=== PATIENT | male | born 1955 | race American Indian/Alaskan Native ===

== ENCOUNTER 2017-06-15 21:41 | Emergency (ER) | payer MEDICAID ==
[2017-06-15 21:50] VITALS: BP 151/106
[2017-06-15] MEDS ORDERED: Pantoprazole 40 MG Vial IVPUSH ONE (21:59)
[2017-06-15] MEDS ORDERED: Ondansetron 4 MG/2 ML SDV IV ONE (21:59)
[2017-06-15] MEDS ORDERED: Lactated Ringers 1,000 ML IV ONE (22:02)
--- NOTE | 2017-06-15 22:35 | EDM.PDOC ---
ED HPI GENERAL MEDICAL PROBLEM - General Chief Complaint: Drug or Alcohol Abuse Stated Complaint: IN BY AMBULANCE Time Seen by Provider: 06/15/17 22:25 Source of Information: Reports: Patient, EMS History Limitations: Reports: No Limitations - History of Present Illness INITIAL COMMENTS - FREE TEXT/NARRATIVE: This 61 yo male patient was brought to the ED by [facility] due to nausea/vomiting. The patient reports he started throwing up blood this afternoon, but has been nauseated and vomiting all day. The patient reports he started drinking alcohol on 06/11/17 and stopped last night. The patient reports he took his medications this morning, but vomited after taking his medications. The patient reports his current symptoms are related to drinking ETOH. The patient reports no history of varicies. Onset: Today Duration: Hour(s):, Constant Location: Reports: Abdomen Quality: Reports: Ache, Dull Severity: Moderate Improves with: Reports: None Worsens with: Reports: None Associated Symptoms: Reports: Cough, Nausea/Vomiting Abdomen Pain Score (Numeric/FACES): 10 - Related Data Allergies Allergy/AdvReac Type Severity Reaction Status Date / Time aspirin Allergy Stomach Verified 06/15/17 21:50 Upset Home Meds: Home Meds Metoprolol Succinate [Toprol XL 100mg] 50 mg PO DAILY 09/04/13 [History] Acetaminophen [Tylenol] 2 tab PO Q8H PRN 12/06/14 [History] Folic Acid 1 mg PO DAILY 12/06/14 [History] Furosemide [Lasix] 40 mg PO DAILY 06/15/17 [History] Pantoprazole Sodium [Protonix] 40 mg PO DAILY 06/15/17 [History] Potassium Chloride [Klor-Con 10] 20 meq PO WITHBREAKFAST 06/15/17 [History] Thiamine HCl [B-1] 100 mg PO DAILY 06/15/17 [History] Past Medical History HEENT History: Reports: None Cardiovascular History: Reports: Hypertension Other Cardiovascular History: Hx of SVT. Dyslipidemia. Respiratory History: Reports: COPD, Sleep Apnea Gastrointestinal History: Reports: Cirrhosis, GERD, PUD Other Gastrointestinal History: alcoholic gastritis Genitourinary History: Reports: Prostate Disorder Musculoskeletal History: Reports: Back Pain, Chronic Neurological History: Reports: None Psychiatric History: Reports: Addiction Other Psychiatric History: Hx of alcoholism. Quit 06/2015 Endocrine/Metabolic History: Reports: None Hematologic History: Reports: None Immunologic History: Reports: None Oncologic (Cancer) History: Reports: None, Prostate Dermatologic History: Reports: None - Infectious Disease History Infectious Disease History: Reports: Chicken Pox - Past Surgical History HEENT Surgical History: Reports: None Male Surgical History: Reports: Circumcision, TURP-Transurethral Resection of Prostate Musculoskeletal Surgical History: Reports: Shoulder Surgery Other Oncologic Surgeries/Procedures: TURP Social & Family History - Tobacco Use Smoking Status *Q: Current Every Day Smoker Years of Tobacco use: 20 Packs/Tins Daily: 0.1 Used Tobacco, but Quit: No Second Hand Smoke Exposure: Yes - Alcohol Use Days Per Week of Alcohol Use: 7 Number of Drinks Per Day: 7 Total Drinks Per Week: 49 - Recreational Drug Use Recreational Drug Use: No Drug Use in Last 12 Months: Yes Recreational Drug Type: Reports: Marijuana/Hashish Recreational Drug Use Frequency: Daily - Living Situation & Occupation Living situation: Reports: Single, with Significant Other Occupation: Unemployed ED ROS GENERAL - Review of Systems Review Of Systems: ROS reveals no pertinent complaints other than HPI. ED EXAM, GENERAL - Physical Exam Exam: See Below Exam Limited By: No Limitations General Appearance: Alert, WD/WN, Moderate Distress Eye Exam: Bilateral Eye: EOMI, Normal Inspection, PERRL Ears: Normal External Exam, Normal Canal, Hearing Grossly Normal, Normal TMs Nose: Normal Inspection, Normal Mucosa, No Blood Throat/Mouth: Normal Inspection, Normal Lips, Normal Teeth, Normal Gums, Normal Oropharynx, Normal Voice, No Airway Compromise Head: Atraumatic, Normocephalic Neck: Normal Inspection, Supple, Non-Tender, Full Range of Motion Respiratory/Chest: No Respiratory Distress, Lungs Clear, Normal Breath Sounds, No Accessory Muscle Use, Chest Non-Tender Cardiovascular: Normal Peripheral Pulses, Regular Rate, Rhythm, No Edema, No Gallop, No JVD, No Murmur, No Rub GI/Abdominal: Guarding, Tender (Male) Exam: Deferred Rectal (Males) Exam: Deferred Back Exam: Normal Inspection Extremities: Normal Inspection, Normal Range of Motion, Non-Tender, Normal Capillary Refill, No Pedal Edema Neurological: Alert, Oriented, CN II-XII Intact, Normal Cognition, Normal Gait, Normal Reflexes, No Motor/Sensory Deficits Psychiatric: Normal Affect, Normal Mood Skin Exam: Warm, Dry, Intact, Normal Color, No Rash Lymphatic: No Adenopathy Course - Vital Signs Last Recorded V/S: Last Vital Signs Temp 36.7 C 06/15/17 21:44 Pulse 104 H 06/15/17 21:44 Resp 18 06/15/17 21:44 BP 151/106 H 06/15/17 21:44 Pulse Ox 100 06/15/17 21:44 - Orders/Labs/Meds Orders: Active Orders 24 hr Category Date Time Status CULTURE STREP A CONFIRMATION [] Stat Lab 06/15/17 23:43 Results STREP SCRN A RAPID W CULT CONF [] Stat Lab 06/15/17 23:43 Results Labs: Laboratory Tests 06/15/17 06/15/17 06/15/17 Range/Units 22:18 22:18 22:18 WBC 11.8 H (5.0-10.0) 10^3/uL RBC 4.87 (4.6-6.2) 10^6/uL Hgb 15.6 (14.0-18.0) g/dL Hct 44.5 (40.0-54.0) % MCV 91.4 D (80-100) fL MCH 32.0 (27.0-34.0) pg MCHC 35.1 H (33.0-35.0) g/dL Plt Count 124 L D (150-450) 10^3/uL Neut % (Auto) 85.2 H (42.2-75.2) % Lymph % (Auto) 8.4 L (20.5-50.1) % [place] % (Auto) 6.1 (2-8) % Eos % (Auto) 0.0 L (1.0-3.0) % Baso % (Auto) 0.3 (0.0-1.0) % Sodium 140 (135-145) mmol/L Potassium 2.9 L (3.6-5.0) mmol/L Chloride 93 L (101-111) mmol/L Carbon Dioxide 22.0 (21.0-31.0) mmol/L Anion Gap 27.9 BUN 4 L (7-18) mg/dL Creatinine 0.9 (0.6-1.3) mg/dL Est Cr Clr Drug Dosing 84.01 mL/min Estimated GFR (MDRD) > 60 BUN/Creatinine Ratio 4.44 Glucose 143 H (74-105) mg/dL Calcium 9.1 (8.4-10.2) mg/dl Magnesium 1.6 L (1.8-2.5) mg/dL Total Bilirubin 2.9 H (0.2-1.0) mg/dL AST 68 H (10-42) IU/L ALT 22 (10-60) IU/L Alkaline Phosphatase 119 (42-121) IU/L Ammonia 26 (11-35) umol/L Total Protein 8.6 H (6.7-8.2) g/dl Albumin 4.2 (3.2-5.5) g/dl Globulin 4.4 Albumin/Globulin Ratio 0.95 Amylase 22 L (28-100) U/L Lipase 25 (22-51) U/L Urine Color (YELLOW) Urine Appearance (CLEAR) Urine pH (5.0-9.0) Ur Specific [place] (1.005-1.030) Urine Protein (NEGATIVE) Urine Glucose (UA) (NEGATIVE) Urine Ketones (NEGATIVE) Urine Occult Blood (NEGATIVE) Urine Nitrite (NEGATIVE) Urine Bilirubin (NEGATIVE) Urine Urobilinogen (0.2-1.0) mg/dL Ur Leukocyte Esterase (NEGATIVE) Urine RBC /HPF Urine WBC (0-5/HPF) /HPF Ur Epithelial Cells /HPF Urine Bacteria (0-FEW/HPF) /HPF Urine Mucus /LPF Urine Opiates Screen (NEGATIVE) Ur Oxycodone Screen (NEGATIVE) Urine Methadone Screen (NEGATIVE) Ur Barbiturates Screen (NEGATIVE) U Tricyclic Antidepress (NEGATIVE) Ur Phencyclidine Scrn (NEGATIVE) Ur Amphetamine Screen (NEGATIVE) U Methamphetamines Scrn (NEGATIVE) Urine MDMA Screen (NEGATIVE) U Benzodiazepines Scrn (NEGATIVE) Urine Cocaine Screen (NEGATIVE) U Marijuana (THC) Screen (NEGATIVE) Ethyl Alcohol 44 mg/dL 06/16/17 06/16/17 Range/Units 01:00 01:00 WBC (5.0-10.0) 10^3/uL RBC (4.6-6.2) 10^6/uL Hgb (14.0-18.0) g/dL Hct (40.0-54.0) % MCV (80-100) fL MCH (27.0-34.0) pg MCHC (33.0-35.0) g/dL Plt Count (150-450) 10^3/uL Neut % (Auto) (42.2-75.2) % Lymph % (Auto) (20.5-50.1) % [place] % (Auto) (2-8) % Eos % (Auto) (1.0-3.0) % Baso % (Auto) (0.0-1.0) % Sodium (135-145) mmol/L Potassium (3.6-5.0) mmol/L Chloride (101-111) mmol/L Carbon Dioxide (21.0-31.0) mmol/L Anion Gap BUN (7-18) mg/dL Creatinine (0.6-1.3) mg/dL Est Cr Clr Drug Dosing mL/min Estimated GFR (MDRD) BUN/Creatinine Ratio Glucose (74-105) mg/dL Calcium (8.4-10.2) mg/dl Magnesium (1.8-2.5) mg/dL Total Bilirubin (0.2-1.0) mg/dL AST (10-42) IU/L ALT (10-60) IU/L Alkaline Phosphatase (42-121) IU/L Ammonia (11-35) umol/L Total Protein (6.7-8.2) g/dl Albumin (3.2-5.5) g/dl Globulin Albumin/Globulin Ratio Amylase (28-100) U/L Lipase (22-51) U/L Urine Color Kim (YELLOW) Urine Appearance Clear (CLEAR) Urine pH 7.5 (5.0-9.0) Ur Specific [place] 1.015 (1.005-1.030) Urine Protein 30 H (NEGATIVE) Urine Glucose (UA) 100 H (NEGATIVE) Urine Ketones 40 H (NEGATIVE) Urine Occult Blood Negative (NEGATIVE) Urine Nitrite Negative (NEGATIVE) Urine Bilirubin Moderate H (NEGATIVE) Urine Urobilinogen >=8.0 H (0.2-1.0) mg/dL Ur Leukocyte Esterase Negative (NEGATIVE) Urine RBC 0-5 /HPF Urine WBC 0-5 (0-5/HPF) /HPF Ur Epithelial Cells Occasional /HPF Urine Bacteria Few (0-FEW/HPF) /HPF Urine Mucus Moderate H /LPF Urine Opiates Screen Negative (NEGATIVE) Ur Oxycodone Screen Negative (NEGATIVE) Urine Methadone Screen Negative (NEGATIVE) Ur Barbiturates Screen Negative (NEGATIVE) U Tricyclic Antidepress Negative (NEGATIVE) Ur Phencyclidine Scrn Negative (NEGATIVE) Ur Amphetamine Screen Negative (NEGATIVE) U Methamphetamines Scrn Negative (NEGATIVE) Urine MDMA Screen Negative (NEGATIVE) U Benzodiazepines Scrn Negative (NEGATIVE) Urine Cocaine Screen Negative (NEGATIVE) U Marijuana (THC) Screen Positive H (NEGATIVE) Ethyl Alcohol mg/dL Meds: Medications Discontinued Medications Generic Name Dose Route Start Last Admin Trade Name Freq PRN Reason Stop Dose Admin Al Hydroxide/Mg Hydroxide 30 ml 06/15/17 23:50 06/15/17 23:54 Gi Cocktail PO 06/15/17 23:51 30 ml ONETIME ONE Administration Lactated Ringer's 1,000 mls @ 999 mls/hr 06/15/17 22:02 06/15/17 22:13 Ringers, Lactated IV 06/15/17 23:02 999 mls/hr .BOLUS ONE Administration Potassium Chloride 10 meq/ 100 mls @ 100 mls/hr 06/15/17 23:08 06/15/17 23:19 Premix IV 06/16/17 00:07 100 mls/hr ONETIME ONE Administration Sodium Chloride 1,000 mls @ 500 mls/hr 06/15/17 23:11 06/15/17 23:19 Normal Saline IV 06/16/17 01:10 500 mls/hr .BOLUS ONE Administration Lorazepam 1 mg 06/16/17 01:20 Ativan IVPUSH 06/16/17 01:21 ONETIME ONE Ondansetron HCl 4 mg 06/15/17 21:59 06/15/17 22:05 Zofran IV 06/15/17 22:00 4 mg ONETIME ONE Administration Pantoprazole Sodium 80 mg 06/15/17 21:59 06/15/17 22:07 Protonix Iv IVPUSH 06/15/17 22:00 80 mg .BOLUS ONE Administration Promethazine HCl 25 mg 06/15/17 23:31 06/15/17 23:39 Phenergan IM 06/15/17 23:32 25 mg ONETIME ONE Administration Departure - Departure Time of Disposition: 01:23 Disposition: Home, Self-Care 01 Condition: Fair Clinical Impression: Gastritis Alcohol withdrawal syndrome Qualifiers: Complication of substance-induced condition: uncomplicated Qualified Code(s): F10.230 - Alcohol dependence with withdrawal, uncomplicated - Discharge Information Instructions: Gastritis, Adult, [id number], Delirium Tremens, [id number] Forms: ED Department Discharge Care Plan Goals: The patient was advised of the examination and lab results during the visit. The patient was given IV fluids, IV potassium, IV Ativan, IV Zofran, and IM Phenergan. The patient was encouraged to avoid alcohol use. The patient was given a script for Zofran (4 mg) #20 to take 1 by mouth every 6 hours as needed for nausea. If the patient has any additional symptoms or concerns, the patient should follow-up with his primary care facility or return to the emergency department. - My Orders Last 24 Hours: My Active Orders 06/15/17 23:43 CULTURE STREP A CONFIRMATION [RM] Stat STREP SCRN A RAPID W CULT CONF [RM] Stat - Assessment/Plan Last 24 Hours: My Active Orders 06/15/17 23:43 CULTURE STREP A CONFIRMATION [RM] Stat STREP SCRN A RAPID W CULT CONF [RM] Stat
[2017-06-15 22:44] LABS: CHLORIDE,CL 93 mmol/L (101-111); SODIUM,NA 140 mmol/L (135-145)
[2017-06-15] MEDS ORDERED: Potassium Chloride 10 MEQ in Premix Bag 1 BAG IV ONE (23:08)
[2017-06-15] MEDS ORDERED: Sodium Chloride 0.9% 1,000 ML IV ONE (23:11)
[2017-06-15] MEDS ORDERED: Promethazine 25 MG/ML SDV IM ONE (23:31)
[2017-06-15] MEDS ORDERED: GI Cocktail Oral Solution 30 ML PO ONE (23:50)
[2017-06-16] MEDS ORDERED: LORazepam 2 MG/ML Syringe IVPUSH ONE (01:20)
== END 2017-06-16 01:42 | disposition home or self-care (01) ==
LOC: DL.ED 21:41
DX: K29.70 Gastritis, unspecified, without bleeding (principal); F10.230 Alcohol dependence with withdrawal, uncomplicated; F17.210 Nicotine dependence, cigarettes, uncomplicated; I10 Essential (primary) hypertension; J44.9 Chronic obstructive pulmonary disease, unspecified; K21.9 Gastro-esophageal reflux disease without esophagitis; Z88.8 Allergy status to other drugs, medicaments and biological substances; Z79.899 Other long term (current) drug therapy; Y90.2 Blood alcohol level of 40-59 mg/100 ml
CPT/HCPCS: 36415; 80053; 80305; 81001; 82140; 82150; 83690; 83735; 85025; 87081; 87430; 96361; 96365; 96372; 96375; 99284; A9270; C9113; G0480; J2060; J2405; J2550; J3480; J7030; J7120

== ENCOUNTER 2017-08-04 04:03 | Emergency (ER) | payer MEDICAID ==
[~2017-08-04 04:03] MED LIST: Ondansetron 4 MG/2 ML SDV IV ONE; Pantoprazole 40 MG Vial IVPUSH ONE
--- NOTE | 2017-08-04 04:37 | EDM.PDOC ---
ED HPI GENERAL MEDICAL PROBLEM - General Chief Complaint: Abdominal Pain Stated Complaint: IN BY AMBULANCE Time Seen by Provider: 08/04/17 04:08 Source of Information: Reports: Patient, EMS History Limitations: Reports: No Limitations - History of Present Illness INITIAL COMMENTS - FREE TEXT/NARRATIVE: ED via [facility] with c/o vomiting and abdominal pain. Onset last night. Patient admits to drinking binge with Whiskey for past 4 days. States prior he had been sober for past 6 months. Onset: Today Quality: Reports: Burning, Sharp Severity: Moderate Context: Reports: Other (ETOH ingestion) Associated Symptoms: Reports: Nausea/Vomiting Abdomen Pain Score (Numeric/FACES): 10 - Related Data Allergies Allergy/AdvReac Type Severity Reaction Status Date / Time aspirin Allergy Stomach Verified 08/04/17 04:10 Upset Home Meds: Home Meds Metoprolol Succinate [Toprol XL 100mg] 50 mg PO DAILY 09/04/13 [History] Acetaminophen [Tylenol] 2 tab PO Q8H PRN 12/06/14 [History] Folic Acid 1 mg PO DAILY 12/06/14 [History] Furosemide [Lasix] 40 mg PO DAILY 06/15/17 [History] Pantoprazole Sodium [Protonix] 40 mg PO DAILY 06/15/17 [History] Potassium Chloride [Klor-Con 10] 20 meq PO WITHBREAKFAST 06/15/17 [History] Thiamine HCl [B-1] 100 mg PO DAILY 06/15/17 [History] Past Medical History HEENT History: Reports: None Cardiovascular History: Reports: Hypertension Other Cardiovascular History: Hx of SVT. Dyslipidemia. Respiratory History: Reports: COPD, Sleep Apnea Gastrointestinal History: Reports: Cirrhosis, GERD, PUD Other Gastrointestinal History: alcoholic gastritis Genitourinary History: Reports: Prostate Disorder Musculoskeletal History: Reports: Back Pain, Chronic Neurological History: Reports: None Psychiatric History: Reports: Addiction Other Psychiatric History: Hx of alcoholism. Quit 06/2015 Endocrine/Metabolic History: Reports: None Hematologic History: Reports: None Immunologic History: Reports: None Oncologic (Cancer) History: Reports: None, Prostate Dermatologic History: Reports: None - Infectious Disease History Infectious Disease History: Reports: Chicken Pox - Past Surgical History HEENT Surgical History: Reports: None Male Surgical History: Reports: Circumcision, TURP-Transurethral Resection of Prostate Musculoskeletal Surgical History: Reports: Shoulder Surgery Other Oncologic Surgeries/Procedures: TURP Social & Family History - Tobacco Use Smoking Status *Q: Current Every Day Smoker Years of Tobacco use: 50 Packs/Tins Daily: 1 Used Tobacco, but Quit: No Second Hand Smoke Exposure: Yes - Caffeine Use Caffeine Use: Reports: Coffee, Soda, Tea - Alcohol Use Days Per Week of Alcohol Use: 7 Number of Drinks Per Day: 7 Total Drinks Per Week: 49 Date of Last Drink: 08/03/17 Time of Last Drink: 19:00 - Recreational Drug Use Recreational Drug Use: No Drug Use in Last 12 Months: Yes Recreational Drug Type: Reports: Marijuana/Hashish Recreational Drug Use Frequency: Daily - Living Situation & Occupation Living situation: Reports: Single, with Significant Other Occupation: Unemployed ED ROS GENERAL - Review of Systems Review Of Systems: See Below Constitutional: Reports: No Symptoms HEENT: Reports: No Symptoms Respiratory: Reports: No Symptoms Cardiovascular: Denies: Chest Pain GI/Abdominal: Reports: Abdominal Pain, Black Stool, Hematemesis, Melena, Nausea , Vomiting : Reports: No Symptoms Musculoskeletal: Reports: No Symptoms Skin: Reports: No Symptoms Neurological: Reports: No Symptoms Psychiatric: Reports: Depression (grief), Other (drinking whiskey) ED EXAM, GI/ABD - Physical Exam Exam: See Below Exam Limited By: No Limitations General Appearance: Alert Eyes: Bilateral: EOMI (sclera injected) Ears: Normal External Exam Nose: Normal Inspection Throat/Mouth: Other (peer dentation, ) Head: Atraumatic, Normocephalic Neck: Normal Inspection Respiratory/Chest: No Respiratory Distress, Normal Breath Sounds Cardiovascular: Normal Peripheral Pulses, Regular Rate, Rhythm GI/Abdominal Exam: Normal Bowel Sounds, Guarding, Tender (generalized, greater epigastric), Other (orange tinged emesis with bloody flecks, gastroccult positive). No: Distended Rectal (Males) Exam: Other. No: Heme + Stool Extremities: Normal Inspection, Normal Range of Motion Neurological: Alert, Oriented, Normal Cognition Psychiatric: Normal Affect Skin Exam: Warm, Dry, Intact EKG INTERPRETATION Rhythm: NSR Course - Vital Signs Last Recorded V/S: Last Vital Signs Temp 100.5 F 08/04/17 07:47 Pulse 109 H 08/04/17 07:47 Resp 18 08/04/17 07:47 BP 119/68 08/04/17 07:47 Pulse Ox 96 08/04/17 07:47 - Orders/Labs/Meds Labs: Laboratory Tests 08/04/17 08/04/17 08/04/17 Range/Units 04:12 04:12 04:12 WBC 15.0 H (5.0-10.0) 10^3/uL RBC 4.92 (4.6-6.2) 10^6/uL Hgb 15.8 (14.0-18.0) g/dL Hct 44.4 (40.0-54.0) % MCV 90.2 (80-100) fL MCH 32.1 (27.0-34.0) pg MCHC 35.6 H (33.0-35.0) g/dL Plt Count 210 D (150-450) 10^3/uL Neut % (Auto) 82.7 H (42.2-75.2) % Lymph % (Auto) 11.7 L (20.5-50.1) % [place] % (Auto) 5.2 (2-8) % Eos % (Auto) 0.0 L (1.0-3.0) % Baso % (Auto) 0.4 (0.0-1.0) % PT 11.6 (9.0-12.0) SEC INR 1.2 (0.9-1.2) Sodium 140 (135-145) mmol/L Potassium 3.5 L (3.6-5.0) mmol/L Chloride 97 L (101-111) mmol/L Carbon Dioxide 20.0 L (21.0-31.0) mmol/L Anion Gap 26.5 BUN 6 L (7-18) mg/dL Creatinine 0.8 (0.6-1.3) mg/dL Est Cr Clr Drug Dosing 90.97 mL/min Estimated GFR (MDRD) > 60 BUN/Creatinine Ratio 7.50 Glucose 138 H (74-105) mg/dL Lactic Acid (0.5-2.2) mmol/L Calcium 9.0 (8.4-10.2) mg/dl Total Bilirubin 1.5 H (0.2-1.0) mg/dL AST 59 H (10-42) IU/L ALT 23 (10-60) IU/L Alkaline Phosphatase 107 (42-121) IU/L Troponin I < 0.02 (0.00-0.02) ng/ml Total Protein 9.0 H (6.7-8.2) g/dl Albumin 4.4 (3.2-5.5) g/dl Globulin 4.6 Albumin/Globulin Ratio 0.96 Amylase 38 (28-100) U/L Lipase 34 (22-51) U/L Urine Color (YELLOW) Urine Appearance (CLEAR) Urine pH (5.0-9.0) Ur Specific [place] (1.005-1.030) Urine Protein (NEGATIVE) Urine Glucose (UA) (NEGATIVE) Urine Ketones (NEGATIVE) Urine Occult Blood (NEGATIVE) Urine Nitrite (NEGATIVE) Urine Bilirubin (NEGATIVE) Urine Urobilinogen (0.2-1.0) mg/dL Ur Leukocyte Esterase (NEGATIVE) Urine RBC /HPF Urine WBC (0-5/HPF) /HPF Ur Epithelial Cells /HPF Urine Bacteria (0-FEW/HPF) /HPF Hyaline Casts /LPF Urine Mucus /LPF Urine Opiates Screen (NEGATIVE) Ur Oxycodone Screen (NEGATIVE) Urine Methadone Screen (NEGATIVE) Ur Barbiturates Screen (NEGATIVE) U Tricyclic Antidepress (NEGATIVE) Ur Phencyclidine Scrn (NEGATIVE) Ur Amphetamine Screen (NEGATIVE) U Methamphetamines Scrn (NEGATIVE) Urine MDMA Screen (NEGATIVE) U Benzodiazepines Scrn (NEGATIVE) Urine Cocaine Screen (NEGATIVE) U Marijuana (THC) Screen (NEGATIVE) Ethyl Alcohol 168 mg/dL 08/04/17 08/04/17 08/04/17 Range/Units 04:12 05:12 05:12 WBC (5.0-10.0) 10^3/uL RBC (4.6-6.2) 10^6/uL Hgb (14.0-18.0) g/dL Hct (40.0-54.0) % MCV (80-100) fL MCH (27.0-34.0) pg MCHC (33.0-35.0) g/dL Plt Count (150-450) 10^3/uL Neut % (Auto) (42.2-75.2) % Lymph % (Auto) (20.5-50.1) % [place] % (Auto) (2-8) % Eos % (Auto) (1.0-3.0) % Baso % (Auto) (0.0-1.0) % PT (9.0-12.0) SEC INR (0.9-1.2) Sodium (135-145) mmol/L Potassium (3.6-5.0) mmol/L Chloride (101-111) mmol/L Carbon Dioxide (21.0-31.0) mmol/L Anion Gap BUN (7-18) mg/dL Creatinine (0.6-1.3) mg/dL Est Cr Clr Drug Dosing mL/min Estimated GFR (MDRD) BUN/Creatinine Ratio Glucose (74-105) mg/dL Lactic Acid 7.4 H (0.5-2.2) mmol/L Calcium (8.4-10.2) mg/dl Total Bilirubin (0.2-1.0) mg/dL AST (10-42) IU/L ALT (10-60) IU/L Alkaline Phosphatase (42-121) IU/L Troponin I (0.00-0.02) ng/ml Total Protein (6.7-8.2) g/dl Albumin (3.2-5.5) g/dl Globulin Albumin/Globulin Ratio Amylase (28-100) U/L Lipase (22-51) U/L Urine Color Dark yellow (YELLOW) Urine Appearance Clear (CLEAR) Urine pH 6.0 (5.0-9.0) Ur Specific [place] 1.010 (1.005-1.030) Urine Protein 30 H (NEGATIVE) Urine Glucose (UA) Negative (NEGATIVE) Urine Ketones Negative (NEGATIVE) Urine Occult Blood Negative (NEGATIVE) Urine Nitrite Negative (NEGATIVE) Urine Bilirubin Negative (NEGATIVE) Urine Urobilinogen 1.0 (0.2-1.0) mg/dL Ur Leukocyte Esterase Negative (NEGATIVE) Urine RBC 0-5 /HPF Urine WBC 0-5 (0-5/HPF) /HPF Ur Epithelial Cells Few /HPF Urine Bacteria Few (0-FEW/HPF) /HPF Hyaline Casts Few H /LPF Urine Mucus Few H /LPF Urine Opiates Screen Negative (NEGATIVE) Ur Oxycodone Screen Negative (NEGATIVE) Urine Methadone Screen Negative (NEGATIVE) Ur Barbiturates Screen Negative (NEGATIVE) U Tricyclic Antidepress Negative (NEGATIVE) Ur Phencyclidine Scrn Negative (NEGATIVE) Ur Amphetamine Screen Negative (NEGATIVE) U Methamphetamines Scrn Negative (NEGATIVE) Urine MDMA Screen Negative (NEGATIVE) U Benzodiazepines Scrn Negative (NEGATIVE) Urine Cocaine Screen Negative (NEGATIVE) U Marijuana (THC) Screen Positive H (NEGATIVE) Ethyl Alcohol mg/dL Meds: Medications Discontinued Medications Generic Name Dose Route Start Last Admin Trade Name Bill PRN Reason Stop Dose Admin Famotidine 20 mg 08/04/17 07:33 08/04/17 07:43 Pepcid IVPUSH 08/04/17 07:34 20 mg ONETIME ONE Administration Multivitamins/Minerals 10 ml/ 1,011 mls @ 999 mls/hr 08/04/17 04:55 08/04/17 05:05 Thiamine HCl 100 mg/ Lactated IV 08/04/17 05:55 999 mls/hr Ringer's ONETIME ONE Administration Iopamidol 75 ml 08/04/17 06:05 08/04/17 06:34 Isovue-300 (61%) IVPUSH 08/04/17 06:06 75 ml ONETIME ONE Administration Lorazepam 0.5 mg 08/04/17 07:32 08/04/17 07:37 Ativan IVPUSH 08/04/17 07:33 0.5 mg ONETIME ONE Administration Metoclopramide HCl 10 mg 08/04/17 06:14 08/04/17 06:17 Reglan IVPUSH 08/04/17 06:15 10 mg ONETIME ONE Administration Ondansetron HCl 4 mg 08/04/17 04:03 08/04/17 04:15 Zofran IV 08/04/17 04:04 4 mg ONETIME ONE Administration Ondansetron HCl 4 mg 08/04/17 07:32 08/04/17 07:37 Zofran IV 08/04/17 07:33 4 mg ONETIME ONE Administration Pantoprazole Sodium 40 mg 08/04/17 04:03 08/04/17 04:17 Protonix Iv IVPUSH 08/04/17 04:04 40 mg ONETIME ONE Administration - Radiology Interpretation Free Text/Narrative:: CXR normal - Re-Assessments/Exams Free Text/Narrative Re-Assessment/Exam: 08/04/17 07:[address] Díaz, recommend tx to [facility] as EGD likely indicated. Patient continues intermittent periods of vomiting and dry heaves. Additional orders for nausea control. Tx via [facility] with [facility] accepting of patient. 08/04/17 07:40 Departure - Departure Time of Disposition: 08:00 Disposition: DC/Tfer to Acute Hospital 02 Condition: Fair Clinical Impression: Alcohol abuse Alcoholic gastritis with bleeding Qualifiers: Chronicity: acute Qualified Code(s): K29.21 - Alcoholic gastritis with bleeding - Discharge Information Referrals: Dougie Frey [Ordering Only Provider] - Forms: ED Department Discharge
[2017-08-04 04:43] LABS: CHLORIDE,CL 97 mmol/L (101-111); SODIUM,NA 140 mmol/L (135-145)
[2017-08-04] MEDS ORDERED: MVI, Adult with Vitamin K 10 ML, Thiamine 100 MG in Lactated Ringers 1,000 ML IV ONE ×3 (04:55)
[2017-08-04] MEDS ORDERED: Iopamidol 612 MG/ML 75 ML Bottle IVPUSH ONE (06:05)
[2017-08-04] MEDS ORDERED: Metoclopramide 10 MG/2 ML SDV IVPUSH ONE (06:14)
[2017-08-04] MEDS ORDERED: LORazepam 2 MG/ML Syringe IVPUSH ONE (07:32)
[2017-08-04] MEDS ORDERED: Ondansetron 4 MG/2 ML SDV IV ONE (07:32)
[2017-08-04] MEDS ORDERED: Famotidine 20 MG/2 ML SDV IVPUSH ONE (07:33)
[2017-08-04 07:48] VITALS: BP 119/68
--- NOTE | 2017-08-04 10:53 | EKG ---
08/04/2017 - DENNIS MURPHY - TIME: 4:23 a.m. EKG shows normal sinus rhythm. Multiple PVCs. [facility] /[id number]
== END 2017-08-04 08:08 ==
LOC: DL.ED 04:03
DX: K29.21 Alcoholic gastritis with bleeding (principal); Z88.6 Allergy status to analgesic agent; I10 Essential (primary) hypertension; F17.210 Nicotine dependence, cigarettes, uncomplicated; Z79.899 Other long term (current) drug therapy
CPT/HCPCS: 36415; 71010; 74177; 80053; 80305; 81001; 82150; 82271; 82272; 83605; 83690; 84484; 85025; 85610; 96365; 96375; 96376; 99285; C9113; G0480; J2060; J2405; J2765; J3411; J7120; Q9967; S0028

== ENCOUNTER 2017-08-14 08:45 | Emergency (ER) | payer MEDICAID ==
[~2017-08-14 08:45] MED LIST changes: -Pantoprazole 40 MG Vial IVPUSH ONE; +Sodium Chloride 0.9% 10 ML Syringe FLUSH PRN
[2017-08-14] MEDS ORDERED: MVI, Adult with Vitamin K 10 ML, Folic Acid 1 MG, Thiamine 100 MG in Lactated Ringers 1... IV ONE ×4 (08:58)
[2017-08-14] MEDS ORDERED: Pantoprazole 40 MG Vial IVPUSH ONE (09:13)
[2017-08-14 09:20] LABS: CHLORIDE,CL 99 mmol/L (101-111); SODIUM,NA 137 mmol/L (135-145)
--- NOTE | 2017-08-14 09:23 | EDM.PDOC ---
ED HPI GENERAL MEDICAL PROBLEM - General Chief Complaint: Abdominal Pain Stated Complaint: IN BY [facility] Time Seen by Provider: 08/14/17 08:50 Source of Information: Reports: Patient, EMS, EMS Notes Reviewed, Family, RN, RN Notes Reviewed History Limitations: Reports: No Limitations - History of Present Illness INITIAL COMMENTS - FREE TEXT/NARRATIVE: Pt presents to the ER per [facility] with c/o nausea/vomiting, and abdominal pain. He states he was recently at [facility] as inpt for acute gastritis. He states he began drinking alcohol again the day he was discharged from the hospital. He states his last drink was last evening, which is also when the vomiting began. He states it has been brown/coffee grounds. He rates his abdominal pain a 10/10, diffuse. Pt admits to fever, chills, nausea, vomiting, chest pain, SOB. Onset: Gradual Onset Date: 08/13/17 Location: Reports: Abdomen Quality: Reports: Burning, Sharp Severity: Severe Improves with: Reports: None Worsens with: Reports: None Associated Symptoms: Reports: Chest Pain, Fever/Chills, Nausea/Vomiting, Shortness of Breath Abdominal Pain Score (Numeric/FACES): 10 - Related Data Allergies Allergy/AdvReac Type Severity Reaction Status Date / Time aspirin Allergy Stomach Verified 08/14/17 08:54 Upset Home Meds: Home Meds Metoprolol Succinate [Toprol XL 100mg] 50 mg PO DAILY 09/04/13 [History] Acetaminophen [Tylenol] 2 tab PO Q8H PRN 12/06/14 [History] Folic Acid 1 mg PO DAILY 12/06/14 [History] Furosemide [Lasix] 40 mg PO DAILY 06/15/17 [History] Pantoprazole Sodium [Protonix] 40 mg PO DAILY 06/15/17 [History] Potassium Chloride [Klor-Con 10] 20 meq PO WITHBREAKFAST 06/15/17 [History] Thiamine HCl [B-1] 100 mg PO DAILY 06/15/17 [History] Past Medical History HEENT History: Reports: None Cardiovascular History: Reports: Hypertension, [place] Other Cardiovascular History: Hx of SVT. Dyslipidemia. Respiratory History: Reports: COPD, Sleep Apnea Gastrointestinal History: Reports: Cirrhosis, GERD, PUD Other Gastrointestinal History: alcoholic gastritis Genitourinary History: Reports: Prostate Disorder Musculoskeletal History: Reports: Back Pain, Chronic Neurological History: Reports: None Psychiatric History: Reports: Addiction Other Psychiatric History: Hx of alcoholism. Quit 06/2015 Endocrine/Metabolic History: Reports: None, Diabetes, Type II Hematologic History: Reports: None Immunologic History: Reports: None Oncologic (Cancer) History: Reports: None, Prostate Dermatologic History: Reports: None - Infectious Disease History Infectious Disease History: Reports: Chicken Pox - Past Surgical History HEENT Surgical History: Reports: None Male Surgical History: Reports: Circumcision, TURP-Transurethral Resection of Prostate Musculoskeletal Surgical History: Reports: Shoulder Surgery Other Oncologic Surgeries/Procedures: TURP Social & Family History - Family History Family Medical History: Noncontributory - Tobacco Use Smoking Status *Q: Former Smoker Years of Tobacco use: 50 Packs/Tins Daily: 1 Used Tobacco, but Quit: Yes Month Tobacco Last Used: Dec Second Hand Smoke Exposure: Yes - Caffeine Use Caffeine Use: Reports: Coffee - Alcohol Use Days Per Week of Alcohol Use: 7 Number of Drinks Per Day: 7 Total Drinks Per Week: 49 Date of Last Drink: 08/13/17 Time of Last Drink: 21:00 - Recreational Drug Use Recreational Drug Use: No Drug Use in Last 12 Months: Yes Recreational Drug Type: Reports: Marijuana/Hashish Recreational Drug Use Frequency: Daily - Living Situation & Occupation Living situation: Reports: Single, with Significant Other Occupation: Unemployed ED ROS GENERAL - Review of Systems Review Of Systems: ROS reveals no pertinent complaints other than HPI. ED EXAM, GI/ABD - Physical Exam Exam: See Below Exam Limited By: No Limitations General Appearance: Alert, WD/WN, Moderate Distress (wretching) Eyes: Bilateral: EOMI Ears: Normal External Exam, Hearing Grossly Normal Nose: Normal Inspection Throat/Mouth: Normal Voice, No Airway Compromise Head: Atraumatic, Normocephalic Neck: Normal Inspection, Supple, Non-Tender, Full Range of Motion Respiratory/Chest: No Respiratory Distress, Lungs Clear, Normal Breath Sounds, No Accessory Muscle Use, Chest Non-Tender Cardiovascular: Normal Peripheral Pulses, Regular Rate, Rhythm, No Gallop, No JVD, No Murmur, No Rub GI/Abdominal Exam: Normal Bowel Sounds, Soft, No Organomegaly, No Distention, No Abnormal Bruit, Tender (Male) Exam: Deferred Rectal (Males) Exam: Deferred Back Exam: Normal Inspection Extremities: Normal Inspection, Normal Range of Motion, Non-Tender, No Pedal Edema, Normal Capillary Refill Neurological: Alert, Oriented, Normal Cognition, No Motor/Sensory Deficits Psychiatric: Normal Affect, Normal Mood Skin Exam: Warm, Dry, Intact, Normal Color, No Rash Lymphatic: No Adenopathy EKG INTERPRETATION EKG Date: 08/14/17 Time: 09:13 Rhythm: NSR Rate (Beats/Min): 95 [place]: Normal P-Wave: Present QRS: Normal ST-T: Normal QT: Prolonged Comparison: No Change EKG Interpretation Comments: No PVC's noted on this EKG Course - Vital Signs Last Recorded V/S: Last Vital Signs Temp 98.8 F 08/14/17 09:59 Pulse 87 08/14/17 09:59 Resp 14 08/14/17 09:59 BP 116/52 L 08/14/17 09:59 Pulse Ox 100 08/14/17 09:59 - Orders/Labs/Meds Orders: Active Orders 24 hr Category Date Time Status EKG Documentation Completion [RC] STAT Care 08/14/17 09:00 Active Peripheral IV Care [RC] . DIRECTED Care 08/14/17 08:44 Active CULTURE BLOOD [BC] Stat Lab 08/14/17 09:01 Ordered CULTURE BLOOD [BC] Stat Lab 08/14/17 09:24 Received Octreotide [SandoSTATIN] 500 mcg Med 08/14/17 10:00 Ordered Sodium Chloride 0.9% [Normal Saline] 250 ml IV ASDIRECTED Pantoprazole [ProTONIX IV] 40 mg Med 08/14/17 09:30 Active Sodium Chloride 0.9% [Normal Saline] 100 ml IV .CONTINUOS Sodium Chloride 0.9% [Normal Saline] 1,000 ml Med 08/14/17 09:55 Ordered IV .BOLUS Sodium Chloride 0.9% [Saline Flush] Med 08/14/17 08:43 Active 10 ml FLUSH ASDIRECTED PRN Blood Culture x2 Reflex Set [OM.PC] Stat Oth 08/14/17 09:01 Ordered Peripheral IV Insertion Adult [OM.PC] Stat Oth 08/14/17 08:43 Ordered Medication Orders Pantoprazole Sodium 40 mg/ (Sodium Chloride) 100 mls @ 20 mls/hr IV .CONTINUOS NILSON Last Admin: 08/14/17 09:24 Dose: 20 mls/hr Octreotide Acetate 500 mcg/ (Sodium Chloride) 255 mls @ 12.5 mls/hr IV ASDIRECTED NILSON Sodium Chloride (Normal Saline) 1,000 mls @ 999 mls/hr IV .BOLUS ONE Stop: 08/14/17 10:55 Sodium Chloride (Saline Flush) 10 ml FLUSH ASDIRECTED PRN PRN Reason: Keep Vein Open Last Admin: 08/14/17 08:58 Dose: 10 ml Labs: Laboratory Tests 08/14/17 08/14/17 08/14/17 Range/Units 08:47 08:47 08:47 WBC 9.6 (5.0-10.0) 10^3/uL RBC 4.80 (4.6-6.2) 10^6/uL Hgb 15.4 (14.0-18.0) g/dL Hct 43.3 (40.0-54.0) % MCV 90.2 (80-100) fL MCH 32.1 (27.0-34.0) pg MCHC 35.6 H (33.0-35.0) g/dL Plt Count 197 (150-450) 10^3/uL Neut % (Auto) 70.5 (42.2-75.2) % Lymph % (Auto) 19.7 L (20.5-50.1) % [place] % (Auto) 8.5 H (2-8) % Eos % (Auto) 0.4 L (1.0-3.0) % Baso % (Auto) 0.9 (0.0-1.0) % Sodium 137 (135-145) mmol/L Potassium 3.3 L (3.6-5.0) mmol/L Chloride 99 L (101-111) mmol/L Carbon Dioxide 15.0 L (21.0-31.0) mmol/L Anion Gap 26.3 BUN 5 L (7-18) mg/dL Creatinine 0.7 (0.6-1.3) mg/dL Est Cr Clr Drug Dosing 97.13 mL/min Estimated GFR (MDRD) > 60 BUN/Creatinine Ratio 7.14 Glucose 113 H (74-105) mg/dL Lactic Acid (0.5-2.2) mmol/L Calcium 9.0 (8.4-10.2) mg/dl Magnesium 1.8 (1.8-2.5) mg/dL Total Bilirubin 1.9 H (0.2-1.0) mg/dL AST 60 H (10-42) IU/L ALT 25 (10-60) IU/L Alkaline Phosphatase 99 (42-121) IU/L Troponin I < 0.02 (0.00-0.02) ng/ml Total Protein 8.4 H (6.7-8.2) g/dl Albumin 4.2 (3.2-5.5) g/dl Globulin 4.2 Albumin/Globulin Ratio 1.00 Amylase (28-100) U/L Lipase (22-51) U/L Urine Color (YELLOW) Urine Appearance (CLEAR) Urine pH (5.0-9.0) Ur Specific [place] (1.005-1.030) Urine Protein (NEGATIVE) Urine Glucose (UA) (NEGATIVE) Urine Ketones (NEGATIVE) Urine Occult Blood (NEGATIVE) Urine Nitrite (NEGATIVE) Urine Bilirubin (NEGATIVE) Urine Urobilinogen (0.2-1.0) mg/dL Ur Leukocyte Esterase (NEGATIVE) Urine RBC /HPF Urine WBC (0-5/HPF) /HPF Ur Epithelial Cells /HPF Urine Bacteria (0-FEW/HPF) /HPF Urine Mucus /LPF Urine Opiates Screen (NEGATIVE) Ur Oxycodone Screen (NEGATIVE) Urine Methadone Screen (NEGATIVE) Ur Barbiturates Screen (NEGATIVE) U Tricyclic Antidepress (NEGATIVE) Ur Phencyclidine Scrn (NEGATIVE) Ur Amphetamine Screen (NEGATIVE) U Methamphetamines Scrn (NEGATIVE) Urine MDMA Screen (NEGATIVE) U Benzodiazepines Scrn (NEGATIVE) Urine Cocaine Screen (NEGATIVE) U Marijuana (THC) Screen (NEGATIVE) Ethyl Alcohol 68 mg/dL 08/14/17 08/14/17 08/14/17 Range/Units 08:47 09:24 09:29 WBC (5.0-10.0) 10^3/uL RBC (4.6-6.2) 10^6/uL Hgb (14.0-18.0) g/dL Hct (40.0-54.0) % MCV (80-100) fL MCH (27.0-34.0) pg MCHC (33.0-35.0) g/dL Plt Count (150-450) 10^3/uL Neut % (Auto) (42.2-75.2) % Lymph % (Auto) (20.5-50.1) % [place] % (Auto) (2-8) % Eos % (Auto) (1.0-3.0) % Baso % (Auto) (0.0-1.0) % Sodium (135-145) mmol/L Potassium (3.6-5.0) mmol/L Chloride (101-111) mmol/L Carbon Dioxide (21.0-31.0) mmol/L Anion Gap BUN (7-18) mg/dL Creatinine (0.6-1.3) mg/dL Est Cr Clr Drug Dosing mL/min Estimated GFR (MDRD) BUN/Creatinine Ratio Glucose (74-105) mg/dL Lactic Acid 6.2 H (0.5-2.2) mmol/L Calcium (8.4-10.2) mg/dl Magnesium (1.8-2.5) mg/dL Total Bilirubin (0.2-1.0) mg/dL AST (10-42) IU/L ALT (10-60) IU/L Alkaline Phosphatase (42-121) IU/L Troponin I (0.00-0.02) ng/ml Total Protein (6.7-8.2) g/dl Albumin (3.2-5.5) g/dl Globulin Albumin/Globulin Ratio Amylase 27 L (28-100) U/L Lipase 32 (22-51) U/L Urine Color [place] (YELLOW) Urine Appearance Clear (CLEAR) Urine pH 6.5 (5.0-9.0) Ur Specific [place] 1.025 (1.005-1.030) Urine Protein 100 H (NEGATIVE) Urine Glucose (UA) 100 H (NEGATIVE) Urine Ketones 15 H (NEGATIVE) Urine Occult Blood Negative (NEGATIVE) Urine Nitrite Negative (NEGATIVE) Urine Bilirubin Moderate H (NEGATIVE) Urine Urobilinogen >=8.0 H (0.2-1.0) mg/dL Ur Leukocyte Esterase Negative (NEGATIVE) Urine RBC 0-5 /HPF Urine WBC Not seen (0-5/HPF) /HPF Ur Epithelial Cells Rare /HPF Urine Bacteria Not seen (0-FEW/HPF) /HPF Urine Mucus Moderate H /LPF Urine Opiates Screen (NEGATIVE) Ur Oxycodone Screen (NEGATIVE) Urine Methadone Screen (NEGATIVE) Ur Barbiturates Screen (NEGATIVE) U Tricyclic Antidepress (NEGATIVE) Ur Phencyclidine Scrn (NEGATIVE) Ur Amphetamine Screen (NEGATIVE) U Methamphetamines Scrn (NEGATIVE) Urine MDMA Screen (NEGATIVE) U Benzodiazepines Scrn (NEGATIVE) Urine Cocaine Screen (NEGATIVE) U Marijuana (THC) Screen (NEGATIVE) Ethyl Alcohol mg/dL 08/14/17 Range/Units 09:29 WBC (5.0-10.0) 10^3/uL RBC (4.6-6.2) 10^6/uL Hgb (14.0-18.0) g/dL Hct (40.0-54.0) % MCV (80-100) fL MCH (27.0-34.0) pg MCHC (33.0-35.0) g/dL Plt Count (150-450) 10^3/uL Neut % (Auto) (42.2-75.2) % Lymph % (Auto) (20.5-50.1) % [place] % (Auto) (2-8) % Eos % (Auto) (1.0-3.0) % Baso % (Auto) (0.0-1.0) % Sodium (135-145) mmol/L Potassium (3.6-5.0) mmol/L Chloride (101-111) mmol/L Carbon Dioxide (21.0-31.0) mmol/L Anion Gap BUN (7-18) mg/dL Creatinine (0.6-1.3) mg/dL Est Cr Clr Drug Dosing mL/min Estimated GFR (MDRD) BUN/Creatinine Ratio Glucose (74-105) mg/dL Lactic Acid (0.5-2.2) mmol/L Calcium (8.4-10.2) mg/dl Magnesium (1.8-2.5) mg/dL Total Bilirubin (0.2-1.0) mg/dL AST (10-42) IU/L ALT (10-60) IU/L Alkaline Phosphatase (42-121) IU/L Troponin I (0.00-0.02) ng/ml Total Protein (6.7-8.2) g/dl Albumin (3.2-5.5) g/dl Globulin Albumin/Globulin Ratio Amylase (28-100) U/L Lipase (22-51) U/L Urine Color (YELLOW) Urine Appearance (CLEAR) Urine pH (5.0-9.0) Ur Specific [place] (1.005-1.030) Urine Protein (NEGATIVE) Urine Glucose (UA) (NEGATIVE) Urine Ketones (NEGATIVE) Urine Occult Blood (NEGATIVE) Urine Nitrite (NEGATIVE) Urine Bilirubin (NEGATIVE) Urine Urobilinogen (0.2-1.0) mg/dL Ur Leukocyte Esterase (NEGATIVE) Urine RBC /HPF Urine WBC (0-5/HPF) /HPF Ur Epithelial Cells /HPF Urine Bacteria (0-FEW/HPF) /HPF Urine Mucus /LPF Urine Opiates Screen Negative (NEGATIVE) Ur Oxycodone Screen Negative (NEGATIVE) Urine Methadone Screen Negative (NEGATIVE) Ur Barbiturates Screen Negative (NEGATIVE) U Tricyclic Antidepress Negative (NEGATIVE) Ur Phencyclidine Scrn Negative (NEGATIVE) Ur Amphetamine Screen Negative (NEGATIVE) U Methamphetamines Scrn Negative (NEGATIVE) Urine MDMA Screen Negative (NEGATIVE) U Benzodiazepines Scrn Negative (NEGATIVE) Urine Cocaine Screen Negative (NEGATIVE) U Marijuana (THC) Screen Positive H (NEGATIVE) Ethyl Alcohol mg/dL Meds: Medications Generic Name Dose Route Start Last Admin Trade Name Freq PRN Reason Stop Dose Admin Pantoprazole Sodium 40 mg/ 100 mls @ 20 mls/hr 08/14/17 09:30 08/14/17 09:24 Sodium Chloride IV 20 mls/hr .CONTINUOS NILSON Administration Octreotide Acetate 500 mcg/ 255 mls @ 12.5 mls/hr 08/14/17 10:00 Sodium Chloride IV ASDIRECTED NILSON Sodium Chloride 1,000 mls @ 999 mls/hr 08/14/17 09:55 Normal Saline IV 08/14/17 10:55 .BOLUS ONE Sodium Chloride 10 ml 08/14/17 08:43 08/14/17 08:58 Saline Flush FLUSH 10 ml ASDIRECTED PRN Administration Keep Vein Open Discontinued Medications Generic Name Dose Route Start Last Admin Trade Name Freq PRN Reason Stop Dose Admin Multivitamins/Minerals 10 ml/ 1,011.2 mls @ 999 mls/hr 08/14/17 08:58 09:14 Folic Acid 1 mg/ Thiamine HCl IV 08/14/17 09:58 999 mls/hr 100 mg/ Lactated Ringer's ONETIME ONE Administration Octreotide Acetate 50 mcg 08/14/17 09:55 Sandostatin IVPUSH 08/14/17 09:56 ONETIME ONE Ondansetron HCl 4 mg 08/14/17 08:44 08/14/17 08:56 Zofran IV 08/14/17 08:45 4 mg ONETIME ONE Administration Pantoprazole Sodium 80 mg 08/14/17 09:13 08/14/17 09:19 Protonix Iv IVPUSH 08/14/17 09:14 80 mg .BOLUS ONE Administration Departure - Departure Time of Disposition: 09:58 Disposition: DC/Tfer to [facility] Condition: Fair, Serious Clinical Impression: Alcohol abuse, Acute upper GI bleed Abdominal pain Qualifiers: Abdominal location: generalized Qualified Code(s): R10.84 - Generalized abdominal pain Alcoholic gastritis with bleeding Qualifiers: Chronicity: acute Qualified Code(s): K29.21 - Alcoholic gastritis with bleeding - Discharge Information Forms: ED Department Discharge, Interfacility Transfer EMTALA - My Orders Last 24 Hours: My Active Orders 08/14/17 08:43 Sodium Chloride 0.9% [Saline Flush] 10 ml FLUSH ASDIRECTED PRN Peripheral IV Insertion Adult [OM.PC] Stat 08/14/17 08:44 Peripheral IV Care [RC] . DIRECTED 08/14/17 09:00 EKG Documentation Completion [RC] STAT 08/14/17 09:01 CULTURE BLOOD [BC] Stat Blood Culture x2 Reflex Set [OM.PC] Stat 08/14/17 09:24 CULTURE BLOOD [BC] Stat 08/14/17 09:30 Pantoprazole [ProTONIX IV] 40 mg Sodium Chloride 0.9% [Normal Saline] 100 ml IV .CONTINUOS 08/14/17 09:55 Sodium Chloride 0.9% [Normal Saline] 1,000 ml IV .BOLUS 08/14/17 10:00 Octreotide [SandoSTATIN] 500 mcg Sodium Chloride 0.9% [Normal Saline] 250 ml IV ASDIRECTED - Assessment/Plan Last 24 Hours: My Active Orders 08/14/17 08:43 Sodium Chloride 0.9% [Saline Flush] 10 ml FLUSH ASDIRECTED PRN Peripheral IV Insertion Adult [OM.PC] Stat 08/14/17 08:44 Peripheral IV Care [RC] . DIRECTED 08/14/17 09:00 EKG Documentation Completion [RC] STAT 08/14/17 09:01 CULTURE BLOOD [BC] Stat Blood Culture x2 Reflex Set [OM.PC] Stat 08/14/17 09:24 CULTURE BLOOD [BC] Stat 08/14/17 09:30 Pantoprazole [ProTONIX IV] 40 mg Sodium Chloride 0.9% [Normal Saline] 100 ml IV .CONTINUOS 08/14/17 09:55 Sodium Chloride 0.9% [Normal Saline] 1,000 ml IV .BOLUS 08/14/17 10:00 Octreotide [SandoSTATIN] 500 mcg Sodium Chloride 0.9% [Normal Saline] 250 ml IV ASDIRECTED
[2017-08-14] MEDS ORDERED: Pantoprazole 40 MG in Sodium Chloride 0.9% 100 ML IV SCH (09:30)
[2017-08-14] MEDS ORDERED: Octreotide 100 MCG/ML SDV IVPUSH ONE (09:55)
[2017-08-14] MEDS ORDERED: Sodium Chloride 0.9% 1,000 ML IV ONE (09:55)
[2017-08-14 10:00] VITALS: BP 116/52
[2017-08-14] MEDS ORDERED: Octreotide 500 MCG in Sodium Chloride 0.9% 250 ML IV SCH (10:00)
[2017-08-14] MEDS ORDERED: Metoclopramide 10 MG/2 ML SDV IVPUSH ONE (10:17)
--- NOTE | 2017-08-17 12:21 | EKG ---
08/14/2017 - DENNIS MURPHY - This 12-lead EKG shows normal sinus rhythm with prolonged QT interval, TX interval of 152, QTc of 503. No significant ST elevation or ST depression noted on this 12-lead EKG. Nonspecific ST-T wave changes noted on lead II and aVR. [facility] /[id number]
== END 2017-08-14 10:37 ==
LOC: DL.ED 08:45
DX: K29.21 Alcoholic gastritis with bleeding (principal); F10.10 Alcohol abuse, uncomplicated; I10 Essential (primary) hypertension; E11.9 Type 2 diabetes mellitus without complications; E78.5 Hyperlipidemia, unspecified; Z88.6 Allergy status to analgesic agent; Z79.899 Other long term (current) drug therapy; Z87.891 Personal history of nicotine dependence
CPT/HCPCS: 36415; 80053; 80305; 81001; 82150; 82271; 83605; 83690; 83735; 84484; 85025; 87040; 93005; 96365; 96375; 96376; 99285; C9113; G0480; J2354; J2405; J2765; J3411; J7030; J7050; J7120; J3490

== ENCOUNTER 2017-12-11 12:48 | Emergency (ER) | payer MEDICAID, OTHER ==
[2017-12-11] MEDS ORDERED: Sodium Chloride 0.9% 10 ML Syringe FLUSH PRN (12:56)
[2017-12-11] MEDS ORDERED: MVI, Adult with Vitamin K 10 ML, Thiamine 100 MG, Folic Acid 1 MG in Lactated Ringers 1... IV ONE ×4 (12:56)
[2017-12-11] MEDS ORDERED: Ondansetron 4 MG/2 ML SDV IV ONE (12:56)
[2017-12-11] MEDS ORDERED: Octreotide 100 MCG/ML SDV IVPUSH ONE (12:56)
[2017-12-11] MEDS ORDERED: Pantoprazole 40 MG Vial IVPUSH ONE (12:57)
[2017-12-11] MEDS ORDERED: Pantoprazole 40 MG in Sodium Chloride 0.9% 100 ML IV SCH (12:58)
[2017-12-11 12:59] VITALS: BP 141/77
[2017-12-11] MEDS ORDERED: LORazepam 2 MG/ML Syringe IVPUSH ONE (13:00)
[2017-12-11] MEDS ORDERED: Octreotide 500 MCG in Sodium Chloride 0.9% 250 ML IV SCH (13:00)
[2017-12-11 13:37] LABS: CHLORIDE,CL 101 mmol/L (101-111); SODIUM,NA 136 mmol/L (135-145)
[2017-12-11] MEDS ORDERED: Potassium Chloride 10 MEQ in Premix Bag 1 BAG IV ONE (13:40)
--- NOTE | 2017-12-11 14:23 | EDM.PDOC ---
Scribed by Marisela Ren 12/11/17 [id number] for Kameron Haque MD ED HPI GENERAL MEDICAL PROBLEM - General Chief Complaint: Gastrointestinal Problem Stated Complaint: AMBULANCE Time Seen by Provider: 12/11/17 12:51 Source of Information: Reports: Patient, EMS, EMS Notes Reviewed, RN, RN Notes Reviewed - History of Present Illness INITIAL COMMENTS - FREE TEXT/NARRATIVE: Patient arrives from home by ambulance with complaint of onset of alcohol withdrawal during the night and waking this morning with nausea and vomiting with epigastric abdominal pain and burning. Patient states he vomited a few times, then had a large bloody emesis followed by a black stool bowel movement. 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 Patient had been sober but relapsed on 12/05/17 with heavy daily hard alcohol drinking until yesterday. Onset: Gradual Location: Reports: Abdomen Quality: Reports: Ache Severity: Severe Improves with: Reports: None Worsens with: Reports: None Associated Symptoms: Reports: No Other Symptoms Abdominal Pain Score (Numeric/FACES): 10 - Related Data Allergies Allergy/AdvReac Type Severity Reaction Status Date / Time aspirin Allergy Stomach Verified 12/11/17 13:08 Upset Home Meds: Home Meds Metoprolol Succinate [Toprol XL 100mg] 50 mg PO DAILY 09/04/13 [History] Acetaminophen [Tylenol] 2 tab PO Q8H PRN 12/06/14 [History] Folic Acid 1 mg PO DAILY 12/06/14 [History] Furosemide [Lasix] 40 mg PO DAILY 06/15/17 [History] Pantoprazole Sodium [Protonix] 40 mg PO DAILY 06/15/17 [History] Potassium Chloride [Klor-Con 10] 20 meq PO WITHBREAKFAST 06/15/17 [History] Thiamine HCl [B-1] 100 mg PO DAILY 06/15/17 [History] Lactulose 15 mg PO DAILY 12/11/17 [History] Spironolactone [Aldactone] 12/11/17 [History] Spironolactone [Aldactone] 100 mg PO DAILY 12/11/17 [History] Past Medical History HEENT History: Reports: None Cardiovascular History: Reports: Hypertension Other Cardiovascular History: Hx of SVT. Dyslipidemia. Respiratory History: Reports: COPD, Sleep Apnea Gastrointestinal History: Reports: Cirrhosis, GERD, PUD Other Gastrointestinal History: alcoholic gastritis Genitourinary History: Reports: Prostate Disorder Musculoskeletal History: Reports: Back Pain, Chronic Neurological History: Reports: None Psychiatric History: Reports: Addiction Other Psychiatric History: Hx of alcoholism. Quit 06/2015 Endocrine/Metabolic History: Reports: None Hematologic History: Reports: None Immunologic History: Reports: None Oncologic (Cancer) History: Reports: None, Prostate Dermatologic History: Reports: None - Infectious Disease History Infectious Disease History: Reports: Chicken Pox - Past Surgical History HEENT Surgical History: Reports: None Male Surgical History: Reports: Circumcision, TURP-Transurethral Resection of Prostate Musculoskeletal Surgical History: Reports: Shoulder Surgery Other Oncologic Surgeries/Procedures: TURP Social & Family History - Family History Family Medical History: Noncontributory - Tobacco Use Smoking Status *Q: Current Every Day Smoker Years of Tobacco use: 50 Packs/Tins Daily: 1 Used Tobacco, but Quit: No Month/Year Tobacco Last Used: Dec Second Hand Smoke Exposure: Yes - Caffeine Use Caffeine Use: Reports: Coffee, Soda, Tea - Alcohol Use Days Per Week of Alcohol Use: 7 Number of Drinks Per Day: 7 Total Drinks Per Week: 49 - Recreational Drug Use Recreational Drug Use: No Drug Use in Last 12 Months: Yes Recreational Drug Type: Reports: Marijuana/Hashish Recreational Drug Use Frequency: Daily - Living Situation & Occupation Living situation: Reports: Single, with Significant Other Occupation: Unemployed ED ROS GENERAL - Review of Systems Review Of Systems: ROS reveals no pertinent complaints other than HPI. ED EXAM, GI/ABD - Physical Exam Exam: See Below Exam Limited By: No Limitations General Appearance: Alert, Other (chronically ill, active emesis and non-toxic appearing. ) Eyes: Bilateral: EOMI (mild scleral icterus), Nystagmus (lateral) Ears: Normal External Exam, Hearing Grossly Normal Nose: Normal Inspection, Normal Mucosa, No Blood Throat/Mouth: Normal Lips, Normal Oropharynx, Normal Voice, No Airway Compromise , Other (dry oral membranes). No: Normal Teeth Head: Atraumatic, Normocephalic Neck: Normal Inspection, Supple, Non-Tender, Full Range of Motion Respiratory/Chest: No Respiratory Distress, Lungs Clear, Normal Breath Sounds, No Accessory Muscle Use, Chest Non-Tender Cardiovascular: Normal Peripheral Pulses, Regular Rate, Rhythm, No Edema, No Gallop, No JVD, No Murmur, No Rub GI/Abdominal Exam: Soft, No Distention, No Abnormal Bruit, Tender (mild diffuse tenderness, focal acute epigastric tenderness), Abnormal Bowel Sounds ( hyperactive). No: Guarding, Rigid, Rebound (Male) Exam: Deferred Rectal (Males) Exam: Deferred Back Exam: Normal Inspection, Full Range of Motion, NT Extremities: Normal Inspection, Normal Range of Motion, Non-Tender, Normal Capillary Refill, No Pedal Edema Neurological: Alert, Oriented, CN II-XII Intact, Normal Cognition, Normal Reflexes, No Motor/Sensory Deficits, Other (fine temor bilateral hands) Psychiatric: Anxious Skin Exam: Warm, Dry, Intact, No Rash, Jaundice EKG INTERPRETATION EKG Date: 12/11/17 Time: 13:13 Rhythm: Other (sinus rhythm) Rate (Beats/Min): 84 [place]: Normal P-Wave: Present QRS: Normal ST-T: Normal QT: Prolonged Course - Vital Signs Last Recorded V/S: Last Vital Signs Temp 37.1 C 12/11/17 12:55 Pulse 89 12/11/17 12:55 Resp 20 12/11/17 12:55 BP 141/77 H 12/11/17 12:55 Pulse Ox 100 12/11/17 12:55 - Orders/Labs/Meds Orders: Active Orders 24 hr Category Date Time Status EKG 12 Lead [EKG Documentation Completion] [RC] STAT Care 12/11/17 12:55 Active Peripheral IV Care [RC] . DIRECTED Care 12/11/17 12:56 Active DRUG SCREEN URINE BIORAD [URCHEM] Stat Lab 12/11/17 14:11 Ordered UA W/MICROSCOPIC [URIN] Stat Lab 12/11/17 14:11 Ordered Octreotide [SandoSTATIN] 500 mcg Med 12/11/17 13:00 Active Sodium Chloride 0.9% [Normal Saline] 250 ml IV ASDIRECTED Pantoprazole [ProTONIX IV] 40 mg Med 12/11/17 12:58 Active Sodium Chloride 0.9% [Normal Saline] 100 ml IV .CONTINUOS Potassium Chloride [KCl 10 MEQ in Water 100 ML] 10 meq Med 12/11/17 13:40 Active Premix Bag 1 bag IV ONETIME Sodium Chloride 0.9% [Saline Flush] Med 12/11/17 12:56 Active 10 ml FLUSH ASDIRECTED PRN Peripheral IV Insertion Adult [OM.PC] Stat Oth 12/11/17 12:55 Ordered Medication Orders Octreotide Acetate 500 mcg/ (Sodium Chloride) 255 mls @ 12.5 mls/hr IV ASDIRECTED NILSON Last Admin: 12/11/17 13:40 Dose: 12.5 mls/hr Pantoprazole Sodium 40 mg/ (Sodium Chloride) 100 mls @ 20 mls/hr IV .CONTINUOS NILSON Last Admin: 12/11/17 13:25 Dose: 20 mls/hr Potassium Chloride 10 meq/ (Premix) 100 mls @ 100 mls/hr IV ONETIME ONE Stop: 12/11/17 14:39 Last Admin: 12/11/17 13:56 Dose: 100 mls/hr Sodium Chloride (Saline Flush) 10 ml FLUSH ASDIRECTED PRN PRN Reason: Keep Vein Open Last Admin: 12/11/17 13:17 Dose: 10 ml Labs: Laboratory Tests 12/11/17 12/11/17 12/11/17 Range/Units 13:08 13:08 13:08 WBC 6.8 (5.0-10.0) 10^3/uL RBC 4.80 (4.6-6.2) 10^6/uL Hgb 14.4 (14.0-18.0) g/dL Hct 41.1 (40.0-54.0) % MCV 85.6 D (80-100) fL MCH 30.0 (27.0-34.0) pg MCHC 35.0 (33.0-35.0) g/dL Plt Count 150 (150-450) 10^3/uL Neut % (Auto) 76.7 H (42.2-75.2) % Lymph % (Auto) 15.1 L (20.5-50.1) % Mcintosh % (Auto) 6.9 (2-8) % Eos % (Auto) 0.4 L (1.0-3.0) % Baso % (Auto) 0.9 (0.0-1.0) % PT 12.0 (9.0-12.0) SEC INR 1.2 (0.9-1.2) APTT 26.6 (22.0-34.0) SEC Sodium 136 (135-145) mmol/L Potassium 2.8 L (3.6-5.0) mmol/L Chloride 101 (101-111) mmol/L Carbon Dioxide 19.0 L (21.0-31.0) mmol/L Anion Gap 18.8 BUN < 5 L (7-18) mg/dL Creatinine 0.7 (0.6-1.3) mg/dL Est Cr Clr Drug Dosing 103.97 mL/min Estimated GFR (MDRD) > 60 BUN/Creatinine Ratio 7.14 Glucose 114 H (74-105) mg/dL Calcium 8.3 L (8.4-10.2) mg/dl Magnesium (1.8-2.5) mg/dL Total Bilirubin 1.5 H (0.2-1.0) mg/dL AST 107 H (10-42) IU/L ALT 44 (10-60) IU/L Alkaline Phosphatase 86 (42-121) IU/L Ammonia (11-35) umol/L Total Protein 7.8 (6.7-8.2) g/dl Albumin 4.0 (3.2-5.5) g/dl Globulin 3.8 Albumin/Globulin Ratio 1.05 Amylase 27 L (28-100) U/L Lipase 26 (22-51) U/L Urine Opiates Screen (NEGATIVE) Ur Oxycodone Screen (NEGATIVE) Urine Methadone Screen (NEGATIVE) Ur Barbiturates Screen (NEGATIVE) U Tricyclic Antidepress (NEGATIVE) Ur Phencyclidine Scrn (NEGATIVE) Ur Amphetamine Screen (NEGATIVE) U Methamphetamines Scrn (NEGATIVE) Urine MDMA Screen (NEGATIVE) U Benzodiazepines Scrn (NEGATIVE) Urine Cocaine Screen (NEGATIVE) U Marijuana (THC) Screen (NEGATIVE) Ethyl Alcohol 68 mg/dL 12/11/17 12/11/17 12/11/17 Range/Units 13:08 13:08 14:11 WBC (5.0-10.0) 10^3/uL RBC (4.6-6.2) 10^6/uL Hgb (14.0-18.0) g/dL Hct (40.0-54.0) % MCV (80-100) fL MCH (27.0-34.0) pg MCHC (33.0-35.0) g/dL Plt Count (150-450) 10^3/uL Neut % (Auto) (42.2-75.2) % Lymph % (Auto) (20.5-50.1) % Mcintosh % (Auto) (2-8) % Eos % (Auto) (1.0-3.0) % Baso % (Auto) (0.0-1.0) % PT (9.0-12.0) SEC INR (0.9-1.2) APTT (22.0-34.0) SEC Sodium (135-145) mmol/L Potassium (3.6-5.0) mmol/L Chloride (101-111) mmol/L Carbon Dioxide (21.0-31.0) mmol/L Anion Gap BUN (7-18) mg/dL Creatinine (0.6-1.3) mg/dL Est Cr Clr Drug Dosing mL/min Estimated GFR (MDRD) BUN/Creatinine Ratio Glucose (74-105) mg/dL Calcium (8.4-10.2) mg/dl Magnesium 1.2 L (1.8-2.5) mg/dL Total Bilirubin (0.2-1.0) mg/dL AST (10-42) IU/L ALT (10-60) IU/L Alkaline Phosphatase (42-121) IU/L Ammonia 41 H (11-35) umol/L Total Protein (6.7-8.2) g/dl Albumin (3.2-5.5) g/dl Globulin Albumin/Globulin Ratio Amylase (28-100) U/L Lipase (22-51) U/L Urine Opiates Screen Negative (NEGATIVE) Ur Oxycodone Screen Negative (NEGATIVE) Urine Methadone Screen Negative (NEGATIVE) Ur Barbiturates Screen Negative (NEGATIVE) U Tricyclic Antidepress Negative (NEGATIVE) Ur Phencyclidine Scrn Negative (NEGATIVE) Ur Amphetamine Screen Negative (NEGATIVE) U Methamphetamines Scrn Negative (NEGATIVE) Urine MDMA Screen Negative (NEGATIVE) U Benzodiazepines Scrn Negative (NEGATIVE) Urine Cocaine Screen Negative (NEGATIVE) U Marijuana (THC) Screen Positive H (NEGATIVE) Ethyl Alcohol mg/dL Meds: Medications Generic Name Dose Route Start Last Admin Trade Name Freq PRN Reason Stop Dose Admin Octreotide Acetate 500 mcg/ 255 mls @ 12.5 mls/hr 12/11/17 13:00 12/11/17 13: 40 Sodium Chloride IV 12.5 mls/hr ASDIRECTED NILSON Administration Pantoprazole Sodium 40 mg/ 100 mls @ 20 mls/hr 12/11/17 12:58 12/11/17 13:25 Sodium Chloride IV 20 mls/hr .CONTINUOS NILSON Administration Potassium Chloride 10 meq/ 100 mls @ 100 mls/hr 12/11/17 13:40 12/11/17 13:56 Premix IV 12/11/17 14:39 100 mls/hr ONETIME ONE Administration Sodium Chloride 10 ml 12/11/17 12:56 12/11/17 13:17 Saline Flush FLUSH 10 ml ASDIRECTED PRN Administration Keep Vein Open Discontinued Medications Generic Name Dose Route Start Last Admin Trade Name Freq PRN Reason Stop Dose Admin Multivitamins/Minerals 10 ml/ 1,011.2 mls @ 999 mls/hr 12/11/17 12:56 13:23 Thiamine HCl 100 mg/ Folic IV 12/11/17 13:56 999 mls/hr Acid 1 mg/ Lactated Ringer's .BOLUS ONE Administration Lorazepam 1 mg 12/11/17 13:00 12/11/17 13:15 Ativan IVPUSH 12/11/17 13:01 1 mg ONETIME ONE Administration Octreotide Acetate 50 mcg 12/11/17 12:56 12/11/17 13:41 Sandostatin IVPUSH 12/11/17 12:57 50 mcg ONETIME ONE Administration Ondansetron HCl 4 mg 12/11/17 12:56 12/11/17 13:09 Zofran IV 12/11/17 12:57 4 mg ONETIME ONE Administration Pantoprazole Sodium 80 mg 12/11/17 12:57 12/11/17 13:12 Protonix Iv IVPUSH 12/11/17 12:58 80 mg .BOLUS ONE Administration Departure - Departure Time of Disposition: 13:57 Disposition: DC/Tfer to Acute Hospital 02 Condition: Serious Clinical Impression: Upper GI bleed, Alcohol abuse, Hypokalemia Alcoholic cirrhosis Qualifiers: Ascites presence: with ascites Qualified Code(s): K70.31 - Alcoholic cirrhosis of liver with ascites Ascites Qualifiers: Ascites type: due to alcoholic cirrhosis Qualified Code(s): K70.31 - Alcoholic cirrhosis of liver with ascites Alcohol withdrawal Qualifiers: Complication of substance-induced condition: with unspecified complication Qualified Code(s): F10.239 - Alcohol dependence with withdrawal, unspecified - Discharge Information Forms: ED Department Discharge, Interfacility Transfer EMTALA - My Orders Last 24 Hours: My Active Orders 12/11/17 12:55 EKG 12 Lead [EKG Documentation Completion] [RC] STAT Peripheral IV Insertion Adult [OM.PC] Stat 12/11/17 12:56 Peripheral IV Care [RC] . DIRECTED Sodium Chloride 0.9% [Saline Flush] 10 ml FLUSH ASDIRECTED PRN 12/11/17 12:58 Pantoprazole [ProTONIX IV] 40 mg Sodium Chloride 0.9% [Normal Saline] 100 ml IV .CONTINUOS 12/11/17 13:00 Octreotide [SandoSTATIN] 500 mcg Sodium Chloride 0.9% [Normal Saline] 250 ml IV ASDIRECTED 12/11/17 13:40 Potassium Chloride [KCl 10 MEQ in Water 100 ML] 10 meq Premix Bag 1 bag IV ONETIME 12/11/17 14:11 DRUG SCREEN URINE BIORAD [URCHEM] Stat UA W/MICROSCOPIC [URIN] Stat - Assessment/Plan Last 24 Hours: My Active Orders 12/11/17 12:55 EKG 12 Lead [EKG Documentation Completion] [RC] STAT Peripheral IV Insertion Adult [OM.PC] Stat 12/11/17 12:56 Peripheral IV Care [RC] . DIRECTED Sodium Chloride 0.9% [Saline Flush] 10 ml FLUSH ASDIRECTED PRN 12/11/17 12:58 Pantoprazole [ProTONIX IV] 40 mg Sodium Chloride 0.9% [Normal Saline] 100 ml IV .CONTINUOS 12/11/17 13:00 Octreotide [SandoSTATIN] 500 mcg Sodium Chloride 0.9% [Normal Saline] 250 ml IV ASDIRECTED 12/11/17 13:40 Potassium Chloride [KCl 10 MEQ in Water 100 ML] 10 meq Premix Bag 1 bag IV ONETIME 12/11/17 14:11 DRUG SCREEN URINE BIORAD [URCHEM] Stat UA W/MICROSCOPIC [URIN] Stat I have read and agree with the documentation that has been completed regarding this visit. By signing this record, I attest that the documentation was completed in my physical presence and is an accurate record of the encounter.
--- NOTE | 2017-12-14 14:01 | EKG ---
12/11/2017 - DENNIS MURPHY - TIME: 1313 hours As per my reading, EKG shows sinus rhythm at 84. [facility] /[id number]
== END 2017-12-11 14:51 ==
LOC: DL.ED 12:48
DX: K92.2 Gastrointestinal hemorrhage, unspecified (principal); K70.31 Alcoholic cirrhosis of liver with ascites; E87.6 Hypokalemia; F10.239 Alcohol dependence with withdrawal, unspecified; I10 Essential (primary) hypertension; F17.210 Nicotine dependence, cigarettes, uncomplicated; Z88.6 Allergy status to analgesic agent; Z79.899 Other long term (current) drug therapy; Y90.3 Blood alcohol level of 60-79 mg/100 ml
CPT/HCPCS: 36415; 80053; 80305; 81001; 82140; 82150; 83690; 83735; 85025; 85610; 85730; 93005; 96365; 96366; 96368; 96374; 96375; 99285; C9113; G0480; J2060; J2354; J2405; J3411; J3480; J7050; J7120; J3490

== ENCOUNTER 2018-01-03 08:57 | Emergency (ER) | payer MEDICAID, OTHER ==
[2018-01-03] MEDS ORDERED: Ondansetron 4 MG/2 ML SDV IV ONE (09:02)
[2018-01-03] MEDS ORDERED: MVI, Adult with Vitamin K 10 ML, Folic Acid 1 MG, Thiamine 100 MG in Lactated Ringers 1... IV ONE ×4 (09:02)
[2018-01-03] MEDS ORDERED: Pantoprazole 40 MG Vial IVPUSH ONE (09:03)
--- NOTE | 2018-01-03 09:09 | EDM.PDOC ---
ED HPI GENERAL MEDICAL PROBLEM - General Stated Complaint: IN BY AMBULANCE Time Seen by Provider: 01/03/18 08:58 Source of Information: Reports: Patient, EMS History Limitations: Reports: No Limitations - History of Present Illness INITIAL COMMENTS - FREE TEXT/NARRATIVE: This 62 yo male patient was brought to the ED by [facility] due to nausea, vomiting and chest pain. The patient reports all of his symptoms started this morning at 0730. The patient reports that he has been drinking since last due to a of a loved one. The patient reports his chest pain is throughout his entire chest. The patient reports that he has a burning feeling throughout his entire abdomen. The patient reports that he was seen earlier this month with similar symptoms after drinking. The patient reports that he was advised to stop drinking, but he was doing well until the of a loved one last week. 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: Acetaminophen (this morning) Left Chest Pain Score (Numeric/FACES): 10 - Related Data Allergies Allergy/AdvReac Type Severity Reaction Status Date / Time aspirin Allergy Stomach Verified 12/11/17 13:08 Upset Home Meds: Home Meds Metoprolol Succinate [Toprol XL 100mg] 50 mg PO DAILY 09/04/13 [History] Acetaminophen [Tylenol] 2 tab PO Q8H PRN 12/06/14 [History] Folic Acid 1 mg PO DAILY 12/06/14 [History] Furosemide [Lasix] 40 mg PO DAILY 06/15/17 [History] Pantoprazole Sodium [Protonix] 40 mg PO DAILY 06/15/17 [History] Potassium Chloride [Klor-Con 10] 20 meq PO WITHBREAKFAST 06/15/17 [History] Thiamine HCl [B-1] 100 mg PO DAILY 06/15/17 [History] Lactulose 15 mg PO DAILY 12/11/17 [History] Spironolactone [Aldactone] 12/11/17 [History] Spironolactone [Aldactone] 100 mg PO DAILY 12/11/17 [History] Past Medical History HEENT History: Reports: None Cardiovascular History: Reports: Hypertension Other Cardiovascular History: Hx of SVT. Dyslipidemia. Respiratory History: Reports: COPD, Sleep Apnea Gastrointestinal History: Reports: Cirrhosis, GERD, PUD Other Gastrointestinal History: alcoholic gastritis Genitourinary History: Reports: Prostate Disorder Musculoskeletal History: Reports: Back Pain, Chronic Neurological History: Reports: None Psychiatric History: Reports: Addiction Other Psychiatric History: Hx of alcoholism. Quit 06/2015 Endocrine/Metabolic History: Reports: None Hematologic History: Reports: None Immunologic History: Reports: None Oncologic (Cancer) History: Reports: None, Prostate Dermatologic History: Reports: None - Infectious Disease History Infectious Disease History: Reports: Chicken Pox - Past Surgical History HEENT Surgical History: Reports: None Male Surgical History: Reports: Circumcision, TURP-Transurethral Resection of Prostate Musculoskeletal Surgical History: Reports: Shoulder Surgery Other Oncologic Surgeries/Procedures: TURP Social & Family History - Family History Family Medical History: Noncontributory - Tobacco Use Smoking Status *Q: Current Every Day Smoker Years of Tobacco use: 50 Packs/Tins Daily: 1 Used Tobacco, but Quit: No Month/Year Tobacco Last Used: Dec Second Hand Smoke Exposure: Yes - Caffeine Use Caffeine Use: Reports: Coffee, Soda, Tea - Alcohol Use Days Per Week of Alcohol Use: 7 Number of Drinks Per Day: 7 Total Drinks Per Week: 49 - Recreational Drug Use Recreational Drug Use: No Drug Use in Last 12 Months: Yes Recreational Drug Type: Reports: Marijuana/Hashish Recreational Drug Use Frequency: Daily - Living Situation & Occupation Living situation: Reports: Single, with Significant Other Occupation: Unemployed ED ROS GENERAL - Review of Systems Review Of Systems: ROS reveals no pertinent complaints other than HPI. ED EXAM, GENERAL - Physical Exam Exam: See Below Exam Limited By: No Limitations General Appearance: Alert, WD/WN, Moderate Distress, Thin Eye Exam: Bilateral Eye: EOMI, Normal Inspection, PERRL Ears: Normal External Exam, Normal Canal, Hearing Grossly Normal, Normal TMs Nose: Normal Inspection, Normal Mucosa, No Blood Throat/Mouth: Normal Inspection, Normal Lips, Normal Teeth, Normal Gums, Normal Oropharynx, Normal Voice, No Airway Compromise Head: Atraumatic, Normocephalic Neck: Normal Inspection, Supple, Non-Tender, Full Range of Motion Respiratory/Chest: No Respiratory Distress, Lungs Clear, Normal Breath Sounds, No Accessory Muscle Use, Other (generalized tenderness throughout the chest) Cardiovascular: Normal Peripheral Pulses, Regular Rate, Rhythm, No Edema, No Gallop, No JVD, No Murmur, No Rub GI/Abdominal: Distended (moderate), Tender (diffuse ) (Male) Exam: Deferred Rectal (Males) Exam: Deferred Back Exam: Normal Inspection, Full Range of Motion, NT Extremities: Normal Inspection, Normal Range of Motion, Non-Tender, Normal Capillary Refill, No Pedal Edema Neurological: Alert, Oriented, CN II-XII Intact, Normal Cognition, Normal Gait, Normal Reflexes, No Motor/Sensory Deficits Psychiatric: Other Skin Exam: Warm, Dry, Intact, Normal Color, No Rash Lymphatic: No Adenopathy Course - Vital Signs Last Recorded V/S: Last Vital Signs Temp 36.8 C 01/03/18 09:01 Pulse 75 01/03/18 09:01 Resp 22 H 01/03/18 09:01 BP 125/81 01/03/18 09:01 Pulse Ox 100 01/03/18 09:01 - Orders/Labs/Meds Orders: Active Orders 24 hr Category Date Time Status EKG Documentation Completion [RC] URGENT Care 01/03/18 09:01 Ordered Chest 1V Frontal [CR] Urgent Exams 01/03/18 09:02 Ordered DRUG SCREEN URINE BIORAD [URCHEM] Stat Lab 01/03/18 09:02 Ordered UA W/MICROSCOPIC [URIN] Stat Lab 01/03/18 09:02 Ordered Potassium Chloride [KCl 10 MEQ in Water 100 ML] 10 meq Med 01/03/18 09:59 Ordered Premix Bag 1 bag IV ONETIME Medication Orders Potassium Chloride 10 meq/ (Premix) 100 mls @ 100 mls/hr IV ONETIME ONE Stop: 01/03/18 10:58 Labs: Laboratory Tests 01/03/18 01/03/18 01/03/18 Range/Units 09:06 09:06 09:06 WBC 10.9 H (5.0-10.0) 10^3/uL RBC 5.12 (4.6-6.2) 10^6/uL Hgb 15.1 (14.0-18.0) g/dL Hct 44.2 (40.0-54.0) % MCV 86.3 (80-100) fL MCH 29.5 (27.0-34.0) pg MCHC 34.2 (33.0-35.0) g/dL Plt Count 292 D (150-450) 10^3/uL Neut % (Auto) 60.1 (42.2-75.2) % Lymph % (Auto) 30.0 (20.5-50.1) % Kern % (Auto) 6.8 (2-8) % Eos % (Auto) 1.7 (1.0-3.0) % Baso % (Auto) 1.4 H (0.0-1.0) % PT 10.3 (9.0-12.0) SEC INR 1.0 (0.9-1.2) Sodium 136 (135-145) mmol/L Potassium 3.2 L (3.6-5.0) mmol/L Chloride 103 (101-111) mmol/L Carbon Dioxide 16.0 L (21.0-31.0) mmol/L Anion Gap 20.2 BUN 8 (7-18) mg/dL Creatinine 0.7 (0.6-1.3) mg/dL Est Cr Clr Drug Dosing 106.61 mL/min Estimated GFR (MDRD) > 60 BUN/Creatinine Ratio 11.42 Glucose 103 (74-105) mg/dL Calcium 9.0 (8.4-10.2) mg/dl Total Bilirubin 1.0 (0.2-1.0) mg/dL AST 63 H (10-42) IU/L ALT 26 (10-60) IU/L Alkaline Phosphatase 98 (42-121) IU/L Ammonia (11-35) umol/L Troponin I < 0.02 (0.00-0.02) ng/ml Total Protein 8.7 H (6.7-8.2) g/dl Albumin 4.4 (3.2-5.5) g/dl Globulin 4.3 Albumin/Globulin Ratio 1.02 Amylase 36 (28-100) U/L Lipase 29 (22-51) U/L Urine Color (YELLOW) Urine Appearance (CLEAR) Urine pH (5.0-9.0) Ur Specific Johnston (1.005-1.030) Urine Protein (NEGATIVE) Urine Glucose (UA) (NEGATIVE) Urine Ketones (NEGATIVE) Urine Occult Blood (NEGATIVE) Urine Nitrite (NEGATIVE) Urine Bilirubin (NEGATIVE) Urine Urobilinogen (0.2-1.0) mg/dL Ur Leukocyte Esterase (NEGATIVE) Urine RBC /HPF Urine WBC (0-5/HPF) /HPF Ur Epithelial Cells /HPF Urine Bacteria (0-FEW/HPF) /HPF Urine Mucus /LPF Urine Opiates Screen (NEGATIVE) Ur Oxycodone Screen (NEGATIVE) Urine Methadone Screen (NEGATIVE) Acetaminophen < 10 Ur Barbiturates Screen (NEGATIVE) U Tricyclic Antidepress (NEGATIVE) Ur Phencyclidine Scrn (NEGATIVE) Ur Amphetamine Screen (NEGATIVE) U Methamphetamines Scrn (NEGATIVE) Urine MDMA Screen (NEGATIVE) U Benzodiazepines Scrn (NEGATIVE) Urine Cocaine Screen (NEGATIVE) U Marijuana (THC) Screen (NEGATIVE) Ethyl Alcohol 11 mg/dL 01/03/18 01/03/18 01/03/18 Range/Units 09:06 09:31 09:31 WBC (5.0-10.0) 10^3/uL RBC (4.6-6.2) 10^6/uL Hgb (14.0-18.0) g/dL Hct (40.0-54.0) % MCV (80-100) fL MCH (27.0-34.0) pg MCHC (33.0-35.0) g/dL Plt Count (150-450) 10^3/uL Neut % (Auto) (42.2-75.2) % Lymph % (Auto) (20.5-50.1) % Kern % (Auto) (2-8) % Eos % (Auto) (1.0-3.0) % Baso % (Auto) (0.0-1.0) % PT (9.0-12.0) SEC INR (0.9-1.2) Sodium (135-145) mmol/L Potassium (3.6-5.0) mmol/L Chloride (101-111) mmol/L Carbon Dioxide (21.0-31.0) mmol/L Anion Gap BUN (7-18) mg/dL Creatinine (0.6-1.3) mg/dL Est Cr Clr Drug Dosing mL/min Estimated GFR (MDRD) BUN/Creatinine Ratio Glucose (74-105) mg/dL Calcium (8.4-10.2) mg/dl Total Bilirubin (0.2-1.0) mg/dL AST (10-42) IU/L ALT (10-60) IU/L Alkaline Phosphatase (42-121) IU/L Ammonia 28 (11-35) umol/L Troponin I (0.00-0.02) ng/ml Total Protein (6.7-8.2) g/dl Albumin (3.2-5.5) g/dl Globulin Albumin/Globulin Ratio Amylase (28-100) U/L Lipase (22-51) U/L Urine Color Yellow (YELLOW) Urine Appearance Slightly cloudy (CLEAR) Urine pH 7.0 (5.0-9.0) Ur Specific Johnston 1.020 (1.005-1.030) Urine Protein Negative (NEGATIVE) Urine Glucose (UA) Negative (NEGATIVE) Urine Ketones 15 H (NEGATIVE) Urine Occult Blood Negative (NEGATIVE) Urine Nitrite Negative (NEGATIVE) Urine Bilirubin Negative (NEGATIVE) Urine Urobilinogen 0.2 (0.2-1.0) mg/dL Ur Leukocyte Esterase Negative (NEGATIVE) Urine RBC 0-5 /HPF Urine WBC 0-5 (0-5/HPF) /HPF Ur Epithelial Cells Rare /HPF Urine Bacteria Rare (0-FEW/HPF) /HPF Urine Mucus Moderate H /LPF Urine Opiates Screen Negative (NEGATIVE) Ur Oxycodone Screen Negative (NEGATIVE) Urine Methadone Screen Negative (NEGATIVE) Acetaminophen Ur Barbiturates Screen Negative (NEGATIVE) U Tricyclic Antidepress Negative (NEGATIVE) Ur Phencyclidine Scrn Negative (NEGATIVE) Ur Amphetamine Screen Negative (NEGATIVE) U Methamphetamines Scrn Negative (NEGATIVE) Urine MDMA Screen Negative (NEGATIVE) U Benzodiazepines Scrn Negative (NEGATIVE) Urine Cocaine Screen Negative (NEGATIVE) U Marijuana (THC) Screen Positive H (NEGATIVE) Ethyl Alcohol mg/dL Meds: Medications Generic Name Dose Route Start Last Admin Trade Name Freq PRN Reason Stop Dose Admin Potassium Chloride 10 meq/ 100 mls @ 100 mls/hr 01/03/18 09:59 Premix IV 01/03/18 10:58 ONETIME ONE Discontinued Medications Generic Name Dose Route Start Last Admin Trade Name Freq PRN Reason Stop Dose Admin Multivitamins/Minerals 10 ml/ 1,011.2 mls @ 999 mls/hr 01/03/18 09:02 09:23 Folic Acid 1 mg/ Thiamine HCl IV 01/03/18 10:02 999 mls/hr 100 mg/ Lactated Ringer's ONETIME ONE Administration Ondansetron HCl 4 mg 01/03/18 09:02 01/03/18 09:19 Zofran IV 01/03/18 09:03 4 mg ONETIME ONE Administration Pantoprazole Sodium 80 mg 01/03/18 09:03 01/03/18 09:19 Protonix Iv IVPUSH 01/03/18 09:04 80 mg .BOLUS ONE Administration Departure - Departure Time of Disposition: 10:53 Disposition: Home, Self-Care 01 Condition: Fair Clinical Impression: Vomiting, Hypokalemia Alcohol withdrawal syndrome Qualifiers: Complication of substance-induced condition: with unspecified complication Qualified Code(s): F10.239 - Alcohol dependence with withdrawal, unspecified - Discharge Information Instructions: Nausea and Vomiting, Adult, [id number], Hypokalemia Care Plan Goals: The patient was advised of the examination, lab, EKG and chest x-ray results during the visit. The patient was given a liter of fluids (with multivitamins, thiamine and folic acid), IV protonix, IV Zofran and IV potassium while in the emergency department. The patient was encouraged to stop using ETOH. The patient should follow-up with alcohol treatment as he has planned. If the patient has any additional symptoms or concerns, the patient should visit his primary care facility or return to the emergency department. - My Orders Last 24 Hours: My Active Orders 01/03/18 09:01 EKG Documentation Completion [RC] URGENT 01/03/18 09:02 Chest 1V Frontal [CR] Urgent DRUG SCREEN URINE BIORAD [URCHEM] Stat UA W/MICROSCOPIC [URIN] Stat 01/03/18 09:59 Potassium Chloride [KCl 10 MEQ in Water 100 ML] 10 meq Premix Bag 1 bag IV ONETIME - Assessment/Plan Last 24 Hours: My Active Orders 01/03/18 09:01 EKG Documentation Completion [RC] URGENT 01/03/18 09:02 Chest 1V Frontal [CR] Urgent DRUG SCREEN URINE BIORAD [URCHEM] Stat UA W/MICROSCOPIC [URIN] Stat 01/03/18 09:59 Potassium Chloride [KCl 10 MEQ in Water 100 ML] 10 meq Premix Bag 1 bag IV ONETIME
[2018-01-03 09:11] VITALS: BP 125/81
[2018-01-03 09:33] LABS: CHLORIDE,CL 103 mmol/L (101-111); SODIUM,NA 136 mmol/L (135-145)
[2018-01-03 09:39] LABS: ACETAMINOPHEN < 10
[2018-01-03] MEDS ORDERED: Potassium Chloride 10 MEQ in Premix Bag 1 BAG IV ONE (09:59)
--- NOTE | 2018-01-03 11:48 | CR ---
History: 62-year-old male with chest pain. Interpretation: Subtle bronchitic "cuffing" but no sign of focal lobar pneumonia, atelectasis or tonio apse. Upright AP portable chest film demonstrates normal cardiac silhouette without cephalization of flow, alveolar edema or dependent pleural effusion (external monitor worker leads). No lung mass or hilar lymphadenopathy. No pneumothorax. CONCLUSION: Mild bronchitis.
--- NOTE | 2018-01-05 14:31 | EKG ---
01/03/2018 - DENNIS MURPHY - TIME: 9:39 a.m. FINDINGS: Sinus rhythm. Borderline prolonged QT interval. [facility] /[id number]
== END 2018-01-03 11:58 | disposition home or self-care (01) ==
LOC: DL.ED 08:57
DX: E87.6 Hypokalemia (principal); F10.239 Alcohol dependence with withdrawal, unspecified; I10 Essential (primary) hypertension; F17.210 Nicotine dependence, cigarettes, uncomplicated; Y90.0 Blood alcohol level of less than 20 mg/100 ml; Z88.6 Allergy status to analgesic agent; Z79.899 Other long term (current) drug therapy
CPT/HCPCS: 36415; 71045; 80053; 80305; 81001; 82140; 82150; 83690; 84484; 85025; 85610; 93005; 96361; 96365; 96375; 99285; C9113; G0480; J2405; J3411; J3480; J7120; J3490

== ENCOUNTER 2018-01-10 08:26 | Emergency (ER) | payer MEDICAID ==
--- NOTE | 2018-01-10 08:29 | EDM.PDOC ---
ED HPI GENERAL MEDICAL PROBLEM - General Chief Complaint: Drug or Alcohol Abuse Stated Complaint: SOB / AMBULANCE Time Seen by Provider: 01/10/18 08:28 Source of Information: Reports: Patient, EMS, Old Records, RN, RN Notes Reviewed History Limitations: Reports: No Limitations - History of Present Illness INITIAL COMMENTS - FREE TEXT/NARRATIVE: Pt arrives to ER from home by [facility] with c/o waking at approx. 0500HRS this morning with epigastric abdominal pain described as a burning ache, and associated with nausea and vomiting. After a couple of episodes of emesis the pt had onset of black emesis material, and then bloody emesis. Pt states that he has been drinking "at least a half gallon of whisky and/or vodka daily" since being discharged from [facility] last month. He also drinks 6 to 18 beers a day. Pt has history of upper GI bleeding and esophageal varices. Onset: Today Onset Date: 01/10/18 Onset Time: 05:00 Duration: Recurring Location: Reports: Abdomen Quality: Reports: Ache, Burning, Same as Previous Episode Severity: Severe Improves with: Reports: None Worsens with: Reports: None Associated Symptoms: Reports: No Other Symptoms Abdominal Pain Score (Numeric/FACES): 10 - Related Data Allergies Allergy/AdvReac Type Severity Reaction Status Date / Time aspirin Allergy Stomach Verified 12/11/17 13:08 Upset Home Meds: Home Meds Metoprolol Succinate [Toprol XL 100mg] 50 mg PO DAILY 09/04/13 [History] Acetaminophen [Tylenol] 2 tab PO Q8H PRN 12/06/14 [History] Folic Acid 1 mg PO DAILY 12/06/14 [History] Furosemide [Lasix] 40 mg PO DAILY 06/15/17 [History] Pantoprazole Sodium [Protonix] 40 mg PO DAILY 06/15/17 [History] Potassium Chloride [Klor-Con 10] 20 meq PO WITHBREAKFAST 06/15/17 [History] Thiamine HCl [B-1] 100 mg PO DAILY 06/15/17 [History] Lactulose 15 mg PO DAILY 12/11/17 [History] Spironolactone [Aldactone] 12/11/17 [History] Spironolactone [Aldactone] 100 mg PO DAILY 12/11/17 [History] Past Medical History HEENT History: Reports: None Cardiovascular History: Reports: Hypertension Other Cardiovascular History: Hx of SVT. Dyslipidemia. Respiratory History: Reports: COPD, Sleep Apnea Gastrointestinal History: Reports: Cirrhosis, Gastritis, GERD, GI Bleed ( esophageal varices), PUD Other Gastrointestinal History: alcoholic gastritis Genitourinary History: Reports: Prostate Disorder Musculoskeletal History: Reports: Back Pain, Chronic Neurological History: Reports: None Psychiatric History: Reports: Addiction Other Psychiatric History: Hx of alcoholism. Quit 06/2015 Endocrine/Metabolic History: Reports: None Hematologic History: Reports: None Immunologic History: Reports: None Oncologic (Cancer) History: Reports: None, Prostate Dermatologic History: Reports: None - Infectious Disease History Infectious Disease History: Reports: Chicken Pox - Past Surgical History HEENT Surgical History: Reports: None Male Surgical History: Reports: Circumcision, TURP-Transurethral Resection of Prostate Musculoskeletal Surgical History: Reports: Shoulder Surgery Other Oncologic Surgeries/Procedures: TURP Social & Family History - Family History Family Medical History: Noncontributory - Tobacco Use Smoking Status *Q: Current Every Day Smoker Years of Tobacco use: 50 Packs/Tins Daily: 1 Used Tobacco, but Quit: No Month/Year Tobacco Last Used: Dec Second Hand Smoke Exposure: Yes - Caffeine Use Caffeine Use: Reports: Coffee, Soda, Tea - Alcohol Use Alcohol Use History: Yes Days Per Week of Alcohol Use: 7 Number of Drinks Per Day: 20 (1/2 gallon hard alcohol + beer daily) Total Drinks Per Week: 140 Alcohol Use in Last Twelve Months: Yes Alcohol Use Frequency: Daily - Recreational Drug Use Recreational Drug Use: No Drug Use in Last 12 Months: Yes Recreational Drug Type: Reports: Marijuana/Hashish Recreational Drug Use Frequency: Daily - Living Situation & Occupation Living situation: Reports: Single, with Significant Other Occupation: Unemployed ED ROS GENERAL - Review of Systems Review Of Systems: ROS reveals no pertinent complaints other than HPI. ED EXAM, GENERAL - Physical Exam Exam: See Below Exam Limited By: No Limitations General Appearance: Alert, Anxious, Mild Distress, Other (active emesis) Eye Exam: Bilateral Eye: Normal Inspection (no scleral icterus) Ears: Hearing Grossly Normal Nose: Normal Inspection, Normal Mucosa, No Blood Throat/Mouth: Normal Oropharynx, Normal Voice, No Airway Compromise Head: Atraumatic, Normocephalic Neck: Normal Inspection, Supple, Non-Tender, Full Range of Motion Respiratory/Chest: No Respiratory Distress, Lungs Clear, Normal Breath Sounds, No Accessory Muscle Use, Chest Non-Tender Cardiovascular: Regular Rate, Rhythm, No Edema GI/Abdominal: Soft, No Distention, No Abnormal Bruit, Pelvis Stable, Tender ( epigastric region), Abnormal Bowel Sounds (hyperactive bowel sounds), Hepatomegaly. No: Guarding, Rigid, Rebound (Male) Exam: Deferred Rectal (Males) Exam: Deferred Back Exam: Normal Inspection, Full Range of Motion. No: CVA Tenderness (L), CVA Tenderness (R) Extremities: Normal Inspection, Normal Range of Motion, Non-Tender, Normal Capillary Refill, No Pedal Edema Neurological: Alert, Oriented, CN II-XII Intact, No Motor/Sensory Deficits Psychiatric: Anxious Skin Exam: Warm, Dry, Intact, Normal Color, No Rash Course - Vital Signs Last Recorded V/S: Last Vital Signs Temp 36.2 C 01/10/18 08:35 Pulse 90 01/10/18 08:35 Resp 18 01/10/18 08:35 BP 129/51 L 01/10/18 08:35 Pulse Ox 100 01/10/18 08:35 - Orders/Labs/Meds Orders: Active Orders 24 hr Category Date Time Status Peripheral IV Care [RC] . DIRECTED Care 01/10/18 08:31 Active DRUG SCREEN URINE BIORAD [URCHEM] Stat Lab 01/10/18 08:31 Ordered UA W/MICROSCOPIC [URIN] Stat Lab 01/10/18 08:30 Ordered MVI, Adult with Vitamin K [Infuvite Adult] 10 ml Med 01/10/18 08:31 Active Thiamine [Vitamin B-1] 100 mg Folic Acid 1 mg Lactated Ringers [Ringers, Lactated] 1,000 ml IV .BOLUS Octreotide [SandoSTATIN] 500 mcg Med 01/10/18 08:45 Active Sodium Chloride 0.9% [Normal Saline] 250 ml IV ASDIRECTED Pantoprazole [ProTONIX IV] 40 mg Med 01/10/18 08:45 Active Sodium Chloride 0.9% [Normal Saline] 100 ml IV .CONTINUOS Sodium Chloride 0.9% [Saline Flush] Med 01/10/18 08:31 Active 10 ml FLUSH ASDIRECTED PRN Peripheral IV Insertion Adult [OM.PC] Stat Oth 01/10/18 08:30 Ordered Medication Orders Multivitamins/Minerals 10 ml/Thiamine HCl 100 mg/ Folic Acid 1 mg/ Lactated Ringer's 1,011.2 mls @ 999 mls/hr IV .BOLUS ONE Stop: 01/10/18 09:31 Last Admin: 01/10/18 08:54 Dose: 999 mls/hr Octreotide Acetate 500 mcg/ (Sodium Chloride) 255 mls @ 12.5 mls/hr IV ASDIRECTED NILSON Pantoprazole Sodium 40 mg/ (Sodium Chloride) 100 mls @ 20 mls/hr IV .CONTINUOS NILSON Sodium Chloride (Saline Flush) 10 ml FLUSH ASDIRECTED PRN PRN Reason: Keep Vein Open Last Admin: 01/10/18 08:53 Dose: 10 ml Labs: Laboratory Tests 01/10/18 01/10/18 01/10/18 Range/Units 08:41 08:41 08:41 WBC 15.2 H (5.0-10.0) 10^3/uL RBC 5.36 (4.6-6.2) 10^6/uL Hgb 16.1 (14.0-18.0) g/dL Hct 47.3 (40.0-54.0) % MCV 88.2 (80-100) fL MCH 30.0 (27.0-34.0) pg MCHC 34.0 (33.0-35.0) g/dL Plt Count 211 D (150-450) 10^3/uL Neut % (Auto) 87.0 H (42.2-75.2) % Lymph % (Auto) 8.4 L (20.5-50.1) % Trigg % (Auto) 4.0 (2-8) % Eos % (Auto) 0.1 L (1.0-3.0) % Baso % (Auto) 0.5 (0.0-1.0) % PT 10.6 (9.0-12.0) SEC INR 1.1 (0.9-1.2) APTT 26.3 (22.0-34.0) SEC Sodium 140 (135-145) mmol/L Potassium 3.6 (3.6-5.0) mmol/L Chloride 102 (101-111) mmol/L Carbon Dioxide 14.0 L (21.0-31.0) mmol/L Anion Gap 27.6 BUN 9 (7-18) mg/dL Creatinine 0.8 (0.6-1.3) mg/dL Est Cr Clr Drug Dosing 93.28 mL/min Estimated GFR (MDRD) > 60 BUN/Creatinine Ratio 11.25 Glucose 84 (74-105) mg/dL Calcium 9.4 (8.4-10.2) mg/dl Total Bilirubin 1.8 H (0.2-1.0) mg/dL AST 53 H (10-42) IU/L ALT 20 (10-60) IU/L Alkaline Phosphatase 122 H (42-121) IU/L Ammonia (11-35) umol/L Troponin I < 0.02 (0.00-0.02) ng/ml Total Protein 9.1 H (6.7-8.2) g/dl Albumin 4.7 (3.2-5.5) g/dl Globulin 4.4 Albumin/Globulin Ratio 1.07 Amylase 23 L (28-100) U/L Lipase 22 (22-51) U/L Ethyl Alcohol 64 mg/dL // Range/Units 08:41 WBC (5.0-10.0) 10^3/uL RBC (4.6-6.2) 10^6/uL Hgb (14.0-18.0) g/dL Hct (40.0-54.0) % MCV (80-100) fL MCH (27.0-34.0) pg MCHC (33.0-35.0) g/dL Plt Count (150-450) 10^3/uL Neut % (Auto) (42.2-75.2) % Lymph % (Auto) (20.5-50.1) % Trigg % (Auto) (2-8) % Eos % (Auto) (1.0-3.0) % Baso % (Auto) (0.0-1.0) % PT (9.0-12.0) SEC INR (0.9-1.2) APTT (22.0-34.0) SEC Sodium (135-145) mmol/L Potassium (3.6-5.0) mmol/L Chloride (101-111) mmol/L Carbon Dioxide (21.0-31.0) mmol/L Anion Gap BUN (7-18) mg/dL Creatinine (0.6-1.3) mg/dL Est Cr Clr Drug Dosing mL/min Estimated GFR (MDRD) BUN/Creatinine Ratio Glucose (74-105) mg/dL Calcium (8.4-10.2) mg/dl Total Bilirubin (0.2-1.0) mg/dL AST (10-42) IU/L ALT (10-60) IU/L Alkaline Phosphatase (42-121) IU/L Ammonia 22 (11-35) umol/L Troponin I (0.00-0.02) ng/ml Total Protein (6.7-8.2) g/dl Albumin (3.2-5.5) g/dl Globulin Albumin/Globulin Ratio Amylase (28-100) U/L Lipase (22-51) U/L Ethyl Alcohol mg/dL Meds: Medications Generic Name Dose Route Start Last Admin Trade Name Freq PRN Reason Stop Dose Admin Multivitamins/Minerals 10 ml/ 1,011.2 mls @ 999 mls/hr 01/10/18 08:31 08:54 Thiamine HCl 100 mg/ Folic IV 01/10/18 09:31 999 mls/hr Acid 1 mg/ Lactated Ringer's .BOLUS ONE Administration Octreotide Acetate 500 mcg/ 255 mls @ 12.5 mls/hr 01/10/18 08:45 Sodium Chloride IV ASDIRECTED NILSON Pantoprazole Sodium 40 mg/ 100 mls @ 20 mls/hr 01/10/18 08:45 Sodium Chloride IV .CONTINUOS NILSON Sodium Chloride 10 ml 01/10/18 08:31 01/10/18 08:53 Saline Flush FLUSH 10 ml ASDIRECTED PRN Administration Keep Vein Open Discontinued Medications Generic Name Dose Route Start Last Admin Trade Name Freq PRN Reason Stop Dose Admin Octreotide Acetate 50 mcg 01/10/18 08:32 01/10/18 08:59 Sandostatin IVPUSH 01/10/18 08:33 50 mcg ONETIME ONE Administration Ondansetron HCl 4 mg 01/10/18 08:31 01/10/18 08:58 Zofran IV 01/10/18 08:32 4 mg ONETIME ONE Administration Pantoprazole Sodium 80 mg 01/10/18 08:46 01/10/18 08:58 Protonix Iv IVPUSH 01/10/18 08:47 80 mg .BOLUS ONE Administration Departure - Departure Time of Disposition: 09:30 Disposition: DC/Tfer to Acute Hospital 02 Condition: Serious Clinical Impression: Alcoholic gastritis, Acute upper GI bleed, Alcohol abuse Abdominal pain Qualifiers: Abdominal location: generalized Qualified Code(s): R10.84 - Generalized abdominal pain - Discharge Information Forms: ED Department Discharge, Interfacility Transfer EMTCRISTY - My Orders Last 24 Hours: My Active Orders 01/10/18 08:30 UA W/MICROSCOPIC [URIN] Stat Peripheral IV Insertion Adult [OM.PC] Stat 01/10/18 08:31 Peripheral IV Care [RC] . DIRECTED DRUG SCREEN URINE BIORAD [URCHEM] Stat MVI, Adult with Vitamin K [Infuvite Adult] 10 ml Thiamine [Vitamin B-1] 100 mg Folic Acid 1 mg Lactated Ringers [Ringers, Lactated] 1,000 ml IV .BOLUS Sodium Chloride 0.9% [Saline Flush] 10 ml FLUSH ASDIRECTED PRN 01/10/18 08:45 Octreotide [SandoSTATIN] 500 mcg Sodium Chloride 0.9% [Normal Saline] 250 ml IV ASDIRECTED Pantoprazole [ProTONIX IV] 40 mg Sodium Chloride 0.9% [Normal Saline] 100 ml IV .CONTINUOS - Assessment/Plan Last 24 Hours: My Active Orders 01/10/18 08:30 UA W/MICROSCOPIC [URIN] Stat Peripheral IV Insertion Adult [OM.PC] Stat 01/10/18 08:31 Peripheral IV Care [RC] . DIRECTED DRUG SCREEN URINE BIORAD [URCHEM] Stat MVI, Adult with Vitamin K [Infuvite Adult] 10 ml Thiamine [Vitamin B-1] 100 mg Folic Acid 1 mg Lactated Ringers [Ringers, Lactated] 1,000 ml IV .BOLUS Sodium Chloride 0.9% [Saline Flush] 10 ml FLUSH ASDIRECTED PRN 01/10/18 08:45 Octreotide [SandoSTATIN] 500 mcg Sodium Chloride 0.9% [Normal Saline] 250 ml IV ASDIRECTED Pantoprazole [ProTONIX IV] 40 mg Sodium Chloride 0.9% [Normal Saline] 100 ml IV .CONTINUOS
[2018-01-10] MEDS ORDERED: Sodium Chloride 0.9% 10 ML Syringe FLUSH PRN (08:31)
[2018-01-10] MEDS ORDERED: Ondansetron 4 MG/2 ML SDV IV ONE (08:31)
[2018-01-10] MEDS ORDERED: MVI, Adult with Vitamin K 10 ML, Thiamine 100 MG, Folic Acid 1 MG in Lactated Ringers 1... IV ONE ×4 (08:31)
[2018-01-10] MEDS ORDERED: Octreotide 100 MCG/ML SDV IVPUSH ONE (08:32)
[2018-01-10] MEDS ORDERED: Pantoprazole 40 MG in Sodium Chloride 0.9% 100 ML IV SCH (08:45)
[2018-01-10] MEDS ORDERED: Octreotide 500 MCG in Sodium Chloride 0.9% 250 ML IV SCH (08:45)
[2018-01-10] MEDS ORDERED: Pantoprazole 40 MG Vial IVPUSH ONE (08:46)
[2018-01-10 08:47] VITALS: BP 129/51
[2018-01-10 09:14] LABS: CHLORIDE,CL 102 mmol/L (101-111); SODIUM,NA 140 mmol/L (135-145)
[2018-01-10] MEDS ORDERED: Promethazine 25 MG/ML SDV IM ONE (10:54)
[2018-01-10] MEDS ORDERED: Sodium Chloride 0.9% 1,000 ML IV ONE (10:56)
== END 2018-01-10 11:23 ==
LOC: DL.ED 08:26
DX: K29.21 Alcoholic gastritis with bleeding (principal); F10.10 Alcohol abuse, uncomplicated; Y90.3 Blood alcohol level of 60-79 mg/100 ml; E78.5 Hyperlipidemia, unspecified; F17.210 Nicotine dependence, cigarettes, uncomplicated; K21.9 Gastro-esophageal reflux disease without esophagitis; Z79.899 Other long term (current) drug therapy; Z88.6 Allergy status to analgesic agent
CPT/HCPCS: 36415; 80053; 80305; 81001; 82140; 82150; 83690; 84484; 85025; 85610; 85730; 96361; 96365; 96366; 96372; 96375; 96376; 99285; C9113; G0480; J2354; J2405; J2550; J3411; J7030; J7050; J7120; J3490

== ENCOUNTER 2018-02-08 14:48 | Emergency (ER) | payer MEDICAID ==
[2018-02-08] MEDS ORDERED: Sodium Chloride 0.9% 10 ML Syringe FLUSH PRN ×2 (14:49→14:50)
--- NOTE | 2018-02-08 14:49 | EDM.PDOC ---
ED HPI GENERAL MEDICAL PROBLEM - General Chief Complaint: Gastrointestinal Problem Stated Complaint: GI BLEED Time Seen by Provider: 02/08/18 14:49 Source of Information: Reports: Patient, EMS, Old Records, RN, RN Notes Reviewed History Limitations: Reports: No Limitations - History of Present Illness INITIAL COMMENTS - FREE TEXT/NARRATIVE: Pt arrives from home by ambulance with c/o epigastric pain, nausea and vomiting with emesis becoming bloody. Pt states he had recently been admitted to [facility] in for the same Sx's, but when he got home he began drinking alcohol again. Pt states he drank heavily for the last three days, and last drank late last night. Pt feels "shakey" like alcohol withdrawal since about noon today. Onset: Today Duration: Constant, Getting Worse Location: Reports: Abdomen Quality: Reports: Ache, Burning, Same as Previous Episode Severity: Severe Improves with: Reports: None Worsens with: Reports: None Associated Symptoms: Reports: No Other Symptoms Bilateral Abdomen Pain Score (Numeric/FACES): 10 - Related Data Allergies Allergy/AdvReac Type Severity Reaction Status Date / Time aspirin Allergy Stomach Verified 12/11/17 13:08 Upset Home Meds: Home Meds Metoprolol Succinate [Toprol XL 100mg] 50 mg PO DAILY 09/04/13 [History] Acetaminophen [Tylenol] 2 tab PO Q8H PRN 12/06/14 [History] Folic Acid 1 mg PO DAILY 12/06/14 [History] Furosemide [Lasix] 40 mg PO DAILY 06/15/17 [History] Pantoprazole Sodium [Protonix] 40 mg PO DAILY 06/15/17 [History] Potassium Chloride [Klor-Con 10] 20 meq PO WITHBREAKFAST 06/15/17 [History] Thiamine HCl [B-1] 100 mg PO DAILY 06/15/17 [History] Lactulose 15 mg PO DAILY 12/11/17 [History] Spironolactone [Aldactone] 12/11/17 [History] Spironolactone [Aldactone] 100 mg PO DAILY 12/11/17 [History] Past Medical History HEENT History: Reports: None Cardiovascular History: Reports: Hypertension Other Cardiovascular History: Hx of SVT. Dyslipidemia. Respiratory History: Reports: COPD, Sleep Apnea Gastrointestinal History: Reports: Cirrhosis, Gastritis, GERD, GI Bleed ( esophageal varices), PUD Other Gastrointestinal History: alcoholic gastritis Genitourinary History: Reports: Prostate Disorder Musculoskeletal History: Reports: Back Pain, Chronic Neurological History: Reports: None Psychiatric History: Reports: Addiction Other Psychiatric History: Hx of alcoholism. Quit 06/2015 Endocrine/Metabolic History: Reports: None Hematologic History: Reports: None Immunologic History: Reports: None Oncologic (Cancer) History: Reports: None, Prostate Dermatologic History: Reports: None - Infectious Disease History Infectious Disease History: Reports: Chicken Pox - Past Surgical History HEENT Surgical History: Reports: None Male Surgical History: Reports: Circumcision, TURP-Transurethral Resection of Prostate Musculoskeletal Surgical History: Reports: Shoulder Surgery Other Oncologic Surgeries/Procedures: TURP Social & Family History - Family History Family Medical History: Noncontributory - Caffeine Use Caffeine Use: Reports: Coffee, Soda, Tea - Alcohol Use Alcohol Use History: Yes Alcohol Use in Last Twelve Months: Yes Alcohol Use Frequency: Daily (and binges) - Living Situation & Occupation Living situation: Reports: Single, with Significant Other Occupation: Unemployed ED ROS GENERAL - Review of Systems Review Of Systems: ROS reveals no pertinent complaints other than HPI. ED EXAM, GI/ABD - Physical Exam Exam: See Below Exam Limited By: No Limitations General Appearance: Alert, Anxious, Mild Distress, Active Emesis (bloody) Eyes: Bilateral: Normal Appearance (no scleral icterus), EOMI Ears: Hearing Grossly Normal Nose: Normal Inspection, Normal Mucosa, No Blood Throat/Mouth: Normal Lips, Normal Oropharynx, Normal Voice, No Airway Compromise Head: Atraumatic, Normocephalic Neck: Normal Inspection, Supple, Non-Tender, Full Range of Motion Respiratory/Chest: No Respiratory Distress, Lungs Clear, Normal Breath Sounds, No Accessory Muscle Use, Chest Non-Tender Cardiovascular: No Edema, Tachycardia GI/Abdominal Exam: Soft, No Distention, Tender (epigastric), Abnormal Bowel Sounds (hyperactive bowel sounds). No: Guarding, Rigid, Rebound (Male) Exam: Deferred Rectal (Males) Exam: Deferred Back Exam: Normal Inspection Extremities: Normal Inspection Neurological: Alert, Oriented, No Motor/Sensory Deficits Psychiatric: Anxious Skin Exam: Warm, Dry, Intact, Pallor EKG INTERPRETATION EKG Date: 02/08/18 Time: 14:56 Rhythm: A-Fib Rate (Beats/Min): 176 Ider: Normal P-Wave: Absent ST-T: Depressed Comparison: Change From Previous EKG Course - Vital Signs Last Recorded V/S: Last Vital Signs Temp 37.1 C 02/08/18 14:52 Pulse 142 H 02/08/18 16:14 Resp 19 02/08/18 16:14 BP 106/65 02/08/18 16:14 Pulse Ox 100 02/08/18 16:14 - Orders/Labs/Meds Orders: Active Orders 24 hr Category Date Time Status EKG 12 Lead [EKG Documentation Completion] [] STAT Care 02/08/18 14:49 Active Peripheral IV Care [RC] . DIRECTED Care 02/08/18 14:49 Active Peripheral IV Care [RC] . DIRECTED Care 02/08/18 14:50 Active DRUG SCREEN URINE BIORAD [URCHEM] Stat Lab 02/08/18 14:49 Ordered UA W/MICROSCOPIC [URIN] Stat Lab 02/08/18 14:49 Ordered Octreotide [SandoSTATIN] 500 mcg Med 02/08/18 15:00 Active Sodium Chloride 0.9% [Normal Saline] 250 ml IV ASDIRECTED Pantoprazole [ProTONIX IV] 40 mg Med 02/08/18 14:54 Active Sodium Chloride 0.9% [Normal Saline] 100 ml IV .CONTINUOS Sodium Chloride 0.9% [Saline Flush] Med 02/08/18 14:49 Active 10 ml FLUSH ASDIRECTED PRN Sodium Chloride 0.9% [Saline Flush] Med 02/08/18 14:50 Active 10 ml FLUSH ASDIRECTED PRN Peripheral IV Insertion Adult [OM.PC] Stat Oth 02/08/18 14:49 Ordered Peripheral IV Insertion Adult [OM.PC] Stat Oth 02/08/18 14:50 Ordered Medication Orders Pantoprazole Sodium 40 mg/ (Sodium Chloride) 100 mls @ 20 mls/hr IV .CONTINUOS NILSON Last Admin: 02/08/18 15:55 Dose: 20 mls/hr Octreotide Acetate 500 mcg/ (Sodium Chloride) 255 mls @ 12.5 mls/hr IV ASDIRECTED NILSON Last Admin: 02/08/18 16:12 Dose: 12.5 mls/hr Sodium Chloride (Saline Flush) 10 ml FLUSH ASDIRECTED PRN PRN Reason: Keep Vein Open Last Admin: 02/08/18 16:33 Dose: 10 ml Sodium Chloride (Saline Flush) 10 ml FLUSH ASDIRECTED PRN PRN Reason: Keep Vein Open Last Admin: 02/08/18 16:32 Dose: 10 ml Labs: Laboratory Tests 02/08/18 02/08/18 02/08/18 Range/Units 14:45 14:45 14:45 WBC 16.4 H (5.0-10.0) 10^3/uL RBC 5.06 (4.6-6.2) 10^6/uL Hgb 15.6 (14.0-18.0) g/dL Hct 45.1 (40.0-54.0) % MCV 89.1 (80-100) fL MCH 30.8 (27.0-34.0) pg MCHC 34.6 (33.0-35.0) g/dL Plt Count 159 (150-450) 10^3/uL Neut % (Auto) 85.2 H (42.2-75.2) % Lymph % (Auto) 9.4 L (20.5-50.1) % Ada % (Auto) 5.2 (2-8) % Eos % (Auto) 0.0 L (1.0-3.0) % Baso % (Auto) 0.2 (0.0-1.0) % Add Manual Diff Yes Neutrophils % (Manual) 72 (42-75) % Band Neutrophils % 12 % Lymphocytes % (Manual) 12 L (20-50) % Monocytes % (Manual) 4 (2-8) % PT 10.8 (9.0-12.0) SEC INR 1.1 (0.9-1.2) APTT 27.6 (22.0-34.0) SEC Sodium 139 (135-145) mmol/L Potassium 3.1 L (3.6-5.0) mmol/L Chloride 98 L (101-111) mmol/L Carbon Dioxide 18.0 L (21.0-31.0) mmol/L Anion Gap 26.1 BUN 7 (7-18) mg/dL Creatinine 0.9 (0.6-1.3) mg/dL Est Cr Clr Drug Dosing 82.92 mL/min Estimated GFR (MDRD) > 60 BUN/Creatinine Ratio 7.77 Glucose 163 H (74-105) mg/dL Calcium 9.0 (8.4-10.2) mg/dl Total Bilirubin 2.5 H (0.2-1.0) mg/dL AST 107 H (10-42) IU/L ALT 36 (10-60) IU/L Alkaline Phosphatase 122 H (42-121) IU/L Ammonia (11-35) umol/L Troponin I < 0.02 (0.00-0.02) ng/ml Total Protein 8.8 H (6.7-8.2) g/dl Albumin 4.6 (3.2-5.5) g/dl Globulin 4.2 Albumin/Globulin Ratio 1.10 Amylase 26 L (28-100) U/L Lipase 35 (22-51) U/L Ethyl Alcohol 20 mg/dL 02/08/18 Range/Units 14:45 WBC (5.0-10.0) 10^3/uL RBC (4.6-6.2) 10^6/uL Hgb (14.0-18.0) g/dL Hct (40.0-54.0) % MCV (80-100) fL MCH (27.0-34.0) pg MCHC (33.0-35.0) g/dL Plt Count (150-450) 10^3/uL Neut % (Auto) (42.2-75.2) % Lymph % (Auto) (20.5-50.1) % Ada % (Auto) (2-8) % Eos % (Auto) (1.0-3.0) % Baso % (Auto) (0.0-1.0) % Add Manual Diff Neutrophils % (Manual) (42-75) % Band Neutrophils % % Lymphocytes % (Manual) (20-50) % Monocytes % (Manual) (2-8) % PT (9.0-12.0) SEC INR (0.9-1.2) APTT (22.0-34.0) SEC Sodium (135-145) mmol/L Potassium (3.6-5.0) mmol/L Chloride (101-111) mmol/L Carbon Dioxide (21.0-31.0) mmol/L Anion Gap BUN (7-18) mg/dL Creatinine (0.6-1.3) mg/dL Est Cr Clr Drug Dosing mL/min Estimated GFR (MDRD) BUN/Creatinine Ratio Glucose (74-105) mg/dL Calcium (8.4-10.2) mg/dl Total Bilirubin (0.2-1.0) mg/dL AST (10-42) IU/L ALT (10-60) IU/L Alkaline Phosphatase (42-121) IU/L Ammonia 40 H (11-35) umol/L Troponin I (0.00-0.02) ng/ml Total Protein (6.7-8.2) g/dl Albumin (3.2-5.5) g/dl Globulin Albumin/Globulin Ratio Amylase (28-100) U/L Lipase (22-51) U/L Ethyl Alcohol mg/dL Meds: Medications Generic Name Dose Route Start Last Admin Trade Name Freq PRN Reason Stop Dose Admin Pantoprazole Sodium 40 mg/ 100 mls @ 20 mls/hr 02/08/18 14:54 02/08/18 15:55 Sodium Chloride IV 20 mls/hr .CONTINUOS NILSON Administration Octreotide Acetate 500 mcg/ 255 mls @ 12.5 mls/hr 02/08/18 15:00 02/08/18 16: 12 Sodium Chloride IV 12.5 mls/hr ASDIRECTED NILSON Administration Sodium Chloride 10 ml 02/08/18 14:49 02/08/18 16:33 Saline Flush FLUSH 10 ml ASDIRECTED PRN Administration Keep Vein Open Sodium Chloride 10 ml 02/08/18 14:50 02/08/18 16:32 Saline Flush FLUSH 10 ml ASDIRECTED PRN Administration Keep Vein Open Discontinued Medications Generic Name Dose Route Start Last Admin Trade Name Joseq PRN Reason Stop Dose Admin Multivitamins/Minerals 10 ml/ 1,011.2 mls @ 999 mls/hr 02/08/18 14:53 15:47 Thiamine HCl 100 mg/ Folic IV 02/08/18 15:53 999 mls/hr Acid 1 mg/ Lactated Ringer's .BOLUS ONE Administration Lorazepam 1 mg 02/08/18 16:18 02/08/18 16:33 Ativan IVPUSH 02/08/18 16:19 1 mg ONETIME ONE Administration Metoprolol Tartrate 5 mg 02/08/18 15:06 02/08/18 15:22 Lopressor IVPUSH 02/08/18 15:07 5 mg ONETIME ONE Administration Metoprolol Tartrate 5 mg 02/08/18 15:55 02/08/18 16:03 Lopressor IVPUSH 02/08/18 15:56 5 mg ONETIME ONE Administration Octreotide Acetate 50 mcg 02/08/18 14:52 02/08/18 15:26 Sandostatin IVPUSH 02/08/18 14:53 50 mcg ONETIME ONE Administration Ondansetron HCl 4 mg 02/08/18 14:52 02/08/18 15:21 Zofran IV 02/08/18 14:53 4 mg ONETIME ONE Administration Ondansetron HCl 4 mg 02/08/18 16:18 02/08/18 16:32 Zofran IV 02/08/18 16:19 4 mg ONETIME ONE Administration Pantoprazole Sodium 80 mg 02/08/18 14:52 02/08/18 15:19 Protonix Iv IVPUSH 02/08/18 14:53 80 mg .BOLUS ONE Administration Departure - Departure Time of Disposition: 16:55 Disposition: DC/Tfer to [facility] 02 Condition: Critical Clinical Impression: Alcohol abuse, Acute upper GI bleed, Atrial fibrillation with RVR Alcoholic gastritis with bleeding Qualifiers: Chronicity: acute Qualified Code(s): K29.21 - Alcoholic gastritis with bleeding - Discharge Information Forms: ED Department Discharge, Interfacility Transfer EMTALA - My Orders Last 24 Hours: My Active Orders 02/08/18 14:49 EKG 12 Lead [EKG Documentation Completion] [RC] STAT Peripheral IV Care [RC] . DIRECTED DRUG SCREEN URINE BIORAD [URCHEM] Stat UA W/MICROSCOPIC [URIN] Stat Sodium Chloride 0.9% [Saline Flush] 10 ml FLUSH ASDIRECTED PRN Peripheral IV Insertion Adult [OM.PC] Stat 02/08/18 14:50 Peripheral IV Care [RC] . DIRECTED Sodium Chloride 0.9% [Saline Flush] 10 ml FLUSH ASDIRECTED PRN Peripheral IV Insertion Adult [OM.PC] Stat 02/08/18 14:54 Pantoprazole [ProTONIX IV] 40 mg Sodium Chloride 0.9% [Normal Saline] 100 ml IV .CONTINUOS 02/08/18 15:00 Octreotide [SandoSTATIN] 500 mcg Sodium Chloride 0.9% [Normal Saline] 250 ml IV ASDIRECTED - Assessment/Plan Last 24 Hours: My Active Orders 02/08/18 14:49 EKG 12 Lead [EKG Documentation Completion] [RC] STAT Peripheral IV Care [RC] . DIRECTED DRUG SCREEN URINE BIORAD [URCHEM] Stat UA W/MICROSCOPIC [URIN] Stat Sodium Chloride 0.9% [Saline Flush] 10 ml FLUSH ASDIRECTED PRN Peripheral IV Insertion Adult [OM.PC] Stat 02/08/18 14:50 Peripheral IV Care [RC] . DIRECTED Sodium Chloride 0.9% [Saline Flush] 10 ml FLUSH ASDIRECTED PRN Peripheral IV Insertion Adult [OM.PC] Stat 02/08/18 14:54 Pantoprazole [ProTONIX IV] 40 mg Sodium Chloride 0.9% [Normal Saline] 100 ml IV .CONTINUOS 02/08/18 15:00 Octreotide [SandoSTATIN] 500 mcg Sodium Chloride 0.9% [Normal Saline] 250 ml IV ASDIRECTED
[2018-02-08] MEDS ORDERED: Ondansetron 4 MG/2 ML SDV IV ONE ×2 (14:52→16:18)
[2018-02-08] MEDS ORDERED: Octreotide 100 MCG/ML SDV IVPUSH ONE (14:52)
[2018-02-08] MEDS ORDERED: Pantoprazole 40 MG Vial IVPUSH ONE (14:52)
[2018-02-08] MEDS ORDERED: MVI, Adult with Vitamin K 10 ML, Thiamine 100 MG, Folic Acid 1 MG in Lactated Ringers 1... IV ONE ×4 (14:53)
[2018-02-08] MEDS ORDERED: Pantoprazole 40 MG in Sodium Chloride 0.9% 100 ML IV SCH (14:54)
[2018-02-08] MEDS ORDERED: Octreotide 500 MCG in Sodium Chloride 0.9% 250 ML IV SCH (15:00)
[2018-02-08] MEDS ORDERED: Metoprolol Tartrate 5 MG/5 ML SDV IVPUSH ONE ×2 (15:06→15:55)
[2018-02-08 15:17] LABS: CHLORIDE,CL 98 mmol/L (101-111); SODIUM,NA 139 mmol/L (135-145)
[2018-02-08] MEDS ORDERED: LORazepam 2 MG/ML Syringe IVPUSH ONE (16:18)
[2018-02-08 16:48] VITALS: BP 106/65
--- NOTE | 2018-02-10 09:34 | EKG ---
02/08/2018- DENNIS MURPHY - Mr. Murphy is a 62-year-old male with an EKG showing atrial fibrillation, heart rate of 176 beats per minute, and ST depressions, likely rate related. MODL /[id number]
== END 2018-02-08 17:17 ==
LOC: DL.ED 14:48
DX: K29.21 Alcoholic gastritis with bleeding (principal); I48.91 Unspecified atrial fibrillation; K21.9 Gastro-esophageal reflux disease without esophagitis; I10 Essential (primary) hypertension; Z88.6 Allergy status to analgesic agent; Z79.899 Other long term (current) drug therapy
CPT/HCPCS: 36415; 80053; 82140; 82150; 83690; 84484; 85025; 85610; 85730; 93005; 96365; 96374; 96375; 96376; 99285; C9113; G0480; J2060; J2354; J2405; J3411; J7050; J7120; J3490

== ENCOUNTER 2018-03-05 11:02 | Emergency (ER) | payer MEDICAID ==
[2018-03-05 11:13] VITALS: BP 141/82
[2018-03-05] MEDS ORDERED: Sodium Chloride 0.9% 10 ML Syringe FLUSH PRN (11:35)
[2018-03-05] MEDS ORDERED: Pantoprazole 40 MG Vial IVPUSH ONE (11:35)
[2018-03-05] MEDS ORDERED: Sodium Chloride 0.9% 1,000 ML IV ONE (11:35)
[2018-03-05] MEDS ORDERED: Ondansetron 4 MG/2 ML SDV IV ONE (11:35)
[2018-03-05 11:47] LABS: ANION GAP 22.8; CHLORIDE,CL 100 mmol/L (101-111); SODIUM,NA 136 mmol/L (135-145)
[2018-03-05] MEDS ORDERED: LORazepam 2 MG/ML Syringe IVPUSH ONE (12:31)
--- NOTE | 2018-03-05 12:41 | EDM.PDOC ---
Scribed by Marisela Ren 03/05/18 1241 for Sonal Yoo NP ED HPI GENERAL MEDICAL PROBLEM - General Chief Complaint: Abdominal Pain Stated Complaint: sick vomiting Time Seen by Provider: 03/05/18 11:22 Source of Information: Reports: Patient, RN, RN Notes Reviewed History Limitations: Reports: No Limitations - History of Present Illness INITIAL COMMENTS - FREE TEXT/NARRATIVE: Patient presented to ER with complaint of nausea, vomiting, diarrhea and burning in stomach. Admits to history of ulcers, gastritis and cirrhosis. He has been drinking since Wednesday. Last drink was Wednesday a.m. Began having burning in stomach. Began vomiting last night. This morning he began seeing bright red blood in the vomit. Patient states loose stools. Denies blood in the stool. Admits to dizziness, lightheaded, weak, shortness of breath and tremors. No fever, chills or chest pain. Onset: Gradual Duration: Getting Worse Location: Reports: Abdomen Quality: Reports: Burning Severity: Moderate Improves with: Reports: None Worsens with: Reports: None Associated Symptoms: Reports: No Other Symptoms Abdomen Pain Score (Numeric/FACES): 10 - Related Data Allergies Allergy/AdvReac Type Severity Reaction Status Date / Time aspirin Allergy Stomach Verified 03/05/18 11:08 Upset Home Meds: Home Meds Metoprolol Succinate [Toprol XL 100mg] 50 mg PO DAILY 09/04/13 [History] Acetaminophen [Tylenol] 2 tab PO Q8H PRN 12/06/14 [History] Folic Acid 1 mg PO DAILY 12/06/14 [History] Furosemide [Lasix] 40 mg PO DAILY 06/15/17 [History] Pantoprazole Sodium [Protonix] 40 mg PO DAILY 06/15/17 [History] Potassium Chloride [Klor-Con 10] 20 meq PO WITHBREAKFAST 06/15/17 [History] Thiamine HCl [B-1] 100 mg PO DAILY 06/15/17 [History] Lactulose 15 mg PO DAILY 12/11/17 [History] Spironolactone [Aldactone] 12/11/17 [History] Spironolactone [Aldactone] 100 mg PO DAILY 12/11/17 [History] Past Medical History HEENT History: Reports: None Cardiovascular History: Reports: Hypertension Other Cardiovascular History: Hx of SVT. Dyslipidemia. Respiratory History: Reports: COPD, Sleep Apnea Gastrointestinal History: Reports: Cirrhosis, Gastritis, GERD, GI Bleed, PUD Other Gastrointestinal History: alcoholic gastritis Genitourinary History: Reports: Prostate Disorder Musculoskeletal History: Reports: Back Pain, Chronic Neurological History: Reports: None Psychiatric History: Reports: Addiction Other Psychiatric History: Hx of alcoholism. Quit 06/2015 Endocrine/Metabolic History: Reports: None Hematologic History: Reports: None Immunologic History: Reports: None Oncologic (Cancer) History: Reports: Prostate Dermatologic History: Reports: None - Infectious Disease History Infectious Disease History: Reports: Chicken Pox - Past Surgical History Head Surgeries/Procedures: Reports: None HEENT Surgical History: Reports: None Male Surgical History: Reports: Circumcision, TURP-Transurethral Resection of Prostate Musculoskeletal Surgical History: Reports: Shoulder Surgery Other Oncologic Surgeries/Procedures: TURP Social & Family History - Family History Family Medical History: Noncontributory - Tobacco Use Smoking Status *Q: Current Every Day Smoker Years of Tobacco use: 50 Packs/Tins Daily: 1 - Caffeine Use Caffeine Use: Reports: Coffee - Alcohol Use Days Per Week of Alcohol Use: 7 Number of Drinks Per Day: 10 Total Drinks Per Week: 70 - Recreational Drug Use Recreational Drug Use: Yes Drug Use in Last 12 Months: Yes Recreational Drug Type: Reports: Marijuana/Hashish Recreational Drug Use Frequency: Daily - Living Situation & Occupation Living situation: Reports: Single, with Significant Other Occupation: Unemployed ED ROS GENERAL - Review of Systems Review Of Systems: ROS reveals no pertinent complaints other than HPI. ED EXAM, GI/ABD - Physical Exam Exam: See Below Exam Limited By: No Limitations General Appearance: Alert, WD/WN, No Apparent Distress Eyes: Bilateral: Normal Appearance, EOMI Ears: Normal External Exam, Normal Canal, Hearing Grossly Normal, Normal TMs Nose: Normal Inspection, Normal Mucosa, No Blood Throat/Mouth: Normal Inspection, Normal Lips, Normal Teeth, Normal Gums, Normal Oropharynx, Normal Voice, No Airway Compromise Head: Atraumatic, Normocephalic Neck: Normal Inspection, Supple, Non-Tender, Full Range of Motion Respiratory/Chest: No Respiratory Distress, Lungs Clear, Normal Breath Sounds, No Accessory Muscle Use, Chest Non-Tender Cardiovascular: Normal Peripheral Pulses, Regular Rate, Rhythm, No Edema, No Gallop, No JVD, No Murmur, No Rub GI/Abdominal Exam: Tender (Male) Exam: Deferred Rectal (Males) Exam: Deferred Back Exam: Normal Inspection, Full Range of Motion, NT Extremities: Normal Inspection, Normal Range of Motion, Non-Tender, Normal Capillary Refill, No Pedal Edema Neurological: Alert, Oriented, CN II-XII Intact, Normal Cognition, Normal Gait, Normal Reflexes, No Motor/Sensory Deficits Psychiatric: Anxious, Other (tremors) Skin Exam: Warm, Dry, Intact, Normal Color, No Rash Lymphatic: No Adenopathy Course - Vital Signs Last Recorded V/S: Last Vital Signs Temp 97.2 F 03/05/18 11:08 Pulse 100 03/05/18 11:08 Resp 18 03/05/18 11:08 BP 141/82 H 03/05/18 11:08 Pulse Ox 100 03/05/18 11:08 - Orders/Labs/Meds Orders: Active Orders 24 hr Category Date Time Status Peripheral IV Care [RC] . DIRECTED Care 03/05/18 11:35 Active DRUG SCREEN URINE BIORAD [URCHEM] Stat Lab 03/05/18 11:18 Ordered UA W/MICROSCOPIC [URIN] Stat Lab 03/05/18 11:18 Ordered Peripheral IV Insertion Adult [OM.PC] Stat Oth 03/05/18 11:35 Ordered Labs: Laboratory Tests 03/05/18 03/05/18 03/05/18 Range/Units 11:18 11:18 11:21 WBC 18.2 H (5.0-10.0) 10^3/uL RBC 5.36 (4.6-6.2) 10^6/uL Hgb 16.4 (14.0-18.0) g/dL Hct 46.4 (40.0-54.0) % MCV 86.6 (80-100) fL MCH 30.6 (27.0-34.0) pg MCHC 35.3 H (33.0-35.0) g/dL Plt Count 312 D (150-450) 10^3/uL Neut % (Auto) 81.4 H (42.2-75.2) % Lymph % (Auto) 11.4 L (20.5-50.1) % [place] % (Auto) 6.3 (2-8) % Eos % (Auto) 0.3 L (1.0-3.0) % Baso % (Auto) 0.6 (0.0-1.0) % Sodium (135-145) mmol/L Potassium (3.6-5.0) mmol/L Chloride (101-111) mmol/L Carbon Dioxide (21.0-31.0) mmol/L Anion Gap BUN (7-18) mg/dL Creatinine (0.6-1.3) mg/dL Est Cr Clr Drug Dosing mL/min Estimated GFR (MDRD) BUN/Creatinine Ratio Glucose (74-105) mg/dL Calcium (8.4-10.2) mg/dl Total Bilirubin (0.2-1.0) mg/dL AST (10-42) IU/L ALT (10-60) IU/L Alkaline Phosphatase (42-121) IU/L Troponin I (0.00-0.02) ng/ml Total Protein (6.7-8.2) g/dl Albumin (3.2-5.5) g/dl Globulin Albumin/Globulin Ratio Urine Color Yellow (YELLOW) Urine Appearance Slightly cloudy (CLEAR) Urine pH 6.0 (5.0-9.0) Ur Specific [place] 1.020 (1.005-1.030) Urine Protein 100 H (NEGATIVE) Urine Glucose (UA) Negative (NEGATIVE) Urine Ketones 15 H (NEGATIVE) Urine Occult Blood Negative (NEGATIVE) Urine Nitrite Negative (NEGATIVE) Urine Bilirubin Small H (NEGATIVE) Urine Urobilinogen 1.0 (0.2-1.0) mg/dL Ur Leukocyte Esterase Negative (NEGATIVE) Urine RBC Not seen /HPF Urine WBC 0-5 (0-5/HPF) /HPF Ur Epithelial Cells Rare /HPF Urine Bacteria Not seen (0-FEW/HPF) /HPF Urine Mucus Many H /LPF Urine Opiates Screen Negative (NEGATIVE) Ur Oxycodone Screen Negative (NEGATIVE) Urine Methadone Screen Negative (NEGATIVE) Ur Barbiturates Screen Negative (NEGATIVE) U Tricyclic Antidepress Negative (NEGATIVE) Ur Phencyclidine Scrn Negative (NEGATIVE) Ur Amphetamine Screen Negative (NEGATIVE) U Methamphetamines Scrn Negative (NEGATIVE) Urine MDMA Screen Negative (NEGATIVE) U Benzodiazepines Scrn Negative (NEGATIVE) Urine Cocaine Screen Negative (NEGATIVE) U Marijuana (THC) Screen Positive H (NEGATIVE) Ethyl Alcohol mg/dL 03/05/18 Range/Units 11:21 WBC (5.0-10.0) 10^3/uL RBC (4.6-6.2) 10^6/uL Hgb (14.0-18.0) g/dL Hct (40.0-54.0) % MCV (80-100) fL MCH (27.0-34.0) pg MCHC (33.0-35.0) g/dL Plt Count (150-450) 10^3/uL Neut % (Auto) (42.2-75.2) % Lymph % (Auto) (20.5-50.1) % [place] % (Auto) (2-8) % Eos % (Auto) (1.0-3.0) % Baso % (Auto) (0.0-1.0) % Sodium 136 (135-145) mmol/L Potassium 3.8 (3.6-5.0) mmol/L Chloride 100 L (101-111) mmol/L Carbon Dioxide 17.0 L (21.0-31.0) mmol/L Anion Gap 22.8 BUN 9 (7-18) mg/dL Creatinine 0.9 (0.6-1.3) mg/dL Est Cr Clr Drug Dosing 82.92 mL/min Estimated GFR (MDRD) > 60 BUN/Creatinine Ratio 10.00 Glucose 128 H (74-105) mg/dL Calcium 9.6 (8.4-10.2) mg/dl Total Bilirubin 1.2 H (0.2-1.0) mg/dL AST 54 H (10-42) IU/L ALT 27 (10-60) IU/L Alkaline Phosphatase 97 (42-121) IU/L Troponin I < 0.02 (0.00-0.02) ng/ml Total Protein 9.5 H (6.7-8.2) g/dl Albumin 5.1 (3.2-5.5) g/dl Globulin 4.4 Albumin/Globulin Ratio 1.16 Urine Color (YELLOW) Urine Appearance (CLEAR) Urine pH (5.0-9.0) Ur Specific [place] (1.005-1.030) Urine Protein (NEGATIVE) Urine Glucose (UA) (NEGATIVE) Urine Ketones (NEGATIVE) Urine Occult Blood (NEGATIVE) Urine Nitrite (NEGATIVE) Urine Bilirubin (NEGATIVE) Urine Urobilinogen (0.2-1.0) mg/dL Ur Leukocyte Esterase (NEGATIVE) Urine RBC /HPF Urine WBC (0-5/HPF) /HPF Ur Epithelial Cells /HPF Urine Bacteria (0-FEW/HPF) /HPF Urine Mucus /LPF Urine Opiates Screen (NEGATIVE) Ur Oxycodone Screen (NEGATIVE) Urine Methadone Screen (NEGATIVE) Ur Barbiturates Screen (NEGATIVE) U Tricyclic Antidepress (NEGATIVE) Ur Phencyclidine Scrn (NEGATIVE) Ur Amphetamine Screen (NEGATIVE) U Methamphetamines Scrn (NEGATIVE) Urine MDMA Screen (NEGATIVE) U Benzodiazepines Scrn (NEGATIVE) Urine Cocaine Screen (NEGATIVE) U Marijuana (THC) Screen (NEGATIVE) Ethyl Alcohol < 5 mg/dL Meds: Medications Discontinued Medications Generic Name Dose Route Start Last Admin Trade Name Freq PRN Reason Stop Dose Admin Sodium Chloride 1,000 mls @ 999 mls/hr 03/05/18 11:35 03/05/18 11:44 Normal Saline IV 03/05/18 12:35 999 mls/hr .BOLUS ONE Administration Lorazepam 1 mg 03/05/18 12:31 03/05/18 12:36 Ativan IVPUSH 03/05/18 12:32 1 mg ONETIME ONE Administration Ondansetron HCl 4 mg 03/05/18 11:35 03/05/18 11:44 Zofran IV 03/05/18 11:36 4 mg ONETIME ONE Administration Pantoprazole Sodium 80 mg 03/05/18 11:35 03/05/18 11:44 Protonix Iv IVPUSH 03/05/18 11:36 80 mg .BOLUS ONE Administration Sodium Chloride 10 ml 03/05/18 11:35 03/05/18 11:44 Saline Flush FLUSH 10 ml ASDIRECTED PRN Administration Keep Vein Open - Re-Assessments/Exams Free Text/Narrative Re-Assessment/Exam: 03/05/18 13:39 Patient case discussed with Dr. Jaimes. He feels it is a risk to keep the patient here due to the wretching/vomiting and the history of esophageal varices. Patient case then discussed with Dr. Johnson at [facility] who agreed to accept the patient for transfer. Departure - Departure Time of Disposition: 12:29 Disposition: DC/Tfer to Acute Hospital 02 Condition: Fair Clinical Impression: Esophageal varices, Alcohol withdrawal syndrome, Gastritis - Discharge Information Forms: ED Department Discharge, Interfacility Transfer EMTALA - My Orders Last 24 Hours: My Active Orders 03/05/18 11:18 DRUG SCREEN URINE BIORAD [URCHEM] Stat UA W/MICROSCOPIC [URIN] Stat 03/05/18 11:35 Peripheral IV Care [RC] . DIRECTED Peripheral IV Insertion Adult [OM.PC] Stat - Assessment/Plan Last 24 Hours: My Active Orders 03/05/18 11:18 DRUG SCREEN URINE BIORAD [URCHEM] Stat UA W/MICROSCOPIC [URIN] Stat 03/05/18 11:35 Peripheral IV Care [RC] . DIRECTED Peripheral IV Insertion Adult [OM.PC] Stat I have read and agree with the documentation that has been completed regarding this visit. By signing this record, I attest that the documentation was completed in my physical presence and is an accurate record of the encounter.
== END 2018-03-05 13:00 ==
LOC: DL.ED 11:02
DX: K29.20 Alcoholic gastritis without bleeding (principal); K70.30 Alcoholic cirrhosis of liver without ascites; I85.10 Secondary esophageal varices without bleeding; F10.239 Alcohol dependence with withdrawal, unspecified; I10 Essential (primary) hypertension; K21.9 Gastro-esophageal reflux disease without esophagitis; F17.210 Nicotine dependence, cigarettes, uncomplicated; Z79.82 Long term (current) use of aspirin; Z79.899 Other long term (current) drug therapy
CPT/HCPCS: 36415; 80053; 80305; 81001; 82272; 84484; 85025; 96361; 96374; 96375; 99285; C9113; G0480; J2060; J2405; J7030; J7050

== ENCOUNTER 2018-03-24 10:37 | Emergency (ER) | payer MEDICAID ==
[2018-03-24 10:46] VITALS: BP 148/90
--- NOTE | 2018-03-24 10:47 | EDM.PDOC ---
ED HPI GENERAL MEDICAL PROBLEM - General Stated Complaint: IN BY AMBULANCE Time Seen by Provider: 03/24/18 10:38 Source of Information: Reports: Patient, EMS History Limitations: Reports: No Limitations - History of Present Illness INITIAL COMMENTS - FREE TEXT/NARRATIVE: This 62 yo male patient was brought to the ED by [facility] due to nausea, vomiting, abdominal pain and chest pain. The patient reports that he got out of [facility] in [place] on 03/16/18 (due to bleeding esophageal varices), started drinking on 03/20/18, stopped drinking yesterday and began to feel nauseated with vomiting this morning. The patient reports that he noticed some "specks" of blood in his vomit this morning at about 0300, but nothing since then. The patient has been taking his medications as prescribed, but vomited all of his medications up this morning after taking them. Onset: Today Duration: Constant Location: Reports: Chest, Abdomen Quality: Reports: Ache, Dull Severity: Moderate Improves with: Reports: None Worsens with: Reports: None Associated Symptoms: Reports: Chest Pain, Nausea/Vomiting Abdominal Pain Score (Numeric/FACES): 10 - Related Data Allergies Allergy/AdvReac Type Severity Reaction Status Date / Time aspirin Allergy Stomach Verified 03/24/18 10:38 Upset Home Meds: Home Meds Metoprolol Succinate [Toprol XL 100mg] 50 mg PO DAILY 09/04/13 [History] Acetaminophen [Tylenol] 2 tab PO Q8H PRN 12/06/14 [History] Folic Acid 1 mg PO DAILY 12/06/14 [History] Pantoprazole Sodium [Protonix] 40 mg PO DAILY 06/15/17 [History] Thiamine HCl [B-1] 100 mg PO DAILY 06/15/17 [History] Lactulose 15 mg PO DAILY 12/11/17 [History] Multivitamin [Multi-Vitamin Daily] 1 tab PO DAILY 03/24/18 [History] Sucralfate 1 gm PO QID 03/24/18 [History] Zolpidem [Ambien] 5 mg PO BEDTIME PRN 03/24/18 [History] Past Medical History HEENT History: Reports: None Cardiovascular History: Reports: Hypertension Other Cardiovascular History: Hx of SVT. Dyslipidemia. Respiratory History: Reports: COPD, Sleep Apnea Gastrointestinal History: Reports: Cirrhosis, Gastritis, GERD, GI Bleed, PUD Other Gastrointestinal History: alcoholic gastritis Genitourinary History: Reports: Prostate Disorder Musculoskeletal History: Reports: Back Pain, Chronic Neurological History: Reports: None Psychiatric History: Reports: Addiction Other Psychiatric History: Hx of alcoholism. Quit 06/2015 Endocrine/Metabolic History: Reports: None Hematologic History: Reports: None Immunologic History: Reports: None Oncologic (Cancer) History: Reports: Prostate Dermatologic History: Reports: None - Infectious Disease History Infectious Disease History: Reports: Chicken Pox - Past Surgical History Head Surgeries/Procedures: Reports: None HEENT Surgical History: Reports: None Male Surgical History: Reports: Circumcision, TURP-Transurethral Resection of Prostate Musculoskeletal Surgical History: Reports: Shoulder Surgery Other Oncologic Surgeries/Procedures: TURP Social & Family History - Family History Family Medical History: Noncontributory - Caffeine Use Caffeine Use: Reports: Coffee - Living Situation & Occupation Living situation: Reports: Single, with Significant Other Occupation: Unemployed ED ROS GENERAL - Review of Systems Review Of Systems: ROS reveals no pertinent complaints other than HPI. ED EXAM, GI/ABD - Physical Exam Exam: See Below Exam Limited By: No Limitations General Appearance: Alert, WD/WN, Moderate Distress Eyes: Bilateral: Normal Appearance, EOMI Ears: Normal External Exam, Normal Canal, Hearing Grossly Normal, Normal TMs Nose: Normal Inspection, Normal Mucosa, No Blood Throat/Mouth: Normal Inspection, Normal Lips, Normal Teeth, Normal Gums, Normal Oropharynx, Normal Voice, No Airway Compromise Head: Atraumatic, Normocephalic Neck: Normal Inspection, Supple, Non-Tender, Full Range of Motion Respiratory/Chest: No Respiratory Distress, Lungs Clear, Normal Breath Sounds, No Accessory Muscle Use, Chest Non-Tender Cardiovascular: No Edema, No Gallop, No JVD, No Murmur, No Rub, Tachycardia GI/Abdominal Exam: Normal Bowel Sounds, Soft, Tender (diffuse upper abdominal tenderness to palpation) (Male) Exam: Deferred Rectal (Males) Exam: Deferred Back Exam: Normal Inspection, Full Range of Motion, NT Extremities: Normal Inspection, Normal Range of Motion, Non-Tender, Normal Capillary Refill, No Pedal Edema Neurological: Alert, Oriented, CN II-XII Intact, Normal Cognition, Normal Gait, Normal Reflexes, No Motor/Sensory Deficits Psychiatric: Normal Affect, Normal Mood Skin Exam: Warm, Dry, Intact, Normal Color, No Rash Lymphatic: No Adenopathy Course - Vital Signs Last Recorded V/S: Last Vital Signs Temp 36.9 C 03/24/18 10:43 Pulse 96 03/24/18 10:43 Resp 18 03/24/18 10:43 BP 148/90 H 03/24/18 10:43 Pulse Ox 100 03/24/18 10:43 - Orders/Labs/Meds Orders: Active Orders 24 hr Category Date Time Status EKG Documentation Completion [RC] URGENT Care 03/24/18 10:41 Active DRUG SCREEN URINE BIORAD [URCHEM] Stat Lab 03/24/18 10:41 Ordered UA W/MICROSCOPIC [URIN] Stat Lab 03/24/18 10:41 Ordered Labs: Laboratory Tests 03/24/18 03/24/18 03/24/18 Range/Units 10:41 10:41 10:54 WBC 8.1 (5.0-10.0) 10^3/uL RBC 4.81 (4.6-6.2) 10^6/uL Hgb 14.5 D (14.0-18.0) g/dL Hct 41.7 (40.0-54.0) % MCV 86.7 (80-100) fL MCH 30.1 (27.0-34.0) pg MCHC 34.8 (33.0-35.0) g/dL Plt Count 216 D (150-450) 10^3/uL Neut % (Auto) 68.2 (42.2-75.2) % Lymph % (Auto) 20.6 (20.5-50.1) % Door % (Auto) 9.4 H (2-8) % Eos % (Auto) 0.7 L (1.0-3.0) % Baso % (Auto) 1.1 H (0.0-1.0) % Sodium (135-145) mmol/L Potassium (3.6-5.0) mmol/L Chloride (101-111) mmol/L Carbon Dioxide (21.0-31.0) mmol/L Anion Gap BUN (7-18) mg/dL Creatinine (0.6-1.3) mg/dL Est Cr Clr Drug Dosing mL/min Estimated GFR (MDRD) BUN/Creatinine Ratio Glucose (74-105) mg/dL Calcium (8.4-10.2) mg/dl Magnesium (1.8-2.5) mg/dL Total Bilirubin (0.2-1.0) mg/dL AST (10-42) IU/L ALT (10-60) IU/L Alkaline Phosphatase (42-121) IU/L Ammonia (11-35) umol/L Troponin I (0.00-0.02) ng/ml Total Protein (6.7-8.2) g/dl Albumin (3.2-5.5) g/dl Globulin Albumin/Globulin Ratio Amylase (28-100) U/L Lipase (22-51) U/L Urine Color Straw (YELLOW) Urine Appearance Clear (CLEAR) Urine pH 7.0 (5.0-9.0) Ur Specific [place] 1.020 (1.005-1.030) Urine Protein 30 H (NEGATIVE) Urine Glucose (UA) Negative (NEGATIVE) Urine Ketones 40 H (NEGATIVE) Urine Occult Blood Trace-intact H (NEGATIVE) Urine Nitrite Negative (NEGATIVE) Urine Bilirubin Small H (NEGATIVE) Urine Urobilinogen >=8.0 H (0.2-1.0) mg/dL Ur Leukocyte Esterase Negative (NEGATIVE) Urine RBC 0-5 /HPF Urine WBC Not seen (0-5/HPF) /HPF Ur Epithelial Cells Few /HPF Urine Bacteria Few (0-FEW/HPF) /HPF Fine Granular Casts Few H (0/LPF) /LPF Urine Mucus Many H /LPF Urine Opiates Screen Negative (NEGATIVE) Ur Oxycodone Screen Negative (NEGATIVE) Urine Methadone Screen Negative (NEGATIVE) Acetaminophen Ur Barbiturates Screen Negative (NEGATIVE) U Tricyclic Antidepress Negative (NEGATIVE) Ur Phencyclidine Scrn Negative (NEGATIVE) Ur Amphetamine Screen Negative (NEGATIVE) U Methamphetamines Scrn Negative (NEGATIVE) Urine MDMA Screen Negative (NEGATIVE) U Benzodiazepines Scrn Negative (NEGATIVE) Urine Cocaine Screen Negative (NEGATIVE) U Marijuana (THC) Screen Positive H (NEGATIVE) Ethyl Alcohol mg/dL 03/24/18 03/24/18 03/24/18 Range/Units 10:54 10:54 10:54 WBC (5.0-10.0) 10^3/uL RBC (4.6-6.2) 10^6/uL Hgb (14.0-18.0) g/dL Hct (40.0-54.0) % MCV (80-100) fL MCH (27.0-34.0) pg MCHC (33.0-35.0) g/dL Plt Count (150-450) 10^3/uL Neut % (Auto) (42.2-75.2) % Lymph % (Auto) (20.5-50.1) % Door % (Auto) (2-8) % Eos % (Auto) (1.0-3.0) % Baso % (Auto) (0.0-1.0) % Sodium 135 (135-145) mmol/L Potassium 3.4 L (3.6-5.0) mmol/L Chloride 103 (101-111) mmol/L Carbon Dioxide 15.0 L (21.0-31.0) mmol/L Anion Gap 20.4 BUN 5 L (7-18) mg/dL Creatinine 0.7 (0.6-1.3) mg/dL Est Cr Clr Drug Dosing 102.60 mL/min Estimated GFR (MDRD) > 60 BUN/Creatinine Ratio 7.14 Glucose 90 (74-105) mg/dL Calcium 8.9 (8.4-10.2) mg/dl Magnesium 1.4 L (1.8-2.5) mg/dL Total Bilirubin 1.7 H (0.2-1.0) mg/dL AST 95 H (10-42) IU/L ALT 57 (10-60) IU/L Alkaline Phosphatase 85 (42-121) IU/L Ammonia 30 (11-35) umol/L Troponin I < 0.02 (0.00-0.02) ng/ml Total Protein 8.0 (6.7-8.2) g/dl Albumin 4.3 (3.2-5.5) g/dl Globulin 3.7 Albumin/Globulin Ratio 1.16 Amylase 27 L (28-100) U/L Lipase 37 (22-51) U/L Urine Color (YELLOW) Urine Appearance (CLEAR) Urine pH (5.0-9.0) Ur Specific [place] (1.005-1.030) Urine Protein (NEGATIVE) Urine Glucose (UA) (NEGATIVE) Urine Ketones (NEGATIVE) Urine Occult Blood (NEGATIVE) Urine Nitrite (NEGATIVE) Urine Bilirubin (NEGATIVE) Urine Urobilinogen (0.2-1.0) mg/dL Ur Leukocyte Esterase (NEGATIVE) Urine RBC /HPF Urine WBC (0-5/HPF) /HPF Ur Epithelial Cells /HPF Urine Bacteria (0-FEW/HPF) /HPF Fine Granular Casts (0/LPF) /LPF Urine Mucus /LPF Urine Opiates Screen (NEGATIVE) Ur Oxycodone Screen (NEGATIVE) Urine Methadone Screen (NEGATIVE) Acetaminophen < 10 Ur Barbiturates Screen (NEGATIVE) U Tricyclic Antidepress (NEGATIVE) Ur Phencyclidine Scrn (NEGATIVE) Ur Amphetamine Screen (NEGATIVE) U Methamphetamines Scrn (NEGATIVE) Urine MDMA Screen (NEGATIVE) U Benzodiazepines Scrn (NEGATIVE) Urine Cocaine Screen (NEGATIVE) U Marijuana (THC) Screen (NEGATIVE) Ethyl Alcohol 23 mg/dL Meds: Medications Discontinued Medications Generic Name Dose Route Start Last Admin Trade Name Freq PRN Reason Stop Dose Admin Multivitamins/Minerals 10 ml/ 1,011.2 mls @ 999 mls/hr 03/24/18 10:39 10:57 Folic Acid 1 mg/ Thiamine HCl IV 03/24/18 11:39 999 mls/hr 100 mg/ Lactated Ringer's ONETIME ONE Administration Iopamidol 75 ml 03/24/18 11:31 03/24/18 12:20 Isovue-300 (61%) IVPUSH 03/24/18 11:32 75 ml ONETIME ONE Administration Lorazepam 1 mg 03/24/18 11:28 03/24/18 11:46 Ativan IVPUSH 03/24/18 11:29 1 mg ONETIME ONE Administration Metoclopramide HCl 10 mg 03/24/18 10:39 03/24/18 10:58 Reglan IVPUSH 03/24/18 10:40 10 mg ONETIME ONE Administration Pantoprazole Sodium 80 mg 03/24/18 10:39 03/24/18 10:58 Protonix Iv IVPUSH 03/24/18 10:40 80 mg .BOLUS ONE Administration Departure - Departure Time of Disposition: 13:56 Disposition: Home, Self-Care 01 Condition: Fair Clinical Impression: Alcoholic gastritis, Abdominal pain - Discharge Information *PRESCRIPTION DRUG MONITORING PROGRAM REVIEWED*: Not Applicable *COPY OF PRESCRIPTION DRUG MONITORING REPORT IN PATIENT WALTER: Not Applicable Instructions: Gastritis, Adult, [id number], Abdominal Pain, Adult, Easy-to- Read Forms: ED Department Discharge Care Plan Goals: The patient was advised of the examination, lab, EKG and CT results during the visit. The patient was given IV doses of Zofran, Reglan and Ativan while in the ED. The patient was encouraged to avoid ETOH use. The patient was discharged with a script for Zofran (4 mg) #20 to take 1 by mouth every 6 hours and Ativan (0.5 mg) #10 to take 1 by mouth every 4 hours as needed. If the patient has any additional symptoms or concerns, the patient should follow-up with his primary care facility or return to the emergency department. - My Orders Last 24 Hours: My Active Orders 03/24/18 10:41 EKG Documentation Completion [RC] URGENT DRUG SCREEN URINE BIORAD [URCHEM] Stat UA W/MICROSCOPIC [URIN] Stat - Assessment/Plan Last 24 Hours: My Active Orders 03/24/18 10:41 EKG Documentation Completion [RC] URGENT DRUG SCREEN URINE BIORAD [URCHEM] Stat UA W/MICROSCOPIC [URIN] Stat
[2018-03-24] MEDS: MVI, Adult with Vitamin K 10 ML, Folic Acid 1 MG, Thiamine 100 MG in Lactated Ringers 1... IV ONE ×4 (10:57)
[2018-03-24] MEDS: Pantoprazole 40 MG Vial IVPUSH ONE (10:58)
[2018-03-24] MEDS: Metoclopramide 10 MG/2 ML SDV IVPUSH ONE (10:58)
[2018-03-24 11:23] LABS: ANION GAP 20.4; CHLORIDE,CL 103 mmol/L (101-111); SODIUM,NA 135 mmol/L (135-145)
[2018-03-24 11:25] LABS: ACETAMINOPHEN < 10
[2018-03-24] MEDS: LORazepam 2 MG/ML Syringe IVPUSH ONE (11:46)
[2018-03-24] MEDS: Iopamidol 612 MG/ML 75 ML Bottle IVPUSH ONE (12:20)
--- NOTE | 2018-03-24 13:30 | CT ---
CLINICAL HISTORY: 62-year-old hypertensive 150 pound male "smoker" with generalized abdominal pain (h istory prostate surgery and "cirrhosis with splenomegaly"). SCAN TECHNIQUE: Volume acquisition of data from the abdomen and pelvis obtained without oral contrast but during the intravenous infusion 75 cc nonionic Isovue contrast (3 cc/s via injector) while the p atient was lying supine on the Siemens multislice scanner [facility]. All data archived in the PACS system for storage, reformatting and study. INTERPRETATION: 1. Inhomogeneously dense (fatty?) large liver. If laboratory values abnormal suggest considering yosi tional MRI imaging liver. 2. Distended gallbladder and tiny dependent calcified gallstones. No abnormal dilatation of the intra /extrahepatic biliary ducts. 3. Stomach, spleen, pancreas and adrenal glands unremarkable. 4. Normal reniform size, axis and configuration bilaterally. No renal cortical mass lesion, nephrolit hiasis or obstructive uropathy (surgical shira base of the pelvis suggesting radical prostatectomy) . Symmetrically distended urinary bladder unremarkable. 5. Normal appendix right abdomen. Sigmoid diverticulosis. No abdominal mass lesion, signs of retroper itoneal lymphadenopathy, mechanical bowel obstruction, ascites or free intraperitoneal air. Lung base s clear. 6. No ventral wall or inguinal hernia. Multilevel lower lumbar disc disease/arthritis. Normal caliber abdominal aorta. CONCLUSION: Abnormal liver. Probable cholelithiasis. Sigmoid diverticulosis. Abnormal lumbar spine.
== END 2018-03-24 14:05 | disposition home or self-care (01) ==
LOC: DL.ED 10:37
DX: K29.20 Alcoholic gastritis without bleeding (principal); I10 Essential (primary) hypertension; J44.9 Chronic obstructive pulmonary disease, unspecified; Z88.8 Allergy status to other drugs, medicaments and biological substances; Z79.899 Other long term (current) drug therapy
CPT/HCPCS: 36415; 74177; 80053; 80305; 81001; 82140; 82150; 83690; 83735; 84484; 85025; 93005; 96361; 96374; 96375; 99285; C9113; G0480; J2060; J2765; J3411; J7120; Q9967; J3490

== ENCOUNTER 2018-09-12 13:22 | Emergency (ER) | payer MEDICAID, OTHER ==
--- NOTE | 2018-09-12 13:23 | EDM.PDOC ---
ED HPI GENERAL MEDICAL PROBLEM - General Chief Complaint: Drug or Alcohol Abuse Stated Complaint: [facility] AMBULANCE/UNKNOWN Time Seen by Provider: 09/12/18 13:23 Source of Information: Reports: Patient, EMS, Old Records, RN, RN Notes Reviewed History Limitations: Reports: No Limitations - History of Present Illness INITIAL COMMENTS - FREE TEXT/NARRATIVE: Pt arrives to ER by [facility] with c/o abdominal pain vomiting, and alcohol withdrawals. Pt last drank alcohol 2 or 3 days ago. He states he has been drinking about a 1/2 of a half gallon bottle of vodka a day for a few weeks. He states he began vomiting at about 0400HRS this morning and called the ambulance with he began to have streaks of blood in his emesis. Pt has Hx of GI bleeding related to his alcohol abuse on several occasions in the past. 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: Reports: IV/IO, Other Medication(s) (Zofran 4mg IVP by paramedics prior to arriving at the ER.) Chest Pain Score (Numeric/FACES): 10 - Related Data Allergies Allergy/AdvReac Type Severity Reaction Status Date / Time aspirin Allergy Stomach Verified 09/12/18 13:16 Upset Home Meds: Home Meds Metoprolol Succinate [Toprol XL 100mg] 50 mg PO DAILY 09/04/13 [History] Acetaminophen [Tylenol] 2 tab PO Q8H PRN 12/06/14 [History] Folic Acid 1 mg PO DAILY 12/06/14 [History] Pantoprazole Sodium [Protonix] 40 mg PO BID 06/15/17 [History] Thiamine HCl [B-1] 100 mg PO DAILY 06/15/17 [History] Lactulose 15 mg PO BID 12/11/17 [History] Multivitamin [Multi-Vitamin Daily] 1 tab PO DAILY 03/24/18 [History] Sucralfate 1 gm PO QID 03/24/18 [History] Spironolactone [Aldactone] 100 mg PO DAILY 08/22/18 [History] hydrOXYzine pamoate [Vistaril] 50 mg PO DAILY 08/22/18 [History] traZODone HCl [Trazodone HCl] 100 mg PO BEDTIME 08/22/18 [History] Past Medical History HEENT History: Reports: None Cardiovascular History: Reports: Hypertension Other Cardiovascular History: Hx of SVT. Dyslipidemia. Respiratory History: Reports: COPD, Sleep Apnea Gastrointestinal History: Reports: Cirrhosis, Gastritis, GERD, GI Bleed, PUD Other Gastrointestinal History: alcoholic gastritis Genitourinary History: Reports: Prostate Disorder Musculoskeletal History: Reports: Back Pain, Chronic Neurological History: Reports: None Psychiatric History: Reports: Addiction Other Psychiatric History: Hx of alcoholism. 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, Other - Past Surgical History Head Surgeries/Procedures: Reports: None HEENT Surgical History: Reports: None Male Surgical History: Reports: Circumcision, TURP-Transurethral Resection of Prostate Musculoskeletal Surgical History: Reports: Shoulder Surgery Other Oncologic Surgeries/Procedures: TURP Social & Family History - Family History Family Medical History: Noncontributory - Caffeine Use Caffeine Use: Reports: Coffee, Soda - Alcohol Use Alcohol Use History: Yes Days Per Week of Alcohol Use: 7 Number of Drinks Per Day: 15 Total Drinks Per Week: 105 Alcohol Use in Last Twelve Months: Yes Alcohol Use Frequency: Daily - Recreational Drug Use Recreational Drug Use: No - Living Situation & Occupation Living situation: Reports: Single, with Significant Other Occupation: Unemployed ED ROS GENERAL - Review of Systems Review Of Systems: ROS reveals no pertinent complaints other than HPI. ED EXAM, GI/ABD - Physical Exam Exam: See Below Exam Limited By: No Limitations General Appearance: Alert, Anxious, Active Emesis, Other (Chronically ill appearing) Eyes: Bilateral: EOMI, Nystagmus (lateral gaze) Ears: Normal External Exam, Hearing Grossly Normal Nose: Normal Inspection, Normal Mucosa, No Blood Throat/Mouth: Normal Lips, Normal Oropharynx, Normal Voice, No Airway Compromise , Other (Dry oral membranes) Head: Atraumatic, Normocephalic Neck: Normal Inspection, Supple, Non-Tender, Full Range of Motion Respiratory/Chest: No Respiratory Distress, Lungs Clear, Normal Breath Sounds, No Accessory Muscle Use, Chest Non-Tender Cardiovascular: Regular Rate, Rhythm, No Edema, Tachycardia GI/Abdominal Exam: Normal Bowel Sounds, Soft, No Distention, Tender (at epigastric region). No: Guarding, Rigid, Rebound (Male) Exam: Deferred Rectal (Males) Exam: Deferred Back Exam: Normal Inspection Extremities: Normal Inspection, Normal Range of Motion, Non-Tender, Normal Capillary Refill, No Pedal Edema Neurological: Alert, Oriented (to person, place, and month), No Motor/Sensory Deficits, Other (Tremor of B/L upper extremities) Psychiatric: Anxious, Depressed Mood, Flat Affect Skin Exam: Warm, Dry, Intact, Normal Color, No Rash EKG INTERPRETATION EKG Date: 09/12/18 Time: 13:53 Rhythm: Other (SR) Rate (Beats/Min): 95 [place]: Normal P-Wave: Present QRS: Normal ST-T: Normal QT: Prolonged (borderline) Comparison: No Change Course - Vital Signs Last Recorded V/S: Last Vital Signs Temp 36.5 C 09/12/18 13:26 Pulse 136 H 09/12/18 13:26 Resp 20 09/12/18 13:26 BP 129/80 09/12/18 13:26 Pulse Ox 99 09/12/18 13:26 - Orders/Labs/Meds Orders: Active Orders 24 hr Category Date Time Status EKG 12 Lead [EKG Documentation Completion] [RC] STAT Care 09/12/18 13:34 Active Peripheral IV Care [RC] . DIRECTED Care 09/12/18 13:35 Active DRUG SCREEN URINE BIORAD [URCHEM] Stat Lab 09/12/18 13:34 Ordered UA RFX JD AND CULT IF INDIC [URIN] Stat Lab 09/12/18 13:35 Ordered Octreotide [SandoSTATIN] 500 mcg Med 09/12/18 13:45 Active Sodium Chloride 0.9% [Normal Saline] 250 ml IV ASDIRECTED Pantoprazole [ProTONIX IV] 40 mg Med 09/12/18 13:30 Active Sodium Chloride 0.9% [Normal Saline] 100 ml IV .CONTINUOS Sodium Chloride 0.9% [Normal Saline] 1,000 ml Med 09/12/18 14:45 Ordered IV ASDIRECTED Sodium Chloride 0.9% [Saline Flush] Med 09/12/18 13:35 Active 10 ml FLUSH ASDIRECTED PRN Peripheral IV Insertion Adult [OM.PC] Stat Oth 09/12/18 13:34 Ordered Medication Orders Pantoprazole Sodium 40 mg/ (Sodium Chloride) 100 mls @ 20 mls/hr IV .CONTINUOS NILSON Last Admin: 09/12/18 13:53 Dose: 20 mls/hr Octreotide Acetate 500 mcg/ (Sodium Chloride) 255 mls @ 12.5 mls/hr IV ASDIRECTED NILSON Last Admin: 09/12/18 14:00 Dose: 12.5 mls/hr Sodium Chloride (Saline Flush) 10 ml FLUSH ASDIRECTED PRN PRN Reason: Keep Vein Open Last Admin: 09/12/18 13:42 Dose: 10 ml Labs: Laboratory Tests 09/12/18 09/12/18 09/12/18 Range/Units 13:45 13:45 13:45 WBC 10.4 H (5.0-10.0) 10^3/uL RBC 5.37 (4.6-6.2) 10^6/uL Hgb 15.9 (14.0-18.0) g/dL Hct 44.5 (40.0-54.0) % MCV 82.9 D (80-100) fL MCH 29.6 (27.0-34.0) pg MCHC 35.7 H (33.0-35.0) g/dL Plt Count 282 D (150-450) 10^3/uL Neut % (Auto) 72.7 (42.2-75.2) % Lymph % (Auto) 17.6 L (20.5-50.1) % [place] % (Auto) 8.2 H (2-8) % Eos % (Auto) 0.3 L (1.0-3.0) % Baso % (Auto) 1.2 H (0.0-1.0) % PT 10.8 (9.0-12.0) SEC INR 1.1 (0.9-1.2) APTT 26.3 (22.0-34.0) SEC Sodium 131 L (135-145) mmol/L Potassium 3.3 L (3.6-5.0) mmol/L Chloride 94 L (101-111) mmol/L Carbon Dioxide 12.0 L (21.0-31.0) mmol/L Anion Gap 28.3 BUN 5 L (7-18) mg/dL Creatinine 0.9 (0.6-1.3) mg/dL Est Cr Clr Drug Dosing 79.80 mL/min Estimated GFR (MDRD) > 60 BUN/Creatinine Ratio 5.55 Glucose 109 H (74-105) mg/dL Calcium 9.1 (8.4-10.2) mg/dl Total Bilirubin 1.7 H (0.2-1.0) mg/dL AST 79 H (10-42) IU/L ALT 43 (10-60) IU/L Alkaline Phosphatase 97 (42-121) IU/L Ammonia (11-35) umol/L Troponin I < 0.02 (0.00-0.02) ng/ml Total Protein 8.9 H (6.7-8.2) g/dl Albumin 4.8 (3.2-5.5) g/dl Globulin 4.1 Albumin/Globulin Ratio 1.17 Amylase 40 (28-100) U/L Lipase 51 (22-51) U/L Ethyl Alcohol 149 mg/dL 09/12/18 Range/Units 13:45 WBC (5.0-10.0) 10^3/uL RBC (4.6-6.2) 10^6/uL Hgb (14.0-18.0) g/dL Hct (40.0-54.0) % MCV (80-100) fL MCH (27.0-34.0) pg MCHC (33.0-35.0) g/dL Plt Count (150-450) 10^3/uL Neut % (Auto) (42.2-75.2) % Lymph % (Auto) (20.5-50.1) % [place] % (Auto) (2-8) % Eos % (Auto) (1.0-3.0) % Baso % (Auto) (0.0-1.0) % PT (9.0-12.0) SEC INR (0.9-1.2) APTT (22.0-34.0) SEC Sodium (135-145) mmol/L Potassium (3.6-5.0) mmol/L Chloride (101-111) mmol/L Carbon Dioxide (21.0-31.0) mmol/L Anion Gap BUN (7-18) mg/dL Creatinine (0.6-1.3) mg/dL Est Cr Clr Drug Dosing mL/min Estimated GFR (MDRD) BUN/Creatinine Ratio Glucose (74-105) mg/dL Calcium (8.4-10.2) mg/dl Total Bilirubin (0.2-1.0) mg/dL AST (10-42) IU/L ALT (10-60) IU/L Alkaline Phosphatase (42-121) IU/L Ammonia 32 (11-35) umol/L Troponin I (0.00-0.02) ng/ml Total Protein (6.7-8.2) g/dl Albumin (3.2-5.5) g/dl Globulin Albumin/Globulin Ratio Amylase (28-100) U/L Lipase (22-51) U/L Ethyl Alcohol mg/dL Meds: Medications Generic Name Dose Route Start Last Admin Trade Name Bill PRN Reason Stop Dose Admin Pantoprazole Sodium 40 mg/ 100 mls @ 20 mls/hr 09/12/18 13:30 09/12/18 13:53 Sodium Chloride IV 20 mls/hr .CONTINUOS NILSON Administration Octreotide Acetate 500 mcg/ 255 mls @ 12.5 mls/hr 09/12/18 13:45 09/12/18 14: 00 Sodium Chloride IV 12.5 mls/hr ASDIRECTED NILSON Administration Sodium Chloride 10 ml 09/12/18 13:35 09/12/18 13:42 Saline Flush FLUSH 10 ml ASDIRECTED PRN Administration Keep Vein Open Discontinued Medications Generic Name Dose Route Start Last Admin Trade Name Bill PRN Reason Stop Dose Admin Multivitamins/Minerals 10 ml/ 1,011.2 mls @ 999 mls/hr 09/12/18 13:29 13:41 Thiamine HCl 100 mg/ Folic IV 09/12/18 14:29 999 mls/hr Acid 1 mg/ Lactated Ringer's .BOLUS ONE Administration Lorazepam 2 mg 09/12/18 13:29 09/12/18 13:41 Ativan IVPUSH 09/12/18 13:30 2 mg ONETIME ONE Administration Octreotide Acetate 50 mcg 09/12/18 13:30 09/12/18 13:43 Sandostatin IVPUSH 09/12/18 13:31 50 mcg ONETIME ONE Administration Ondansetron HCl 4 mg 09/12/18 13:29 09/12/18 13:43 Zofran IV 09/12/18 13:30 4 mg ONETIME ONE Administration Pantoprazole Sodium 80 mg 09/12/18 13:29 09/12/18 13:42 Protonix Iv IVPUSH 09/12/18 13:30 80 mg .BOLUS ONE Administration - Re-Assessments/Exams Free Text/Narrative Re-Assessment/Exam: 09/12/18 14:43 Dr. López declines to admit to pt here at [facility] due to Hx of severe withdrawals and Hx of frequent GI bleeding in this pt. Pt will be transferred to [facility] in [place] with Dr. Winkler accepting. Departure - Departure Time of Disposition: 14:44 Disposition: DC/Tfer to [facility] Condition: Serious Clinical Impression: Alcohol withdrawal delirium, Alcohol abuse Alcoholic gastritis without bleeding Qualifiers: Chronicity: acute Qualified Code(s): K29.20 - Alcoholic gastritis without bleeding - Discharge Information *PRESCRIPTION DRUG MONITORING PROGRAM REVIEWED*: No *COPY OF PRESCRIPTION DRUG MONITORING REPORT IN PATIENT WALTER: No Forms: ED Department Discharge, Interfacility Transfer EMTALA - My Orders Last 24 Hours: My Active Orders 09/12/18 13:30 Pantoprazole [ProTONIX IV] 40 mg Sodium Chloride 0.9% [Normal Saline] 100 ml IV .CONTINUOS 09/12/18 13:34 EKG 12 Lead [EKG Documentation Completion] [RC] STAT DRUG SCREEN URINE BIORAD [URCHEM] Stat Peripheral IV Insertion Adult [OM.PC] Stat 09/12/18 13:35 Peripheral IV Care [RC] . DIRECTED UA RFX JD AND CULT IF INDIC [URIN] Stat Sodium Chloride 0.9% [Saline Flush] 10 ml FLUSH ASDIRECTED PRN 09/12/18 13:45 Octreotide [SandoSTATIN] 500 mcg Sodium Chloride 0.9% [Normal Saline] 250 ml IV ASDIRECTED 09/12/18 14:45 Sodium Chloride 0.9% [Normal Saline] 1,000 ml IV ASDIRECTED - Assessment/Plan Last 24 Hours: My Active Orders 09/12/18 13:30 Pantoprazole [ProTONIX IV] 40 mg Sodium Chloride 0.9% [Normal Saline] 100 ml IV .CONTINUOS 09/12/18 13:34 EKG 12 Lead [EKG Documentation Completion] [RC] STAT DRUG SCREEN URINE BIORAD [URCHEM] Stat Peripheral IV Insertion Adult [OM.PC] Stat 09/12/18 13:35 Peripheral IV Care [RC] . DIRECTED UA RFX JD AND CULT IF INDIC [URIN] Stat Sodium Chloride 0.9% [Saline Flush] 10 ml FLUSH ASDIRECTED PRN 09/12/18 13:45 Octreotide [SandoSTATIN] 500 mcg Sodium Chloride 0.9% [Normal Saline] 250 ml IV ASDIRECTED 09/12/18 14:45 Sodium Chloride 0.9% [Normal Saline] 1,000 ml IV ASDIRECTED
[2018-09-12 13:29] VITALS: BP 129/80
[2018-09-12] MEDS ORDERED: Ondansetron 4 MG/2 ML SDV IV ONE (13:29)
[2018-09-12] MEDS ORDERED: Pantoprazole 40 MG Vial IVPUSH ONE (13:29)
[2018-09-12] MEDS ORDERED: MVI, Adult with Vitamin K 10 ML, Thiamine 100 MG, Folic Acid 1 MG in Lactated Ringers 1... IV ONE ×4 (13:29)
[2018-09-12] MEDS ORDERED: LORazepam 2 MG/ML Syringe IVPUSH ONE (13:29)
[2018-09-12] MEDS ORDERED: Pantoprazole 40 MG in Sodium Chloride 0.9% 100 ML IV SCH (13:30)
[2018-09-12] MEDS ORDERED: Octreotide 100 MCG/ML SDV IVPUSH ONE (13:30)
[2018-09-12] MEDS ORDERED: Sodium Chloride 0.9% 10 ML Syringe FLUSH PRN (13:35)
[2018-09-12] MEDS ORDERED: Octreotide 500 MCG in Sodium Chloride 0.9% 250 ML IV SCH (13:45)
[2018-09-12 14:12] LABS: ANION GAP 28.3; CHLORIDE,CL 94 mmol/L (101-111); SODIUM,NA 131 mmol/L (135-145)
[2018-09-12] MEDS ORDERED: Sodium Chloride 0.9% 1,000 ML IV SCH (14:45)
== END 2018-09-12 15:05 ==
LOC: DL.ED 13:22
DX: F10.231 Alcohol dependence with withdrawal delirium (principal); K29.20 Alcoholic gastritis without bleeding; I10 Essential (primary) hypertension; J44.9 Chronic obstructive pulmonary disease, unspecified; F17.210 Nicotine dependence, cigarettes, uncomplicated; Z79.899 Other long term (current) drug therapy; Z88.6 Allergy status to analgesic agent; Y90.6 Blood alcohol level of 120-199 mg/100 ml
CPT/HCPCS: 36415; 80053; 82140; 82150; 83690; 84484; 85025; 85610; 85730; 93005; 96365; 96368; 96375; 96376; 99285; C9113; G0480; J2060; J2354; J2405; J3411; J7030; J7050; J7120; J3490

== ENCOUNTER 2019-02-10 10:25 | Observation (INO) | payer MEDICARE, MEDICAID ==
[2019-02-10] MEDS ORDERED: diphenhydrAMINE 50 MG/ML SDV IVPUSH ONE (10:32)
[2019-02-10] MEDS ORDERED: Sodium Chloride 0.9% 10 ML Syringe FLUSH PRN (10:32)
[2019-02-10] MEDS ORDERED: Haloperidol Lactate 5 MG/ML SDV IVPUSH ONE ×2 (10:32→13:30)
[2019-02-10] MEDS ORDERED: Pantoprazole 40 MG Vial IVPUSH ONE (10:33)
[2019-02-10] MEDS ORDERED: MVI, Adult with Vitamin K 10 ML, Folic Acid 1 MG, Thiamine 100 MG in Lactated Ringers 1... IV ONE ×4 (10:33)
[2019-02-10 11:09] LABS: ANION GAP 29.2; CHLORIDE,CL 93 mmol/L (101-111); SODIUM,NA 133 mmol/L (135-145)
[2019-02-10] MEDS ORDERED: Lactated Ringers 1,000 ML IV ONE (11:48)
--- NOTE | 2019-02-10 11:49 | EDM.PDOC ---
ED HPI GENERAL MEDICAL PROBLEM - General Chief Complaint: Gastrointestinal Problem Stated Complaint: UNKNOWN Time Seen by Provider: 02/10/19 11:00 Source of Information: Reports: Patient, EMS History Limitations: Reports: No Limitations - History of Present Illness INITIAL COMMENTS - FREE TEXT/NARRATIVE: patient comes emergency department today by embolus from home with concerns of nausea vomiting and abdominal pain. This is a recurring problem for the patient many times in the past. He relates that every time he drinks he becomes quite nauseated and vomiting and diarrhea every time he stops drinking. About a week ago he drank for 7-10 days straight had about 2-3 days off and then drank for another 3-4 days. His last alcoholic drink was this morning. Since that time he has had recurrent nausea and vomiting at home he has not had any bright red blood. Some dark material and no coffee-ground emesis. He does complain of generalized abdominal pain. He also complains of multiple bouts of diarrhea at home that were black in color but no tarriness to them. No bright red blood from his rectum. No chest pain or shortness of breath or difficulty breathing. No fever no chills. Epigastric Pain Score (Numeric/FACES): 10 - Related Data Allergies Allergy/AdvReac Type Severity Reaction Status Date / Time aspirin Allergy Stomach Verified 09/12/18 13:16 Upset Home Meds: Home Meds Metoprolol Succinate [Toprol XL 100mg] 50 mg PO DAILY 09/04/13 [History] Folic Acid 1 mg PO DAILY 12/06/14 [History] Pantoprazole Sodium [Protonix] 40 mg PO DAILY 06/15/17 [History] Lactulose 30 mg PO TID 12/11/17 [History] Multivitamin [Multi-Vitamin Daily] 1 tab PO DAILY 03/24/18 [History] Sucralfate 1 gm PO QID 03/24/18 [History] Spironolactone [Aldactone] 100 mg PO DAILY 08/22/18 [History] traZODone HCl [Trazodone HCl] 100 mg PO BEDTIME 08/22/18 [History] Ondansetron [Zofran] 4 mg PO DAILY 11/28/18 [History] Potassium Chloride 10 meq PO DAILY 11/28/18 [History] Ranitidine [Zantac] 150 mg PO BID 03/25/19 [History] Past Medical History HEENT History: Reports: None Cardiovascular History: Reports: Hypertension Other Cardiovascular History: Hx of SVT. Dyslipidemia. Respiratory History: Reports: COPD, Sleep Apnea Gastrointestinal History: Reports: Cirrhosis, Gastritis, GERD, GI Bleed, PUD Other Gastrointestinal History: alcoholic gastritis Genitourinary History: Reports: Prostate Disorder Musculoskeletal History: Reports: Back Pain, Chronic Neurological History: Reports: None Psychiatric History: Reports: Addiction Other Psychiatric History: Hx of alcoholism. 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, Other - Past Surgical History Head Surgeries/Procedures: Reports: None HEENT Surgical History: Reports: None Male Surgical History: Reports: Circumcision, TURP-Transurethral Resection of Prostate Musculoskeletal Surgical History: Reports: Shoulder Surgery Other Oncologic Surgeries/Procedures: TURP Social & Family History - Family History Family Medical History: Noncontributory - Caffeine Use Caffeine Use: Reports: Coffee, Soda - Living Situation & Occupation Living situation: Reports: Single, with Significant Other Occupation: Unemployed ED ROS GENERAL - Review of Systems Review Of Systems: ROS reveals no pertinent complaints other than HPI. ED EXAM, GI/ABD - Physical Exam Exam: See Below Exam Limited By: No Limitations General Appearance: Alert, Active Emesis Eyes: Bilateral: EOMI Ears: Normal External Exam Nose: Normal Inspection Throat/Mouth: Normal Inspection, Normal Lips Head: Atraumatic, Normocephalic Neck: Normal Inspection, Supple Respiratory/Chest: No Respiratory Distress, Lungs Clear, Chest Non-Tender Cardiovascular: Normal Peripheral Pulses, Regular Rate, Rhythm, Tachycardia GI/Abdominal Exam: Normal Bowel Sounds, Soft, Tender (generalized throughout the abdomen with guarding no rebound tenderness although the patient is quite histrionic) Rectal (Males) Exam: Normal Rectal Tone, Prostate Normal, Heme + Stool, Other ( pleated with nursing in the room). No: Black Stool, Rectal Fissure, Tenderness Back Exam: Normal Inspection, Full Range of Motion Extremities: Normal Inspection, Normal Range of Motion, Normal Capillary Refill Neurological: Alert, Oriented, No Motor/Sensory Deficits Psychiatric: Anxious Skin Exam: Intact, Cool, Diaphoretic, Pallor EKG INTERPRETATION EKG Date: 02/10/19 Time: 10:50 Rhythm: NSR Rate (Beats/Min): 109 [place]: Normal P-Wave: Present QRS: Normal ST-T: Normal QT: Normal Comparison: No Change Course - Vital Signs Last Recorded V/S: Last Vital Signs Temp 35.9 C 02/10/19 10:55 Pulse 110 H 02/10/19 10:55 Resp 18 02/10/19 10:55 BP 119/65 02/10/19 10:55 Pulse Ox 100 02/10/19 10:55 - Orders/Labs/Meds Orders: Active Orders 24 hr Category Date Time Status EKG 12 Lead [EKG Documentation Completion] [] URGENT Care 02/10/19 10:31 Active Peripheral IV Care [] . DIRECTED Care 02/10/19 10:32 Active Sodium Chloride 0.9% [Saline Flush] Med 02/10/19 10:32 Active 10 ml FLUSH ASDIRECTED PRN Peripheral IV Insertion Adult [OM.PC] Stat Oth 02/10/19 10:31 Ordered Medication Orders Sodium Chloride (Saline Flush) 10 ml FLUSH ASDIRECTED PRN PRN Reason: Keep Vein Open Last Admin: 02/10/19 10:52 Dose: 10 ml Labs: Laboratory Tests 02/10/19 02/10/19 02/10/19 Range/Units 10:32 10:32 10:32 WBC 14.4 H (5.0-10.0) 10^3/uL RBC 5.88 (4.6-6.2) 10^6/uL Hgb 17.2 (14.0-18.0) g/dL Hct 48.4 (40.0-54.0) % MCV 82.3 (80-100) fL MCH 29.3 (27.0-34.0) pg MCHC 35.5 H (33.0-35.0) g/dL Plt Count 242 (150-450) 10^3/uL Neut % (Auto) 84.2 H (42.2-75.2) % Lymph % (Auto) 10.4 L (20.5-50.1) % [place] % (Auto) 5.0 (2-8) % Eos % (Auto) 0.1 L (1.0-3.0) % Baso % (Auto) 0.3 (0.0-1.0) % PT 11.1 (9.0-12.0) SEC INR 1.1 (0.9-1.2) Sodium 133 L (135-145) mmol/L Potassium 3.2 L (3.6-5.0) mmol/L Chloride 93 L (101-111) mmol/L Carbon Dioxide 14.0 L (21.0-31.0) mmol/L Anion Gap 29.2 BUN 7 (7-18) mg/dL Creatinine 0.9 (0.6-1.3) mg/dL Est Cr Clr Drug Dosing TNP Estimated GFR (MDRD) > 60 BUN/Creatinine Ratio 7.77 Glucose 133 H (74-105) mg/dL Calcium 8.8 (8.4-10.2) mg/dl Total Bilirubin 2.0 H (0.2-1.0) mg/dL AST 87 H (10-42) IU/L ALT 49 (10-60) IU/L Alkaline Phosphatase 96 (42-121) IU/L Troponin I < 0.02 (0.00-0.02) ng/ml Total Protein 9.0 H (6.7-8.2) g/dl Albumin 4.7 (3.2-5.5) g/dl Globulin 4.3 Albumin/Globulin Ratio 1.09 Lipase (22-51) U/L Ethyl Alcohol 95 mg/dL Blood Type Gel Antibody Screen 02/10/19 02/10/19 Range/Units 10:32 10:32 WBC (5.0-10.0) 10^3/uL RBC (4.6-6.2) 10^6/uL Hgb (14.0-18.0) g/dL Hct (40.0-54.0) % MCV (80-100) fL MCH (27.0-34.0) pg MCHC (33.0-35.0) g/dL Plt Count (150-450) 10^3/uL Neut % (Auto) (42.2-75.2) % Lymph % (Auto) (20.5-50.1) % [place] % (Auto) (2-8) % Eos % (Auto) (1.0-3.0) % Baso % (Auto) (0.0-1.0) % PT (9.0-12.0) SEC INR (0.9-1.2) Sodium (135-145) mmol/L Potassium (3.6-5.0) mmol/L Chloride (101-111) mmol/L Carbon Dioxide (21.0-31.0) mmol/L Anion Gap BUN (7-18) mg/dL Creatinine (0.6-1.3) mg/dL Est Cr Clr Drug Dosing Estimated GFR (MDRD) BUN/Creatinine Ratio Glucose (74-105) mg/dL Calcium (8.4-10.2) mg/dl Total Bilirubin (0.2-1.0) mg/dL AST (10-42) IU/L ALT (10-60) IU/L Alkaline Phosphatase (42-121) IU/L Troponin I (0.00-0.02) ng/ml Total Protein (6.7-8.2) g/dl Albumin (3.2-5.5) g/dl Globulin Albumin/Globulin Ratio Lipase 58 H (22-51) U/L Ethyl Alcohol mg/dL Blood Type O POSITIVE Gel Antibody Screen Negative Meds: Medications Generic Name Dose Route Start Last Admin Trade Name Freq PRN Reason Stop Dose Admin Sodium Chloride 10 ml 02/10/19 10:32 02/10/19 10:52 Saline Flush FLUSH 10 ml ASDIRECTED PRN Administration Keep Vein Open Discontinued Medications Generic Name Dose Route Start Last Admin Trade Name Freq PRN Reason Stop Dose Admin Diphenhydramine HCl 25 mg 02/10/19 10:32 02/10/19 10:52 Benadryl IVPUSH 02/10/19 10:33 25 mg ONETIME ONE Administration Haloperidol Lactate 1 mg 02/10/19 10:32 02/10/19 10:51 Haldol IVPUSH 02/10/19 10:33 1 mg ONETIME ONE Administration Haloperidol Lactate 2 mg 02/10/19 13:30 02/10/19 13:41 Haldol IVPUSH 02/10/19 13:31 2 mg ONETIME ONE Administration Multivitamins/Minerals 10 ml/ 1,011.2 mls @ 999 mls/hr 02/10/19 10:33 10:51 Folic Acid 1 mg/ Thiamine HCl IV 02/10/19 11:33 999 mls/hr 100 mg/ Lactated Ringer's ONETIME ONE Administration Lactated Ringer's 1,000 mls @ 1,000 mls/hr 02/10/19 11:48 02/10/19 12:02 Ringers, Lactated IV 02/10/19 12:47 1,000 mls/hr .BOLUS ONE Administration Pantoprazole Sodium 80 mg 02/10/19 10:33 02/10/19 10:52 Protonix Iv IVPUSH 02/10/19 10:34 80 mg .BOLUS ONE Administration - Re-Assessments/Exams Free Text/Narrative Re-Assessment/Exam: 02/10/19 13:52 banana bag IV. Benadryl Haldol for nausea vomiting and retching. Hemoccult-positive Protonix 80 mg IV push Patient continued to have recurrence of nausea vomiting and retching in the emergency department. Laboratory evaluation is rather unremarkable other than some hypokalemia hyponatremia no elevation in his troponin. His lipase is mildly elevated at 58 with a normal upper limit of 55. The Hemoccultpositive stools most likely due to alcoholic gastritis and possibly an undiagnosed peptic ulcer. The patient is unsure of when he has had a EGD or colonoscopy in the past. Do not find any active bleeding at this time or concerns for it. I spoke with Dr. López the hospitalist detention sergeant her in [place] today. HPI ER COURSE findings and concerns were relayed to him. He accepted the patient as observation here in [facility]. Departure - Departure Time of Disposition: 12:45 Disposition: Refer to Observation Clinical Impression: Hypokalemia Alcoholic gastritis with bleeding Qualifiers: Chronicity: acute Qualified Code(s): K29.21 - Alcoholic gastritis with bleeding Vomiting Qualifiers: Vomiting Intractability: unspecified Nausea presence: with nausea - Discharge Information - My Orders Last 24 Hours: My Active Orders 02/10/19 10:31 EKG 12 Lead [EKG Documentation Completion] [RC] URGENT Peripheral IV Insertion Adult [OM.PC] Stat 02/10/19 10:32 Peripheral IV Care [RC] . DIRECTED Sodium Chloride 0.9% [Saline Flush] 10 ml FLUSH ASDIRECTED PRN - Assessment/Plan Last 24 Hours: My Active Orders 02/10/19 10:31 EKG 12 Lead [EKG Documentation Completion] [RC] URGENT Peripheral IV Insertion Adult [OM.PC] Stat 02/10/19 10:32 Peripheral IV Care [RC] . DIRECTED Sodium Chloride 0.9% [Saline Flush] 10 ml FLUSH ASDIRECTED PRN Assessment:: Alcoholic gastritis Hypokalemia nausea vomiting Acute alcohol intoxication in the presence of alcoholism. Plan: Admit observation Dr. López here in [place].
[2019-02-10] MEDS ORDERED: Acetaminophen 325 MG Tab PO PRN (16:11)
[2019-02-10] MEDS ORDERED: fentaNYL 100 MCG/2 ML SDV IVPUSH PRN (16:11)
[2019-02-10] MEDS ORDERED: LORazepam 1 MG Tab PO PRN (16:14)
[2019-02-10] MEDS ORDERED: LORazepam 2 MG/ML Syringe IVPUSH PRN (16:16)
--- NOTE | 2019-02-10 16:23 | PCM.HP ---
H&P History of Present Illness - General Date of Service: 02/10/19 Admit Problem/Dx: Admission Diagnosis/Problem Admission Diagnosis/Problem Alcohol withdrawal syndrome Source of Information: Patient History Limitations: Reports: No Limitations - History of Present Illness Initial Comments - Free Text/Narative: 63 yo M with PMH of alcohol abuse disorder, GERD, who presents with alcohol withdrawal symptoms. Patient said his last drink was yesterday night. He decided to quit drinking alcohol today Developed alcohol withdrawal symptoms characterized by tremulousness, nausea, diarrhea, anxiety. Came to the ED for the symptoms. In the ED, patient also complains of abdominal pain No chest pain, no SOB Epigastric Pain Score (Numeric/FACES): 10 - Related Data Allergies/Adverse Reactions: Allergies Allergy/AdvReac Type Severity Reaction Status Date / Time aspirin Allergy Stomach Verified 02/10/19 15:14 Upset Home Medications: Home Meds Metoprolol Succinate [Toprol XL 100mg] 50 mg PO DAILY 09/04/13 [History] Folic Acid 1 mg PO DAILY 12/06/14 [History] Pantoprazole Sodium [Protonix] 40 mg PO DAILY 06/15/17 [History] Multivitamin [Multi-Vitamin Daily] 1 tab PO DAILY 03/24/18 [History] Sucralfate 1 gm PO QID 03/24/18 [History] Spironolactone [Aldactone] 100 mg PO DAILY 08/22/18 [History] traZODone HCl [Trazodone HCl] 100 mg PO BEDTIME 08/22/18 [History] Ondansetron [Zofran] 4 mg PO DAILY 11/28/18 [History] Potassium Chloride 10 meq PO DAILY 11/28/18 [History] Ranitidine [Zantac] 150 mg PO BID 11/28/18 [History] Rifaximin [Xifaxan] 550 mg PO DAILY 02/10/19 [History] Past Medical History HEENT History: Reports: None Cardiovascular History: Reports: Hypertension Other Cardiovascular History: Hx of SVT. Dyslipidemia. Respiratory History: Reports: COPD, Sleep Apnea Gastrointestinal History: Reports: Cirrhosis, Gastritis, GERD, GI Bleed, PUD Other Gastrointestinal History: alcoholic gastritis Genitourinary History: Reports: Prostate Disorder Musculoskeletal History: Reports: Back Pain, Chronic Neurological History: Reports: None Psychiatric History: Reports: Addiction Other Psychiatric History: Hx of alcoholism. 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, Other - Past Surgical History Head Surgeries/Procedures: Reports: None HEENT Surgical History: Reports: None Male Surgical History: Reports: Circumcision, TURP-Transurethral Resection of Prostate Musculoskeletal Surgical History: Reports: Shoulder Surgery Other Oncologic Surgeries/Procedures: TURP Social & Family History - Family History Family Medical History: Noncontributory - Caffeine Use Caffeine Use: Reports: Coffee, Soda - Living Situation & Occupation Living situation: Reports: Single, with Significant Other Occupation: Unemployed H&P Review of Systems - Review of Systems: Review Of Systems: ROS reveals no pertinent complaints other than HPI. General: Denies: Fever HEENT: Reports: No Symptoms Pulmonary: Reports: No Symptoms Cardiovascular: Reports: No Symptoms Gastrointestinal: Reports: Diarrhea, Nausea Genitourinary: Reports: No Symptoms Musculoskeletal: Reports: No Symptoms Exam - Exam Exam: See Below - Vital Signs Vital Signs: Last Vital Signs Temp 37.2 C 02/10/19 13:42 Pulse 102 H 02/10/19 13:42 Resp 20 02/10/19 13:42 BP 145/80 H 02/10/19 13:42 Pulse Ox 98 02/10/19 13:42 - Exam General: Alert, Oriented HEENT: Conjunctiva Clear Neck: Supple, Trachea Midline Lungs: Clear to Auscultation Cardiovascular: Regular Rate, Regular Rhythm GI/Abdominal Exam: Normal Bowel Sounds, Soft, Non-Tender Extremities: Normal Inspection, Normal Range of Motion - Patient Data Lab Results Last 24 hrs: Laboratory Results - last 24 hr 02/10/19 02/10/19 02/10/19 Range/Units 10:32 10:32 10:32 WBC 14.4 H (5.0-10.0) 10^3/uL RBC 5.88 (4.6-6.2) 10^6/uL Hgb 17.2 (14.0-18.0) g/dL Hct 48.4 (40.0-54.0) % MCV 82.3 (80-100) fL MCH 29.3 (27.0-34.0) pg MCHC 35.5 H (33.0-35.0) g/dL Plt Count 242 (150-450) 10^3/uL Neut % (Auto) 84.2 H (42.2-75.2) % Lymph % (Auto) 10.4 L (20.5-50.1) % [place] % (Auto) 5.0 (2-8) % Eos % (Auto) 0.1 L (1.0-3.0) % Baso % (Auto) 0.3 (0.0-1.0) % PT 11.1 (9.0-12.0) SEC INR 1.1 (0.9-1.2) Sodium 133 L (135-145) mmol/L Potassium 3.2 L (3.6-5.0) mmol/L Chloride 93 L (101-111) mmol/L Carbon Dioxide 14.0 L (21.0-31.0) mmol/L Anion Gap 29.2 BUN 7 (7-18) mg/dL Creatinine 0.9 (0.6-1.3) mg/dL Est Cr Clr Drug Dosing TNP Estimated GFR (MDRD) > 60 BUN/Creatinine Ratio 7.77 Glucose 133 H (74-105) mg/dL Calcium 8.8 (8.4-10.2) mg/dl Total Bilirubin 2.0 H (0.2-1.0) mg/dL AST 87 H (10-42) IU/L ALT 49 (10-60) IU/L Alkaline Phosphatase 96 (42-121) IU/L Troponin I < 0.02 (0.00-0.02) ng/ml Total Protein 9.0 H (6.7-8.2) g/dl Albumin 4.7 (3.2-5.5) g/dl Globulin 4.3 Albumin/Globulin Ratio 1.09 Lipase (22-51) U/L Ethyl Alcohol 95 mg/dL Blood Type Gel Antibody Screen 02/10/19 02/10/19 Range/Units 10:32 10:32 WBC (5.0-10.0) 10^3/uL RBC (4.6-6.2) 10^6/uL Hgb (14.0-18.0) g/dL Hct (40.0-54.0) % MCV (80-100) fL MCH (27.0-34.0) pg MCHC (33.0-35.0) g/dL Plt Count (150-450) 10^3/uL Neut % (Auto) (42.2-75.2) % Lymph % (Auto) (20.5-50.1) % [place] % (Auto) (2-8) % Eos % (Auto) (1.0-3.0) % Baso % (Auto) (0.0-1.0) % PT (9.0-12.0) SEC INR (0.9-1.2) Sodium (135-145) mmol/L Potassium (3.6-5.0) mmol/L Chloride (101-111) mmol/L Carbon Dioxide (21.0-31.0) mmol/L Anion Gap BUN (7-18) mg/dL Creatinine (0.6-1.3) mg/dL Est Cr Clr Drug Dosing Estimated GFR (MDRD) BUN/Creatinine Ratio Glucose (74-105) mg/dL Calcium (8.4-10.2) mg/dl Total Bilirubin (0.2-1.0) mg/dL AST (10-42) IU/L ALT (10-60) IU/L Alkaline Phosphatase (42-121) IU/L Troponin I (0.00-0.02) ng/ml Total Protein (6.7-8.2) g/dl Albumin (3.2-5.5) g/dl Globulin Albumin/Globulin Ratio Lipase 58 H (22-51) U/L Ethyl Alcohol mg/dL Blood Type O POSITIVE Gel Antibody Screen Negative Result Diagrams: 02/10/19 10:32 02/10/19 10:32 [place] Results Last 24 hrs: Microbiology 02/10/19 10:38 Stool Occult Blood ([place]) - Final Stool / Feces Problem List Initiated/Reviewed/Updated: Yes Orders Last 24hrs: Active Orders 24 hr Category Date Time Status Patient Status [ADT] Routine ADT 02/10/19 16:08 Ordered Ambulate [RC] ASDIRECTED Care 02/10/19 16:08 Ordered EKG 12 Lead [EKG Documentation Completion] [RC] URGENT Care 02/10/19 10:31 Active Height and Weight [RC] DAILY Care 02/10/19 16:08 Ordered Oxygen Therapy [RC] PRN Care 02/10/19 16:08 Ordered Peripheral IV Care [RC] 08,20 Care 02/10/19 10:32 Active Up With Assistance [RC] ASDIRECTED Care 02/10/19 16:08 Ordered VTE/DVT Education [RC] PER UNIT ROUTINE Care 02/10/19 16:08 Ordered Vital Signs [RC] Q4H Care 02/10/19 16:08 Ordered Regular Diet [DIET] Diet 02/10/19 Breakfast Ordered BASIC METABOLIC PANEL,BMP [CHEM] AM Lab 02/11/19 05:11 Ordered CBC W/O DIFF,HEMOGRAM [HEME] AM Lab 02/11/19 05:11 Ordered MAGNESIUM [CHEM] AM Lab 02/11/19 05:11 Ordered Acetaminophen [Tylenol] Med 02/10/19 16:11 Ordered 650 mg PO Q4H PRN Folic Acid Med 02/11/19 09:00 Ordered 1 mg PO DAILY LORazepam [Ativan] Med 02/10/19 16:14 Ordered 1 mg PO Q4H PRN LORazepam [Ativan] Med 02/10/19 16:16 Ordered 2 mg IVPUSH ASDIRECTED PRN Metoprolol Succinate [Toprol XL 100mg] Med 02/11/19 09:00 Ordered 50 mg PO DAILY Multivitamin [Multi-Vitamin Daily] Med 02/11/19 09:00 Ordered 1 tab PO DAILY Ondansetron Med 02/11/19 09:00 Ordered 4 mg PO DAILY Pantoprazole [ProTONIX IV] Med 02/10/19 16:15 Ordered 40 mg IVPUSH Q12H Ranitidine [Zantac] Med 02/10/19 21:00 Ordered 150 mg PO BID Rifaximin [Xifaxan] Med 02/11/19 09:00 Ordered 550 mg PO DAILY Sodium Chloride 0.9% [Saline Flush] Med 02/10/19 10:32 Active 10 ml FLUSH ASDIRECTED PRN Sodium Chloride 0.9% with KCl 20 mEq @ 125 mL/Hr (1000 Med 02/10/19 16:15 Ordered mL) NS + KCl 20mEq/L [Normal Saline with 20 mEq KCl] 1,000 ml IV ASDIRECTED Spironolactone Med 02/11/19 09:00 Ordered 100 mg PO DAILY Sucralfate [Carafate] Med 02/10/19 17:00 Ordered 1 gm PO QID fentaNYL [Sublimaze] Med 02/10/19 16:11 Ordered 25 mcg IVPUSH ONETIME PRN oxyCODONE Med 02/10/19 16:11 Ordered 5 mg PO Q4H PRN traZODone Med 02/10/19 21:00 Ordered 100 mg PO BEDTIME Peripheral IV Insertion Adult [OM.PC] Routine Oth 02/10/19 16:08 Ordered Peripheral IV Insertion Adult [OM.PC] Stat Oth 02/10/19 10:31 Ordered Saline Lock Insert [OM.PC] Routine Oth 02/10/19 16:08 Ordered Medication Orders Sodium Chloride (Saline Flush) 10 ml FLUSH ASDIRECTED PRN PRN Reason: Keep Vein Open Last Admin: 02/10/19 10:52 Dose: 10 ml Assessment/Plan Comment:: Alcohol withdrawal Alcohol abuse disorder -monitoring of CIWA scores -PRN ativan per the CIWA protocol -IV fluid hydration -oral thiamine supplementation -social work consult for alcohol detox options GERD -IV protonix, ranitidine, sucrafalte Hypokalemia -replenish orally and IV DVT ppx SC heparin
[2019-02-10] MEDS ORDERED: Potassium Chloride 10 MEQ Tab.ER PO ONE ×2 (16:24→18:45)
[2019-02-10] MEDS: Pantoprazole 40 MG Vial IVPUSH SCH (18:36)
[2019-02-10] MEDS: NS + KCl 20mEq/L 1,000 ML IV SCH (18:40)
[2019-02-10] MEDS: Sucralfate 1 GM Tab PO SCH ×2 (18:43→20:22)
[2019-02-10] MEDS: Famotidine 20 MG Tab PO SCH (20:22)
[2019-02-10] MEDS: traZODone 50 MG Tab PO SCH (20:22)
[2019-02-10] MEDS: oxyCODONE 5 MG Tab PO PRN (20:23)
[2019-02-10] MEDS: Heparin Sodium 5,000 Units/ML Vial SUBCUT SCH (22:19)
[2019-02-11] MEDS: NS + KCl 20mEq/L 1,000 ML IV SCH (02:18)
[2019-02-11] MEDS: Pantoprazole 40 MG Vial IVPUSH SCH ×2 (05:50→17:41)
[2019-02-11] MEDS: Heparin Sodium 5,000 Units/ML Vial SUBCUT SCH ×3 (05:52→21:48)
[2019-02-11 08:00] LABS: ANION GAP 17.9; CHLORIDE,CL 100 mmol/L (101-111); SODIUM,NA 135 mmol/L (135-145)
[2019-02-11] MEDS ORDERED: Ondansetron 4 MG Tab.DIS PO SCH (09:00)
[2019-02-11] MEDS: Spironolactone 25 MG Tab PO SCH (09:21)
[2019-02-11] MEDS: Folic Acid 1 MG Tab PO SCH (09:21)
[2019-02-11] MEDS: Metoprolol Succinate 50 MG Tab.ER PO SCH (09:22)
[2019-02-11] MEDS: Sucralfate 1 GM Tab PO SCH ×4 (09:23→20:25)
[2019-02-11] MEDS: Famotidine 20 MG Tab PO SCH ×2 (09:23→20:25)
[2019-02-11] MEDS: Multivitamins,Therapeutic Tab PO SCH (09:24)
[2019-02-11] MEDS: Rifaximin 550 MG Tab PO SCH (09:24)
[2019-02-11] MEDS: Sodium Chloride 0.9% 1,000 ML IV SCH ×2 (12:54→21:04)
--- NOTE | 2019-02-11 13:13 | PCM.PN ---
- General Info Date of Service: 02/11/19 Admission Dx/Problem (Free Text): Admission Diagnosis/Problem Admission Diagnosis/Problem Alcohol withdrawal syndrome Subjective Update: I saw and examined the patient at the bedside He complains of generalized weakness, abdominal pain, nausea No urinary symptoms - Review of Systems General: Reports: Weakness HEENT: Reports: No Symptoms Pulmonary: Reports: Shortness of Breath Cardiovascular: Reports: Chest Pain Gastrointestinal: Reports: Abdominal Pain, Nausea Genitourinary: Reports: No Symptoms Musculoskeletal: Reports: No Symptoms Skin: Reports: No Symptoms Neurological: Reports: No Symptoms - Patient Data Vitals - Most Recent: Last Vital Signs Temp 36.8 C 02/11/19 08:36 Pulse 73 02/11/19 09:22 Resp 20 02/11/19 08:36 BP 124/99 H 02/11/19 09:22 Pulse Ox 99 02/11/19 08:36 Weight - Most Recent: 78.109 kg I&O - Last 24 Hours: Intake & Output 02/10/19 02/11/19 02/11/19 22:59 06:59 14:59 Intake Total 497 535 9907 Output Total 225 Balance -75 957 1006 Lab Results Last 24 Hours: Laboratory Results - last 24 hr 02/10/19 02/11/19 02/11/19 Range/Units 10:32 06:25 06:25 WBC 12.0 H (5.0-10.0) 10^3/uL RBC 4.78 (4.6-6.2) 10^6/uL Hgb 14.1 D (14.0-18.0) g/dL Hct 41.4 (40.0-54.0) % MCV 86.6 D (80-100) fL MCH 29.5 (27.0-34.0) pg MCHC 34.1 (33.0-35.0) g/dL Plt Count 131 L D (150-450) 10^3/uL Sodium 135 (135-145) mmol/L Potassium 3.9 (3.6-5.0) mmol/L Chloride 100 L (101-111) mmol/L Carbon Dioxide 21.0 (21.0-31.0) mmol/L Anion Gap 17.9 BUN 8 (7-18) mg/dL Creatinine 0.8 (0.6-1.3) mg/dL Est Cr Clr Drug Dosing TNP Estimated GFR (MDRD) > 60 Glucose 73 L (74-105) mg/dL Calcium 7.9 L (8.4-10.2) mg/dl Magnesium 1.8 1.7 L (1.8-2.5) mg/dL Lipase 37 (22-51) U/L [place] Results Last 24 Hours: Microbiology 02/10/19 10:38 Stool Occult Blood ([place]) - Final Stool / Feces Med Orders - Current: Current Medications Acetaminophen (Tylenol) 650 mg PO Q4H PRN PRN Reason: Pain (mild 1-3) Famotidine (Pepcid) 20 mg PO BID [facility] Last Admin: 02/11/19 09:23 Dose: 20 mg Fentanyl (Sublimaze) 25 mcg IVPUSH ONETIME PRN PRN Reason: Pain (severe 7-10) Folic Acid (Folic Acid) 1 mg PO DAILY [facility] Last Admin: 02/11/19 09:21 Dose: 1 mg Heparin Sodium (Porcine) (Heparin Sodium) 5,000 units SUBCUT Q8HR [facility] Last Admin: 02/11/19 05:52 Dose: 5,000 units Sodium Chloride (Normal Saline) 1,000 mls @ 125 mls/hr IV ASDIRECTED [facility] Last Admin: 02/11/19 12:54 Dose: 125 mls/hr Lorazepam (Ativan) 2 mg IVPUSH ASDIRECTED PRN; Protocol PRN Reason: Withdrawal Symptoms Lorazepam (Ativan) 1 mg PO Q4H PRN; Protocol PRN Reason: Withdrawal Symptoms Metoprolol Succinate (Toprol Xl) 50 mg PO DAILY [facility] Last Admin: 02/11/19 09:22 Dose: 50 mg Multivitamins (Thera) 1 each PO DAILY [facility] Last Admin: 02/11/19 09:24 Dose: 1 each Ondansetron HCl (Zofran) 4 mg IV Q4H PRN PRN Reason: Nausea/Vomiting Oxycodone HCl (Oxycodone) 5 mg PO Q4H PRN PRN Reason: Pain (moderate 4-6) Last Admin: 02/10/19 20:23 Dose: 5 mg Pantoprazole Sodium (Protonix Iv) 40 mg IVPUSH Q12H [facility] Last Admin: 02/11/19 05:50 Dose: 40 mg Rifaximin (Xifaxan) 550 mg PO DAILY [facility] Last Admin: 02/11/19 09:24 Dose: 550 mg Sodium Chloride (Saline Flush) 10 ml FLUSH ASDIRECTED PRN PRN Reason: Keep Vein Open Last Admin: 02/10/19 10:52 Dose: 10 ml Spironolactone (Aldactone) 100 mg PO DAILY [facility] Last Admin: 02/11/19 09:21 Dose: 100 mg Sucralfate (Carafate) 1 gm PO QID [facility] Last Admin: 02/11/19 09:23 Dose: 1 gm Trazodone HCl (Trazodone) 100 mg PO BEDTIME [facility] Last Admin: 02/10/19 20:22 Dose: 100 mg Discontinued Medications Diphenhydramine HCl (Benadryl) 25 mg IVPUSH ONETIME ONE Stop: 02/10/19 10:33 Last Admin: 02/10/19 10:52 Dose: 25 mg Haloperidol Lactate (Haldol) 1 mg IVPUSH ONETIME ONE Stop: 02/10/19 10:33 Last Admin: 02/10/19 10:51 Dose: 1 mg Haloperidol Lactate (Haldol) 2 mg IVPUSH ONETIME ONE Stop: 02/10/19 13:31 Last Admin: 02/10/19 13:41 Dose: 2 mg Multivitamins/Minerals 10 ml/Folic Acid 1 mg/ Thiamine HCl 100 mg/ Lactated Ringer's 1,011.2 mls @ 999 mls/hr IV ONETIME ONE Stop: 02/10/19 11:33 Last Admin: 02/10/19 10:51 Dose: 999 mls/hr Lactated Ringer's (Ringers, Lactated) 1,000 mls @ 1,000 mls/hr IV .BOLUS ONE Stop: 02/10/19 12:47 Last Admin: 02/10/19 12:02 Dose: 1,000 mls/hr Potassium Chloride/Sodium Chloride (Normal Saline With 20 Meq Kcl) 1,000 mls @ 125 mls/hr IV ASDIRECTED [facility] Last Admin: 02/11/19 02:18 Dose: 125 mls/hr Ondansetron HCl (Zofran Odt) 4 mg PO DAILY [facility] Last Admin: 02/11/19 09:21 Dose: Not Given Pantoprazole Sodium (Protonix Iv) 80 mg IVPUSH .BOLUS ONE Stop: 02/10/19 10:34 Last Admin: 02/10/19 10:52 Dose: 80 mg Potassium Chloride (Klor-Con 10) 40 meq PO ONETIME ONE Stop: 02/10/19 16:25 Last Admin: 02/10/19 18:45 Dose: Not Given Potassium Chloride (Klor-Con 10) 40 meq PO ONETIME ONE Stop: 02/10/19 18:46 Last Admin: 02/10/19 18:46 Dose: 40 meq - Exam General: Alert, Oriented HEENT: Pupils Equal, Pupils Reactive Neck: Supple Lungs: Clear to Auscultation, Normal Respiratory Effort Cardiovascular: Regular Rate, Regular Rhythm GI/Abdominal Exam: Normal Bowel Sounds, Soft, Non-Tender - Problem List Review Problem List Initiated/Reviewed/Updated: Yes - My Orders Last 24 Hours: My Active Orders 02/10/19 16:08 Patient Status [ADT] Routine Ambulate [RC] ASDIRECTED Height and Weight [RC] 0600 Oxygen Therapy [RC] PRN Up With Assistance [RC] ASDIRECTED VTE/DVT Education [RC] PER UNIT ROUTINE Vital Signs [RC] Q4H Peripheral IV Insertion Adult [OM.PC] Routine Saline Lock Insert [OM.PC] Routine 02/10/19 16:11 Acetaminophen [Tylenol] 650 mg PO Q4H PRN fentaNYL [Sublimaze] 25 mcg IVPUSH ONETIME PRN oxyCODONE 5 mg PO Q4H PRN 02/10/19 16:14 LORazepam [Ativan] 1 mg PO Q4H PRN 02/10/19 16:16 LORazepam [Ativan] 2 mg IVPUSH ASDIRECTED PRN 02/10/19 17:00 Sucralfate [Carafate] 1 gm PO QID 02/10/19 18:00 Pantoprazole [ProTONIX IV] 40 mg IVPUSH Q12H 02/10/19 21:00 Famotidine [Pepcid] 20 mg PO BID traZODone 100 mg PO BEDTIME 02/10/19 22:00 Heparin Sodium 5,000 units SUBCUT Q8HR 02/11/19 09:00 Folic Acid 1 mg PO DAILY Metoprolol Succinate [Toprol XL] 50 mg PO DAILY Multivitamins,Therapeutic [Thera] 1 each PO DAILY Rifaximin [Xifaxan] 550 mg PO DAILY Spironolactone [Aldactone] 100 mg PO DAILY 02/11/19 09:14 Ondansetron [Zofran] 4 mg IV Q4H PRN Code Status [Resuscitation Status] Routine 02/11/19 12:30 Sodium Chloride 0.9% [Normal Saline] 1,000 ml IV ASDIRECTED 02/12/19 05:11 BASIC METABOLIC PANEL,BMP [CHEM] AM CBC W/O DIFF,HEMOGRAM [HEME] AM - Plan Plan:: Alcohol withdrawal Alcohol abuse disorder -monitoring of CIWA scores -PRN ativan per the CIWA protocol -IV fluid hydration -oral thiamine supplementation -social work consult for alcohol detox options GERD -IV protonix, ranitidine, sucrafalte History of chronic liver disease -Continue oral rifaximin, spironolactone -no features of decompensated chronic liver disease. -Encouraged patient to quit drinking alcohol Hypokalemia, resolved DVT ppx SC heparin
[2019-02-11] MEDS: Ondansetron 4 MG/2 ML SDV IV PRN (13:39)
[2019-02-11] MEDS: traZODone 50 MG Tab PO SCH (20:26)
[2019-02-11] MEDS: oxyCODONE 5 MG Tab PO PRN (20:26)
[2019-02-12] MEDS: Sodium Chloride 0.9% 1,000 ML IV SCH ×4 (05:05→21:41)
[2019-02-12] MEDS: Pantoprazole 40 MG Vial IVPUSH SCH ×2 (06:08→17:35)
[2019-02-12] MEDS: Heparin Sodium 5,000 Units/ML Vial SUBCUT SCH ×3 (06:08→21:42)
[2019-02-12 07:17] LABS: ANION GAP 12.3; CHLORIDE,CL 101 mmol/L (101-111); SODIUM,NA 132 mmol/L (135-145)
[2019-02-12] MEDS ORDERED: Potassium Chloride 10 MEQ Tab.ER PO ONE (09:25)
[2019-02-12] MEDS: Rifaximin 550 MG Tab PO SCH (09:26)
[2019-02-12] MEDS: Spironolactone 25 MG Tab PO SCH (09:26)
[2019-02-12] MEDS: Metoprolol Succinate 50 MG Tab.ER PO SCH (09:26)
[2019-02-12] MEDS: Folic Acid 1 MG Tab PO SCH (09:26)
[2019-02-12] MEDS: Multivitamins,Therapeutic Tab PO SCH (09:26)
[2019-02-12] MEDS: Famotidine 20 MG Tab PO SCH ×2 (09:29→20:50)
[2019-02-12] MEDS: Ondansetron 4 MG/2 ML SDV IV PRN (09:29)
[2019-02-12] MEDS: Sucralfate 1 GM Tab PO SCH ×4 (09:29→20:49)
[2019-02-12] MEDS ORDERED: Polyethylene Glycol 3350 Powder 17 GM Packet PO ONE (11:20)
[2019-02-12] MEDS ORDERED: Magnesium Citrate Solution 296 ML Bottle PO ONE (11:20)
--- NOTE | 2019-02-12 12:07 | PCM.PN ---
- General Info Date of Service: 02/12/19 Admission Dx/Problem (Free Text): Admission Diagnosis/Problem Admission Diagnosis/Problem Alcohol withdrawal syndrome Subjective Update: I saw and examined the patient at the bedside He complains of abdominal pain, nausea nausea started this morning No BMs since admission No urinary symptoms - Review of Systems General: Reports: No Symptoms HEENT: Reports: No Symptoms Pulmonary: Reports: No Symptoms Cardiovascular: Reports: No Symptoms Gastrointestinal: Reports: Abdominal Pain, Nausea Genitourinary: Reports: No Symptoms Musculoskeletal: Reports: No Symptoms Skin: Reports: No Symptoms Neurological: Reports: No Symptoms - Patient Data Vitals - Most Recent: Last Vital Signs Temp 36.8 C 02/12/19 08:28 Pulse 72 02/12/19 09:26 Resp 20 02/12/19 08:28 BP 127/64 02/12/19 09:26 Pulse Ox 95 02/12/19 08:28 Weight - Most Recent: 79.832 kg I&O - Last 24 Hours: Intake & Output 02/11/19 02/12/19 02/12/19 22:59 06:59 14:59 Intake Total 1220 Output Total 675 Balance 545 Lab Results Last 24 Hours: Laboratory Results - last 24 hr 02/12/19 02/12/19 Range/Units 05:50 05:50 WBC 10.6 H (5.0-10.0) 10^3/uL RBC 4.53 L (4.6-6.2) 10^6/uL Hgb 13.5 L (14.0-18.0) g/dL Hct 39.1 L (40.0-54.0) % MCV 86.3 (80-100) fL MCH 29.8 (27.0-34.0) pg MCHC 34.5 (33.0-35.0) g/dL Plt Count 109 L (150-450) 10^3/uL Sodium 132 L (135-145) mmol/L Potassium 3.3 L (3.6-5.0) mmol/L Chloride 101 (101-111) mmol/L Carbon Dioxide 22.0 (21.0-31.0) mmol/L Anion Gap 12.3 BUN 4 L (7-18) mg/dL Creatinine 0.7 (0.6-1.3) mg/dL Est Cr Clr Drug Dosing TNP Estimated GFR (MDRD) > 60 Glucose 104 (74-105) mg/dL Calcium 7.6 L (8.4-10.2) mg/dl Med Orders - Current: Current Medications Acetaminophen (Tylenol) 650 mg PO Q4H PRN PRN Reason: Pain (mild 1-3) Famotidine (Pepcid) 20 mg PO BID [facility] Last Admin: 02/12/19 09:29 Dose: 20 mg Fentanyl (Sublimaze) 25 mcg IVPUSH ONETIME PRN PRN Reason: Pain (severe 7-10) Folic Acid (Folic Acid) 1 mg PO DAILY [facility] Last Admin: 02/12/19 09:26 Dose: 1 mg Heparin Sodium (Porcine) (Heparin Sodium) 5,000 units SUBCUT Q8HR [facility] Last Admin: 02/12/19 06:08 Dose: 5,000 units Sodium Chloride (Normal Saline) 1,000 mls @ 125 mls/hr IV ASDIRECTED [facility] Last Admin: 02/12/19 05:05 Dose: 125 mls/hr Lorazepam (Ativan) 2 mg IVPUSH ASDIRECTED PRN; Protocol PRN Reason: Withdrawal Symptoms Lorazepam (Ativan) 1 mg PO Q4H PRN; Protocol PRN Reason: Withdrawal Symptoms Metoprolol Succinate (Toprol Xl) 50 mg PO DAILY [facility] Last Admin: 02/12/19 09:26 Dose: 50 mg Multivitamins (Thera) 1 each PO DAILY [facility] Last Admin: 02/12/19 09:26 Dose: 1 each Ondansetron HCl (Zofran) 4 mg IV Q4H PRN PRN Reason: Nausea/Vomiting Last Admin: 02/12/19 09:29 Dose: 4 mg Oxycodone HCl (Oxycodone) 5 mg PO Q4H PRN PRN Reason: Pain (moderate 4-6) Last Admin: 02/11/19 20:26 Dose: 5 mg Pantoprazole Sodium (Protonix Iv) 40 mg IVPUSH Q12H [facility] Last Admin: 02/12/19 06:08 Dose: 40 mg Rifaximin (Xifaxan) 550 mg PO DAILY [facility] Last Admin: 02/12/19 09:26 Dose: 550 mg Sodium Chloride (Saline Flush) 10 ml FLUSH ASDIRECTED PRN PRN Reason: Keep Vein Open Last Admin: 02/10/19 10:52 Dose: 10 ml Spironolactone (Aldactone) 100 mg PO DAILY [facility] Last Admin: 02/12/19 09:26 Dose: 100 mg Sucralfate (Carafate) 1 gm PO QID [facility] Last Admin: 02/12/19 09:29 Dose: 1 gm Trazodone HCl (Trazodone) 100 mg PO BEDTIME [facility] Last Admin: 02/11/19 20:26 Dose: 100 mg Discontinued Medications Diphenhydramine HCl (Benadryl) 25 mg IVPUSH ONETIME ONE Stop: 02/10/19 10:33 Last Admin: 02/10/19 10:52 Dose: 25 mg Haloperidol Lactate (Haldol) 1 mg IVPUSH ONETIME ONE Stop: 02/10/19 10:33 Last Admin: 02/10/19 10:51 Dose: 1 mg Haloperidol Lactate (Haldol) 2 mg IVPUSH ONETIME ONE Stop: 02/10/19 13:31 Last Admin: 02/10/19 13:41 Dose: 2 mg Multivitamins/Minerals 10 ml/Folic Acid 1 mg/ Thiamine HCl 100 mg/ Lactated Ringer's 1,011.2 mls @ 999 mls/hr IV ONETIME ONE Stop: 02/10/19 11:33 Last Admin: 02/10/19 10:51 Dose: 999 mls/hr Lactated Ringer's (Ringers, Lactated) 1,000 mls @ 1,000 mls/hr IV .BOLUS ONE Stop: 02/10/19 12:47 Last Admin: 02/10/19 12:02 Dose: 1,000 mls/hr Potassium Chloride/Sodium Chloride (Normal Saline With 20 Meq Kcl) 1,000 mls @ 125 mls/hr IV ASDIRECTED [facility] Last Admin: 02/11/19 02:18 Dose: 125 mls/hr Magnesium Citrate (Citrate Of Magnesia) 296 ml PO ONETIME ONE Stop: 02/12/19 11:21 Ondansetron HCl (Zofran Odt) 4 mg PO DAILY [facility] Last Admin: 02/11/19 09:21 Dose: Not Given Pantoprazole Sodium (Protonix Iv) 80 mg IVPUSH .BOLUS ONE Stop: 02/10/19 10:34 Last Admin: 02/10/19 10:52 Dose: 80 mg Polyethylene Glycol (Miralax) 17 gm PO ONETIME ONE Stop: 02/12/19 11:21 Potassium Chloride (Klor-Con 10) 40 meq PO ONETIME ONE Stop: 02/10/19 16:25 Last Admin: 02/10/19 18:45 Dose: Not Given Potassium Chloride (Klor-Con 10) 40 meq PO ONETIME ONE Stop: 02/10/19 18:46 Last Admin: 02/10/19 18:46 Dose: 40 meq Potassium Chloride (Klor-Con 10) 40 meq PO ONETIME ONE Stop: 02/12/19 09:26 Last Admin: 02/12/19 09:44 Dose: 40 meq - Exam General: Alert, Oriented HEENT: Pupils Equal Neck: Supple Lungs: Clear to Auscultation Cardiovascular: Regular Rate, Regular Rhythm GI/Abdominal Exam: Normal Bowel Sounds, Tender. No: Distended, Guarding, Rigid , Rebound Extremities: Normal Inspection, Normal Range of Motion - Problem List Review Problem List Initiated/Reviewed/Updated: Yes - My Orders Last 24 Hours: My Active Orders 02/11/19 12:30 Sodium Chloride 0.9% [Normal Saline] 1,000 ml IV ASDIRECTED 02/12/19 11:20 KUB [Abdomen 1V Flat] [CR] Routine - Plan Plan:: Abdominal pain Likely dyspepsia vs constipation check KUB abdominal xray continue protonix BM regimen Alcohol withdrawal Alcohol abuse disorder -monitoring of CIWA scores -PRN ativan per the CIWA protocol -IV fluid hydration -oral thiamine supplementation -social work consult for alcohol detox options GERD -IV protonix, ranitidine, sucrafalte History of chronic liver disease -Continue oral rifaximin, spironolactone -no features of decompensated chronic liver disease. -Encouraged patient to quit drinking alcohol Hypokalemia, resolved DVT ppx SC heparin
[2019-02-12] MEDS: oxyCODONE 5 MG Tab PO PRN (20:49)
[2019-02-12] MEDS: traZODone 50 MG Tab PO SCH (20:50)
[2019-02-13] MEDS: Pantoprazole 40 MG Vial IVPUSH SCH (04:59)
[2019-02-13] MEDS: Heparin Sodium 5,000 Units/ML Vial SUBCUT SCH (05:01)
[2019-02-13] MEDS: Sodium Chloride 0.9% 1,000 ML IV SCH (05:53)
[2019-02-13] MEDS: Famotidine 20 MG Tab PO SCH (09:51)
[2019-02-13] MEDS: Folic Acid 1 MG Tab PO SCH (09:51)
[2019-02-13] MEDS: Sucralfate 1 GM Tab PO SCH (09:51)
[2019-02-13] MEDS: Rifaximin 550 MG Tab PO SCH (09:51)
[2019-02-13] MEDS: Spironolactone 25 MG Tab PO SCH (09:51)
[2019-02-13] MEDS: Metoprolol Succinate 50 MG Tab.ER PO SCH (09:52)
[2019-02-13] MEDS: Multivitamins,Therapeutic Tab PO SCH (09:52)
--- NOTE | 2019-02-13 11:36 | PCM.DCSUM1 ---
Discharge Summary - Hospital Course Free Text/Narrative:: 63 yo M with PMH of alcohol abuse disorder, GERD, who presents with alcohol withdrawal symptoms. Patient said his last drink was yesterday night. He decided to quit drinking alcohol Developed alcohol withdrawal symptoms characterized by tremulousness, nausea, diarrhea, anxiety. Came to the ED for the symptoms. In the ED, patient also complains of abdominal pain No chest pain, no SOB Was placed on protonix and abdominal pain resolved DC home, to follow up with PCP Diagnosis: Stroke: No - Discharge Data Discharge Date: 02/13/19 Discharge Disposition: Home, Self-Care 01 Condition: Good - Patient Instructions Diet: Usual Diet as Tolerated Activity: As Tolerated - Discharge Plan Home Medications: Home Meds Metoprolol Succinate [Toprol XL 100mg] 50 mg PO DAILY 09/04/13 [History] Folic Acid 1 mg PO DAILY 12/06/14 [History] Pantoprazole Sodium [Protonix] 40 mg PO DAILY 06/15/17 [History] Multivitamin [Multi-Vitamin Daily] 1 tab PO DAILY 03/24/18 [History] Sucralfate 1 gm PO QID 03/24/18 [History] Spironolactone [Aldactone] 100 mg PO DAILY 08/22/18 [History] traZODone HCl [Trazodone HCl] 100 mg PO BEDTIME 08/22/18 [History] Ondansetron [Zofran] 4 mg PO DAILY 11/28/18 [History] Ranitidine [Zantac] 150 mg PO BID 11/28/18 [History] Rifaximin [Xifaxan] 550 mg PO DAILY 02/10/19 [History] Patient Handouts: Gastritis, Adult, [id number], Alcohol Intoxication, Easy-to -Read Referrals: PCP,None [Primary Care Provider] - - Discharge Summary/Plan Comment DC Time >30 min.: Yes - General Info Date of Service: 02/13/19 Admission Dx/Problem (Free Text: Admission Diagnosis/Problem Admission Diagnosis/Problem Alcohol withdrawal syndrome Subjective Update: I saw and examined the patient at the bedside abdominal pain has resolved No nausea or vomiting No urinary symptoms - Review of Systems General: Reports: No Symptoms HEENT: Reports: No Symptoms Pulmonary: Reports: No Symptoms Cardiovascular: Reports: No Symptoms Gastrointestinal: Reports: No Symptoms. Denies: Hematochezia, Melena Genitourinary: Reports: No Symptoms Musculoskeletal: Reports: No Symptoms Skin: Reports: No Symptoms Neurological: Reports: No Symptoms - Patient Data Vitals - Most Recent: Last Vital Signs Temp 37.2 C 02/13/19 07:53 Pulse 65 02/13/19 09:52 Resp 14 02/13/19 07:53 BP 135/72 02/13/19 09:52 Pulse Ox 100 02/13/19 07:53 Weight - Most Recent: 78.834 kg I&O - Last 24 hours: Intake & Output 02/12/19 02/13/19 02/13/19 22:59 06:59 14:59 Intake Total 220 2109 Output Total 450 1550 Balance 220 -450 559 Med Orders - Current: Current Medications Acetaminophen (Tylenol) 650 mg PO Q4H PRN PRN Reason: Pain (mild 1-3) Last Admin: 02/13/19 05:14 Dose: 650 mg Famotidine (Pepcid) 20 mg PO BID [facility] Last Admin: 02/13/19 09:51 Dose: 20 mg Fentanyl (Sublimaze) 25 mcg IVPUSH ONETIME PRN PRN Reason: Pain (severe 7-10) Folic Acid (Folic Acid) 1 mg PO DAILY [facility] Last Admin: 02/13/19 09:51 Dose: 1 mg Heparin Sodium (Porcine) (Heparin Sodium) 5,000 units SUBCUT Q8HR [facility] Last Admin: 02/13/19 05:01 Dose: 5,000 units Sodium Chloride (Normal Saline) 1,000 mls @ 125 mls/hr IV ASDIRECTED [facility] Last Admin: 02/13/19 05:53 Dose: 125 mls/hr Lorazepam (Ativan) 2 mg IVPUSH ASDIRECTED PRN; Protocol PRN Reason: Withdrawal Symptoms Lorazepam (Ativan) 1 mg PO Q4H PRN; Protocol PRN Reason: Withdrawal Symptoms Metoprolol Succinate (Toprol Xl) 50 mg PO DAILY [facility] Last Admin: 02/13/19 09:52 Dose: 50 mg Multivitamins (Thera) 1 each PO DAILY [facility] Last Admin: 02/13/19 09:52 Dose: 1 each Ondansetron HCl (Zofran) 4 mg IV Q4H PRN PRN Reason: Nausea/Vomiting Last Admin: 02/12/19 09:29 Dose: 4 mg Oxycodone HCl (Oxycodone) 5 mg PO Q4H PRN PRN Reason: Pain (moderate 4-6) Last Admin: 02/12/19 20:49 Dose: 5 mg Pantoprazole Sodium (Protonix Iv) 40 mg IVPUSH Q12H [facility] Last Admin: 02/13/19 04:59 Dose: 40 mg Rifaximin (Xifaxan) 550 mg PO DAILY [facility] Last Admin: 02/13/19 09:51 Dose: 550 mg Sodium Chloride (Saline Flush) 10 ml FLUSH ASDIRECTED PRN PRN Reason: Keep Vein Open Last Admin: 02/10/19 10:52 Dose: 10 ml Spironolactone (Aldactone) 100 mg PO DAILY [facility] Last Admin: 02/13/19 09:51 Dose: 100 mg Sucralfate (Carafate) 1 gm PO QID [facility] Last Admin: 02/13/19 09:51 Dose: 1 gm Trazodone HCl (Trazodone) 100 mg PO BEDTIME [facility] Last Admin: 02/12/19 20:50 Dose: 100 mg Discontinued Medications Diphenhydramine HCl (Benadryl) 25 mg IVPUSH ONETIME ONE Stop: 02/10/19 10:33 Last Admin: 02/10/19 10:52 Dose: 25 mg Haloperidol Lactate (Haldol) 1 mg IVPUSH ONETIME ONE Stop: 02/10/19 10:33 Last Admin: 02/10/19 10:51 Dose: 1 mg Haloperidol Lactate (Haldol) 2 mg IVPUSH ONETIME ONE Stop: 02/10/19 13:31 Last Admin: 02/10/19 13:41 Dose: 2 mg Multivitamins/Minerals 10 ml/Folic Acid 1 mg/ Thiamine HCl 100 mg/ Lactated Ringer's 1,011.2 mls @ 999 mls/hr IV ONETIME ONE Stop: 02/10/19 11:33 Last Admin: 02/10/19 10:51 Dose: 999 mls/hr Lactated Ringer's (Ringers, Lactated) 1,000 mls @ 1,000 mls/hr IV .BOLUS ONE Stop: 02/10/19 12:47 Last Admin: 02/10/19 12:02 Dose: 1,000 mls/hr Potassium Chloride/Sodium Chloride (Normal Saline With 20 Meq Kcl) 1,000 mls @ 125 mls/hr IV ASDIRECTED [facility] Last Admin: 02/11/19 02:18 Dose: 125 mls/hr Magnesium Citrate (Citrate Of Magnesia) 296 ml PO ONETIME ONE Stop: 02/12/19 11:21 Last Admin: 02/12/19 13:12 Dose: Not Given Ondansetron HCl (Zofran Odt) 4 mg PO DAILY [facility] Last Admin: 02/11/19 09:21 Dose: Not Given Pantoprazole Sodium (Protonix Iv) 80 mg IVPUSH .BOLUS ONE Stop: 02/10/19 10:34 Last Admin: 02/10/19 10:52 Dose: 80 mg Polyethylene Glycol (Miralax) 17 gm PO ONETIME ONE Stop: 02/12/19 11:21 Last Admin: 02/12/19 13:12 Dose: Not Given Potassium Chloride (Klor-Con 10) 40 meq PO ONETIME ONE Stop: 02/10/19 16:25 Last Admin: 02/10/19 18:45 Dose: Not Given Potassium Chloride (Klor-Con 10) 40 meq PO ONETIME ONE Stop: 02/10/19 18:46 Last Admin: 02/10/19 18:46 Dose: 40 meq Potassium Chloride (Klor-Con 10) 40 meq PO ONETIME ONE Stop: 02/12/19 09:26 Last Admin: 02/12/19 09:44 Dose: 40 meq - Exam General: Reports: Alert, Oriented HEENT: Reports: Pupils Equal Neck: Reports: Supple Lungs: Reports: Clear to Auscultation Cardiovascular: Reports: Regular Rate, Regular Rhythm GI/Abdominal Exam: Normal Bowel Sounds, Soft
[2019-02-13 11:37] VITALS: BP 134/75; PULSE 66
== END 2019-02-13 12:30 | disposition home or self-care (01) ==
LOC: DL.ED 10:25 → DL.MS 13:23 → UNDOADMOB 13:23 → DL.MS 16:08
PROVIDERS: ADMIT Hospitalist; ATTEND Hospitalist
DX: F10.239 Alcohol dependence with withdrawal, unspecified (principal); E87.6 Hypokalemia; R10.9 Unspecified abdominal pain; K21.9 Gastro-esophageal reflux disease without esophagitis; K29.21 Alcoholic gastritis with bleeding; K74.60 Unspecified cirrhosis of liver; I10 Essential (primary) hypertension; J44.9 Chronic obstructive pulmonary disease, unspecified; Z88.6 Allergy status to analgesic agent; Z79.899 Other long term (current) drug therapy
CPT/HCPCS: 36415; 74018; 80048; 80053; 82272; 83690; 83735; 84484; 85025; 85027; 85610; 86850; 86900; 86901; 93005; 96361; 96365; 96372; 96375; 96376; 99284; 99285; A9270; C9113; G0378; G0480; J1200; J1630; J1644; J2405; J3411; J3480; J7030; J7120; 99217; 99218; 99225; J3490

== ENCOUNTER 2019-12-07 13:46 | Emergency (ER) | payer MEDICARE, MEDICAID ==
[2019-12-07] MEDS ORDERED: Sodium Chloride 0.9% 10 ML Syringe FLUSH PRN (13:47)
--- NOTE | 2019-12-07 13:47 | EDM.PDOC ---
ED HPI GENERAL MEDICAL PROBLEM - General Chief Complaint: Abdominal Pain Stated Complaint: AMBULANCE-CHEST PAIN Time Seen by Provider: 12/07/19 13:46 Source of Information: Reports: Patient, EMS, Old Records, RN, RN Notes Reviewed History Limitations: Reports: No Limitations - History of Present Illness INITIAL COMMENTS - FREE TEXT/NARRATIVE: Pt arrives from home by ambulance with c/o epigastric abdominal pain, vomiting, and alcohol withdrawals. Pt states he has cirrhosis and is an alcoholic with Hx of GI bleeds and varices. He quit alcohol in February 2019 because it "almost killed " him. He relapsed to heavy daily alcohol use about 7 days ago. He began to have epigastric pain and nausea yesterday, but continued to drink Fireball whiskey up until 2200HRS last night at which time he began to vomit. Pt claims that he had flecks of blood in his emesis around 1200HRS today, so he eventually decided to call 911 to come to the ER. Pt continues with active emesis and dry heaves on arrival, and has grossly bloody emesis. Pt also reports tremors similar to past alcohol withdrawal symptoms. He denies hallucinations. Pt denies cough, fever, shortness of breath, diarrhea, any recent travel, or any exposure to confirmed or suspected Covid-19 cases. Duration: Recurring Location: Reports: Chest, Abdomen Quality: Reports: Ache, Burning Severity: Moderate Improves with: Reports: None Worsens with: Reports: None Associated Symptoms: Reports: No Other Symptoms - Related Data Allergies Allergy/AdvReac Type Severity Reaction Status Date / Time aspirin Allergy Stomach Verified 03/18/19 10:02 Upset Home Meds: Home Meds Metoprolol Succinate [Toprol XL 100mg] 50 mg PO DAILY 09/04/13 [History] Folic Acid 1 mg PO DAILY 12/06/14 [History] Pantoprazole Sodium [Protonix] 40 mg PO DAILY 06/15/17 [History] Multivitamin [Multi-Vitamin Daily] 1 tab PO DAILY 03/24/18 [History] Sucralfate 1 gm PO QID 03/24/18 [History] Spironolactone [Aldactone] 100 mg PO DAILY 08/22/18 [History] traZODone HCl [Trazodone HCl] 100 mg PO BEDTIME 08/22/18 [History] Ondansetron [Zofran] 4 mg PO DAILY 11/28/18 [History] Ranitidine [Zantac] 150 mg PO BID 11/28/18 [History] Rifaximin [Xifaxan] 550 mg PO DAILY 02/10/19 [History] Past Medical History HEENT History: Reports: None Cardiovascular History: Reports: Hypertension Other Cardiovascular History: Hx of SVT. Dyslipidemia. Respiratory History: Reports: COPD, Sleep Apnea Gastrointestinal History: Reports: Cirrhosis, Gastritis, GERD, GI Bleed, PUD Other Gastrointestinal History: alcoholic gastritis Genitourinary History: Reports: Prostate Disorder Musculoskeletal History: Reports: Back Pain, Chronic Neurological History: Reports: None Psychiatric History: Reports: Addiction Other Psychiatric History: Hx of alcoholism Endocrine/Metabolic History: Reports: None Hematologic History: Reports: None Immunologic History: Reports: None Oncologic (Cancer) History: Reports: Prostate Dermatologic History: Reports: None - Infectious Disease History Infectious Disease History: Reports: Chicken Pox, 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, Other - Past Surgical History Head Surgeries/Procedures: Reports: None HEENT Surgical History: Reports: None Male Surgical History: Reports: Circumcision, TURP-Transurethral Resection of Prostate Musculoskeletal Surgical History: Reports: Shoulder Surgery Other Oncologic Surgeries/Procedures: TURP Social & Family History - Family History Family Medical History: Noncontributory - Caffeine Use Caffeine Use: Reports: Coffee - Alcohol Use Alcohol Use History: Yes Days Per Week of Alcohol Use: 7 Alcohol Use Frequency: Daily - Living Situation & Occupation Living situation: Reports: Single, with Significant Other Occupation: Unemployed ED ROS GENERAL - Review of Systems Review Of Systems: Comprehensive ROS is negative, except as noted in HPI. ED EXAM, GI/ABD - Physical Exam Exam: See Below Exam Limited By: No Limitations General Appearance: Alert, No Apparent Distress, Anxious, Active Emesis Eyes: Bilateral: EOMI (No scleral icterus), Nystagmus (lateral gaze) Ears: Normal External Exam, Hearing Grossly Normal Nose: Normal Inspection, No Blood Throat/Mouth: Normal Lips, Normal Oropharynx, Normal Voice, No Airway Compromise Head: Atraumatic, Normocephalic Neck: Normal Inspection, Supple, Non-Tender, Full Range of Motion Respiratory/Chest: No Respiratory Distress, Lungs Clear, Normal Breath Sounds, No Accessory Muscle Use, Chest Non-Tender Cardiovascular: Normal Peripheral Pulses, Regular Rate, Rhythm, No Edema GI/Abdominal Exam: Normal Bowel Sounds, Soft, No Distention, No Abnormal Bruit, No Mass, Pelvis Stable, Tender (Epigastric region), Hepatomegaly. No: Guarding , Rigid, Rebound (Male) Exam: Deferred Rectal (Males) Exam: Deferred Back Exam: Normal Inspection Extremities: Normal Inspection, No Pedal Edema Neurological: Alert, Oriented, CN II-XII Intact, Normal Cognition, No Motor/ Sensory Deficits, Other (Mild tremor of B/L hands) Psychiatric: Anxious Skin Exam: Warm, Dry, Intact, Normal Color, No Rash. No: Ecchymosis, Jaundice, Pallor, Petechiae EKG INTERPRETATION EKG Date: 12/07/19 Time: 14:11 Rhythm: Other (SR) Rate (Beats/Min): 89 [place]: LAD-Left [place] Deviation P-Wave: Present QRS: Other (Possible LAFB) ST-T: Normal QT: Prolonged Comparison: No Change Course - Vital Signs Last Recorded V/S: Last Vital Signs Temp 97.3 F 12/07/19 13:48 Pulse 72 12/07/19 13:48 Resp 18 12/07/19 13:48 BP 139/78 12/07/19 13:48 Pulse Ox 100 12/07/19 13:48 - Orders/Labs/Meds Orders: Active Orders 24 hr Category Date Time Status EKG 12 Lead [EKG Documentation Completion] [RC] STAT Care 12/07/19 13:48 Active Peripheral IV Care [RC] . DIRECTED Care 12/07/19 13:48 Active DRUG SCREEN URINE BIORAD [URCHEM] Stat Lab 12/07/19 13:48 Ordered UA RFX JD AND CULT IF INDIC [URIN] Stat Lab 12/07/19 13:48 Ordered Octreotide [SandoSTATIN] 100 mcg Med 12/07/19 14:15 Active Sodium Chloride 0.9% [Normal Saline] 99 ml IV Q10H Pantoprazole [ProTONIX IV] 40 mg Med 12/07/19 14:15 Active Sodium Chloride 0.9% [Normal Saline] 100 ml IV .CONTINUOS Sodium Chloride 0.9% [Saline Flush] Med 12/07/19 13:47 Active 10 ml FLUSH ASDIRECTED PRN Peripheral IV Insertion Adult [OM.PC] Stat Oth 12/07/19 13:48 Ordered Medication Orders Pantoprazole Sodium 40 mg/ (Sodium Chloride) 100 mls @ 20 mls/hr IV .CONTINUOS [facility] Last Admin: 12/07/19 14:54 Dose: 20 mls/hr Octreotide Acetate 100 mcg/ (Sodium Chloride) 100 mls @ 50 mls/hr IV Q10H [facility] Last Admin: 12/07/19 14:54 Dose: 50 mls/hr Sodium Chloride (Saline Flush) 10 ml FLUSH ASDIRECTED PRN PRN Reason: Keep Vein Open Last Admin: 12/07/19 13:58 Dose: 10 ml Labs: Laboratory Tests 12/07/19 12/07/19 12/07/19 Range/Units 13:58 13:58 13:58 WBC 16.5 H (5.0-10.0) 10^3/uL RBC 5.56 (4.6-6.2) 10^6/uL Hgb 17.4 D (14.0-18.0) g/dL Hct 47.9 (40.0-54.0) % MCV 86.2 (80-100) fL MCH 31.3 (27.0-34.0) pg MCHC 36.3 H (33.0-35.0) g/dL Plt Count 240 D (150-450) 10^3/uL Neut % (Auto) 74.4 (42.2-75.2) % Lymph % (Auto) 15.5 L (20.5-50.1) % [place] % (Auto) 9.0 H (2-8) % Eos % (Auto) 0.7 L (1.0-3.0) % Baso % (Auto) 0.4 (0.0-1.0) % PT 10.3 (9.0-12.0) SEC INR 1.1 (0.9-1.2) APTT 27.0 (22.0-34.0) SEC Sodium 131 L (136-145) mmol/L Potassium 4.3 (3.5-5.1) mmol/L Chloride 92 L (98-107) mmol/L Carbon Dioxide 25 (21-32) mmol/L Anion Gap 18.3 H (7-13) mEq/L BUN 12 (7-18) mg/dL Creatinine 1.05 (0.70-1.30) mg/dL Est Cr Clr Drug Dosing 78.21 mL/min Estimated GFR (MDRD) > 60 BUN/Creatinine Ratio 11.4 (No establ ref range) Glucose 101 H (74-99) mg/dL Calcium 8.8 (8.5-10.1) mg/dL Total Bilirubin 1.0 (0.2-1.0) mg/dL AST 47 H (15-37) U/L ALT 40 (16-63) U/L Alkaline Phosphatase 100 (46-116) U/L Troponin I < 0.017 (0.000-0.056) ng/mL Total Protein 8.8 H (6.4-8.2) g/dL Albumin 4.6 (3.4-5.0) g/dL Globulin 4.2 Albumin/Globulin Ratio 1.1 Amylase 31 (25-115) U/L Lipase 166 (73-393) U/L Ethyl Alcohol 50 (0) mg/dL Meds: Medications Generic Name Dose Route Start Last Admin Trade Name Freq PRN Reason Stop Dose Admin Pantoprazole Sodium 40 mg/ 100 mls @ 20 mls/hr 12/07/19 14:15 12/07/19 14:54 Sodium Chloride IV 20 mls/hr .CONTINUOS NILSON Administration Octreotide Acetate 100 mcg/ 100 mls @ 50 mls/hr 12/07/19 14:15 12/07/19 14:54 Sodium Chloride IV 50 mls/hr Q10H NILSON Administration Sodium Chloride 10 ml 12/07/19 13:47 12/07/19 13:58 Saline Flush FLUSH 10 ml ASDIRECTED PRN Administration Keep Vein Open Discontinued Medications Generic Name Dose Route Start Last Admin Trade Name Freq PRN Reason Stop Dose Admin Multivitamins/Minerals 10 ml/ 1,011.2 mls @ 999 mls/hr 12/07/19 13:49 14:20 Thiamine HCl 100 mg/ Folic IV 12/07/19 14:49 999 mls/hr Acid 1 mg/ Lactated Ringer's .BOLUS ONE Administration Lorazepam 2 mg 12/07/19 14:02 12/07/19 14:14 Ativan IVPUSH 12/07/19 14:03 2 mg ONETIME ONE Administration Octreotide Acetate 50 mcg 12/07/19 14:03 12/07/19 14:16 Sandostatin IVPUSH 12/07/19 14:04 100 mcg ONETIME ONE Administration Ondansetron HCl 4 mg 12/07/19 13:49 12/07/19 13:58 Zofran IV 12/07/19 13:50 4 mg ONETIME ONE Administration Ondansetron HCl 4 mg 12/07/19 14:02 12/07/19 14:12 Zofran IV 12/07/19 14:03 4 mg ONETIME ONE Administration Pantoprazole Sodium 80 mg 12/07/19 13:49 12/07/19 13:57 Protonix Iv IVPUSH 12/07/19 13:50 80 mg .BOLUS ONE Administration - Radiology Interpretation Free Text/Narrative:: XR Chest: no acute process per Rad. report. Departure - Departure Time of Disposition: 15:30 Disposition: DC/Tfer to [facility] 02 Condition: Serious Clinical Impression: Upper GI bleed, Alcohol abuse Alcohol withdrawal syndrome Qualifiers: Complication of substance-induced condition: with unspecified complication Qualified Code(s): F10.239 - Alcohol dependence with withdrawal, unspecified Alcoholic cirrhosis Qualifiers: Ascites presence: with ascites Qualified Code(s): K70.31 - Alcoholic cirrhosis of liver with ascites - Discharge Information *PRESCRIPTION DRUG MONITORING PROGRAM REVIEWED*: Not Applicable *COPY OF PRESCRIPTION DRUG MONITORING REPORT IN PATIENT WALTER: Not Applicable Forms: ED Department Discharge, Interfacility Transfer EMTALA Sepsis Event Note - Focused Exam Vital Signs: Vital Signs Temp Pulse Resp BP Pulse Ox 12/07/19 13:48 97.3 F 72 18 139/78 100 Date Exam was Performed: 12/07/19 Time Exam was Performed: 15:29 - My Orders Last 24 Hours: My Active Orders 12/07/19 13:47 Sodium Chloride 0.9% [Saline Flush] 10 ml FLUSH ASDIRECTED PRN 12/07/19 13:48 EKG 12 Lead [EKG Documentation Completion] [RC] STAT Peripheral IV Care [RC] . DIRECTED DRUG SCREEN URINE BIORAD [URCHEM] Stat UA RFX JD AND CULT IF INDIC [URIN] Stat Peripheral IV Insertion Adult [OM.PC] Stat 12/07/19 14:15 Octreotide [SandoSTATIN] 100 mcg Sodium Chloride 0.9% [Normal Saline] 99 ml IV Q10H Pantoprazole [ProTONIX IV] 40 mg Sodium Chloride 0.9% [Normal Saline] 100 ml IV .CONTINUOS - Assessment/Plan Last 24 Hours: My Active Orders 12/07/19 13:47 Sodium Chloride 0.9% [Saline Flush] 10 ml FLUSH ASDIRECTED PRN 12/07/19 13:48 EKG 12 Lead [EKG Documentation Completion] [RC] STAT Peripheral IV Care [RC] . DIRECTED DRUG SCREEN URINE BIORAD [URCHEM] Stat UA RFX JD AND CULT IF INDIC [URIN] Stat Peripheral IV Insertion Adult [OM.PC] Stat 12/07/19 14:15 Octreotide [SandoSTATIN] 100 mcg Sodium Chloride 0.9% [Normal Saline] 99 ml IV Q10H Pantoprazole [ProTONIX IV] 40 mg Sodium Chloride 0.9% [Normal Saline] 100 ml IV .CONTINUOS
[2019-12-07] MEDS ORDERED: Pantoprazole 40 MG Vial IVPUSH ONE (13:49)
[2019-12-07] MEDS ORDERED: MVI, Adult with Vitamin K 10 ML, Thiamine 100 MG, Folic Acid 1 MG in Lactated Ringers 1... IV ONE ×4 (13:49)
[2019-12-07] MEDS ORDERED: Ondansetron 4 MG/2 ML SDV IV ONE ×2 (13:49→14:02)
[2019-12-07] MEDS ORDERED: LORazepam 2 MG/ML SDV IVPUSH ONE (14:02)
[2019-12-07] MEDS ORDERED: Octreotide 100 MCG/ML SDV IVPUSH ONE (14:03)
[2019-12-07] MEDS ORDERED: Pantoprazole 40 MG in Sodium Chloride 0.9% 100 ML IV SCH (14:15)
[2019-12-07] MEDS ORDERED: Octreotide 100 MCG in Sodium Chloride 0.9% 99 ML IV SCH (14:15)
--- NOTE | 2019-12-07 14:18 | CR ---
EXAMINATION: Chest 1V Frontal SEX: Male AGE: 64 years CLINICAL HISTORY: 64-year-old male with chest pain and a cough Interpretation: 1. Normal cardiac silhouette (size and configuration) unchanged since 22 August 2018 comparison. 2. Chronic mild shaggy bronchitic pattern. 3. No pulmonary vascular congestion, cephalization of flow, alveolar edema or dependent pleural effusion. 4. No new lung mass, hilar lymphadenopathy or focal lobar pneumonia i.e. no infiltrate, atelectasis or collapse. 5. Bony thorax unremarkable. (External health underwriter leads). 6. No pneumothorax or pneumomediastinum. No free subdiaphragmatic air. CONCLUSION: No acute new cardiopulmonary abnormality identified in the interval since 22 August 2018 comparison.
[2019-12-07 14:28] VITALS: BP 139/78; PULSE 72
[2019-12-07 14:30] LABS: ANION GAP 18.3 mEq/L (7-13); CHLORIDE,CL 92 mmol/L (98-107); SODIUM,NA 131 mmol/L (136-145)
== END 2019-12-07 16:48 ==
LOC: DL.ED 13:46
DX: K70.31 Alcoholic cirrhosis of liver with ascites (principal); K92.2 Gastrointestinal hemorrhage, unspecified; I10 Essential (primary) hypertension; F10.239 Alcohol dependence with withdrawal, unspecified; Z88.5 Allergy status to narcotic agent; Z79.899 Other long term (current) drug therapy
CPT/HCPCS: 36415; 71045; 80053; 80307; 82150; 83690; 84484; 85025; 85610; 85730; 93005; 96365; 96367; 96375; 96376; 99285; C9113; J2060; J2354; J2405; J3411; J7050; J7120; 93010; 99284; J3490

== ENCOUNTER 2020-03-15 14:39 | Observation (INO) | payer MEDICAID, MEDICARE ==
[2020-03-15] MEDS ORDERED: Metoclopramide 10 MG/2 ML SDV IM ONE (15:30)
[2020-03-15] MEDS ORDERED: Pantoprazole 40 MG Vial IVPUSH ONE (15:31)
[2020-03-15] MEDS ORDERED: MVI, Adult with Vitamin K 10 ML, Folic Acid 1 MG, Thiamine 100 MG in Lactated Ringers 1... IV ONE ×4 (15:33)
[2020-03-15 15:55] LABS: ANION GAP 17.9 mEq/L (7-13); CHLORIDE,CL 90 mmol/L (98-107); SODIUM,NA 126 mmol/L (136-145)
[2020-03-15] MEDS ORDERED: LORazepam 2 MG/ML SDV IVPUSH ONE (17:23)
--- NOTE | 2020-03-15 18:38 | EDM.PDOC ---
Scribed by Marisela Ren 03/15/20 1838 for Yamila Martinez NP ED HPI GENERAL MEDICAL PROBLEM - General Chief Complaint: Abdominal Pain Stated Complaint: UNK Time Seen by Provider: 03/15/20 15:15 Source of Information: Reports: Patient, EMS, EMS Notes Reviewed, RN, RN Notes Reviewed History Limitations: Reports: No Limitations - History of Present Illness INITIAL COMMENTS - FREE TEXT/NARRATIVE: A 64-year-old male who presents with generalized abdominal pain. He has a past history of alcohol gastritis, ascites, A-fib, GI bleeding, alcohol cirrhosis and esophageal varices. He has been alcohol sober for 3 years and started drinking 3 days ago heavily. Patient reports drinking vodka daily on an empty stomach. He had specks of blood in his vomit this morning, but none afterwards. He reports nausea and generalized abdominal pain. Denies any fever, cardiac symptoms, diarrhea, constipation at this time. He also admits to taking his medications today. He does not know his medications. Patient has been seen in this ER multiple times with complaints of the same as noted in the medical records in the last few years. Onset: Today Location: Reports: Abdomen Severity: Moderate Abdominal Pain Score (Numeric/FACES): 10 - Related Data Allergies Allergy/AdvReac Type Severity Reaction Status Date / Time aspirin Allergy Stomach Verified 03/15/20 14:41 Upset Home Meds: Home Meds Metoprolol Succinate [Toprol XL 100mg] 50 mg PO DAILY 09/04/13 [History] Folic Acid 1 mg PO DAILY 12/06/14 [History] Pantoprazole Sodium [Protonix] 40 mg PO DAILY 06/15/17 [History] Multivitamin [Multi-Vitamin Daily] 1 tab PO DAILY 03/24/18 [History] Sucralfate 1 gm PO QID 03/24/18 [History] Spironolactone [Aldactone] 100 mg PO DAILY 08/22/18 [History] traZODone HCl [Trazodone HCl] 100 mg PO BEDTIME 08/22/18 [History] Ondansetron [Zofran] 4 mg PO DAILY 11/28/18 [History] Ranitidine [Zantac] 150 mg PO BID 11/28/18 [History] Rifaximin [Xifaxan] 550 mg PO DAILY 02/10/19 [History] Past Medical History HEENT History: Reports: None Cardiovascular History: Reports: Hypertension Other Cardiovascular History: Hx of SVT. Dyslipidemia. Respiratory History: Reports: COPD, Sleep Apnea Gastrointestinal History: Reports: Cirrhosis, Gastritis, GERD, GI Bleed, PUD Other Gastrointestinal History: alcoholic gastritis Genitourinary History: Reports: Prostate Disorder Musculoskeletal History: Reports: Back Pain, Chronic Neurological History: Reports: None Psychiatric History: Reports: Addiction Other Psychiatric History: Hx of alcoholism Endocrine/Metabolic History: Reports: None Hematologic History: Reports: None Immunologic History: Reports: None Oncologic (Cancer) History: Reports: Prostate Dermatologic History: Reports: None - Infectious Disease History Infectious Disease History: Reports: None - Past Surgical History Head Surgeries/Procedures: Reports: None HEENT Surgical History: Reports: None Male Surgical History: Reports: Circumcision, TURP-Transurethral Resection of Prostate Musculoskeletal Surgical History: Reports: Shoulder Surgery Other Oncologic Surgeries/Procedures: TURP Social & Family History - Family History Family Medical History: Noncontributory - Tobacco Use Smoking Status *Q: Never Smoker - Caffeine Use Caffeine Use: Reports: Coffee - Alcohol Use Days Per Week of Alcohol Use: 3 Number of Drinks Per Day: 10 Total Drinks Per Week: 30 - Recreational Drug Use Recreational Drug Use: No - Living Situation & Occupation Living situation: Reports: Single, with Significant Other Occupation: Unemployed ED ROS GENERAL - Review of Systems Review Of Systems: Comprehensive ROS is negative, except as noted in HPI. ED EXAM, GI/ABD - Physical Exam Exam: See Below Exam Limited By: No Limitations General Appearance: Alert, Moderate Distress Eyes: Bilateral: Normal Appearance Ears: Normal External Exam, Normal Canal, Hearing Grossly Normal, Normal TMs Nose: Normal Inspection, Normal Mucosa, No Blood Throat/Mouth: Normal Inspection, Normal Lips, Normal Teeth, Normal Gums, Normal Oropharynx, Normal Voice, No Airway Compromise Head: Atraumatic, Normocephalic Neck: Normal Inspection, Supple, Non-Tender, Full Range of Motion Respiratory/Chest: No Respiratory Distress, Lungs Clear, Normal Breath Sounds, No Accessory Muscle Use, Chest Non-Tender Cardiovascular: Normal Peripheral Pulses, Tachycardia GI/Abdominal Exam: Other (generalized discomfort with light palptation. ) (Male) Exam: Deferred Rectal (Males) Exam: Deferred Back Exam: Normal Inspection, Full Range of Motion, NT Extremities: Normal Inspection, Normal Range of Motion, Non-Tender, Normal Capillary Refill, No Pedal Edema Neurological: Alert, Oriented Psychiatric: Normal Affect, Normal Mood Skin Exam: Warm, Dry, Intact, Normal Color, No Rash Course - Vital Signs Last Recorded V/S: Last Vital Signs Temp 97.6 F 03/15/20 14:44 Pulse 117 H 03/15/20 14:44 Resp 18 03/15/20 14:44 BP 133/69 03/15/20 14:44 Pulse Ox 99 03/15/20 14:44 - Orders/Labs/Meds Orders: Active Orders 24 hr Category Date Time Status Admission Diagnosis [ADT] Routine ADT 03/15/20 18:35 Ordered Patient Status [ADT] Routine ADT 03/15/20 18:35 Active Labs: Laboratory Tests 03/15/20 03/15/20 03/15/20 Range/Units 15:32 15:32 15:32 WBC 17.9 H (5.0-10.0) 10^3/uL RBC 5.69 (4.6-6.2) 10^6/uL Hgb 18.7 H (14.0-18.0) g/dL Hct 49.7 (40.0-54.0) % MCV 87.3 (80-100) fL MCH 32.9 (27.0-34.0) pg MCHC 37.6 H (33.0-35.0) g/dL Plt Count 224 (150-450) 10^3/uL Neut % (Auto) 87.7 H (42.2-75.2) % Lymph % (Auto) 7.3 L (20.5-50.1) % [place] % (Auto) 4.5 (2-8) % Eos % (Auto) 0.2 L (1.0-3.0) % Baso % (Auto) 0.3 (0.0-1.0) % Sodium 126 L (136-145) mmol/L Potassium 3.9 (3.5-5.1) mmol/L Chloride 90 L (98-107) mmol/L Carbon Dioxide 22 (21-32) mmol/L Anion Gap 17.9 H (7-13) mEq/L BUN 8 (7-18) mg/dL Creatinine 0.86 (0.70-1.30) mg/dL Est Cr Clr Drug Dosing 84.49 mL/min Estimated GFR (MDRD) > 60 BUN/Creatinine Ratio 9.3 (No establ ref range) Glucose 125 H (74-99) mg/dL Lactic Acid (0.4-2.0) mmol/L Calcium 8.4 L (8.5-10.1) mg/dL Total Bilirubin 1.6 H (0.2-1.0) mg/dL AST 32 (15-37) U/L ALT 32 (16-63) U/L Alkaline Phosphatase 129 H (46-116) U/L Total Protein 8.0 (6.4-8.2) g/dL Albumin 4.0 (3.4-5.0) g/dL Globulin 4.0 Albumin/Globulin Ratio 1.0 Amylase 23 L (25-115) U/L Lipase 141 (73-393) U/L Urine Opiates Screen (NEGATIVE) Ur Oxycodone Screen (NEGATIVE) Urine Methadone Screen (NEGATIVE) Ur Barbiturates Screen (NEGATIVE) U Tricyclic Antidepress (NEGATIVE) Ur Phencyclidine Scrn (NEGATIVE) Ur Amphetamine Screen (NEGATIVE) U Methamphetamines Scrn (NEGATIVE) Urine MDMA Screen (NEGATIVE) U Benzodiazepines Scrn (NEGATIVE) Urine Cocaine Screen (NEGATIVE) U Marijuana (THC) Screen (NEGATIVE) Ethyl Alcohol < 3 (0) mg/dL 03/15/20 03/15/20 Range/Units 16:34 17:42 WBC (5.0-10.0) 10^3/uL RBC (4.6-6.2) 10^6/uL Hgb (14.0-18.0) g/dL Hct (40.0-54.0) % MCV (80-100) fL MCH (27.0-34.0) pg MCHC (33.0-35.0) g/dL Plt Count (150-450) 10^3/uL Neut % (Auto) (42.2-75.2) % Lymph % (Auto) (20.5-50.1) % [place] % (Auto) (2-8) % Eos % (Auto) (1.0-3.0) % Baso % (Auto) (0.0-1.0) % Sodium (136-145) mmol/L Potassium (3.5-5.1) mmol/L Chloride (98-107) mmol/L Carbon Dioxide (21-32) mmol/L Anion Gap (7-13) mEq/L BUN (7-18) mg/dL Creatinine (0.70-1.30) mg/dL Est Cr Clr Drug Dosing mL/min Estimated GFR (MDRD) BUN/Creatinine Ratio (No establ ref range) Glucose (74-99) mg/dL Lactic Acid 1.6 (0.4-2.0) mmol/L Calcium (8.5-10.1) mg/dL Total Bilirubin (0.2-1.0) mg/dL AST (15-37) U/L ALT (16-63) U/L Alkaline Phosphatase (46-116) U/L Total Protein (6.4-8.2) g/dL Albumin (3.4-5.0) g/dL Globulin Albumin/Globulin Ratio Amylase (25-115) U/L Lipase (73-393) U/L Urine Opiates Screen Negative (NEGATIVE) Ur Oxycodone Screen Negative (NEGATIVE) Urine Methadone Screen Negative (NEGATIVE) Ur Barbiturates Screen Negative (NEGATIVE) U Tricyclic Antidepress Negative (NEGATIVE) Ur Phencyclidine Scrn Negative (NEGATIVE) Ur Amphetamine Screen Positive H (NEGATIVE) U Methamphetamines Scrn Positive H (NEGATIVE) Urine MDMA Screen Negative (NEGATIVE) U Benzodiazepines Scrn Negative (NEGATIVE) Urine Cocaine Screen Negative (NEGATIVE) U Marijuana (THC) Screen Positive H (NEGATIVE) Ethyl Alcohol (0) mg/dL Meds: Medications Discontinued Medications Generic Name Dose Route Start Last Admin Trade Name Freq PRN Reason Stop Dose Admin Multivitamins/Minerals 10 ml/ 1,011.2 mls @ 999 mls/hr 03/15/20 15:33 03/15/20 15:49 Folic Acid 1 mg/ Thiamine HCl IV 03/15/20 16:33 999 mls/hr 100 mg/ Lactated Ringer's ONETIME ONE Administration Lorazepam 1 mg 03/15/20 17:23 03/15/20 17:33 Ativan IVPUSH 03/15/20 17:24 1 mg ONETIME ONE Administration Metoclopramide HCl 10 mg 03/15/20 15:30 03/15/20 15:42 Reglan IM 03/15/20 15:31 10 mg ONETIME ONE Administration Pantoprazole Sodium 40 mg 03/15/20 15:31 03/15/20 15:42 Protonix Iv IVPUSH 03/15/20 15:32 40 mg ONETIME ONE Administration - Re-Assessments/Exams Free Text/Narrative Re-Assessment/Exam: A 64-year-old male with history of alcoholic cirrhosis and esophageal varices who presents with complaints of generalized abdominal pain, nausea and vomiting. Labs ordered with Reglan, Ativan, Protonix and a banana bag administered. Mode rate improvement noted in symptoms. Lab results reviewed with the patient and Dr. Johnson for transfer for observation for dehydration. Departure - Departure Time of Disposition: 18:33 (Dr. Johnson) Disposition: Refer to Observation Condition: Fair Clinical Impression: Dehydration, Alcohol abuse, Hyponatremia, Methamphetamine abuse, Marijuana abuse, Alcoholic gastritis - Discharge Information Forms: ED Department Discharge Sepsis Event Note (ED) - Evaluation Sepsis Screening Result: No Definite Risk - Focused Exam Vital Signs: Vital Signs Temp Pulse Resp BP Pulse Ox 03/15/20 14:44 97.6 F 117 H 18 133/69 99 - My Orders Last 24 Hours: My Active Orders 03/15/20 18:35 Admission Diagnosis [ADT] Routine Patient Status [ADT] Routine - Assessment/Plan Last 24 Hours: My Active Orders 03/15/20 18:35 Admission Diagnosis [ADT] Routine Patient Status [ADT] Routine I have read and agree with the documentation that has been completed regarding this visit. By signing this record, I attest that the documentation was completed in my physical presence and is an accurate record of the encounter.
[2020-03-15] MEDS ORDERED: Ondansetron 4 MG/2 ML SDV IVPUSH PRN (19:27)
[2020-03-15] MEDS ORDERED: Morphine 2 MG/ML SYRINGE IVPUSH PRN (19:27)
[2020-03-15] MEDS ORDERED: Temazepam 15 MG Cap PO PRN (19:27)
[2020-03-15] MEDS ORDERED: Acetaminophen 325 MG Tab PO PRN (19:27)
[2020-03-15] MEDS ORDERED: Ondansetron 4 MG Tab.DIS PO PRN (19:27)
[2020-03-15] MEDS ORDERED: oxyCODONE 5 MG Tab PO PRN (19:27)
[2020-03-15] MEDS ORDERED: Sodium Chloride 0.9% 10 ML Syringe FLUSH PRN (19:27)
[2020-03-15] MEDS ORDERED: LORazepam 2 MG/ML SDV IVPUSH PRN (19:34)
--- NOTE | 2020-03-15 19:48 | PCM.HP ---
H&P History of Present Illness - General Date of Service: 03/15/20 Admit Problem/Dx: Admission Diagnosis/Problem Admission Diagnosis/Problem Dehydration Source of Information: Patient, Provider - History of Present Illness Initial Comments - Free Text/Narative: 64-year-old gentleman with a history of alcohol liver cirrhosis with portal hypertension and esophageal varices. Patient is also has a history of atrial fibrillation, all chronic gastritis, COPD, alcohol abuse. He restarted drinking heavily for about 3 days. He has been drinking 1 bottle of water, day. Developed nausea, diffuse abdominal pain associated with minimal vomiting. No chest pain, no shortness of breath. No diarrhea. No shaking. The patient came to the emergency room. Antiemetics and Ativan, banana bag was given in the ER. He was noted to have hyponatremia. Abdominal Pain Score (Numeric/FACES): 10 - Related Data Allergies/Adverse Reactions: Allergies Allergy/AdvReac Type Severity Reaction Status Date / Time aspirin Allergy Stomach Verified 03/15/20 14:41 Upset Home Medications: Home Meds Folic Acid 1 mg PO DAILY 12/06/14 [History] Multivitamin [Multi-Vitamin Daily] 1 tab PO DAILY 03/24/18 [History] Sucralfate 1 gm PO DAILY 03/24/18 [History] Spironolactone [Aldactone] 100 mg PO DAILY 08/22/18 [History] Ondansetron [Zofran] 4 mg PO DAILY 11/28/18 [History] Ranitidine [Zantac] 150 mg PO BID 11/28/18 [History] Rifaximin [Xifaxan] 550 mg PO BID 02/10/19 [History] Betamethasone/Clotrimazole [Lotrisone] 1 applic TOP BID 03/15/20 [History] Betamethasone/Propylene Glyc [Betamethasone DP Aug 0.05%] 1 applic TOP BID 03/15/20 [History] Furosemide 40 mg PO DAILY 03/15/20 [History] Lactulose 10 gm PO BID 03/15/20 [History] Metoprolol Succinate 50 mg PO DAILY 03/15/20 [History] Past Medical History HEENT History: Reports: None Cardiovascular History: Reports: Hypertension Other Cardiovascular History: Hx of SVT. Dyslipidemia. Respiratory History: Reports: COPD, Sleep Apnea Gastrointestinal History: Reports: Cirrhosis, Gastritis, GERD, GI Bleed, PUD Other Gastrointestinal History: alcoholic gastritis Genitourinary History: Reports: Prostate Disorder Musculoskeletal History: Reports: Back Pain, Chronic Neurological History: Reports: None Psychiatric History: Reports: Addiction Other Psychiatric History: Hx of alcoholism Endocrine/Metabolic History: Reports: None Hematologic History: Reports: None Immunologic History: Reports: None Oncologic (Cancer) History: Reports: Prostate Dermatologic History: Reports: None - Infectious Disease History Infectious Disease History: Reports: None - Past Surgical History Head Surgeries/Procedures: Reports: None HEENT Surgical History: Reports: None Male Surgical History: Reports: Circumcision, TURP-Transurethral Resection of Prostate Musculoskeletal Surgical History: Reports: Shoulder Surgery Other Oncologic Surgeries/Procedures: TURP Social & Family History - Family History Family Medical History: Noncontributory - Tobacco Use Smoking Status *Q: Never Smoker - Caffeine Use Caffeine Use: Reports: Coffee - Alcohol Use Days Per Week of Alcohol Use: 3 Number of Drinks Per Day: 10 Total Drinks Per Week: 30 - Recreational Drug Use Recreational Drug Use: No - Living Situation & Occupation Living situation: Reports: Single, with Significant Other Occupation: Unemployed H&P Review of Systems - Review of Systems: Review Of Systems: See Below General: Reports: Malaise, Weakness. Denies: Fever, Chills Pulmonary: Denies: Shortness of Breath, Wheezing Cardiovascular: Denies: Chest Pain, Palpitations, Edema Gastrointestinal: Reports: Abdominal Pain, Hematemesis (Specks of blood in vomiting initially. No further episodes.), Nausea, Vomiting (Minimal, mostly dry heaving). Denies: Black Stool, Bloody Stool, Diarrhea Genitourinary: Denies: Dysuria Psychiatric: Denies: Confusion, Agitation, Hallucinations Neurological: Denies: Tremors, Trouble Speaking Exam - Exam Exam: See Below - Vital Signs Vital Signs: Last Vital Signs Temp 97.8 F 03/15/20 18:56 Pulse 99 03/15/20 18:56 Resp 18 03/15/20 18:56 BP 143/93 H 03/15/20 18:56 Pulse Ox 100 03/15/20 18:56 Weight: 170 lb 9.6 oz - Exam General: Alert, Oriented HEENT: EOMI, Hearing Intact Neck: Supple, Trachea Midline Lungs: Clear to Auscultation, Normal Respiratory Effort. No: Wheezing Cardiovascular: Regular Rate, Regular Rhythm GI/Abdominal Exam: Normal Bowel Sounds, Soft, Non-Tender (No significant tenderness on palpation, soft nondistended abdomen, no significant ascites palpable) Extremities: No Pedal Edema Skin: Warm, Dry Neuro Extensive - Mental Status: Alert, Oriented x3, Normal Mood/Affect Psychiatric: Alert, Normal Affect, Normal Mood. No: Anxious, Agitated, Suicidal Ideation, Withdrawal Symptoms - Patient Data Lab Results Last 24 hrs: Laboratory Results - last 24 hr 03/15/20 03/15/20 03/15/20 Range/Units 15:32 15:32 15:32 WBC 17.9 H (5.0-10.0) 10^3/uL RBC 5.69 (4.6-6.2) 10^6/uL Hgb 18.7 H (14.0-18.0) g/dL Hct 49.7 (40.0-54.0) % MCV 87.3 (80-100) fL MCH 32.9 (27.0-34.0) pg MCHC 37.6 H (33.0-35.0) g/dL Plt Count 224 (150-450) 10^3/uL Neut % (Auto) 87.7 H (42.2-75.2) % Lymph % (Auto) 7.3 L (20.5-50.1) % [place] % (Auto) 4.5 (2-8) % Eos % (Auto) 0.2 L (1.0-3.0) % Baso % (Auto) 0.3 (0.0-1.0) % Sodium 126 L (136-145) mmol/L Potassium 3.9 (3.5-5.1) mmol/L Chloride 90 L (98-107) mmol/L Carbon Dioxide 22 (21-32) mmol/L Anion Gap 17.9 H (7-13) mEq/L BUN 8 (7-18) mg/dL Creatinine 0.86 (0.70-1.30) mg/dL Est Cr Clr Drug Dosing 84.49 mL/min Estimated GFR (MDRD) > 60 BUN/Creatinine Ratio 9.3 (No establ ref range) Glucose 125 H (74-99) mg/dL Lactic Acid (0.4-2.0) mmol/L Calcium 8.4 L (8.5-10.1) mg/dL Total Bilirubin 1.6 H (0.2-1.0) mg/dL AST 32 (15-37) U/L ALT 32 (16-63) U/L Alkaline Phosphatase 129 H (46-116) U/L Total Protein 8.0 (6.4-8.2) g/dL Albumin 4.0 (3.4-5.0) g/dL Globulin 4.0 Albumin/Globulin Ratio 1.0 Amylase 23 L (25-115) U/L Lipase 141 (73-393) U/L Urine Opiates Screen (NEGATIVE) Ur Oxycodone Screen (NEGATIVE) Urine Methadone Screen (NEGATIVE) Ur Barbiturates Screen (NEGATIVE) U Tricyclic Antidepress (NEGATIVE) Ur Phencyclidine Scrn (NEGATIVE) Ur Amphetamine Screen (NEGATIVE) U Methamphetamines Scrn (NEGATIVE) Urine MDMA Screen (NEGATIVE) U Benzodiazepines Scrn (NEGATIVE) Urine Cocaine Screen (NEGATIVE) U Marijuana (THC) Screen (NEGATIVE) Ethyl Alcohol < 3 (0) mg/dL 03/15/20 03/15/20 Range/Units 16:34 17:42 WBC (5.0-10.0) 10^3/uL RBC (4.6-6.2) 10^6/uL Hgb (14.0-18.0) g/dL Hct (40.0-54.0) % MCV (80-100) fL MCH (27.0-34.0) pg MCHC (33.0-35.0) g/dL Plt Count (150-450) 10^3/uL Neut % (Auto) (42.2-75.2) % Lymph % (Auto) (20.5-50.1) % [place] % (Auto) (2-8) % Eos % (Auto) (1.0-3.0) % Baso % (Auto) (0.0-1.0) % Sodium (136-145) mmol/L Potassium (3.5-5.1) mmol/L Chloride (98-107) mmol/L Carbon Dioxide (21-32) mmol/L Anion Gap (7-13) mEq/L BUN (7-18) mg/dL Creatinine (0.70-1.30) mg/dL Est Cr Clr Drug Dosing mL/min Estimated GFR (MDRD) BUN/Creatinine Ratio (No establ ref range) Glucose (74-99) mg/dL Lactic Acid 1.6 (0.4-2.0) mmol/L Calcium (8.5-10.1) mg/dL Total Bilirubin (0.2-1.0) mg/dL AST (15-37) U/L ALT (16-63) U/L Alkaline Phosphatase (46-116) U/L Total Protein (6.4-8.2) g/dL Albumin (3.4-5.0) g/dL Globulin Albumin/Globulin Ratio Amylase (25-115) U/L Lipase (73-393) U/L Urine Opiates Screen Negative (NEGATIVE) Ur Oxycodone Screen Negative (NEGATIVE) Urine Methadone Screen Negative (NEGATIVE) Ur Barbiturates Screen Negative (NEGATIVE) U Tricyclic Antidepress Negative (NEGATIVE) Ur Phencyclidine Scrn Negative (NEGATIVE) Ur Amphetamine Screen Positive H (NEGATIVE) U Methamphetamines Scrn Positive H (NEGATIVE) Urine MDMA Screen Negative (NEGATIVE) U Benzodiazepines Scrn Negative (NEGATIVE) Urine Cocaine Screen Negative (NEGATIVE) U Marijuana (THC) Screen Positive H (NEGATIVE) Ethyl Alcohol (0) mg/dL Result Diagrams: 03/15/20 15:32 03/15/20 15:32 - Problem List (1) Abdominal pain SNOMED Code(s): 40616656 ICD Code: R10.9 - UNSPECIFIED ABDOMINAL PAIN Status: Acute Current Visit: No Qualifiers: Abdominal location: generalized Qualified Code(s): R10.84 - Generalized abdominal pain (2) Alcohol abuse SNOMED Code(s): 61137038 ICD Code: F10.10 - ALCOHOL ABUSE, UNCOMPLICATED Status: Acute Current Visit: No (3) Alcoholic gastritis SNOMED Code(s): 9509441 ICD Code: K29.20 - ALCOHOLIC GASTRITIS WITHOUT BLEEDING Status: Acute Current Visit: No Onset Date: 09/02/13 (4) Esophageal varices SNOMED Code(s): 58667109 ICD Code: I85.00 - ESOPHAGEAL VARICES WITHOUT BLEEDING Status: Acute Current Visit: No Qualifiers: Esophageal varices type: unspecified type Esophageal varices bleeding: without bleeding Qualified Code(s): I85.00 - Esophageal varices without bleeding (5) GERD (gastroesophageal reflux disease) SNOMED Code(s): 188622777 ICD Code: K21.9 - GASTRO-ESOPHAGEAL REFLUX DISEASE WITHOUT ESOPHAGITIS Status: Acute Current Visit: No Qualifiers: Esophagitis presence: without esophagitis Qualified Code(s): K21.9 - Gas tro-esophageal reflux disease without esophagitis (6) Hyponatremia SNOMED Code(s): 05689368 ICD Code: E87.1 - HYPO-OSMOLALITY AND HYPONATREMIA Status: Acute Current Visit: No (7) Marijuana abuse SNOMED Code(s): 96238684 ICD Code: F12.10 - CANNABIS ABUSE, UNCOMPLICATED Status: Acute Current Visit: No (8) Methamphetamine abuse SNOMED Code(s): 377133557 ICD Code: F15.10 - OTHER STIMULANT ABUSE, UNCOMPLICATED Status: Acute Current Visit: No Problem List Initiated/Reviewed/Updated: Yes Orders Last 24hrs: Active Orders 24 hr Category Date Time Status Admission Diagnosis [ADT] Routine ADT 03/15/20 18:35 Ordered Patient Status [ADT] Routine ADT 03/15/20 18:35 Active Ambulate [RC] PER UNIT ROUTINE Care 03/15/20 19:27 Ordered Antiembolic Devices [RC] PER UNIT ROUTINE Care 03/15/20 19:28 Ordered Oxygen Therapy [RC] PRN Care 03/15/20 19:27 Ordered Peripheral IV Care [RC] . DIRECTED Care 03/15/20 19:28 Ordered Up With Assistance [RC] ASDIRECTED Care 03/15/20 19:27 Ordered VTE/DVT Education [RC] PER UNIT ROUTINE Care 03/15/20 19:27 Ordered Vital Signs [RC] Q4H Care 03/15/20 19:27 Ordered Clear Liquid Diet [DIET] Diet 03/15/20 Breakfast Ordered BASIC METABOLIC PANEL,BMP [CHEM] AM Lab 03/16/20 05:11 Ordered CBC WITH AUTO DIFF [HEME] AM Lab 03/16/20 05:11 Ordered MAGNESIUM [CHEM] AM Lab 03/16/20 05:11 Ordered PHOSPHORUS [CHEM] AM Lab 03/16/20 05:11 Ordered Acetaminophen [Tylenol] Med 03/15/20 19:27 Ordered 650 mg PO Q4H PRN Folic Acid Med 03/16/20 09:00 Ordered 1 mg PO DAILY Furosemide [Lasix] Med 03/16/20 09:00 Ordered 40 mg PO DAILY Heparin Sodium Med 03/15/20 22:00 Ordered 5,000 units SUBCUT Q8HR LORazepam [Ativan] Med 03/15/20 19:34 Ordered See Protocol IVPUSH .PER PROTOCOL PRN LORazepam [Ativan] Med 03/15/20 19:34 Ordered See Protocol PO .PER PROTOCOL PRN Lactulose Med 03/15/20 21:00 Ordered 10 gm PO BID Metoprolol Succinate [Toprol XL] Med 03/16/20 09:00 Ordered 50 mg PO DAILY Morphine Med 03/15/20 19:27 Ordered 1 mg IVPUSH Q2H PRN Multivitamin [Multi-Vitamin Daily] Med 03/16/20 09:00 Ordered 1 tab PO DAILY Ondansetron [Zofran ODT] Med 03/15/20 19:27 Ordered 4 mg PO Q4H PRN Ondansetron [Zofran] Med 03/15/20 19:27 Ordered 4 mg IVPUSH Q6H PRN Pantoprazole [ProTONIX] Med 03/15/20 21:00 Ordered 40 mg PO BEDTIME Rifaximin [Xifaxan] Med 03/15/20 21:00 Ordered 550 mg PO BID Sodium Chloride 0.9% [Saline Flush] Med 03/15/20 19:27 Ordered 10 ml FLUSH ASDIRECTED PRN Spironolactone Med 03/16/20 09:00 Ordered 100 mg PO DAILY Sucralfate [Carafate] Med 03/16/20 09:00 Ordered 1 gm PO DAILY Temazepam [Restoril] Med 03/15/20 19:27 Ordered 15 mg PO BEDTIME PRN Thiamine [Vitamin B-1] Med 03/15/20 21:00 Ordered 100 mg PO BEDTIME oxyCODONE Med 03/15/20 19:27 Ordered 5 mg PO Q4H PRN Antiembolic Hose [OM.PC] Per Unit Routine Oth 03/15/20 19:27 Ordered Peripheral IV Insertion Adult [OM.PC] Routine Oth 03/15/20 19:27 Ordered Resuscitation Status Routine Resus Stat 03/15/20 19:27 Ordered Medication Orders Acetaminophen (Tylenol) 650 mg PO Q4H PRN PRN Reason: Pain (Mild 1-3)/fever Folic Acid (Folic Acid) 1 mg PO DAILY [facility] Furosemide (Lasix) 40 mg PO DAILY [facility] Heparin Sodium (Porcine) (Heparin Sodium) 5,000 units SUBCUT Q8HR [facility] Lorazepam (Ativan) 0 mg IVPUSH .PER PROTOCOL PRN; Protocol PRN Reason: ciwa score Lorazepam (Ativan) 0 mg PO .PER PROTOCOL PRN; Protocol PRN Reason: per ciwa protocol Metoprolol Succinate (Toprol Xl) 50 mg PO DAILY [facility] Morphine Sulfate (Morphine) 1 mg IVPUSH Q2H PRN PRN Reason: Pain (severe 7-10) Non-Formulary Medication (Lactulose) 10 gm PO BID [facility] Non-Formulary Medication (Multivitamin [Multi-Vitamin Daily]) 1 tab PO DAILY [facility] Non-Formulary Medication (Spironolactone) 100 mg PO DAILY [facility] Ondansetron HCl (Zofran Odt) 4 mg PO Q4H PRN PRN Reason: nausea, able to take PO Ondansetron HCl (Zofran) 4 mg IVPUSH Q6H PRN PRN Reason: Nausea/Vomiting Oxycodone HCl (Oxycodone) 5 mg PO Q4H PRN PRN Reason: Pain (moderate 4-6) Pantoprazole Sodium (Protonix) 40 mg PO BEDTIME [facility] Rifaximin (Xifaxan) 550 mg PO BID [facility] Sodium Chloride (Saline Flush) 10 ml FLUSH ASDIRECTED PRN PRN Reason: Keep Vein Open Sucralfate (Carafate) 1 gm PO DAILY [facility] Temazepam (Restoril) 15 mg PO BEDTIME PRN PRN Reason: Sleep Thiamine HCl (Vitamin B-1) 100 mg PO BEDTIME [facility] Assessment/Plan Comment:: 64-year-old gentleman with a history of alcohol abuse, liver cirrhosis, portal hypertension presented after 3 days of binge drinking along with use of amphetamine, marijuana. Complaining of nausea, abdominal pain. Alcohol abuse High risk for alcohol withdrawal. We'll monitor closely, Ativan per [facility] protocol. Nausea, abdominal pain Likely secondary to gastritis secondary to alcohol intake. Benign abdominal examination Lactic acid normal Symptomatic treatment Hydrate until able to eat well Clear liquid diet for now Use sucralfate and proton pump inhibitor Amphetamine, marijuana use Likely contributed to nausea, hyponatremia Hyponatremia This is likely secondary to diuretics, decreased oral intake Follow with IV fluids but resume spironolactone and Lasix as well Chronic liver cirrhosis, history of hepatitic encephalopathy Continue to use and rifaximin and lactulose prophylaxis History of atrial fibrillation Continue metoprolol Avoid anticoagulation with high risk of GI bleed Cessation of alcohol intake was discussed DVT prophylaxis with subcutaneous tetanus heparin
[2020-03-15] MEDS: Rifaximin 550 MG Tab PO SCH (21:18)
[2020-03-15] MEDS: Thiamine 100 MG Tab PO SCH (21:18)
[2020-03-15] MEDS: Heparin Sodium 5,000 Units/ML Vial SUBCUT SCH (21:19)
[2020-03-15] MEDS: Lactulose Soln 10 GM/15 ML 30 ML UD Cup PO SCH (21:19)
[2020-03-15] MEDS ORDERED: NS + KCl 20mEq/L 1,000 ML IV SCH (21:30)
[2020-03-16] MEDS: Heparin Sodium 5,000 Units/ML Vial SUBCUT SCH ×3 (05:09→21:21)
[2020-03-16] MEDS: LORazepam 1 MG Tab PO PRN ×2 (05:10→21:26)
[2020-03-16 06:33] LABS: ANION GAP 13.6 mEq/L (7-13); CHLORIDE,CL 97 mmol/L (98-107); SODIUM,NA 132 mmol/L (136-145)
[2020-03-16] MEDS: Spironolactone 25 MG Tab PO SCH (08:31)
[2020-03-16] MEDS: Rifaximin 550 MG Tab PO SCH ×2 (08:32→21:19)
[2020-03-16] MEDS: Metoprolol Succinate 50 MG Tab.ER PO SCH (08:32)
[2020-03-16] MEDS: Furosemide 40 MG Tab PO SCH (08:32)
[2020-03-16] MEDS: Folic Acid 1 MG Tab PO SCH (08:32)
[2020-03-16] MEDS: Multivitamins,Therapeutic Tab PO SCH (08:32)
[2020-03-16] MEDS: Sucralfate 1 GM Tab PO SCH (08:32)
[2020-03-16] MEDS: Lactulose Soln 10 GM/15 ML 30 ML UD Cup PO SCH ×2 (08:32→21:18)
--- NOTE | 2020-03-16 11:09 | PCM.PN ---
- General Info Date of Service: 03/16/20 Admission Dx/Problem (Free Text): Admission Diagnosis/Problem Admission Diagnosis/Problem Dehydration Subjective Update: Feeling better The abdominal pain is only mild, described as burning. Associated nausea has improved. Tolerating clear liquid diet. No significant tremors or alcohol withdrawal symptoms. No anxiety. No chest pain No shortness of breath Has been on IV fluids. - Review of Systems General: Reports: Weakness Pulmonary: Denies: Shortness of Breath, Wheezing Cardiovascular: Reports: Edema. Denies: Chest Pain Gastrointestinal: Reports: Abdominal Pain. Denies: Diarrhea, Nausea, Vomiting - Patient Data Vitals - Most Recent: Last Vital Signs Temp 98.1 F 03/16/20 08:00 Pulse 91 03/16/20 08:32 Resp 18 03/16/20 08:00 BP 130/66 03/16/20 08:32 Pulse Ox 98 03/16/20 08:00 Weight - Most Recent: 170 lb 9.6 oz I&O - Last 24 Hours: Intake & Output 03/15/20 03/16/20 03/16/20 22:59 06:59 14:59 Intake Total 240 Output Total 550 Balance -310 Lab Results Last 24 Hours: Laboratory Results - last 24 hr 03/15/20 03/15/20 03/15/20 Range/Units 15:32 15:32 15:32 WBC 17.9 H (5.0-10.0) 10^3/uL RBC 5.69 (4.6-6.2) 10^6/uL Hgb 18.7 H (14.0-18.0) g/dL Hct 49.7 (40.0-54.0) % MCV 87.3 (80-100) fL MCH 32.9 (27.0-34.0) pg MCHC 37.6 H (33.0-35.0) g/dL Plt Count 224 (150-450) 10^3/uL Neut % (Auto) 87.7 H (42.2-75.2) % Lymph % (Auto) 7.3 L (20.5-50.1) % Ogle % (Auto) 4.5 (2-8) % Eos % (Auto) 0.2 L (1.0-3.0) % Baso % (Auto) 0.3 (0.0-1.0) % Sodium 126 L (136-145) mmol/L Potassium 3.9 (3.5-5.1) mmol/L Chloride 90 L (98-107) mmol/L Carbon Dioxide 22 (21-32) mmol/L Anion Gap 17.9 H (7-13) mEq/L BUN 8 (7-18) mg/dL Creatinine 0.86 (0.70-1.30) mg/dL Est Cr Clr Drug Dosing 84.49 mL/min Estimated GFR (MDRD) > 60 BUN/Creatinine Ratio 9.3 (No establ ref range) Glucose 125 H (74-99) mg/dL Lactic Acid (0.4-2.0) mmol/L Calcium 8.4 L (8.5-10.1) mg/dL Phosphorus (2.6-4.7) mg/dL Magnesium (1.8-2.4) mg/dL Total Bilirubin 1.6 H (0.2-1.0) mg/dL AST 32 (15-37) U/L ALT 32 (16-63) U/L Alkaline Phosphatase 129 H (46-116) U/L Total Protein 8.0 (6.4-8.2) g/dL Albumin 4.0 (3.4-5.0) g/dL Globulin 4.0 Albumin/Globulin Ratio 1.0 Amylase 23 L (25-115) U/L Lipase 141 (73-393) U/L Urine Opiates Screen (NEGATIVE) Ur Oxycodone Screen (NEGATIVE) Urine Methadone Screen (NEGATIVE) Ur Barbiturates Screen (NEGATIVE) U Tricyclic Antidepress (NEGATIVE) Ur Phencyclidine Scrn (NEGATIVE) Ur Amphetamine Screen (NEGATIVE) U Methamphetamines Scrn (NEGATIVE) Urine MDMA Screen (NEGATIVE) U Benzodiazepines Scrn (NEGATIVE) Urine Cocaine Screen (NEGATIVE) U Marijuana (THC) Screen (NEGATIVE) Ethyl Alcohol < 3 (0) mg/dL 03/15/20 03/15/20 03/16/20 Range/Units 16:34 17:42 05:40 WBC 10.2 H (5.0-10.0) 10^3/uL RBC 4.65 (4.6-6.2) 10^6/uL Hgb 15.3 D (14.0-18.0) g/dL Hct 42.4 (40.0-54.0) % MCV 91.2 D (80-100) fL MCH 32.9 (27.0-34.0) pg MCHC 36.1 H (33.0-35.0) g/dL Plt Count 155 (150-450) 10^3/uL Neut % (Auto) 78.4 H (42.2-75.2) % Lymph % (Auto) 14.5 L (20.5-50.1) % Ogle % (Auto) 5.9 (2-8) % Eos % (Auto) 1.0 (1.0-3.0) % Baso % (Auto) 0.2 (0.0-1.0) % Sodium (136-145) mmol/L Potassium (3.5-5.1) mmol/L Chloride (98-107) mmol/L Carbon Dioxide (21-32) mmol/L Anion Gap (7-13) mEq/L BUN (7-18) mg/dL Creatinine (0.70-1.30) mg/dL Est Cr Clr Drug Dosing mL/min Estimated GFR (MDRD) BUN/Creatinine Ratio (No establ ref range) Glucose (74-99) mg/dL Lactic Acid 1.6 (0.4-2.0) mmol/L Calcium (8.5-10.1) mg/dL Phosphorus (2.6-4.7) mg/dL Magnesium (1.8-2.4) mg/dL Total Bilirubin (0.2-1.0) mg/dL AST (15-37) U/L ALT (16-63) U/L Alkaline Phosphatase (46-116) U/L Total Protein (6.4-8.2) g/dL Albumin (3.4-5.0) g/dL Globulin Albumin/Globulin Ratio Amylase (25-115) U/L Lipase (73-393) U/L Urine Opiates Screen Negative (NEGATIVE) Ur Oxycodone Screen Negative (NEGATIVE) Urine Methadone Screen Negative (NEGATIVE) Ur Barbiturates Screen Negative (NEGATIVE) U Tricyclic Antidepress Negative (NEGATIVE) Ur Phencyclidine Scrn Negative (NEGATIVE) Ur Amphetamine Screen Positive H (NEGATIVE) U Methamphetamines Scrn Positive H (NEGATIVE) Urine MDMA Screen Negative (NEGATIVE) U Benzodiazepines Scrn Negative (NEGATIVE) Urine Cocaine Screen Negative (NEGATIVE) U Marijuana (THC) Screen Positive H (NEGATIVE) Ethyl Alcohol (0) mg/dL 03/16/20 Range/Units 05:40 WBC (5.0-10.0) 10^3/uL RBC (4.6-6.2) 10^6/uL Hgb (14.0-18.0) g/dL Hct (40.0-54.0) % MCV (80-100) fL MCH (27.0-34.0) pg MCHC (33.0-35.0) g/dL Plt Count (150-450) 10^3/uL Neut % (Auto) (42.2-75.2) % Lymph % (Auto) (20.5-50.1) % Ogle % (Auto) (2-8) % Eos % (Auto) (1.0-3.0) % Baso % (Auto) (0.0-1.0) % Sodium 132 L (136-145) mmol/L Potassium 3.6 (3.5-5.1) mmol/L Chloride 97 L (98-107) mmol/L Carbon Dioxide 25 (21-32) mmol/L Anion Gap 13.6 H (7-13) mEq/L BUN 7 (7-18) mg/dL Creatinine 0.97 (0.70-1.30) mg/dL Est Cr Clr Drug Dosing 74.91 mL/min Estimated GFR (MDRD) > 60 BUN/Creatinine Ratio (No establ ref range) Glucose 97 (74-99) mg/dL Lactic Acid (0.4-2.0) mmol/L Calcium 8.0 L (8.5-10.1) mg/dL Phosphorus 3.5 (2.6-4.7) mg/dL Magnesium 1.5 L (1.8-2.4) mg/dL Total Bilirubin (0.2-1.0) mg/dL AST (15-37) U/L ALT (16-63) U/L Alkaline Phosphatase (46-116) U/L Total Protein (6.4-8.2) g/dL Albumin (3.4-5.0) g/dL Globulin Albumin/Globulin Ratio Amylase (25-115) U/L Lipase (73-393) U/L Urine Opiates Screen (NEGATIVE) Ur Oxycodone Screen (NEGATIVE) Urine Methadone Screen (NEGATIVE) Ur Barbiturates Screen (NEGATIVE) U Tricyclic Antidepress (NEGATIVE) Ur Phencyclidine Scrn (NEGATIVE) Ur Amphetamine Screen (NEGATIVE) U Methamphetamines Scrn (NEGATIVE) Urine MDMA Screen (NEGATIVE) U Benzodiazepines Scrn (NEGATIVE) Urine Cocaine Screen (NEGATIVE) U Marijuana (THC) Screen (NEGATIVE) Ethyl Alcohol (0) mg/dL Med Orders - Current: Current Medications Acetaminophen (Tylenol) 650 mg PO Q4H PRN PRN Reason: Pain (Mild 1-3)/fever Folic Acid (Folic Acid) 1 mg PO DAILY [facility] Last Admin: 03/16/20 08:32 Dose: 1 mg Documented by: Furosemide (Lasix) 40 mg PO DAILY [facility] [place] Last Admin: 03/16/20 08:32 Dose: 40 mg Documented by: Heparin Sodium (Porcine) (Heparin Sodium) 5,000 units SUBCUT Q8HR [facility] [place] Last Admin: 03/16/20 05:09 Dose: 5,000 units Documented by: Lactulose (Cephulac) 10 gm PO BID [facility] [place] Last Admin: 03/16/20 08:32 Dose: 10 gm Documented by: Lorazepam (Ativan) 0 mg IVPUSH .PER PROTOCOL PRN; Protocol PRN Reason: ciwa score Lorazepam (Ativan) 0 mg PO .PER PROTOCOL PRN; Protocol PRN Reason: per ciwa protocol Last Admin: 03/16/20 05:10 Dose: 1 mg Documented by: Magnesium Oxide (Magnesium Oxide) 250 mg PO BIDM [facility] [place] Stop: 03/18/20 18:01 Metoprolol Succinate (Toprol Xl) 50 mg PO DAILY [facility] [place] Last Admin: 03/16/20 08:32 Dose: 50 mg Documented by: Morphine Sulfate (Morphine) 1 mg IVPUSH Q2H PRN PRN Reason: Pain (severe 7-10) Multivitamins (Thera) 1 each PO DAILY [facility] Last Admin: 03/16/20 08:32 Dose: 1 each Documented by: Ondansetron HCl (Zofran Odt) 4 mg PO Q4H PRN PRN Reason: nausea, able to take PO Ondansetron HCl (Zofran) 4 mg IVPUSH Q6H PRN PRN Reason: Nausea/Vomiting Oxycodone HCl (Oxycodone) 5 mg PO Q4H PRN PRN Reason: Pain (moderate 4-6) Pantoprazole Sodium (Protonix) 40 mg PO BEDTIME [facility] Rifaximin (Xifaxan) 550 mg PO BID [facility] [place] Last Admin: 03/16/20 08:32 Dose: 550 mg Documented by: Sodium Chloride (Saline Flush) 10 ml FLUSH ASDIRECTED PRN PRN Reason: Keep Vein Open Spironolactone (Aldactone) 100 mg PO DAILY [facility] [place] Last Admin: 03/16/20 08:31 Dose: 100 mg Documented by: Sucralfate (Carafate) 1 gm PO DAILY [facility] [place] Last Admin: 03/16/20 08:32 Dose: 1 gm Documented by: Temazepam (Restoril) 15 mg PO BEDTIME PRN PRN Reason: Sleep Thiamine HCl (Vitamin B-1) 100 mg PO BEDTIME [facility] [place] Last Admin: 03/15/20 21:18 Dose: 100 mg Documented by: Discontinued Medications Multivitamins/Minerals 10 ml/Folic Acid 1 mg/ Thiamine HCl 100 mg/ Lactated Ringer's 1,011.2 mls @ 999 mls/hr IV ONETIME ONE Stop: 03/15/20 16:33 Last Admin: 03/15/20 15:49 Dose: 999 mls/hr Documented by: Potassium Chloride/Sodium Chloride (Normal Saline With 20 Meq Kcl) 1,000 mls @ 75 mls/hr IV ASDIRECTED [facility] [place] Last Admin: 03/15/20 22:31 Dose: 75 mls/hr Documented by: Lorazepam (Ativan) 1 mg IVPUSH ONETIME ONE Stop: 03/15/20 17:24 Last Admin: 03/15/20 17:33 Dose: 1 mg Documented by: Metoclopramide HCl (Reglan) 10 mg IM ONETIME ONE Stop: 03/15/20 15:31 Last Admin: 03/15/20 15:42 Dose: 10 mg Documented by: Pantoprazole Sodium (Protonix Iv) 40 mg IVPUSH ONETIME ONE Stop: 03/15/20 15:32 Last Admin: 03/15/20 15:42 Dose: 40 mg Documented by: - Exam General: Alert, Oriented Neck: Supple Lungs: Clear to Auscultation, Normal Respiratory Effort Cardiovascular: Regular Rate, Regular Rhythm GI/Abdominal Exam: Normal Bowel Sounds, Soft, Non-Tender Extremities: Pedal Edema Skin: Warm, Dry Neurological: No New Focal Deficit Psy/Mental Status: Alert, Normal Affect, Normal Mood Sepsis Event Note - Evaluation Sepsis Screening Result: No Definite Risk - Focused Exam Vital Signs: Vital Signs Temp Pulse Pulse Resp BP BP BP 03/16/20 08:32 91 130/66 03/16/20 08:00 98.1 F 91 18 130/66 03/16/20 04:00 98.2 F 97 16 118/64 Pulse Ox 03/16/20 08:32 03/16/20 08:00 98 03/16/20 04:00 98 Date Exam was Performed: 03/16/20 Time Exam was Performed: 11:06 - Problem List & Annotations (1) Abdominal pain SNOMED Code(s): 08209712 Code(s): R10.9 - UNSPECIFIED ABDOMINAL PAIN Status: Acute Current Visit: No Qualifiers: Abdominal location: generalized Qualified Code(s): R10.84 - Generalized abdominal pain (2) Alcohol abuse SNOMED Code(s): 33776505 Code(s): F10.10 - ALCOHOL ABUSE, UNCOMPLICATED Status: Acute Current Visit: No (3) Alcoholic gastritis SNOMED Code(s): 5647224 Code(s): K29.20 - ALCOHOLIC GASTRITIS WITHOUT BLEEDING Status: Acute Current Visit: No Onset Date: 09/02/13 (4) Esophageal varices SNOMED Code(s): 67529250 Code(s): I85.00 - ESOPHAGEAL VARICES WITHOUT BLEEDING Status: Acute Current Visit: No Qualifiers: Esophageal varices type: unspecified type Esophageal varices bleeding: without bleeding Qualified Code(s): I85.00 - Esophageal varices without bleeding (5) GERD (gastroesophageal reflux disease) SNOMED Code(s): 050380056 Code(s): K21.9 - GASTRO-ESOPHAGEAL REFLUX DISEASE WITHOUT ESOPHAGITIS Status: Acute Current Visit: No Qualifiers: Esophagitis presence: without esophagitis Qualified Code(s): K21.9 - Gastro-esophageal reflux disease without esophagitis (6) Hyponatremia SNOMED Code(s): 81888017 Code(s): E87.1 - HYPO-OSMOLALITY AND HYPONATREMIA Status: Acute Current Visit: No (7) Marijuana abuse SNOMED Code(s): 17033411 Code(s): F12.10 - CANNABIS ABUSE, UNCOMPLICATED Status: Acute Current Visit: No (8) Methamphetamine abuse SNOMED Code(s): 218577980 Code(s): F15.10 - OTHER STIMULANT ABUSE, UNCOMPLICATED Status: Acute Current Visit: No - Problem List Review Problem List Initiated/Reviewed/Updated: Yes - My Orders Last 24 Hours: My Active Orders 03/15/20 19:27 Ambulate [RC] PER UNIT ROUTINE Oxygen Therapy [RC] PRN Up With Assistance [RC] ASDIRECTED VTE/DVT Education [RC] Vital Signs [RC] 04,08,12,16,20,00 Acetaminophen [Tylenol] 650 mg PO Q4H PRN Morphine 1 mg IVPUSH Q2H PRN Ondansetron [Zofran ODT] 4 mg PO Q4H PRN Ondansetron [Zofran] 4 mg IVPUSH Q6H PRN Sodium Chloride 0.9% [Saline Flush] 10 ml FLUSH ASDIRECTED PRN Temazepam [Restoril] 15 mg PO BEDTIME PRN oxyCODONE 5 mg PO Q4H PRN Antiembolic Hose [OM.PC] Per Unit Routine Peripheral IV Insertion Adult [OM.PC] Routine Resuscitation Status Routine 03/15/20 19:28 Antiembolic Devices [RC] Peripheral IV Care [RC] 03/15/20 19:34 LORazepam [Ativan] See Protocol IVPUSH .PER PROTOCOL PRN LORazepam [Ativan] See Protocol PO .PER PROTOCOL PRN 03/15/20 21:00 Lactulose [Cephulac] 10 gm PO BID Rifaximin [Xifaxan] 550 mg PO BID Thiamine [Vitamin B-1] 100 mg PO BEDTIME 03/15/20 22:00 Heparin Sodium 5,000 units SUBCUT Q8HR 03/16/20 09:00 Folic Acid 1 mg PO DAILY Furosemide [Lasix] 40 mg PO DAILY Metoprolol Succinate [Toprol XL] 50 mg PO DAILY Multivitamins,Therapeutic [Thera] 1 each PO DAILY Spironolactone [Aldactone] 100 mg PO DAILY Sucralfate [Carafate] 1 gm PO DAILY 03/16/20 Lunch General [Regular Diet] [DIET] Magnesium Oxide 250 mg PO BIDM 03/16/20 21:00 Pantoprazole [ProTONIX] 40 mg PO BEDTIME - Plan Plan:: 64-year-old gentleman with a history of alcohol abuse, liver cirrhosis, portal h ypertension presented after 3 days of binge drinking along with use of amphetamine, marijuana. Complaining of nausea, abdominal pain. Alcohol abuse High risk for alcohol withdrawal. We'll monitor closely, Ativan per [facility] protocol. Nausea, abdominal pain Likely secondary to gastritis secondary to alcohol intake. Benign abdominal examination Lactic acid normal Symptoms improved Symptomatic treatment Advance diet Stop IV fluids Use sucralfate and proton pump inhibitor Amphetamine, marijuana use Likely contributed to nausea, hyponatremia Hyponatremia This is likely secondary to diuretics, decreased oral intake Improved Stop IV fluid resume spironolactone and Lasix Rechecking the morning Chronic liver cirrhosis, history of hepatitic encephalopathy Continue to use rifaximin and lactulose prophylaxis History of atrial fibrillation Continue metoprolol Avoid full dose anticoagulation with high risk of GI bleed Cessation of alcohol intake was discussed DVT prophylaxis with subcutaneous tetanus heparin
[2020-03-16] MEDS ORDERED: Pantoprazole 40 MG Tab.CR PO SCH (21:00)
[2020-03-16] MEDS: Thiamine 100 MG Tab PO SCH (21:19)
[2020-03-17] MEDS: Heparin Sodium 5,000 Units/ML Vial SUBCUT SCH (05:32)
[2020-03-17 06:11] LABS: ANION GAP 13.3 mEq/L (7-13); CHLORIDE,CL 96 mmol/L (98-107); SODIUM,NA 132 mmol/L (136-145)
[2020-03-17] MEDS: Spironolactone 25 MG Tab PO SCH (08:41)
[2020-03-17] MEDS: Multivitamins,Therapeutic Tab PO SCH (08:41)
[2020-03-17] MEDS: Metoprolol Succinate 50 MG Tab.ER PO SCH (08:42)
[2020-03-17] MEDS: Rifaximin 550 MG Tab PO SCH (08:43)
[2020-03-17] MEDS: Sucralfate 1 GM Tab PO SCH (08:43)
[2020-03-17] MEDS: Furosemide 40 MG Tab PO SCH (08:43)
[2020-03-17] MEDS: Folic Acid 1 MG Tab PO SCH (08:43)
[2020-03-17 08:44] VITALS: BP 127/71; PULSE 76
[2020-03-17] MEDS: Lactulose Soln 10 GM/15 ML 30 ML UD Cup PO SCH (08:44)
[2020-03-17] MEDS ORDERED: Potassium Chloride 10 MEQ Tab.ER PO ONE (11:15)
--- NOTE | 2020-03-17 11:33 | PCM.DCSUM1 ---
Discharge Summary - Hospital Course Free Text/Narrative:: 64-year-old gentleman with a history of alcohol abuse, liver cirrhosis, portal hypertension presented after 3 days of binge drinking along with use of amphetamine, marijuana. presented with complaints of nausea, abdominal pain. Alcohol abuse no alcohol withdrawal Discussed cessation Nausea, abdominal pain Likely secondary to gastritis secondary to alcohol intake. Benign abdominal examination Lactic acid normal Symptoms improved Use sucralfate Amphetamine, marijuana use Likely contributed to nausea, hyponatremia Hyponatremia This is likely secondary to diuretics, decreased oral intake Improved resume spironolactone and Lasix Chronic liver cirrhosis, history of hepatitic encephalopathy Continue to use rifaximin and lactulose prophylaxis History of atrial fibrillation Continue metoprolol Avoid full dose anticoagulation with high risk of GI bleed Diagnosis: Stroke: No - Discharge Data Discharge Date: 03/17/20 Discharge Disposition: Home, Self-Care 01 Condition: Good - Referral to Home Health Date of Face to Face Encounter: 03/17/20 Primary Care Physician: PCP Unobtainable - Discharge Diagnosis/Problem(s) (1) Abdominal pain SNOMED Code(s): 57124530 ICD Code: R10.9 - UNSPECIFIED ABDOMINAL PAIN Status: Acute Current Visit: No Qualifiers: Abdominal location: generalized Qualified Code(s): R10.84 - Generalized abdominal pain (2) Alcohol abuse SNOMED Code(s): 55824530 ICD Code: F10.10 - ALCOHOL ABUSE, UNCOMPLICATED Status: Acute Current Visit: No (3) Alcoholic gastritis SNOMED Code(s): 6060191 ICD Code: K29.20 - ALCOHOLIC GASTRITIS WITHOUT BLEEDING Status: Acute Current Visit: No Onset Date: 09/02/13 (4) Esophageal varices SNOMED Code(s): 16279925 ICD Code: I85.00 - ESOPHAGEAL VARICES WITHOUT BLEEDING Status: Acute Current Visit: No Qualifiers: Esophageal varices type: unspecified type Esophageal varices bleeding: without bleeding Qualified Code(s): I85.00 - Esophageal varices without bleeding (5) GERD (gastroesophageal reflux disease) SNOMED Code(s): 284029568 ICD Code: K21.9 - GASTRO-ESOPHAGEAL REFLUX DISEASE WITHOUT ESOPHAGITIS Status: Acute Current Visit: No Qualifiers: Esophagitis presence: without esophagitis Qualified Code(s): K21.9 - Gastro-esophageal reflux disease without esophagitis (6) Hyponatremia SNOMED Code(s): 80470287 ICD Code: E87.1 - HYPO-OSMOLALITY AND HYPONATREMIA Status: Acute Current Visit: No (7) Marijuana abuse SNOMED Code(s): 36826157 ICD Code: F12.10 - CANNABIS ABUSE, UNCOMPLICATED Status: Acute Current Visit: No (8) Methamphetamine abuse SNOMED Code(s): 676017445 ICD Code: F15.10 - OTHER STIMULANT ABUSE, UNCOMPLICATED Status: Acute Current Visit: No - Patient Instructions Diet: Heart Healthy Diet Activity: As Tolerated - Discharge Plan *PRESCRIPTION DRUG MONITORING PROGRAM REVIEWED*: Not Applicable *COPY OF PRESCRIPTION DRUG MONITORING REPORT IN PATIENT WALTER: Not Applicable Home Medications: Home Meds Folic Acid 1 mg PO DAILY 12/06/14 [History] Multivitamin [Multi-Vitamin Daily] 1 tab PO DAILY 03/24/18 [History] Sucralfate 1 gm PO DAILY 03/24/18 [History] Spironolactone [Aldactone] 100 mg PO DAILY 08/22/18 [History] Ondansetron [Zofran] 4 mg PO DAILY 11/28/18 [History] Ranitidine [Zantac] 150 mg PO BID 11/28/18 [History] Rifaximin [Xifaxan] 550 mg PO BID 02/10/19 [History] Betamethasone/Clotrimazole [Lotrisone] 1 applic TOP BID 03/15/20 [History] Betamethasone/Propylene Glyc [Betamethasone DP Aug 0.05%] 1 applic TOP BID 03/15/20 [History] Furosemide 40 mg PO DAILY 03/15/20 [History] Lactulose 10 gm PO BID 03/15/20 [History] Metoprolol Succinate 50 mg PO DAILY 03/15/20 [History] Oxygen Therapy Mode: Room Air Patient Handouts: Dehydration, Adult, [id number] Referrals: Tammy Krueger NP [Ordering Only Provider] - - Discharge Summary/Plan Comment DC Time >30 min.: No - General Info Date of Service: 03/17/20 Subjective Update: Feeling better The abdominal pain has resolved. Associated nausea has improved. Tolerating diet. No significant tremors or alcohol withdrawal symptoms. No anxiety. No chest pain No shortness of breath Functional Status: Reports: Pain Controlled, Tolerating Diet - Review of Systems General: Denies: Fever Pulmonary: Denies: Shortness of Breath Cardiovascular: Denies: Chest Pain Neurological: Denies: Confusion - Patient Data Vitals - Most Recent: Last Vital Signs Temp 97.3 F 03/17/20 08:00 Pulse 76 03/17/20 08:42 Resp 16 03/17/20 08:00 BP 127/71 03/17/20 08:42 Pulse Ox 98 03/17/20 08:00 Weight - Most Recent: 170 lb 9.6 oz I&O - Last 24 hours: Intake & Output 03/16/20 03/17/20 03/17/20 22:59 06:59 14:59 Intake Total 100 300 Output Total 150 Balance -50 300 Lab Results - Last 24 hrs: Laboratory Results - last 24 hr 03/17/20 03/17/20 Range/Units 05:30 05:30 WBC 10.6 H (5.0-10.0) 10^3/uL RBC 4.69 (4.6-6.2) 10^6/uL Hgb 15.3 (14.0-18.0) g/dL Hct 43.2 (40.0-54.0) % MCV 92.1 (80-100) fL MCH 32.6 (27.0-34.0) pg MCHC 35.4 H (33.0-35.0) g/dL Plt Count 146 L (150-450) 10^3/uL Neut % (Auto) 75.5 H (42.2-75.2) % Lymph % (Auto) 17.0 L (20.5-50.1) % [place] % (Auto) 4.8 (2-8) % Eos % (Auto) 2.4 (1.0-3.0) % Baso % (Auto) 0.3 (0.0-1.0) % Sodium 132 L (136-145) mmol/L Potassium 3.3 L (3.5-5.1) mmol/L Chloride 96 L (98-107) mmol/L Carbon Dioxide 26 (21-32) mmol/L Anion Gap 13.3 H (7-13) mEq/L BUN 7 (7-18) mg/dL Creatinine 0.98 (0.70-1.30) mg/dL Est Cr Clr Drug Dosing 74.15 mL/min Estimated GFR (MDRD) > 60 Glucose 119 H (74-99) mg/dL Calcium 8.1 L (8.5-10.1) mg/dL Phosphorus 3.2 (2.6-4.7) mg/dL Magnesium 1.6 L (1.8-2.4) mg/dL Total Bilirubin 1.0 (0.2-1.0) mg/dL Direct Bilirubin 0.4 H (0.0-0.2) mg/dL Indirect Bilirubin 0.6 AST 37 (15-37) U/L ALT 36 (16-63) U/L Alkaline Phosphatase 103 (46-116) U/L Total Protein 6.7 (6.4-8.2) g/dL Albumin 3.2 L (3.4-5.0) g/dL Globulin 3.5 Albumin/Globulin Ratio 0.91 Med Orders - Current: Current Medications Acetaminophen (Tylenol) 650 mg PO Q4H PRN PRN Reason: Pain (Mild 1-3)/fever Folic Acid (Folic Acid) 1 mg PO DAILY [facility] Last Admin: 03/17/20 08:43 Dose: 1 mg Documented by: Furosemide (Lasix) 40 mg PO DAILY [facility] Last Admin: 03/17/20 08:43 Dose: 40 mg Documented by: Heparin Sodium (Porcine) (Heparin Sodium) 5,000 units SUBCUT Q8HR [facility] Last Admin: 03/17/20 05:32 Dose: 5,000 units Documented by: Lactulose (Cephulac) 10 gm PO BID [facility] Last Admin: 03/17/20 08:44 Dose: Not Given Documented by: Lorazepam (Ativan) 0 mg IVPUSH .PER PROTOCOL PRN; Protocol PRN Reason: ciwa score Lorazepam (Ativan) 0 mg PO .PER PROTOCOL PRN; Protocol PRN Reason: per ciwa protocol Last Admin: 03/16/20 21:26 Dose: 1 mg Documented by: Magnesium Oxide (Magnesium Oxide) 250 mg PO BIDMEALS [facility] Stop: 03/18/20 18:01 Last Admin: 03/17/20 08:43 Dose: 250 mg Documented by: Magnesium Oxide (Magnesium Oxide) 250 mg PO ONETIME ONE Stop: 03/17/20 11:31 Metoprolol Succinate (Toprol Xl) 50 mg PO DAILY [facility] Last Admin: 03/17/20 08:42 Dose: 50 mg Documented by: Morphine Sulfate (Morphine) 1 mg IVPUSH Q2H PRN PRN Reason: Pain (severe 7-10) Multivitamins (Thera) 1 each PO DAILY [facility] Last Admin: 03/17/20 08:41 Dose: 1 each Documented by: Ondansetron HCl (Zofran Odt) 4 mg PO Q4H PRN PRN Reason: nausea, able to take PO Ondansetron HCl (Zofran) 4 mg IVPUSH Q6H PRN PRN Reason: Nausea/Vomiting Oxycodone HCl (Oxycodone) 5 mg PO Q4H PRN PRN Reason: Pain (moderate 4-6) Pantoprazole Sodium (Protonix) 40 mg PO BEDTIME [facility] Last Admin: 03/16/20 21:20 Dose: 40 mg Documented by: Rifaximin (Xifaxan) 550 mg PO BID [facility] Last Admin: 03/17/20 08:43 Dose: 550 mg Documented by: Sodium Chloride (Saline Flush) 10 ml FLUSH ASDIRECTED PRN PRN Reason: Keep Vein Open Last Admin: 03/16/20 21:22 Dose: 10 ml Documented by: Spironolactone (Aldactone) 100 mg PO DAILY [facility] Last Admin: 03/17/20 08:41 Dose: 100 mg Documented by: Sucralfate (Carafate) 1 gm PO DAILY [facility] Last Admin: 03/17/20 08:43 Dose: 1 gm Documented by: Temazepam (Restoril) 15 mg PO BEDTIME PRN PRN Reason: Sleep Last Admin: 03/16/20 22:42 Dose: 15 mg Documented by: Thiamine HCl (Vitamin B-1) 100 mg PO BEDTIME [facility] Last Admin: 03/16/20 21:19 Dose: 100 mg Documented by: Discontinued Medications Multivitamins/Minerals 10 ml/Folic Acid 1 mg/ Thiamine HCl 100 mg/ Lactated Ringer's 1,011.2 mls @ 999 mls/hr IV ONETIME ONE Stop: 03/15/20 16:33 Last Admin: 03/15/20 15:49 Dose: 999 mls/hr Documented by: Potassium Chloride/Sodium Chloride (Normal Saline With 20 Meq Kcl) 1,000 mls @ 75 mls/hr IV ASDIRECTED [facility] Last Admin: 03/15/20 22:31 Dose: 75 mls/hr Documented by: Lorazepam (Ativan) 1 mg IVPUSH ONETIME ONE Stop: 03/15/20 17:24 Last Admin: 03/15/20 17:33 Dose: 1 mg Documented by: Metoclopramide HCl (Reglan) 10 mg IM ONETIME ONE Stop: 03/15/20 15:31 Last Admin: 03/15/20 15:42 Dose: 10 mg Documented by: Pantoprazole Sodium (Protonix Iv) 40 mg IVPUSH ONETIME ONE Stop: 03/15/20 15:32 Last Admin: 03/15/20 15:42 Dose: 40 mg Documented by: Potassium Chloride (Klor-Con 10) 20 meq PO ONETIME ONE Stop: 03/17/20 11:16 - Exam General: Reports: Alert, Oriented Neck: Reports: Supple Lungs: Reports: Clear to Auscultation, Normal Respiratory Effort Cardiovascular: Reports: Regular Rate, Regular Rhythm GI/Abdominal Exam: Normal Bowel Sounds, Soft, Non-Tender Neurological: Reports: No New Focal Deficit
== END 2020-03-17 12:50 | disposition home or self-care (01) ==
LOC: DL.ED 14:39 → DL.MS 18:35 → DL.ED 18:37
PROVIDERS: ADMIT Internal Medicine; ATTEND Internal Medicine
DX: R10.84 Generalized abdominal pain (principal); R11.2 Nausea with vomiting, unspecified; I10 Essential (primary) hypertension; E78.5 Hyperlipidemia, unspecified; J44.9 Chronic obstructive pulmonary disease, unspecified; G47.30 Sleep apnea, unspecified; K21.9 Gastro-esophageal reflux disease without esophagitis; E86.0 Dehydration; E87.1 Hypo-osmolality and hyponatremia; F15.10 Other stimulant abuse, uncomplicated; F12.10 Cannabis abuse, uncomplicated; K29.20 Alcoholic gastritis without bleeding; F10.288 Alcohol dependence with other alcohol-induced disorder; I48.91 Unspecified atrial fibrillation; K74.60 Unspecified cirrhosis of liver; I85.10 Secondary esophageal varices without bleeding; Z88.6 Allergy status to analgesic agent; Z79.899 Other long term (current) drug therapy; Z87.19 Personal history of other diseases of the digestive system; Y90.0 Blood alcohol level of less than 20 mg/100 ml
CPT/HCPCS: 36415; 80048; 80053; 80076; 80305; 80307; 82150; 83605; 83690; 83735; 84100; 85025; 96361; 96365; 96372; 96375; 99285; A9270; C9113; G0378; J1644; J2060; J2765; J3411; J3480; J7120; 99284; J3490

== ENCOUNTER 2020-05-26 11:14 | Inpatient (IN) | payer MEDICARE, MEDICAID ==
[2020-05-26] MEDS ORDERED: Promethazine 25 MG/ML SDV IM ONE (11:31)
[2020-05-26] MEDS ORDERED: Sodium Chloride 0.9% 1,000 ML IV ONE ×2 (11:32→13:07)
[2020-05-26 12:07] LABS: ANION GAP 22.5 mEq/L (7-13); CHLORIDE,CL 94 mmol/L (98-107); SODIUM,NA 134 mmol/L (136-145)
--- NOTE | 2020-05-26 12:26 | CR ---
PROCEDURE INFORMATION: Exam: XR Abdomen, 1 View Exam date and time: 05/26/2020 12:00 PM Age: 64 years old Clinical indication: Abdominal pain; Generalized; Prior surgery; Surgery date: 6+ months; Surgery type: Unknown TECHNIQUE: Imaging protocol: XR of the abdomen. Views: Frontal supine view of the abdomen. 1 View. COMPARISON: CR Abdomen 1V Flat 02/12/2019 11:48 AM FINDINGS: Gastrointestinal tract: Normal. No bowel dilation. Intraperitoneal space: Multiple clips are present within the pelvis likely from prior prostatectomy. Bones/joints: Unremarkable. IMPRESSION: 1. Normal bowel gas pattern. No obstruction or free air identified. 2. Postsurgical changes within the pelvis likely from prior prostatectomy.
[2020-05-26] MEDS ORDERED: Potassium Chloride 10 MEQ in Premix Bag 4 BAG IV ONE (13:07)
--- NOTE | 2020-05-26 13:17 | EDM.PDOCBH ---
Scribed by Marisela Ren 05/26/20 1317 for Monet Barboza MD ED HPI GENERAL MEDICAL PROBLEM - General Chief Complaint: Drug or Alcohol Abuse Stated Complaint: Ambulance Time Seen by Provider: 05/26/20 11:22 Source of Information: Reports: Patient, EMS, EMS Notes Reviewed, RN, RN Notes Reviewed History Limitations: Reports: No Limitations - History of Present Illness INITIAL COMMENTS - FREE TEXT/NARRATIVE: Patient arrives by [facility] for abdominal pain and dry heaves. This started lat night. Last drink was yesterday. He has been drinking since Wednesday. HE noted some stuff in his vomit as well as his urine. He has a bad tummy ache. No fevers. He has been in here multipe for similar issues. Onset: Gradual Duration: Getting Worse Location: Reports: Abdomen Quality: Reports: Ache Severity: Severe Improves with: Reports: None Worsens with: Reports: None Associated Symptoms: Reports: No Other Symptoms - Related Data Allergies Allergy/AdvReac Type Severity Reaction Status Date / Time aspirin Allergy Stomach Verified 05/26/20 11:23 Upset Home Meds: Home Meds Folic Acid 1 mg PO DAILY 12/06/14 [History] Multivitamin [Multi-Vitamin Daily] 1 tab PO DAILY 03/24/18 [History] Sucralfate 1 gm PO DAILY 03/24/18 [History] Spironolactone [Aldactone] 100 mg PO DAILY 08/22/18 [History] Ondansetron [Zofran] 4 mg PO DAILY 11/28/18 [History] Ranitidine [Zantac] 150 mg PO BID 11/28/18 [History] Rifaximin [Xifaxan] 550 mg PO BID 02/10/19 [History] Betamethasone/Clotrimazole [Lotrisone] 1 applic TOP BID 03/15/20 [History] Betamethasone/Propylene Glyc [Betamethasone DP Aug 0.05%] 1 applic TOP BID 03/15/20 [History] Furosemide 40 mg PO DAILY 03/15/20 [History] Lactulose 10 gm PO BID 03/15/20 [History] Metoprolol Succinate 50 mg PO DAILY 03/15/20 [History] Past Medical History HEENT History: Reports: None Cardiovascular History: Reports: Hypertension Other Cardiovascular History: Hx of SVT. Dyslipidemia. Respiratory History: Reports: COPD, Sleep Apnea Gastrointestinal History: Reports: Cirrhosis, Gastritis, GERD, GI Bleed, PUD Other Gastrointestinal History: alcoholic gastritis Genitourinary History: Reports: Prostate Disorder Musculoskeletal History: Reports: Back Pain, Chronic Neurological History: Reports: None Psychiatric History: Reports: Addiction Other Psychiatric History: Hx of alcoholism Endocrine/Metabolic History: Reports: None Hematologic History: Reports: None Immunologic History: Reports: None Oncologic (Cancer) History: Reports: Prostate Other Oncologic History: denies Dermatologic History: Reports: None - Infectious Disease History Infectious Disease History: Reports: None - Past Surgical History Head Surgeries/Procedures: Reports: None HEENT Surgical History: Reports: None Male Surgical History: Reports: Circumcision, TURP-Transurethral Resection of Prostate Musculoskeletal Surgical History: Reports: Shoulder Surgery Other Oncologic Surgeries/Procedures: TURP Social & Family History - Family History Family Medical History: Noncontributory - Caffeine Use Caffeine Use: Reports: Coffee - Living Situation & Occupation Living situation: Reports: Single, with Significant Other Occupation: Unemployed ED ROS GENERAL - Review of Systems Review Of Systems: Comprehensive ROS is negative, except as noted in HPI. ED EXAM, BEHAVIORAL HEALTH - Physical Exam Exam: See Below Exam Limited By: No Limitations General Appearance: Alert, WD/WN, No Apparent Distress Eye Exam: Bilateral Eye: EOMI, Normal Inspection, PERRL Ears: Normal External Exam, Normal Canal, Hearing Grossly Normal, Normal TMs Nose: Normal Inspection, Normal Mucosa, No Blood Throat/Mouth: Normal Inspection, Normal Lips, Normal Teeth, Normal Gums, Normal Oropharynx, Normal Voice, No Airway Compromise Head: Atraumatic, Normocephalic Neck: Normal Inspection, Supple, Non-Tender, Full Range of Motion Respiratory/Chest: No Respiratory Distress, Lungs Clear, Normal Breath Sounds, No Accessory Muscle Use, Chest Non-Tender Cardiovascular: Normal Peripheral Pulses, Regular Rate, Rhythm, No Edema, No Gallop, No JVD, No Murmur, No Rub GI/Abdominal: Normal Bowel Sounds, Soft, Non-Tender (with distraction. ), No Distention, Guarding (Male) Exam: Deferred Rectal (Males) Exam: Deferred Back Exam: Normal Inspection, Full Range of Motion, NT Extremities: Normal Inspection, Normal Range of Motion, Non-Tender, Normal Capillary Refill, No Pedal Edema Neurological: Alert, Normal Mood/Affect, CN II-XII Intact, Normal Cognition, Normal Gait, Normal Reflexes, No Motor/Sensory Deficits, Oriented x 3 Psychiatric: Alert, Normal Affect, Normal Cognition, Normal Mood, Oriented Skin Exam: Warm, Dry, Intact, Normal color, No rash COURSE, BEHAVIORAL HEALTH COMP - Course Vital Signs: Last Vital Signs Temp 97.3 F 05/26/20 11:18 Pulse 100 05/26/20 11:18 Resp 16 05/26/20 11:18 BP 121/66 05/26/20 11:18 Pulse Ox 100 05/26/20 11:18 Orders, Labs, Meds: Active Orders 24 hr Category Date Time Status EKG Documentation Completion [RC] STAT Care 05/26/20 13:10 Ordered Sodium Chloride 0.9% [Normal Saline] 1,000 ml Med 05/26/20 13:07 Ordered IV .BOLUS Medication Orders Sodium Chloride (Normal Saline) 1,000 mls @ 999 mls/hr IV .BOLUS ONE Stop: 05/26/20 14:07 Laboratory Tests 05/26/20 05/26/20 05/26/20 Range/Units 11:40 11:40 11:43 WBC 17.8 H (5.0-10.0) 10^3/uL RBC 5.37 (4.6-6.2) 10^6/uL Hgb 18.1 H D (14.0-18.0) g/dL Hct 48.1 (40.0-54.0) % MCV 89.6 D (80-100) fL MCH 33.7 (27.0-34.0) pg MCHC 37.6 H (33.0-35.0) g/dL Plt Count 224 (150-450) 10^3/uL Neut % (Auto) 85.4 H (42.2-75.2) % Lymph % (Auto) 7.8 L (20.5-50.1) % Bates % (Auto) 6.2 (2-8) % Eos % (Auto) 0.1 L (1.0-3.0) % Baso % (Auto) 0.5 (0.0-1.0) % Sodium (136-145) mmol/L Potassium (3.5-5.1) mmol/L Chloride (98-107) mmol/L Carbon Dioxide (21-32) mmol/L Anion Gap (7-13) mEq/L BUN (7-18) mg/dL Creatinine (0.70-1.30) mg/dL Est Cr Clr Drug Dosing mL/min Estimated GFR (MDRD) BUN/Creatinine Ratio (No establ ref range) Glucose (74-99) mg/dL Calcium (8.5-10.1) mg/dL Total Bilirubin (0.2-1.0) mg/dL AST (15-37) U/L ALT (16-63) U/L Alkaline Phosphatase (46-116) U/L Total Protein (6.4-8.2) g/dL Albumin (3.4-5.0) g/dL Globulin Albumin/Globulin Ratio Urine Color Dark yellow (YELLOW) Urine Appearance Cloudy (CLEAR) Urine pH 7.0 (5.0-9.0) Ur Specific [place] 1.015 (1.005-1.030) Urine Protein Trace H (NEGATIVE) Urine Glucose (UA) Negative (NEGATIVE) Urine Ketones Trace H (NEGATIVE) Urine Occult Blood Trace-intact H (NEGATIVE) Urine Nitrite Negative (NEGATIVE) Urine Bilirubin Negative (NEGATIVE) Urine Urobilinogen 4.0 H (0.2-1.0) mg/dL Ur Leukocyte Esterase Negative (NEGATIVE) Urine RBC 0-5 /HPF Urine WBC 0-5 (0-5/HPF) /HPF Ur Epithelial Cells Rare (NOT SEEN) /HPF Urine Bacteria Rare (0-FEW/HPF) /HPF Urine Mucus Rare (NOT SEEN) /LPF Urine Opiates Screen Negative (NEGATIVE) Ur Oxycodone Screen Negative (NEGATIVE) Urine Methadone Screen Negative (NEGATIVE) Ur Barbiturates Screen Negative (NEGATIVE) U Tricyclic Antidepress Negative (NEGATIVE) Ur Phencyclidine Scrn Negative (NEGATIVE) Ur Amphetamine Screen Negative (NEGATIVE) U Methamphetamines Scrn Positive H (NEGATIVE) Urine MDMA Screen Negative (NEGATIVE) U Benzodiazepines Scrn Negative (NEGATIVE) Urine Cocaine Screen Negative (NEGATIVE) U Marijuana (THC) Screen Positive H (NEGATIVE) Ethyl Alcohol (0) mg/dL 05/26/20 Range/Units 11:43 WBC (5.0-10.0) 10^3/uL RBC (4.6-6.2) 10^6/uL Hgb (14.0-18.0) g/dL Hct (40.0-54.0) % MCV (80-100) fL MCH (27.0-34.0) pg MCHC (33.0-35.0) g/dL Plt Count (150-450) 10^3/uL Neut % (Auto) (42.2-75.2) % Lymph % (Auto) (20.5-50.1) % Bates % (Auto) (2-8) % Eos % (Auto) (1.0-3.0) % Baso % (Auto) (0.0-1.0) % Sodium 134 L (136-145) mmol/L Potassium 2.5 L (3.5-5.1) mmol/L Chloride 94 L (98-107) mmol/L Carbon Dioxide 20 L (21-32) mmol/L Anion Gap 22.5 H (7-13) mEq/L BUN 4 L (7-18) mg/dL Creatinine 0.86 (0.70-1.30) mg/dL Est Cr Clr Drug Dosing 84.49 mL/min Estimated GFR (MDRD) > 60 BUN/Creatinine Ratio 4.7 (No establ ref range) Glucose 130 H (74-99) mg/dL Calcium 8.8 (8.5-10.1) mg/dL Total Bilirubin 1.3 H (0.2-1.0) mg/dL AST 85 H (15-37) U/L ALT 92 H (16-63) U/L Alkaline Phosphatase 119 H (46-116) U/L Total Protein 8.1 (6.4-8.2) g/dL Albumin 4.1 (3.4-5.0) g/dL Globulin 4.0 Albumin/Globulin Ratio 1.0 Urine Color (YELLOW) Urine Appearance (CLEAR) Urine pH (5.0-9.0) Ur Specific [place] (1.005-1.030) Urine Protein (NEGATIVE) Urine Glucose (UA) (NEGATIVE) Urine Ketones (NEGATIVE) Urine Occult Blood (NEGATIVE) Urine Nitrite (NEGATIVE) Urine Bilirubin (NEGATIVE) Urine Urobilinogen (0.2-1.0) mg/dL Ur Leukocyte Esterase (NEGATIVE) Urine RBC /HPF Urine WBC (0-5/HPF) /HPF Ur Epithelial Cells (NOT SEEN) /HPF Urine Bacteria (0-FEW/HPF) /HPF Urine Mucus (NOT SEEN) /LPF Urine Opiates Screen (NEGATIVE) Ur Oxycodone Screen (NEGATIVE) Urine Methadone Screen (NEGATIVE) Ur Barbiturates Screen (NEGATIVE) U Tricyclic Antidepress (NEGATIVE) Ur Phencyclidine Scrn (NEGATIVE) Ur Amphetamine Screen (NEGATIVE) U Methamphetamines Scrn (NEGATIVE) Urine MDMA Screen (NEGATIVE) U Benzodiazepines Scrn (NEGATIVE) Urine Cocaine Screen (NEGATIVE) U Marijuana (THC) Screen (NEGATIVE) Ethyl Alcohol 31 (0) mg/dL Medications Generic Name Dose Route Start Last Admin Trade Name Freq PRN Reason Stop Dose Admin Sodium Chloride 1,000 mls @ 999 mls/hr 05/26/20 13:07 Normal Saline IV 05/26/20 14:07 .BOLUS ONE Discontinued Medications Generic Name Dose Route Start Last Admin Trade Name Freq PRN Reason Stop Dose Admin Sodium Chloride 1,000 mls @ 999 mls/hr 05/26/20 11:32 05/26/20 11:46 Normal Saline IV 05/26/20 12:32 999 mls/hr .BOLUS ONE Administration Potassium Chloride 10 meq/ 0 mls @ 100 mls/hr 05/26/20 13:07 Premix IV 05/26/20 13:08 ONETIME ONE Promethazine HCl 50 mg 05/26/20 11:31 05/26/20 11:46 Phenergan IM 05/26/20 11:32 50 mg ONETIME ONE Administration Departure - Departure Time of Disposition: 13:15 Disposition: Admitted As Inpatient 64 Condition: Fair Clinical Impression: Hypokalemia Alcohol withdrawal syndrome Qualifiers: Complication of substance-induced condition: uncomplicated Qualified Code(s): F10.230 - Alcohol dependence with withdrawal, uncomplicated - Discharge Information *PRESCRIPTION DRUG MONITORING PROGRAM REVIEWED*: Not Applicable *COPY OF PRESCRIPTION DRUG MONITORING REPORT IN PATIENT WALTER: Not Applicable Instructions: Alcohol Use Disorder, Hypokalemia Forms: ED Department Discharge Sepsis Event Note (ED) - Evaluation Sepsis Screening Result: No Definite Risk - Focused Exam Vital Signs: Vital Signs Temp Pulse Resp BP Pulse Ox 05/26/20 11:18 97.3 F 100 16 121/66 100 - My Orders Last 24 Hours: My Active Orders 05/26/20 13:07 Sodium Chloride 0.9% [Normal Saline] 1,000 ml IV .BOLUS 05/26/20 13:10 EKG Documentation Completion [RC] STAT - Assessment/Plan Last 24 Hours: My Active Orders 05/26/20 13:07 Sodium Chloride 0.9% [Normal Saline] 1,000 ml IV .BOLUS 05/26/20 13:10 EKG Documentation Completion [RC] STAT Assessment:: 64 yo male presents for acute alcohol withdraw and abdominal pain found to have hypokalemia. Plan: potassium riders NS bolus case discussed with Dr. Jaimes who agreed to admit the patient I have read and agree with the documentation that has been completed regarding this visit. By signing this record, I attest that the documentation was completed in my physical presence and is an accurate record of the encounter.
[2020-05-26] MEDS ORDERED: Morphine 2 MG/ML SYRINGE IVPUSH PRN (13:47)
[2020-05-26] MEDS ORDERED: Docusate Sodium 100 MG Cap PO PRN (13:47)
[2020-05-26] MEDS ORDERED: Ondansetron 4 MG Tab.DIS PO PRN (13:47)
[2020-05-26] MEDS ORDERED: LORazepam 0.5 MG Tab PO SCH (14:00)
[2020-05-26] MEDS ORDERED: LORazepam 2 MG/ML SDV IV SCH (14:00)
[2020-05-26] MEDS ORDERED: Metoprolol Tartrate 25 MG Tab PO SCH (14:00)
[2020-05-26] MEDS ORDERED: Magnesium Sulfate/Water 2 GM/50 ML BAG IV ONE (14:33)
[2020-05-26] MEDS: Acetaminophen 325 MG Tab PO PRN (15:07)
[2020-05-26] MEDS: Ondansetron 4 MG/2 ML SDV IVPUSH PRN (15:08)
--- NOTE | 2020-05-26 15:58 | HP ---
CHIEF COMPLAINT: Abdominal pain and dry heaves. HISTORY OF PRESENT ILLNESS: The patient is a 64-year-old male who was admitted through the emergency room because the patient was brought in by [facility] ambulance because of abdominal pain and dry heaves. The patient mentioned that this started last night and his last drink was yesterday. He mentioned that he has been drinking since Wednesday and now this abdominal pain and nausea and dry heaves started. He is unable to take anything or put anything down. Because of this, he called an ambulance and he was brought into the emergency room. REVIEW OF SYSTEMS: The patient denies any chest pain or shortness of breath or headache. Does admit that he has some chills and loose bowel movement, but denies any dysuria. PAST MEDICAL HISTORY: Remarkable for hypertension, history of SVT, dyslipidemia, COPD, liver cirrhosis, gastritis, peptic ulcer disease, alcoholism, and BPH status post TURP. FAMILY HISTORY: Noncontributory. SOCIAL HISTORY: Drinks alcohol on a regular basis and smokes cigarettes, about 5 cigarettes a day, and smokes marijuana occasionally. HOME MEDICATIONS: Folic acid, multivitamin, sucralfate, spironolactone, Zofran, Zantac, rifaximin, Lotrisone, Lasix, lactulose, metoprolol. ALLERGIES: Aspirin. PHYSICAL EXAMINATION: General: The patient is alert and oriented with episodes of dry heaves. Vital Signs: Blood pressure is 121/66, pulse of 100, respirations of 16, temperature of 97.3, saturation is 100% on room air. SHEENT: Normocephalic. There are pink palpebral conjunctivae. Sclerae anicteric. Neck: No JVD. No lymphadenopathy. Supple. Heart: Regular rate and rhythm. Normal S1 and S2. No gallops. No rubs. Lungs: Equal bilaterally. No crackles. No wheezing. Abdomen: Moderately obese. Soft. There is moderate direct tenderness on the epigastric area. No rebound. Bowel sounds positive. Extremities: Negative for any significant pedal edema. No calf tenderness. LABORATORY DATA: CBC: WBC 17.8, hemoglobin is 18.1, hematocrit is 48.1, platelet is 224. Comp panel: Sodium is 134, potassium is 2.5, chloride of 94, carbon dioxide of 20, anion gap of 22.5, BUN is 4, glucose is 130, total bilirubin 1.3, AST is 85, ALT is 92, alkaline phosphatase is 119. Urinalysis is remarkable for urobilinogen of 4, otherwise unremarkable. Urine tox screen is positive for methamphetamine and marijuana. Abdominal x-ray showed normal bowel gas pattern. No obstruction of free air identified and there are some postsurgical changes within the pelvis, likely from prior prostatectomy. ADMITTING DIAGNOSES: 1. Alcoholism and alcohol withdrawal. 2. Abdominal pain, most likely secondary to alcoholic gastritis. 3. Hypokalemia. 4. Leukocytosis, most likely related to the stress of alcoholic gastritis. 5. History of liver cirrhosis. 6. Dyslipidemia. 7.Hypomagnesemia TREATMENT PLAN: The patient is going to be admitted to acute care. He will be placed on DT protocol. He will be given IV Protonix for his abdominal pain and potassium will be repleted, and the rest of the management as necessary, and the patient is full code. [facility] /[id number] MTDJessica
[2020-05-26] MEDS: Pantoprazole 40 MG Vial IVPUSH SCH (21:05)
[2020-05-26] MEDS: Metoprolol Tartrate 25 MG Tab PO SCH (21:09)
[2020-05-27] MEDS: Folic Acid 1 MG Tab PO SCH (07:59)
[2020-05-27] MEDS: Thiamine 100 MG Tab PO SCH (07:59)
[2020-05-27] MEDS: Multivitamins,Therapeutic Tab PO SCH (07:59)
[2020-05-27] MEDS: Metoprolol Tartrate 25 MG Tab PO SCH ×2 (07:59→21:30)
[2020-05-27] MEDS: Enoxaparin 40 MG/0.4 ML Syringe SUBCUT SCH (08:00)
[2020-05-27] MEDS: Pantoprazole 40 MG Vial IVPUSH SCH ×2 (08:00→21:28)
[2020-05-27] MEDS: Nicotine 7 MG/24 Hr Patch TRDERM SCH (08:00)
[2020-05-27 08:14] LABS: ANION GAP 11.4 mEq/L (7-13); CHLORIDE,CL 104 mmol/L (98-107); SODIUM,NA 138 mmol/L (136-145)
[2020-05-27] MEDS ORDERED: LORazepam 2 MG/ML SDV IV PRN (08:15)
[2020-05-27] MEDS ORDERED: Nicotine 14 MG/24 Hr Patch TRDERM SCH (09:00)
[2020-05-27] MEDS ORDERED: Potassium Chloride 10 MEQ Tab.ER PO ONE (09:00)
--- NOTE | 2020-05-27 09:25 | PN ---
DATE: 05/27/2020 SUBJECTIVE: The patient this morning is feeling much better and so far has not had any problems with dry heaves or any significant abdominal pain, and appetite is good, and he is feeling hungry. He denies any chest pain or headache or any other complaints. OBJECTIVE: Vital Signs: Blood pressure is 112/54, pulse 69, respirations of 18, temperature of 98.2, and saturation is 99%. Heart: Regular rate and rhythm. Normal S1 and S2. No gallops. No rubs. Lungs: Equal bilaterally. No crackles. No wheezing. Abdomen: Moderately obese but soft and nontender. Bowel sounds are positive. Extremities: Negative for any pedal edema. No calf tenderness. LABORATORY WORKUP: Basic metabolic panel and magnesium level are pending. PLAN: We will continue with his present management, and we will adjust his diet to as tolerated. [facility] /[id number]
[2020-05-27] MEDS: Aluminum Hydroxide/Magnesium Hydroxide/Simethicone Susp 30 ML Cup PO PRN (21:29)
[2020-05-27] MEDS: LORazepam 0.5 MG Tab PO PRN (21:30)
--- NOTE | 2020-05-28 08:59 | PN ---
DATE: 05/28/2020 SUBJECTIVE: The patient continues to do well and so far he denies any more abdominal pain or dry heaves, although yesterday he complained of some mild pain with swallowing, but now this is also slowly improving. He denies any headache, fever, chills, nor any other complaints. OBJECTIVE: Vital Signs: Blood pressure is 114/71, pulse of 68, respirations 20, temperature of 98.3, saturation is 100% on room air. Heart: Regular rate and rhythm. Normal S1 and S2. No gallops. No rubs. Lungs: Equal bilaterally. No crackles. No wheezing. Abdomen: Soft, nontender. Bowel sounds positive. Extremities: Negative for any pedal edema. No calf tenderness. PLAN: We will continue with his present management and the patient mentioned that he is looking at [facility] for a rehab treatment.upon discharge. [facility] /[id number] BURKE
[2020-05-28] MEDS: Nicotine 7 MG/24 Hr Patch TRDERM SCH (09:04)
[2020-05-28] MEDS: Multivitamins,Therapeutic Tab PO SCH (09:05)
[2020-05-28] MEDS: Thiamine 100 MG Tab PO SCH (09:05)
[2020-05-28] MEDS: Metoprolol Tartrate 25 MG Tab PO SCH ×2 (09:05→20:13)
[2020-05-28] MEDS: Enoxaparin 40 MG/0.4 ML Syringe SUBCUT SCH (09:05)
[2020-05-28] MEDS: Folic Acid 1 MG Tab PO SCH (09:05)
[2020-05-28] MEDS: Pantoprazole 40 MG Vial IVPUSH SCH ×2 (09:06→20:13)
[2020-05-28] MEDS: Aluminum Hydroxide/Magnesium Hydroxide/Simethicone Susp 30 ML Cup PO PRN (12:58)
[2020-05-28] MEDS: oxyCODONE 5 MG Tab PO PRN ×2 (14:25→20:14)
[2020-05-28] MEDS: Ondansetron 4 MG/2 ML SDV IVPUSH PRN (14:25)
[2020-05-28] MEDS: Lactulose Soln 10 GM/15 ML 30 ML UD Cup PO SCH (18:19)
[2020-05-28] MEDS: LORazepam 0.5 MG Tab PO PRN (22:41)
[2020-05-29 06:53] LABS: ANION GAP 10.7 mEq/L (7-13); CHLORIDE,CL 102 mmol/L (98-107); SODIUM,NA 138 mmol/L (136-145)
[2020-05-29] MEDS: Pantoprazole 40 MG Vial IVPUSH SCH (09:24)
[2020-05-29] MEDS: Enoxaparin 40 MG/0.4 ML Syringe SUBCUT SCH (09:24)
[2020-05-29] MEDS: Lactulose Soln 10 GM/15 ML 30 ML UD Cup PO SCH (09:25)
[2020-05-29] MEDS: Multivitamins,Therapeutic Tab PO SCH (09:25)
[2020-05-29] MEDS: Nicotine 7 MG/24 Hr Patch TRDERM SCH (09:25)
[2020-05-29] MEDS: Acetaminophen 325 MG Tab PO PRN (09:25)
[2020-05-29] MEDS: Folic Acid 1 MG Tab PO SCH (09:26)
[2020-05-29] MEDS: Metoprolol Tartrate 25 MG Tab PO SCH (09:26)
[2020-05-29] MEDS: Thiamine 100 MG Tab PO SCH (09:26)
--- NOTE | 2020-05-29 13:32 | PCM.DCSUM1 ---
Discharge Summary - Hospital Course Free Text/Narrative:: Javi presented with nausea, dry heaves and abdominal pain with reported history of alcohol consumption. He has a history of alcohol abuse. Utox was positive for methamphetamine and marijuana. He had elevated LFTs with hepatocellular alcoholic pattern. Patient was treated for alcohol withdrawal with [facility] protocol. His symptoms resolved. He was counseled on alcohol cessation. Diagnosis: Stroke: No - Discharge Data Discharge Date: 05/29/20 Discharge Disposition: Home, Self-Care 01 Condition: Good - Referral to Home Health Primary Care Physician: Tammy Krueger NP - Discharge Plan *PRESCRIPTION DRUG MONITORING PROGRAM REVIEWED*: Not Applicable *COPY OF PRESCRIPTION DRUG MONITORING REPORT IN PATIENT WALTER: Not Applicable Home Medications: Home Meds Folic Acid 1 mg PO DAILY 12/06/14 [History] Spironolactone [Aldactone] 100 mg PO DAILY 08/22/18 [History] Ondansetron [Zofran] 4 mg PO Q8HR PRN 11/28/18 [History] Rifaximin [Xifaxan] 550 mg PO BID 02/10/19 [History] Betamethasone/Clotrimazole [Lotrisone] 1 applic TOP BID 03/15/20 [History] Betamethasone/Propylene Glyc [Betamethasone DP Aug 0.05%] 1 applic TOP BID 03/15/20 [History] Furosemide 40 mg PO DAILY 03/15/20 [History] Lactulose 30 ml PO TID 03/15/20 [History] Metoprolol Succinate 50 mg PO DAILY 03/15/20 [History] Pantoprazole Sodium [Protonix] 40 mg PO BID 05/26/20 [History] Albuterol [Ventolin HFA] 2 puff PO Q4H PRN 05/27/20 [History] Tretinoin/Emollient Base [Tretinoin 0.05% Emollient Crm] 1 applic TOP DAILY 05/27/20 [History] Patient Handouts: Alcohol Use Disorder, Hypokalemia Referrals: Tammy Krueger, HARPAL [Primary Care Provider] - - Discharge Summary/Plan Comment DC Time >30 min.: Yes - Patient Data Vitals - Most Recent: Last Vital Signs Temp 99.1 F 05/29/20 08:00 Pulse 67 05/29/20 09:26 Resp 20 05/29/20 08:00 BP 130/71 05/29/20 09:26 Pulse Ox 100 05/29/20 08:00 Weight - Most Recent: 162 lb 8 oz I&O - Last 24 hours: Intake & Output 05/28/20 05/29/20 05/29/20 22:59 06:59 14:59 Intake Total 540 510 Output Total 1212 300 200 Balance -672 210 -200 Lab Results - Last 24 hrs: Laboratory Results - last 24 hr 05/29/20 05/29/20 Range/Units 05:59 05:59 WBC 7.4 (5.0-10.0) 10^3/uL RBC 4.24 L (4.6-6.2) 10^6/uL Hgb 14.2 D (14.0-18.0) g/dL Hct 40.4 (40.0-54.0) % MCV 95.3 D (80-100) fL MCH 33.5 (27.0-34.0) pg MCHC 35.1 H (33.0-35.0) g/dL Plt Count 122 L D (150-450) 10^3/uL Neut % (Auto) 61.1 (42.2-75.2) % Lymph % (Auto) 27.5 (20.5-50.1) % Nash % (Auto) 7.2 (2-8) % Eos % (Auto) 3.8 H (1.0-3.0) % Baso % (Auto) 0.4 (0.0-1.0) % Sodium 138 (136-145) mmol/L Potassium 3.7 (3.5-5.1) mmol/L Chloride 102 (98-107) mmol/L Carbon Dioxide 29 (21-32) mmol/L Anion Gap 10.7 (7-13) mEq/L BUN 3 L (7-18) mg/dL Creatinine 0.72 (0.70-1.30) mg/dL Est Cr Clr Drug Dosing 100.92 mL/min Estimated GFR (MDRD) > 60 Glucose 91 (74-99) mg/dL Calcium 7.7 L (8.5-10.1) mg/dL Med Orders - Current: Current Medications Acetaminophen (Tylenol) 650 mg PO Q4H PRN PRN Reason: Pain (Mild 1-3)/fever Last Admin: 05/29/20 09:25 Dose: 650 mg Documented by: Al Hydroxide/Mg Hydroxide (Mag-Al Plus) 30 ml PO Q6H PRN PRN Reason: Indigestion Last Admin: 05/28/20 12:58 Dose: 30 ml Documented by: Docusate Sodium (Colace) 100 mg PO BID PRN PRN Reason: Constipation Enoxaparin Sodium (Lovenox) 40 mg SUBCUT DAILY [facility] Last Admin: 05/29/20 09:24 Dose: 40 mg Documented by: Lactulose (Cephulac) 20 gm PO DAILY [facility] Last Admin: 05/29/20 09:25 Dose: 20 gm Documented by: Lorazepam (Ativan) 0 mg IV TITRATE PRN; Protocol PRN Reason: alcohol withdrawal Lorazepam (Ativan) 0 mg PO TITRATE PRN; Protocol PRN Reason: alcohol withdrawal Last Admin: 05/28/20 22:41 Dose: 2 mg Documented by: Metoprolol Tartrate (Lopressor) 25 mg PO Q12HR [facility] Last Admin: 05/29/20 09:26 Dose: 25 mg Documented by: Miscellaneous Information (Check Patch) 1 ea TRDERM BEDTIME [facility] Last Admin: 05/28/20 20:17 Dose: Not Given Documented by: Morphine Sulfate (Morphine) 2 mg IVPUSH Q2H PRN PRN Reason: Pain (severe 7-10) Multivitamins (Thera) 1 each PO DAILY [facility] Last Admin: 05/29/20 09:25 Dose: 1 each Documented by: Nicotine (Habitrol) 7 mg TRDERM DAILY [facility] Last Admin: 05/29/20 09:25 Dose: 7 mg Documented by: Ondansetron HCl (Zofran Odt) 4 mg PO Q4H PRN PRN Reason: nausea, able to take PO Last Admin: 05/28/20 20:14 Dose: 4 mg Documented by: Ondansetron HCl (Zofran) 4 mg IVPUSH Q4H PRN PRN Reason: Nausea/Vomiting Last Admin: 05/28/20 14:25 Dose: 4 mg Documented by: Oxycodone HCl (Oxycodone) 5 mg PO Q4H PRN PRN Reason: Pain (moderate 4-6) Last Admin: 05/28/20 20:14 Dose: 5 mg Documented by: Pantoprazole Sodium (Protonix Iv) 40 mg IVPUSH Q12HR [facility] Last Admin: 05/29/20 09:24 Dose: 40 mg Documented by: Thiamine HCl (Vitamin B-1) 100 mg PO DAILY [facility] Last Admin: 05/29/20 09:26 Dose: 100 mg Documented by: Discontinued Medications Folic Acid (Folic Acid) 1 mg PO DAILY [facility] Stop: 05/29/20 09:01 Last Admin: 05/29/20 09:26 Dose: 1 mg Documented by: Sodium Chloride (Normal Saline) 1,000 mls @ 999 mls/hr IV .BOLUS ONE Stop: 05/26/20 12:32 Last Admin: 05/26/20 11:46 Dose: 999 mls/hr Documented by: Sodium Chloride (Normal Saline) 1,000 mls @ 999 mls/hr IV .BOLUS ONE Stop: 05/26/20 14:07 Last Admin: 05/26/20 13:30 Dose: 999 mls/hr Documented by: Potassium Chloride 10 meq/ (Premix) 0 mls @ 100 mls/hr IV ONETIME ONE Stop: 05/26/20 13:08 Last Admin: 05/26/20 13:30 Dose: 100 mls/hr Documented by: Potassium Chloride 20 meq/ (Sodium Chloride) 1,010 mls @ 125 mls/hr IV ASDIRECTED [facility] Last Admin: 05/27/20 00:50 Dose: 125 mls/hr Documented by: Magnesium Sulfate (Magnesium Sulfate In Water Premix) 2 gm in 50 mls @ 25 mls/hr IV ONETIME ONE Stop: 05/26/20 16:32 Last Admin: 05/26/20 15:07 Dose: 25 mls/hr Documented by: Lorazepam (Ativan) 0 mg IV TITRATE [facility]; Protocol Last Admin: 05/26/20 15:07 Dose: 1 mg Documented by: Lorazepam (Ativan) 0 mg PO TITRATE [facility]; Protocol Last Admin: 05/26/20 21:06 Dose: 2 mg Documented by: Metoprolol Tartrate (Lopressor) 25 mg PO Q12HR [facility] Last Admin: 05/26/20 14:42 Dose: Not Given Documented by: Nicotine (Habitrol) 14 mg TRDERM DAILY [facility] Potassium Chloride (Klor-Con 10) 40 meq PO ONETIME ONE Stop: 05/27/20 09:01 Last Admin: 05/27/20 08:39 Dose: 40 meq Documented by: Promethazine HCl (Phenergan) 50 mg IM ONETIME ONE Stop: 05/26/20 11:32 Last Admin: 05/26/20 11:46 Dose: 50 mg Documented by:
[2020-05-29 13:46] VITALS: BP 128/68; PULSE 68
== END 2020-05-29 14:10 | disposition home or self-care (01) | DRG 897 ==
LOC: DL.ED 11:14 → DL.MS 13:23 → UNDOADMIN 13:28 → UNDODISIN 21:33 → DL.MS 05-28 15:37
PROVIDERS: ADMIT Internal Medicine; ATTEND Internal Medicine
DX: F10.230 Alcohol dependence with withdrawal, uncomplicated (principal); F10.239 Alcohol dependence with withdrawal, unspecified; I47.1 Supraventricular tachycardia; I10 Essential (primary) hypertension; E78.5 Hyperlipidemia, unspecified; J44.9 Chronic obstructive pulmonary disease, unspecified; K74.60 Unspecified cirrhosis of liver; N40.0 Benign prostatic hyperplasia without lower urinary tract symptoms; F17.210 Nicotine dependence, cigarettes, uncomplicated; K29.20 Alcoholic gastritis without bleeding; E87.6 Hypokalemia; E83.42 Hypomagnesemia; Z90.79 Acquired absence of other genital organ(s); G47.30 Sleep apnea, unspecified; Z88.8 Allergy status to other drugs, medicaments and biological substances; K21.9 Gastro-esophageal reflux disease without esophagitis; G89.29 Other chronic pain; M54.9 Dorsalgia, unspecified; Z85.46 Personal history of malignant neoplasm of prostate; Z87.11 Personal history of peptic ulcer disease; Z79.899 Other long term (current) drug therapy; Z88.6 Allergy status to analgesic agent; Z98.890 Other specified postprocedural states
CPT/HCPCS: 36415; 74018; 80048; 80053; 80305-QW; 80307; 81001; 82150; 83690; 83735; 85025; 93005; 96361; 96372; 96374; 99284; 99285-25; A9270-GY; C9113; J1650; J2060; J2405; J2550; J3475; J3480; J7030

== ENCOUNTER 2020-08-12 18:26 | Inpatient (IN) | payer MEDICARE, MEDICAID ==
[2020-08-12] MEDS ORDERED: MVI, Adult with Vitamin K 10 ML, Thiamine 100 MG, Folic Acid 1 MG in Lactated Ringers 1... IV ONE ×4 (18:27)
[2020-08-12] MEDS ORDERED: Ondansetron 4 MG/2 ML SDV IVPUSH ONE ×2 (18:28→18:50)
[2020-08-12] MEDS ORDERED: Pantoprazole 40 MG Vial IVPUSH ONE (18:28)
[2020-08-12] MEDS ORDERED: Octreotide 100 MCG/ML SDV IVPUSH ONE (18:28)
[2020-08-12] MEDS: Octreotide 100 MCG in Sodium Chloride 0.9% 99 ML IV SCH (18:39)
[2020-08-12] MEDS: Pantoprazole 40 MG in Sodium Chloride 0.9% 100 ML IV SCH ×2 (18:47→23:33)
[2020-08-12 19:05] LABS: PTT,PARTIAL THROMBOPLSTIN TIME 27.6 SEC (22.0-34.0)
[2020-08-12 19:06] LABS: ANION GAP 17.6 mEq/L (7-13); CHLORIDE,CL 87 mmol/L (98-107); SODIUM,NA 125 mmol/L (136-145)
[2020-08-12] MEDS ORDERED: Potassium Chloride 10 MEQ in Premix Bag 1 BAG IV ONE (19:14)
[2020-08-12] MEDS ORDERED: Sodium Chloride 0.9% 1,000 ML IV ONE (19:15)
[2020-08-12] MEDS ORDERED: Metoclopramide 10 MG/2 ML SDV IVPUSH ONE (20:01)
--- NOTE | 2020-08-12 20:07 | EDM.PDOC ---
ED HPI GENERAL MEDICAL PROBLEM - General Chief Complaint: Drug or Alcohol Abuse Stated Complaint: AMBULANCE Time Seen by Provider: 08/12/20 19:50 Source of Information: Reports: Patient History Limitations: Reports: No Limitations - History of Present Illness INITIAL COMMENTS - FREE TEXT/NARRATIVE: This 65 yo male patient reports to the ED due to nausea and dry heaving througho ut the day. The patient reports he stopped drinking yesterday, but started having nausea this morning. The patient reports he had not been drinking in about 3 months, but started drinking 4 days ago. The patient reports he was drinking about 1 liter of Fireball between himself and several others. The patient reports his last drink was yesterday evening. The patient does have a history of alcohol abuse, nausea/vomiting and esophageal varices. The patient denies any blood with his vomiting today. Onset: Today Duration: Constant Location: Reports: Abdomen Quality: Reports: Other Severity: Moderate Improves with: Reports: None Worsens with: Reports: None Context: Reports: Other Associated Symptoms: Reports: Nausea/Vomiting - Related Data Allergies Allergy/AdvReac Type Severity Reaction Status Date / Time aspirin Allergy Stomach Verified 08/12/20 18:27 Upset Home Meds: Home Meds Folic Acid 1 mg PO DAILY 12/06/14 [History] Spironolactone [Aldactone] 100 mg PO DAILY 08/22/18 [History] Ondansetron [Zofran] 4 mg PO Q8HR PRN 11/28/18 [History] Rifaximin [Xifaxan] 550 mg PO BID 02/10/19 [History] Betamethasone/Clotrimazole [Lotrisone] 1 applic TOP BID 03/15/20 [History] Betamethasone/Propylene Glyc [Betamethasone DP Aug 0.05%] 1 applic TOP BID 03/15/20 [History] Furosemide 40 mg PO DAILY 03/15/20 [History] Lactulose 30 ml PO TID 03/15/20 [History] Metoprolol Succinate 50 mg PO DAILY 03/15/20 [History] Pantoprazole Sodium [Protonix] 40 mg PO BID 05/26/20 [History] Albuterol [Ventolin HFA] 2 puff PO Q4H PRN 05/27/20 [History] Tretinoin/Emollient Base [Tretinoin 0.05% Emollient Crm] 1 applic TOP DAILY 05/27/20 [History] Past Medical History HEENT History: Reports: None Cardiovascular History: Reports: Hypertension Other Cardiovascular History: Hx of SVT. Dyslipidemia. Respiratory History: Reports: COPD, Sleep Apnea Gastrointestinal History: Reports: Cirrhosis, Gastritis, GERD, GI Bleed, PUD Other Gastrointestinal History: alcoholic gastritis Genitourinary History: Reports: Prostate Disorder Musculoskeletal History: Reports: Back Pain, Chronic Neurological History: Reports: None Psychiatric History: Reports: Addiction Other Psychiatric History: Hx of alcoholism Endocrine/Metabolic History: Reports: None Hematologic History: Reports: None Immunologic History: Reports: None Oncologic (Cancer) History: Reports: Prostate Other Oncologic History: denies Dermatologic History: Reports: None - Infectious Disease History Infectious Disease History: Reports: None - Past Surgical History Head Surgeries/Procedures: Reports: None HEENT Surgical History: Reports: None Cardiovascular Surgical History: Reports: None GI Surgical History: Reports: Other (See Below) Other GI Surgeries/Procedures: diagnostic sigmoidoscopy Male Surgical History: Reports: Circumcision, TURP-Transurethral Resection of Prostate Musculoskeletal Surgical History: Reports: Shoulder Surgery Other Musculoskeletal Surgeries/Procedures:: right shoulder, right arm broken in past Oncologic Surgical History: Reports: Other (See Below) Other Oncologic Surgeries/Procedures: TURP Social & Family History - Family History Family Medical History: No Pertinent Family History - Tobacco Use Tobacco Use Status *Q: Current Every Day Tobacco User Years of Tobacco use: 25 Packs/Tins Daily: 0.5 Used Tobacco, but Quit: No Second Hand Smoke Exposure: Yes - Caffeine Use Caffeine Use: Reports: Soda - Alcohol Use Days Per Week of Alcohol Use: 7 Number of Drinks Per Day: 12 Total Drinks Per Week: 84 Date of Last Drink: 08/11/20 - Recreational Drug Use Recreational Drug Use: Yes Recreational Drug Type: Reports: Marijuana/Hashish Recreational Drug Use Frequency: Binges - Living Situation & Occupation Living situation: Reports: Single, with Significant Other Occupation: Unemployed ED ROS GENERAL - Review of Systems Review Of Systems: Comprehensive ROS is negative, except as noted in HPI. ED EXAM, GENERAL - Physical Exam Exam: See Below Exam Limited By: No Limitations General Appearance: Alert, WD/WN, No Apparent Distress Eye Exam: Bilateral Eye: EOMI, Normal Inspection, PERRL Ears: Normal External Exam, Normal Canal, Hearing Grossly Normal, Normal TMs Nose: Normal Inspection, Normal Mucosa, No Blood Throat/Mouth: Normal Inspection, Normal Lips, Normal Teeth, Normal Gums, Normal Oropharynx, Normal Voice, No Airway Compromise Head: Atraumatic, Normocephalic Neck: Normal Inspection, Supple, Non-Tender, Full Range of Motion Respiratory/Chest: No Respiratory Distress, Lungs Clear, Normal Breath Sounds, No Accessory Muscle Use, Chest Non-Tender Cardiovascular: Normal Peripheral Pulses, Regular Rate, Rhythm, No Edema, No Gallop, No JVD, No Murmur, No Rub GI/Abdominal: Normal Bowel Sounds, Soft, Tender (diffuse mild tenderness to palpation) (Male) Exam: Deferred Rectal (Males) Exam: Deferred Back Exam: Normal Inspection, Full Range of Motion, NT Extremities: Normal Inspection, Normal Range of Motion, Non-Tender, Normal Capil maru Refill, No Pedal Edema Neurological: Alert, Oriented, CN II-XII Intact, Normal Cognition, Normal Gait, Normal Reflexes, No Motor/Sensory Deficits Psychiatric: Normal Affect, Normal Mood Skin Exam: Warm, Dry, Intact, Normal Color, No Rash Lymphatic: No Adenopathy Course - Vital Signs Last Recorded V/S: Last Vital Signs Temp 36.2 C 08/12/20 18:37 Pulse 71 08/12/20 19:44 Resp 16 08/12/20 19:44 BP 129/83 08/12/20 19:44 Pulse Ox 100 08/12/20 19:44 - Orders/Labs/Meds Orders: Active Orders 24 hr Category Date Time Status Admission Diagnosis [ADT] Stat ADT 08/12/20 20:46 Ordered Admission Status [Patient Status] [ADT] Routine ADT 08/12/20 20:46 Ordered Octreotide [SandoSTATIN] 100 mcg Med 08/12/20 18:30 Active Sodium Chloride 0.9% [Normal Saline] 99 ml IV Q10H Pantoprazole [ProTONIX IV] 40 mg Med 08/12/20 18:30 Active Sodium Chloride 0.9% [Normal Saline] 100 ml IV .CONTINUOS Medication Orders Pantoprazole Sodium 40 mg/ (Sodium Chloride) 100 mls @ 20 mls/hr IV .CONTINUOS NILSON Last Admin: 08/12/20 18:47 Dose: 20 mls/hr Documented by: MABEL Octreotide Acetate 100 mcg/ (Sodium Chloride) 100 mls @ 50 mls/hr IV Q10H NILSON Last Admin: 08/12/20 18:39 Dose: 50 mls/hr Documented by: MABEL Labs: Laboratory Tests 08/12/20 08/12/20 08/12/20 Range/Units 18:39 18:39 18:39 WBC 8.5 (5.0-10.0) 10^3/uL RBC 4.98 (4.6-6.2) 10^6/uL Hgb 17.0 (14.0-18.0) g/dL Hct 43.5 (40.0-54.0) % MCV 87.3 D (80-100) fL MCH 34.1 H (27.0-34.0) pg MCHC 39.1 H (33.0-35.0) g/dL Plt Count 182 (150-450) 10^3/uL Neut % (Auto) 78.3 H (42.2-75.2) % Lymph % (Auto) 13.4 L (20.5-50.1) % [place] % (Auto) 7.0 (2-8) % Eos % (Auto) 0.7 L (1.0-3.0) % Baso % (Auto) 0.6 (0.0-1.0) % PT 13.4 H D (9.0-12.0) SEC INR 1.4 H (0.9-1.2) APTT 27.6 (22.0-34.0) SEC Sodium 125 L (136-145) mmol/L Potassium 2.6 L (3.5-5.1) mmol/L Chloride 87 L (98-107) mmol/L Carbon Dioxide 23 (21-32) mmol/L Anion Gap 17.6 H (7-13) mEq/L BUN 3 L (7-18) mg/dL Creatinine 0.88 (0.70-1.30) mg/dL Est Cr Clr Drug Dosing 84.11 mL/min Estimated GFR (MDRD) > 60 BUN/Creatinine Ratio 3.4 (No establ ref range) Glucose 126 H (74-99) mg/dL Calcium 8.4 L (8.5-10.1) mg/dL Total Bilirubin 1.6 H (0.2-1.0) mg/dL GGT 194 H (15-85) U/L AST 108 H (15-37) U/L ALT 81 H (16-63) U/L Alkaline Phosphatase 137 H (46-116) U/L Ammonia (11-32) umol/L Total Protein 7.6 (6.4-8.2) g/dL Albumin 3.8 (3.4-5.0) g/dL Globulin 3.8 Albumin/Globulin Ratio 1.0 Ethyl Alcohol 9 (0) mg/dL SARS-CoV-2 RNA (JAMESON) (NEGATIVE) 08/12/20 08/12/20 Range/Units 18:39 18:47 WBC (5.0-10.0) 10^3/uL RBC (4.6-6.2) 10^6/uL Hgb (14.0-18.0) g/dL Hct (40.0-54.0) % MCV (80-100) fL MCH (27.0-34.0) pg MCHC (33.0-35.0) g/dL Plt Count (150-450) 10^3/uL Neut % (Auto) (42.2-75.2) % Lymph % (Auto) (20.5-50.1) % [place] % (Auto) (2-8) % Eos % (Auto) (1.0-3.0) % Baso % (Auto) (0.0-1.0) % PT (9.0-12.0) SEC INR (0.9-1.2) APTT (22.0-34.0) SEC Sodium (136-145) mmol/L Potassium (3.5-5.1) mmol/L Chloride (98-107) mmol/L Carbon Dioxide (21-32) mmol/L Anion Gap (7-13) mEq/L BUN (7-18) mg/dL Creatinine (0.70-1.30) mg/dL Est Cr Clr Drug Dosing mL/min Estimated GFR (MDRD) BUN/Creatinine Ratio (No establ ref range) Glucose (74-99) mg/dL Calcium (8.5-10.1) mg/dL Total Bilirubin (0.2-1.0) mg/dL GGT (15-85) U/L AST (15-37) U/L ALT (16-63) U/L Alkaline Phosphatase (46-116) U/L Ammonia 21 (11-32) umol/L Total Protein (6.4-8.2) g/dL Albumin (3.4-5.0) g/dL Globulin Albumin/Globulin Ratio Ethyl Alcohol (0) mg/dL SARS-CoV-2 RNA (JAMESON) Negative (NEGATIVE) Meds: Medications Generic Name Dose Route Start Last Admin Trade Name Joseq PRN Reason Stop Dose Admin Pantoprazole Sodium 40 mg/ 100 mls @ 20 mls/hr 08/12/20 18:30 08/12/20 18:47 Sodium Chloride IV 20 mls/hr .CONTINUOS NILSON Administration Octreotide Acetate 100 mcg/ 100 mls @ 50 mls/hr 08/12/20 18:30 08/12/20 18:39 Sodium Chloride IV 50 mls/hr Q10H NILSON Administration Discontinued Medications Generic Name Dose Route Start Last Admin Trade Name Joseq PRN Reason Stop Dose Admin Multivitamins/Minerals 10 ml/ 1,011.2 mls @ 999 mls/hr 08/12/20 18:27 08/12/20 18:45 Thiamine HCl 100 mg/ Folic IV 08/12/20 19:27 999 mls/hr Acid 1 mg/ Lactated Ringer's .BOLUS ONE Administration Potassium Chloride 10 meq/ 100 mls @ 100 mls/hr 08/12/20 19:14 08/12/20 19:23 Premix IV 08/12/20 20:13 100 mls/hr ONETIME ONE Administration Sodium Chloride 1,000 mls @ 999 mls/hr 08/12/20 19:15 08/12/20 20:10 Normal Saline IV 08/12/20 20:15 999 mls/hr .BOLUS ONE Administration Metoclopramide HCl 10 mg 08/12/20 20:01 08/12/20 20:11 Reglan IVPUSH 08/12/20 20:02 10 mg ONETIME ONE Administration Octreotide Acetate 50 mcg 08/12/20 18:28 08/12/20 18:48 Sandostatin IVPUSH 08/12/20 18:29 50 mcg ONETIME ONE Administration Ondansetron HCl 4 mg 08/12/20 18:28 08/12/20 18:49 Zofran IVPUSH 08/12/20 18:29 4 mg ONETIME ONE Administration Ondansetron HCl 4 mg 08/12/20 18:50 Zofran IVPUSH 08/12/20 18:51 ONETIME ONE Pantoprazole Sodium 80 mg 08/12/20 18:28 08/12/20 18:41 Protonix Iv IVPUSH 08/12/20 18:29 80 mg .BOLUS ONE Administration Departure - Departure Time of Disposition: 20:48 Disposition: Refer to Observation Condition: Fair Clinical Impression: Hypokalemia, Hyponatremia, Nausea & vomiting Alcohol withdrawal Qualifiers: Complication of substance-induced condition: uncomplicated Qualified Code(s): F10.230 - Alcohol dependence with withdrawal, uncomplicated - Discharge Information *PRESCRIPTION DRUG MONITORING PROGRAM REVIEWED*: Not Applicable *COPY OF PRESCRIPTION DRUG MONITORING REPORT IN PATIENT WALTER: Not Applicable Forms: ED Department Discharge Care Plan Goals: Discussed the patient's history, examination, treatments and lab results with Dr. Tsang. Dr. Tsang accepted the patient for continued evaluation and management as an observation patient at [facility] in [place]. Sepsis Event Note (ED) - Evaluation Sepsis Screening Result: No Definite Risk - Focused Exam Vital Signs: Vital Signs Temp Pulse Resp BP Pulse Ox 08/12/20 19:44 71 16 129/83 100 08/12/20 18:37 36.2 C 89 18 119/79 100 - My Orders Last 24 Hours: My Active Orders 08/12/20 20:46 Admission Diagnosis [ADT] Stat Admission Status [Patient Status] [ADT] Routine - Assessment/Plan Last 24 Hours: My Active Orders 08/12/20 20:46 Admission Diagnosis [ADT] Stat Admission Status [Patient Status] [ADT] Routine
[2020-08-12] MEDS ORDERED: Acetaminophen 325 MG Tab PO PRN (21:21)
[2020-08-12] MEDS ORDERED: Albuterol 6.7 GM Inhaler INH PRN (21:30)
[2020-08-12] MEDS ORDERED: Lactated Ringers 1,000 ML IV SCH (21:30)
[2020-08-12] MEDS ORDERED: LORazepam 0.5 MG Tab PO PRN (21:43)
[2020-08-12] MEDS ORDERED: LORazepam 2 MG/ML SDV IV PRN (21:43)
--- NOTE | 2020-08-12 21:56 | PCM.HP ---
H&P History of Present Illness - General Date of Service: 08/12/20 Admit Problem/Dx: Admission Diagnosis/Problem Admission Diagnosis/Problem Hypokalemia - History of Present Illness Initial Comments - Free Text/Narative: Patient is a 65-year-old male with medical history significant for alcohol use disorder, alcoholic liver cirrhosis, COPD, dyslipidemia, gastritis, hepatic encephalopathy, esophageal varices, GI bleed, latent TB, ascites, SVT, rectal cancer, prostate cancer, and tobacco use disorder who presented to the ED with complaints of nausea and dry heaving started early this morning. Patient reports that he stopped drinking about 2 months ago but started drinking 4 days ago. States that his last drink was yesterday. States that he and some friends had been sharing a gallon of whiskey daily. States that he probably consumes about 1/4 gallon of whiskey by himself. Reports chills. Denies chest pain, shortness of breath, fevers, vomiting, diarrhea, constipation, dysuria, hematuria, edema, headache, vision changes, or any other symptoms. - Related Data Allergies/Adverse Reactions: Allergies Allergy/AdvReac Type Severity Reaction Status Date / Time aspirin Allergy Stomach Verified 08/12/20 18:27 Upset Home Medications: Home Meds Folic Acid 1 mg PO DAILY 12/06/14 [History] Spironolactone [Aldactone] 100 mg PO DAILY 08/22/18 [History] Ondansetron [Zofran] 4 mg PO Q8HR PRN 11/28/18 [History] Rifaximin [Xifaxan] 550 mg PO BID 02/10/19 [History] Betamethasone/Clotrimazole [Lotrisone] 1 applic TOP BID 03/15/20 [History] Furosemide 40 mg PO DAILY 03/15/20 [History] Lactulose 30 ml PO TID 03/15/20 [History] Metoprolol Succinate 50 mg PO DAILY 03/15/20 [History] Pantoprazole Sodium [Protonix] 40 mg PO BID 05/26/20 [History] Albuterol [Ventolin HFA] 2 puff PO Q4H PRN 05/27/20 [History] Past Medical History HEENT History: Reports: None Cardiovascular History: Reports: Hypertension Other Cardiovascular History: Hx of SVT. Dyslipidemia. Respiratory History: Reports: COPD, Sleep Apnea Gastrointestinal History: Reports: Cirrhosis, Gastritis, GERD, GI Bleed, PUD Other Gastrointestinal History: alcoholic gastritis Genitourinary History: Reports: Prostate Disorder Musculoskeletal History: Reports: Back Pain, Chronic Neurological History: Reports: None Psychiatric History: Reports: Addiction Other Psychiatric History: Hx of alcoholism Endocrine/Metabolic History: Reports: None Hematologic History: Reports: None Immunologic History: Reports: None Oncologic (Cancer) History: Reports: Prostate Other Oncologic History: denies Dermatologic History: Reports: None - Infectious Disease History Infectious Disease History: Reports: None - Past Surgical History Head Surgeries/Procedures: Reports: None HEENT Surgical History: Reports: None Cardiovascular Surgical History: Reports: None GI Surgical History: Reports: Other (See Below) Other GI Surgeries/Procedures: diagnostic sigmoidoscopy Male Surgical History: Reports: Circumcision, TURP-Transurethral Resection of Prostate Musculoskeletal Surgical History: Reports: Shoulder Surgery Other Musculoskeletal Surgeries/Procedures:: right shoulder, right arm broken in past Oncologic Surgical History: Reports: Other (See Below) Other Oncologic Surgeries/Procedures: TURP Social & Family History - Family History Family Medical History: No Pertinent Family History - Tobacco Use Tobacco Use Status *Q: Current Every Day Tobacco User Years of Tobacco use: 25 Packs/Tins Daily: 0.5 Used Tobacco, but Quit: No Second Hand Smoke Exposure: Yes - Caffeine Use Caffeine Use: Reports: Soda - Alcohol Use Days Per Week of Alcohol Use: 7 Number of Drinks Per Day: 12 Total Drinks Per Week: 84 Date of Last Drink: 08/11/20 - Recreational Drug Use Recreational Drug Use: Yes Recreational Drug Type: Reports: Marijuana/Hashish Recreational Drug Use Frequency: Binges - Living Situation & Occupation Living situation: Reports: Single, with Significant Other Occupation: Unemployed H&P Review of Systems - Review of Systems: Review Of Systems: Comprehensive ROS is negative, except as noted in HPI. Exam - Exam Exam: See Below - Vital Signs Vital Signs: Last Vital Signs Temp 98.2 F 08/12/20 21:21 Pulse 82 08/12/20 21:21 Resp 24 H 08/12/20 21:21 BP 112/52 L 08/12/20 21:21 Pulse Ox 100 08/12/20 21:21 Weight: 161 lb 8 oz - Exam General: Alert, Oriented, Cooperative, Moderate Distress HEENT: Conjunctiva Clear, EOMI, Hearing Intact, Mucosa Moist & [place] Neck: Supple Lungs: Clear to Auscultation, Normal Respiratory Effort Cardiovascular: Regular Rate, Regular Rhythm, Normal S1, Normal S2 GI/Abdominal Exam: Normal Bowel Sounds, Soft, Non-Tender, No Distention Extremities: Normal Inspection, Non-Tender, No Pedal Edema Peripheral Pulses: 2+: Radial (R), Dorsalis Pedis (L), Dorsalis Pedis (R) Skin: Warm, Dry, Intact Neuro Extensive - Mental Status: Alert, Oriented x3, Normal Mood/Affect, Diso rientation to Place Psychiatric: Alert, Normal Affect, Normal Mood - Patient Data Lab Results Last 24 hrs: Laboratory Results - last 24 hr 08/12/20 08/12/20 08/12/20 Range/Units 18:39 18:39 18:39 WBC 8.5 (5.0-10.0) 10^3/uL RBC 4.98 (4.6-6.2) 10^6/uL Hgb 17.0 (14.0-18.0) g/dL Hct 43.5 (40.0-54.0) % MCV 87.3 D (80-100) fL MCH 34.1 H (27.0-34.0) pg MCHC 39.1 H (33.0-35.0) g/dL Plt Count 182 (150-450) 10^3/uL Neut % (Auto) 78.3 H (42.2-75.2) % Lymph % (Auto) 13.4 L (20.5-50.1) % [place] % (Auto) 7.0 (2-8) % Eos % (Auto) 0.7 L (1.0-3.0) % Baso % (Auto) 0.6 (0.0-1.0) % PT 13.4 H D (9.0-12.0) SEC INR 1.4 H (0.9-1.2) APTT 27.6 (22.0-34.0) SEC Sodium 125 L (136-145) mmol/L Potassium 2.6 L (3.5-5.1) mmol/L Chloride 87 L (98-107) mmol/L Carbon Dioxide 23 (21-32) mmol/L Anion Gap 17.6 H (7-13) mEq/L BUN 3 L (7-18) mg/dL Creatinine 0.88 (0.70-1.30) mg/dL Est Cr Clr Drug Dosing 84.11 mL/min Estimated GFR (MDRD) > 60 BUN/Creatinine Ratio 3.4 (No establ ref range) Glucose 126 H (74-99) mg/dL Calcium 8.4 L (8.5-10.1) mg/dL Total Bilirubin 1.6 H (0.2-1.0) mg/dL GGT 194 H (15-85) U/L AST 108 H (15-37) U/L ALT 81 H (16-63) U/L Alkaline Phosphatase 137 H (46-116) U/L Ammonia (11-32) umol/L Total Protein 7.6 (6.4-8.2) g/dL Albumin 3.8 (3.4-5.0) g/dL Globulin 3.8 Albumin/Globulin Ratio 1.0 Ethyl Alcohol 9 (0) mg/dL SARS-CoV-2 RNA (JAMESON) (NEGATIVE) 08/12/20 08/12/20 Range/Units 18:39 18:47 WBC (5.0-10.0) 10^3/uL RBC (4.6-6.2) 10^6/uL Hgb (14.0-18.0) g/dL Hct (40.0-54.0) % MCV (80-100) fL MCH (27.0-34.0) pg MCHC (33.0-35.0) g/dL Plt Count (150-450) 10^3/uL Neut % (Auto) (42.2-75.2) % Lymph % (Auto) (20.5-50.1) % [place] % (Auto) (2-8) % Eos % (Auto) (1.0-3.0) % Baso % (Auto) (0.0-1.0) % PT (9.0-12.0) SEC INR (0.9-1.2) APTT (22.0-34.0) SEC Sodium (136-145) mmol/L Potassium (3.5-5.1) mmol/L Chloride (98-107) mmol/L Carbon Dioxide (21-32) mmol/L Anion Gap (7-13) mEq/L BUN (7-18) mg/dL Creatinine (0.70-1.30) mg/dL Est Cr Clr Drug Dosing mL/min Estimated GFR (MDRD) BUN/Creatinine Ratio (No establ ref range) Glucose (74-99) mg/dL Calcium (8.5-10.1) mg/dL Total Bilirubin (0.2-1.0) mg/dL GGT (15-85) U/L AST (15-37) U/L ALT (16-63) U/L Alkaline Phosphatase (46-116) U/L Ammonia 21 (11-32) umol/L Total Protein (6.4-8.2) g/dL Albumin (3.4-5.0) g/dL Globulin Albumin/Globulin Ratio Ethyl Alcohol (0) mg/dL SARS-CoV-2 RNA (JAMESON) Negative (NEGATIVE) Result Diagrams: 08/12/20 18:39 08/12/20 18:39 - Problem List (1) COPD (chronic obstructive pulmonary disease) SNOMED Code(s): 66732998 ICD Code: J44.9 - CHRONIC OBSTRUCTIVE PULMONARY DISEASE, UNSPECIFIED Status: Acute Current Visit: Yes (2) Alcohol abuse SNOMED Code(s): 21093511 ICD Code: F10.10 - ALCOHOL ABUSE, UNCOMPLICATED Status: Acute Current Visit: No (3) Alcohol withdrawal syndrome SNOMED Code(s): 726873206 ICD Code: F10.239 - ALCOHOL DEPENDENCE WITH WITHDRAWAL, UNSPECIFIED Status: Acute Current Visit: No Qualifiers: Complication of substance-induced condition: uncomplicated Qualified Code(s): F10.230 - Alcohol dependence with withdrawal, uncomplicated (4) Alcoholic cirrhosis SNOMED Code(s): 700619670 ICD Code: K70.30 - ALCOHOLIC CIRRHOSIS OF LIVER WITHOUT ASCITES Status: Acute Current Visit: No Qualifiers: Ascites presence: with ascites Qualified Code(s): K70.31 - Alcoholic cirrhosis of liver with ascites (5) Esophageal varices SNOMED Code(s): 47134740 ICD Code: I85.00 - ESOPHAGEAL VARICES WITHOUT BLEEDING Status: Acute Current Visit: No Qualifiers: Esophageal varices type: unspecified type Esophageal varices bleeding: without bleeding Qualified Code(s): I85.00 - Esophageal varices without bleeding (6) GERD (gastroesophageal reflux disease) SNOMED Code(s): 000876767 ICD Code: K21.9 - GASTRO-ESOPHAGEAL REFLUX DISEASE WITHOUT ESOPHAGITIS Status: Acute Current Visit: No Qualifiers: Esophagitis presence: without esophagitis Qualified Code(s): K21.9 - Gastro-esophageal reflux disease without esophagitis (7) Hypokalemia SNOMED Code(s): 45848171 ICD Code: E87.6 - HYPOKALEMIA Status: Acute Current Visit: No (8) Hyponatremia SNOMED Code(s): 23625553 ICD Code: E87.1 - HYPO-OSMOLALITY AND HYPONATREMIA Status: Acute Current Visit: No (9) Marijuana abuse SNOMED Code(s): 65707656 ICD Code: F12.10 - CANNABIS ABUSE, UNCOMPLICATED Status: Acute Current Visit: No Problem List Initiated/Reviewed/Updated: Yes Orders Last 24hrs: Active Orders 24 hr Category Date Time Status Admission Diagnosis [ADT] Stat ADT 08/12/20 20:46 Ordered Admission Status [Patient Status] [ADT] Routine ADT 08/12/20 20:46 Active Aspiration Precautions [RC] ASDIRECTED Care 08/12/20 21:43 Ordered Intake and Output [RC] QSHIFT Care 08/12/20 21:23 Ordered Notify Provider [RC] PRN Care 08/12/20 21:43 Ordered Oxygen Therapy [RC] PRN Care 08/12/20 21:21 Ordered RT Post Treatment Assessment [RC] Click to Edit Care 08/12/20 21:32 Ordered RT Pre-Treatment Assessment [RC] Click to Edit Care 08/12/20 21:32 Ordered Up With Assistance [RC] ASDIRECTED Care 08/12/20 21:21 Ordered VTE/DVT Education [RC] PER UNIT ROUTINE Care 08/12/20 21:21 Ordered Vital Signs [RC] Q4H Care 08/12/20 21:21 Ordered Nothing per Oral Now Diet [DIET] Diet 08/12/20 Dinner Ordered BASIC METABOLIC PANEL,BMP [CHEM] AM Lab 08/13/20 05:11 Ordered BASIC METABOLIC PANEL,BMP [CHEM] Timed Lab 08/12/20 21:30 Ordered MAGNESIUM [CHEM] AM Lab 08/13/20 05:11 Ordered PHOSPHORUS [CHEM] AM Lab 08/13/20 05:11 Ordered SODIUM,URINE RANDOM [URCHEM] Routine Lab 08/12/20 21:41 Ordered Acetaminophen [TylenoL] Med 08/12/20 21:21 Ordered 650 mg PO Q4H PRN Albuterol [Proventil HFA] Med 08/12/20 21:30 Ordered 2 puff INH Q4H PRN Betamethasone/Clotrimazole [Lotrisone] Med 08/13/20 09:00 Ordered 1 applic TOP BID Betamethasone/Propylene Glyc [Betamethasone DP Aug 0.05 Med 08/13/20 09:00 Ordered %] 1 applic TOP BID Docusate Sodium/Sennosides [Senna Plus] Med 08/12/20 21:21 Ordered 1 tab PO BEDTIME PRN Enoxaparin [Lovenox] Med 08/13/20 09:00 Ordered 40 mg SUBCUT DAILY Folic Acid Med 08/13/20 09:00 Ordered 1 mg PO DAILY LORazepam [Ativan] Med 08/12/20 21:43 Ordered See Protocol IV TITRATE PRN LORazepam [Ativan] Med 08/12/20 21:43 Ordered See Protocol PO TITRATE PRN Lactated Ringers @ 125 MLS/HR(1000ml) Med 08/12/20 21:30 Ordered Lactated Ringers [Ringers, Lactated] 1,000 ml IV ASDIRECTED Lactulose Med 08/13/20 09:00 Ordered 30 ml PO TID Metoprolol Succinate [Toprol XL] Med 08/13/20 09:00 Ordered 50 mg PO DAILY Octreotide [SandoSTATIN] 100 mcg Med 08/12/20 18:30 Active Sodium Chloride 0.9% [Normal Saline] 99 ml IV Q10H Ondansetron [Zofran ODT] Med 08/12/20 21:21 Ordered 4 mg PO Q6H PRN Ondansetron [Zofran] Med 08/12/20 21:21 Ordered 4 mg IVPUSH Q4H PRN Pantoprazole [ProTONIX IV] 40 mg Med 08/12/20 18:30 Active Sodium Chloride 0.9% [Normal Saline] 100 ml IV .CONTINUOS Pantoprazole [ProTONIX] Med 08/13/20 09:00 Ordered 40 mg PO BID Potassium Chloride [KCl 10 MEQ in Water 100 ML] 10 meq Med 08/12/20 21:30 Ordered Premix Bag 1 bag IV Q1H Rifaximin [Xifaxan] Med 08/13/20 09:00 Ordered 550 mg PO BID Spironolactone Med 08/13/20 09:00 Ordered 100 mg PO DAILY Thiamine [Vitamin B-1] Med 08/13/20 09:00 Ordered 100 mg IM DAILY Seizure Precautions [OM.PC] Stat Oth 08/12/20 21:43 Ordered Resuscitation Status Routine Resus Stat 08/12/20 21:21 Ordered Medication Orders Acetaminophen (Tylenol) 650 mg PO Q4H PRN PRN Reason: Pain (Mild 1-3)/fever Albuterol (Proventil Hfa) 0 gm INH Q4H PRN PRN Reason: Wheezing Betamethasone/Clotrimazole (Lotrisone) 0 gm TOP BID NILSON Enoxaparin Sodium (Lovenox) 40 mg SUBCUT DAILY NILSON Folic Acid (Folic Acid) 1 mg PO DAILY NILSON Pantoprazole Sodium 40 mg/ (Sodium Chloride) 100 mls @ 20 mls/hr IV .CONTINUOS NILSON Last Admin: 08/12/20 18:47 Dose: 20 mls/hr Documented by: PINDREN Octreotide Acetate 100 mcg/ (Sodium Chloride) 100 mls @ 50 mls/hr IV Q10H NILSON Last Admin: 08/12/20 18:39 Dose: 50 mls/hr Documented by: PINDREN Lactated Ringer's (Ringers, Lactated) 1,000 mls @ 125 mls/hr IV ASDIRECTED [facility] Potassium Chloride 10 meq/ (Premix) 100 mls @ 100 mls/hr IV Q1H NILSON Stop: 08/13/20 03:29 Lactulose (Cephulac) 20 gm PO TID NILSON Lorazepam (Ativan) 0 mg IV TITRATE PRN; Protocol PRN Reason: alcohol withdrawal Lorazepam (Ativan) 0 mg PO TITRATE PRN; Protocol PRN Reason: alcohol withdrawal Metoprolol Succinate (Toprol Xl) 50 mg PO DAILY [facility] Non-Formulary Medication (Betamethasone/Propylene Glyc [Betamethasone Dp Aug 0.05%]) 1 applic TOP BID NILSON Ondansetron HCl (Zofran Odt) 4 mg PO Q6H PRN PRN Reason: nausea, able to take PO Ondansetron HCl (Zofran) 4 mg IVPUSH Q4H PRN PRN Reason: Nausea/Vomiting Pantoprazole Sodium (Protonix) 40 mg PO BID [facility] Rifaximin (Xifaxan) 550 mg PO BID [facility] Senna/Docusate Sodium (Senna Plus) 1 tab PO BEDTIME PRN PRN Reason: Constipation Spironolactone (Aldactone) 100 mg PO DAILY [facility] Thiamine HCl (Vitamin B-1) 100 mg IM DAILY [facility] Assessment/Plan Comment:: #Hypokalemia: Potassium of 2.6. Likely due to poor oral intake. Patient reports that he has not eaten anything for about 4 days. Telemetry monitoring IV potassium replacement Monitor potassium levels #Hyponatremia: Sodium of 125 Received fluid boluses in the ED Repeat BMP Gentle fluid resuscitation Hold Lasix #Alcoholic cirrhosis #History of hepatic encephalopathy Continue lactulose and rifaximin Continue Aldactone Hold Lasix due to hyponatremia and hypokalemia #COPD: Not in acute exacerbation Continue breathing treatments #Dyslipidemia Continue home meds #GERD: PPI DVT prophylaxis: Lovenox GI prophylaxis: Protonix CODE STATUS: Full code per patient preference
[2020-08-12 22:32] LABS: ANION GAP 14.9 mEq/L (7-13); CHLORIDE,CL 91 mmol/L (98-107); SODIUM,NA 127 mmol/L (136-145)
[2020-08-12] MEDS: Ondansetron 4 MG/2 ML SDV IVPUSH PRN (22:45)
[2020-08-12] MEDS: Potassium Chloride 10 MEQ in Premix Bag 1 BAG IV SCH (22:52)
[2020-08-13] MEDS: Potassium Chloride 10 MEQ in Premix Bag 1 BAG IV SCH ×5 (00:35→08:08)
[2020-08-13] MEDS: Pantoprazole 40 MG in Sodium Chloride 0.9% 100 ML IV SCH (04:12)
[2020-08-13] MEDS: Octreotide 100 MCG in Sodium Chloride 0.9% 99 ML IV SCH (04:44)
[2020-08-13 06:53] LABS: ANION GAP 7.8 mEq/L (7-13); CHLORIDE,CL 94 mmol/L (98-107); SODIUM,NA 126 mmol/L (136-145)
[2020-08-13] MEDS ORDERED: Thiamine 200 MG/2 ML MDV IM SCH (09:00)
[2020-08-13] MEDS ORDERED: Non-Formulary Medication 1 Each (Betamethasone/Propylene Glyc [Betamethasone Dp Aug 0.05%] TOP SCH (09:00)
--- NOTE | 2020-08-13 09:01 | PCM.PN ---
- General Info Date of Service: 08/13/20 Admission Dx/Problem (Free Text): Admission Diagnosis/Problem Admission Diagnosis/Problem Hypokalemia Subjective Update: No acute events overnight. Mag low at 1.1. Na still low at 126; with urine Na of 83. Reports abdomen is still sore. Nausea is improved. Denies f/v, chest pain, sob, diarrhea, constipation, vomiting, dysuria, or any other acute symptoms. - Patient Data Vitals - Most Recent: Last Vital Signs Temp 97.8 F 08/13/20 08:07 Pulse 71 08/13/20 08:07 Resp 18 08/13/20 08:07 BP 110/62 08/13/20 08:07 Pulse Ox 100 08/13/20 08:07 Weight - Most Recent: 157 lb 3.2 oz I&O - Last 24 Hours: Intake & Output 08/12/20 08/13/20 08/13/20 22:59 06:59 14:59 Intake Total 2307 100 Balance 2307 100 Lab Results Last 24 Hours: Laboratory Results - last 24 hr 08/12/20 08/12/20 08/12/20 Range/Units 18:39 18:39 18:39 WBC 8.5 (5.0-10.0) 10^3/uL RBC 4.98 (4.6-6.2) 10^6/uL Hgb 17.0 (14.0-18.0) g/dL Hct 43.5 (40.0-54.0) % MCV 87.3 D (80-100) fL MCH 34.1 H (27.0-34.0) pg MCHC 39.1 H (33.0-35.0) g/dL Plt Count 182 (150-450) 10^3/uL Neut % (Auto) 78.3 H (42.2-75.2) % Lymph % (Auto) 13.4 L (20.5-50.1) % [place] % (Auto) 7.0 (2-8) % Eos % (Auto) 0.7 L (1.0-3.0) % Baso % (Auto) 0.6 (0.0-1.0) % PT 13.4 H D (9.0-12.0) SEC INR 1.4 H (0.9-1.2) APTT 27.6 (22.0-34.0) SEC Sodium 125 L (136-145) mmol/L Potassium 2.6 L (3.5-5.1) mmol/L Chloride 87 L (98-107) mmol/L Carbon Dioxide 23 (21-32) mmol/L Anion Gap 17.6 H (7-13) mEq/L BUN 3 L (7-18) mg/dL Creatinine 0.88 (0.70-1.30) mg/dL Est Cr Clr Drug Dosing 84.11 mL/min Estimated GFR (MDRD) > 60 BUN/Creatinine Ratio 3.4 (No establ ref range) Glucose 126 H (74-99) mg/dL Calcium 8.4 L (8.5-10.1) mg/dL Phosphorus (2.6-4.7) mg/dL Magnesium (1.8-2.4) mg/dL Total Bilirubin 1.6 H (0.2-1.0) mg/dL GGT 194 H (15-85) U/L AST 108 H (15-37) U/L ALT 81 H (16-63) U/L Alkaline Phosphatase 137 H (46-116) U/L Ammonia (11-32) umol/L Total Protein 7.6 (6.4-8.2) g/dL Albumin 3.8 (3.4-5.0) g/dL Globulin 3.8 Albumin/Globulin Ratio 1.0 Ur Random Sodium (No establ.ref range) mmol/L Ethyl Alcohol 9 (0) mg/dL SARS-CoV-2 RNA ([facility]) (NEGATIVE) 08/12/20 08/12/20 08/12/20 Range/Units 18:39 18:47 21:20 WBC (5.0-10.0) 10^3/uL RBC (4.6-6.2) 10^6/uL Hgb (14.0-18.0) g/dL Hct (40.0-54.0) % MCV (80-100) fL MCH (27.0-34.0) pg MCHC (33.0-35.0) g/dL Plt Count (150-450) 10^3/uL Neut % (Auto) (42.2-75.2) % Lymph % (Auto) (20.5-50.1) % [place] % (Auto) (2-8) % Eos % (Auto) (1.0-3.0) % Baso % (Auto) (0.0-1.0) % PT (9.0-12.0) SEC INR (0.9-1.2) APTT (22.0-34.0) SEC Sodium (136-145) mmol/L Potassium (3.5-5.1) mmol/L Chloride (98-107) mmol/L Carbon Dioxide (21-32) mmol/L Anion Gap (7-13) mEq/L BUN (7-18) mg/dL Creatinine (0.70-1.30) mg/dL Est Cr Clr Drug Dosing mL/min Estimated GFR (MDRD) BUN/Creatinine Ratio (No establ ref range) Glucose (74-99) mg/dL Calcium (8.5-10.1) mg/dL Phosphorus (2.6-4.7) mg/dL Magnesium (1.8-2.4) mg/dL Total Bilirubin (0.2-1.0) mg/dL GGT (15-85) U/L AST (15-37) U/L ALT (16-63) U/L Alkaline Phosphatase (46-116) U/L Ammonia 21 (11-32) umol/L Total Protein (6.4-8.2) g/dL Albumin (3.4-5.0) g/dL Globulin Albumin/Globulin Ratio Ur Random Sodium 83 (No establ.ref range) mmol/L Ethyl Alcohol (0) mg/dL SARS-CoV-2 RNA ([facility]AMESON) Negative (NEGATIVE) 08/12/20 08/13/20 Range/Units 22:12 06:26 WBC (5.0-10.0) 10^3/uL RBC (4.6-6.2) 10^6/uL Hgb (14.0-18.0) g/dL Hct (40.0-54.0) % MCV (80-100) fL MCH (27.0-34.0) pg MCHC (33.0-35.0) g/dL Plt Count (150-450) 10^3/uL Neut % (Auto) (42.2-75.2) % Lymph % (Auto) (20.5-50.1) % [place] % (Auto) (2-8) % Eos % (Auto) (1.0-3.0) % Baso % (Auto) (0.0-1.0) % PT (9.0-12.0) SEC INR (0.9-1.2) APTT (22.0-34.0) SEC Sodium 127 L 126 L (136-145) mmol/L Potassium 2.9 L 3.8 (3.5-5.1) mmol/L Chloride 91 L 94 L (98-107) mmol/L Carbon Dioxide 24 28 (21-32) mmol/L Anion Gap 14.9 H 7.8 (7-13) mEq/L BUN 3 L 3 L (7-18) mg/dL Creatinine 0.80 0.86 (0.70-1.30) mg/dL Est Cr Clr Drug Dosing 92.52 84.06 mL/min Estimated GFR (MDRD) > 60 > 60 BUN/Creatinine Ratio (No establ ref range) Glucose 137 H 126 H (74-99) mg/dL Calcium 7.7 L 7.5 L (8.5-10.1) mg/dL Phosphorus 3.0 (2.6-4.7) mg/dL Magnesium 1.1 L (1.8-2.4) mg/dL Total Bilirubin (0.2-1.0) mg/dL GGT (15-85) U/L AST (15-37) U/L ALT (16-63) U/L Alkaline Phosphatase (46-116) U/L Ammonia (11-32) umol/L Total Protein (6.4-8.2) g/dL Albumin (3.4-5.0) g/dL Globulin Albumin/Globulin Ratio Ur Random Sodium (No establ.ref range) mmol/L Ethyl Alcohol (0) mg/dL SARS-CoV-2 RNA (JAMESON) (NEGATIVE) Med Orders - Current: Current Medications Acetaminophen (Tylenol) 650 mg PO Q4H PRN PRN Reason: Pain (Mild 1-3)/fever Albuterol (Proventil Hfa) 0 gm INH Q4H PRN PRN Reason: Wheezing Betamethasone/Clotrimazole (Lotrisone) 0 gm TOP BID [facility] Enoxaparin Sodium (Lovenox) 40 mg SUBCUT DAILY [facility] Folic Acid (Folic Acid) 1 mg PO DAILY [facility] Lactulose (Cephulac) 20 gm PO TID [facility] Lorazepam (Ativan) 0 mg IV TITRATE PRN; Protocol PRN Reason: alcohol withdrawal Last Admin: 08/12/20 23:30 Dose: 1 mg Documented by: Lorazepam (Ativan) 0 mg PO TITRATE PRN; Protocol PRN Reason: alcohol withdrawal Magnesium Oxide (Magnesium Oxide) 500 mg PO BID [facility] Stop: 08/13/20 21:01 Metoprolol Succinate (Toprol Xl) 50 mg PO DAILY [facility] Non-Formulary Medication (Betamethasone/Propylene Glyc [Betamethasone Dp Aug 0.05%]) 1 applic TOP BID [facility] Ondansetron HCl (Zofran Odt) 4 mg PO Q6H PRN PRN Reason: nausea, able to take PO Ondansetron HCl (Zofran) 4 mg IVPUSH Q4H PRN PRN Reason: Nausea/Vomiting Last Admin: 08/12/20 22:45 Dose: 4 mg Documented by: Pantoprazole Sodium (Protonix) 40 mg PO BID [facility] Rifaximin (Xifaxan) 550 mg PO BID [facility] Senna/Docusate Sodium (Senna Plus) 1 tab PO BEDTIME PRN PRN Reason: Constipation Sodium Chloride (Sodium Chloride) 1 gm PO TID [facility] Spironolactone (Aldactone) 100 mg PO DAILY [facility] Thiamine HCl (Vitamin B-1) 100 mg IM DAILY [facility] Discontinued Medications Multivitamins/Minerals 10 ml/Thiamine HCl 100 mg/ Folic Acid 1 mg/ Lactated Ringer's 1,011.2 mls @ 999 mls/hr IV .BOLUS ONE Stop: 08/12/20 19:27 Last Admin: 08/12/20 18:45 Dose: 999 mls/hr Documented by: Pantoprazole Sodium 40 mg/ (Sodium Chloride) 100 mls @ 20 mls/hr IV .CONTINUOS [facility] Last Admin: 08/13/20 04:12 Dose: 20 mls/hr Documented by: Octreotide Acetate 100 mcg/ (Sodium Chloride) 100 mls @ 50 mls/hr IV Q10H [facility] Last Infusion: 08/13/20 06:47 Dose: Infused Documented by: Potassium Chloride 10 meq/ (Premix) 100 mls @ 100 mls/hr IV ONETIME ONE Stop: 08/12/20 20:13 Last Admin: 08/12/20 19:23 Dose: 100 mls/hr Documented by: Sodium Chloride (Normal Saline) 1,000 mls @ 999 mls/hr IV .BOLUS ONE Stop: 08/12/20 20:15 Last Admin: 08/12/20 20:10 Dose: 999 mls/hr Documented by: Lactated Ringer's (Ringers, Lactated) 1,000 mls @ 75 mls/hr IV ASDIRECTED [facility] Last Admin: 08/12/20 22:50 Dose: 125 mls/hr Documented by: Potassium Chloride 10 meq/ (Premix) 100 mls @ 100 mls/hr IV Q1H [facility] Stop: 08/13/20 03:29 Last Admin: 08/13/20 08:08 Dose: 100 mls/hr Documented by: Metoclopramide HCl (Reglan) 10 mg IVPUSH ONETIME ONE Stop: 08/12/20 20:02 Last Admin: 08/12/20 20:11 Dose: 10 mg Documented by: Octreotide Acetate (Sandostatin) 50 mcg IVPUSH ONETIME ONE Stop: 08/12/20 18:29 Last Admin: 08/12/20 18:48 Dose: 50 mcg Documented by: Ondansetron HCl (Zofran) 4 mg IVPUSH ONETIME ONE Stop: 08/12/20 18:29 Last Admin: 08/12/20 18:49 Dose: 4 mg Documented by: Ondansetron HCl (Zofran) 4 mg IVPUSH ONETIME ONE Stop: 08/12/20 18:51 Last Admin: 08/12/20 21:01 Dose: Not Given Documented by: Pantoprazole Sodium (Protonix Iv) 80 mg IVPUSH .BOLUS ONE Stop: 08/12/20 18:29 Last Admin: 08/12/20 18:41 Dose: 80 mg Documented by: - Exam General: Alert, Oriented, Cooperative, Mild Distress HEENT: Pupils Equal, Pupils Reactive, Mucous Membr. Moist/[place] Lungs: Clear to Auscultation, Normal Respiratory Effort Cardiovascular: Regular Rate, Regular Rhythm GI/Abdominal Exam: Normal Bowel Sounds, Soft, No Distention, Tender (Reports mildly tender to palpation. ) Extremities: Normal Inspection, Non-Tender, No Pedal Edema Peripheral Pulses: 2+: Radial (L), Dorsalis Pedis (L), Dorsalis Pedis (R) Skin: Warm, Dry, Intact Neurological: No New Focal Deficit Psy/Mental Status: Alert, Normal Affect, Normal Mood Sepsis Event Note - Evaluation Sepsis Screening Result: No Definite Risk - Focused Exam Vital Signs: Vital Signs Temp Pulse Resp BP BP Pulse Ox 08/13/20 08:07 97.8 F 71 18 110/62 100 08/13/20 05:00 97.6 F 72 20 114/68 99 08/13/20 01:21 98.5 F 74 20 117/58 L 99 08/12/20 21:21 98.2 F 82 24 H 112/52 L 127/70 100 - Problem List & Annotations (1) COPD (chronic obstructive pulmonary disease) SNOMED Code(s): 53551423 Code(s): J44.9 - CHRONIC OBSTRUCTIVE PULMONARY DISEASE, UNSPECIFIED Status: Acute Current Visit: Yes (2) Alcohol abuse SNOMED Code(s): 78631086 Code(s): F10.10 - ALCOHOL ABUSE, UNCOMPLICATED Status: Acute Current Visit: No (3) Alcohol withdrawal syndrome SNOMED Code(s): 869325578 Code(s): F10.239 - ALCOHOL DEPENDENCE WITH WITHDRAWAL, UNSPECIFIED Status: Acute Current Visit: No Qualifiers: Complication of substance-induced condition: uncomplicated Qualified Code(s): F10.230 - Alcohol dependence with withdrawal, uncomplicated (4) Alcoholic cirrhosis SNOMED Code(s): 102110109 Code(s): K70.30 - ALCOHOLIC CIRRHOSIS OF LIVER WITHOUT ASCITES Status: Acute Current Visit: No Qualifiers: Ascites presence: with ascites Qualified Code(s): K70.31 - Alcoholic cirrhosis of liver with ascites (5) Esophageal varices SNOMED Code(s): 32911891 Code(s): I85.00 - ESOPHAGEAL VARICES WITHOUT BLEEDING Status: Acute Current Visit: No Qualifiers: Esophageal varices type: unspecified type Esophageal varices bleeding: without bleeding Qualified Code(s): I85.00 - Esophageal varices without bleeding (6) GERD (gastroesophageal reflux disease) SNOMED Code(s): 203340332 Code(s): K21.9 - GASTRO-ESOPHAGEAL REFLUX DISEASE WITHOUT ESOPHAGITIS Stat us: Acute Current Visit: No Qualifiers: Esophagitis presence: without esophagitis Qualified Code(s): K21.9 - Gastro-esophageal reflux disease without esophagitis (7) Hypokalemia SNOMED Code(s): 43991609 Code(s): E87.6 - HYPOKALEMIA Status: Acute Current Visit: No (8) Hyponatremia SNOMED Code(s): 57017407 Code(s): E87.1 - HYPO-OSMOLALITY AND HYPONATREMIA Status: Acute Current Visit: No (9) Marijuana abuse SNOMED Code(s): 73131055 Code(s): F12.10 - CANNABIS ABUSE, UNCOMPLICATED Status: Acute Current Visit: No (10) Hypomagnesemia SNOMED Code(s): 322253678 Code(s): E83.42 - HYPOMAGNESEMIA Status: Acute Current Visit: Yes - Problem List Review Problem List Initiated/Reviewed/Updated: Yes - My Orders Last 24 Hours: My Active Orders 08/12/20 Dinner Nothing per Oral Now Diet [DIET] 08/12/20 21:21 Oxygen Therapy [RC] PRN Up With Assistance [RC] ASDIRECTED VTE/DVT Education [RC] PER UNIT ROUTINE Vital Signs [RC] Q4H Acetaminophen [TylenoL] 650 mg PO Q4H PRN Docusate Sodium/Sennosides [Senna Plus] 1 tab PO BEDTIME PRN Ondansetron [Zofran ODT] 4 mg PO Q6H PRN Ondansetron [Zofran] 4 mg IVPUSH Q4H PRN Resuscitation Status Routine 08/12/20 21:23 Intake and Output [RC] QSHIFT 08/12/20 21:30 Albuterol [Proventil HFA] 0 gm INH Q4H PRN 08/12/20 21:32 RT Post Treatment Assessment [RC] Click to Edit RT Pre-Treatment Assessment [RC] Click to Edit 08/12/20 21:43 Aspiration Precautions [RC] Notify Provider [RC] PRN LORazepam [Ativan] See Protocol IV TITRATE PRN LORazepam [Ativan] See Protocol PO TITRATE PRN Seizure Precautions [OM.PC] Stat 08/13/20 Breakfast General [Regular Diet] [DIET] 08/13/20 09:00 Betamethasone/Clotrimazole [Lotrisone] 0 gm TOP BID Betamethasone/Propylene Glyc [Betamethasone DP Aug 0.05%] 1 applic TOP BID Enoxaparin [Lovenox] 40 mg SUBCUT DAILY Folic Acid 1 mg PO DAILY Lactulose [Cephulac] 20 gm PO TID Magnesium Oxide 500 mg PO BID Metoprolol Succinate [Toprol XL] 50 mg PO DAILY Pantoprazole [ProTONIX] 40 mg PO BID Rifaximin [Xifaxan] 550 mg PO BID Sodium Chloride 1 gm PO TID Spironolactone [Aldactone] 100 mg PO DAILY Thiamine [Vitamin B-1] 100 mg IM DAILY 08/14/20 05:11 BASIC METABOLIC PANEL,BMP [CHEM] AM MAGNESIUM [CHEM] AM PHOSPHORUS [CHEM] AM - Plan Plan:: #Alcohol withdrawal syndrome CIWA protocol Thiamine, MVI, folic acid Monitor and replace electrolytes. #Hyponatremia: SIADH vs beer potomania. Sodium of 125, up to 126. urine Na of 83. Received fluid boluses in the ED Repeat BMP Gentle fluid resuscitation Hold Lasix #Hypomagnesemia: Mag of 1.1 Oral replacement #Hypokalemia: Resolved. K up to 3.8. Presented with potassium of 2.6. Likely due to poor oral intake. Patient reports that he has not eaten anything for about 4 days. Telemetry monitoring IV potassium replacement Monitor potassium levels #Alcoholic cirrhosis #History of hepatic encephalopathy Continue lactulose and rifaximin Continue Aldactone Hold Lasix due to hyponatremia and hypokalemia #COPD: Not in acute exacerbation Continue breathing treatments #Dyslipidemia Continue home meds #GERD: PPI DVT prophylaxis: Lovenox GI prophylaxis: Protonix, General diet. CODE STATUS: Full code per patient preference
[2020-08-13] MEDS: Spironolactone 25 MG Tab PO SCH (09:52)
[2020-08-13] MEDS: Rifaximin 550 MG Tab PO SCH ×2 (09:53→20:40)
[2020-08-13] MEDS: Betamethasone Dipropionate/Clotrimazole 0.05-1% Crm 15 GM Tube TOP SCH ×2 (09:53→20:45)
[2020-08-13] MEDS: Pantoprazole 40 MG Tab.CR PO SCH ×2 (09:53→20:40)
[2020-08-13] MEDS: Folic Acid 1 MG Tab PO SCH (09:53)
[2020-08-13] MEDS: Lactulose Soln 10 GM/15 ML 30 ML UD Cup PO SCH ×3 (09:54→20:39)
[2020-08-13] MEDS: Enoxaparin 40 MG/0.4 ML Syringe SUBCUT SCH (09:54)
[2020-08-13] MEDS: Metoprolol Succinate 50 MG Tab.ER PO SCH (09:57)
[2020-08-13] MEDS: Sodium Chloride 1 GM Tab PO SCH ×3 (09:59→20:40)
[2020-08-14 07:12] LABS: ANION GAP 10.8 mEq/L (7-13); CHLORIDE,CL 96 mmol/L (98-107); SODIUM,NA 131 mmol/L (136-145)
[2020-08-14] MEDS: Spironolactone 25 MG Tab PO SCH (08:44)
[2020-08-14] MEDS: Folic Acid 1 MG Tab PO SCH (08:45)
[2020-08-14] MEDS: Pantoprazole 40 MG Tab.CR PO SCH ×2 (08:45→20:46)
[2020-08-14] MEDS: Rifaximin 550 MG Tab PO SCH ×2 (08:45→20:46)
[2020-08-14] MEDS: Enoxaparin 40 MG/0.4 ML Syringe SUBCUT SCH (08:46)
[2020-08-14] MEDS: Ondansetron 4 MG Tab.DIS PO PRN (08:46)
[2020-08-14] MEDS: Metoprolol Succinate 50 MG Tab.ER PO SCH (08:46)
[2020-08-14] MEDS: Sodium Chloride 1 GM Tab PO SCH ×3 (08:46→20:47)
[2020-08-14] MEDS: Lactulose Soln 10 GM/15 ML 30 ML UD Cup PO SCH ×3 (08:47→20:47)
[2020-08-14] MEDS: Betamethasone Dipropionate/Clotrimazole 0.05-1% Crm 15 GM Tube TOP SCH ×2 (08:48→20:52)
[2020-08-14] MEDS ORDERED: Thiamine 200 MG/2 ML MDV IV SCH (09:00)
[2020-08-14] MEDS: Thiamine 100 MG in Sodium Chloride 0.9% 50 ML IV SCH (10:09)
--- NOTE | 2020-08-14 11:00 | PN ---
DATE: 08/14/2020 SUBJECTIVE: The patient is a 65-year-old male with medical history of alcohol use disorder, alcoholic liver cirrhosis, COPD, dyslipidemia, gastritis, hepatic encephalopathy, esophageal varices, and tobacco use disorder, who was admitted for alcohol withdrawal and hypokalemia. The patient this morning is still complaining of some mild epigastric discomfort, but overall has been doing fairly well. He denies any fever, chills, chest pain, nor any other complaints. LABORATORY DATA: Lab workup this morning; Chem-6: Sodium is 131, chloride of 96, potassium is 3.8, and the rest of the panel unremarkable. Calcium is 7.9, magnesium is 1.4, AST of 76 (improving). OBJECTIVE: Vital Signs: Blood pressure is 111/52, pulse 65, respirations of 18, temperature of 98.4, saturation is 100% on room air. Heart: Regular rate and rhythm. No gallops, no rubs. Lungs: Has diminished breath sounds on both bases, but no crackles, no wheezing. Abdomen: Soft. There is mild direct tenderness on the epigastric area. No rebound. Bowel sounds positive. Extremities: Negative for any pedal edema. No calf tenderness. MEDICATIONS: Reviewed. PLAN: We will continue with his lactulose, Lovenox, and lorazepam for the alcohol withdrawal protocol. We will also start the patient on magnesium oxide 250 mg b.i.d. and we will continue with his metoprolol, Protonix, rifaximin, spironolactone, and thiamine. We will recheck basic metabolic panel and magnesium in a.m. [facility] /[id number]
[2020-08-14] MEDS: Ondansetron 4 MG/2 ML SDV IVPUSH PRN ×2 (13:13→17:24)
[2020-08-14] MEDS ORDERED: Ondansetron 4 MG/2 ML SDV IVPUSH ONE (19:45)
[2020-08-14] MEDS ORDERED: Melatonin 3 MG Tab PO PRN (21:13)
[2020-08-15 07:02] LABS: ANION GAP 11.5 mEq/L (7-13); CHLORIDE,CL 96 mmol/L (98-107); SODIUM,NA 128 mmol/L (136-145)
[2020-08-15] MEDS: Thiamine 100 MG in Sodium Chloride 0.9% 50 ML IV SCH (08:53)
[2020-08-15] MEDS: Spironolactone 25 MG Tab PO SCH (08:59)
[2020-08-15] MEDS ORDERED: Levofloxacin/Dextrose 5%-Water 500 MG in Premix Bag 1 BAG IV ONE (09:00)
[2020-08-15] MEDS: Lactulose Soln 10 GM/15 ML 30 ML UD Cup PO SCH ×2 (09:07→14:03)
[2020-08-15] MEDS: Folic Acid 1 MG Tab PO SCH (09:08)
[2020-08-15] MEDS: Betamethasone Dipropionate/Clotrimazole 0.05-1% Crm 15 GM Tube TOP SCH (09:08)
[2020-08-15] MEDS: Pantoprazole 40 MG Tab.CR PO SCH (09:09)
[2020-08-15] MEDS: Enoxaparin 40 MG/0.4 ML Syringe SUBCUT SCH (09:09)
[2020-08-15] MEDS: Sodium Chloride 1 GM Tab PO SCH ×2 (09:10→14:19)
[2020-08-15] MEDS: Metoprolol Succinate 50 MG Tab.ER PO SCH (09:10)
[2020-08-15] MEDS: Rifaximin 550 MG Tab PO SCH (09:11)
--- NOTE | 2020-08-15 09:48 | PN ---
DATE: 08/15/2020 SUBJECTIVE: The patient is still complaining of some abdominal pain and episodes of vomiting, but the patient denies any fever or chills, chest pain or shortness of breath. LABORATORY DATA: Lab workup this morning, chem-6; sodium is 128, potassium is 3.5, chloride of 96, carbon dioxide of 24, anion gap of 11.5, BUN is 15, creatinine is 0.72, calcium is 8.1, magnesium is 1.6 (improving), and glucose is 98. Amylase is 23, lipase is 109. OBJECTIVE: Vital Signs: Blood pressure is 115/50, pulse of 65, respirations of 20, temperature of 97.9, and saturation is 100% on room air. Heart: Regular rate and rhythm. Normal S1 and S2. No gallops. No rubs. Lungs: Equal bilaterally. No crackles, no wheezing. Abdomen: Soft. There is still moderate direct tenderness diffusely. No rebound. Bowel sounds positive. Extremities: Negative for any significant pedal edema. No calf tenderness. MEDICATIONS: Reviewed. PLAN: We will continue with his present management including Lovenox for DVT prophylaxis and continue with lactulose and continue with the alcohol withdrawal protocol and continue with magnesium and metoprolol, and I am going to empirically put the patient on Levaquin IV because of the abdominal pain and we will also get a CAT scan of the abdomen and pelvis. [facility] /[id number]
[2020-08-15] MEDS ORDERED: Sodium Chloride 0.9% 10 ML Syringe FLUSH PRN (11:13)
[2020-08-15] MEDS: Ondansetron 4 MG/2 ML SDV IVPUSH PRN ×2 (11:33→16:20)
--- NOTE | 2020-08-15 12:33 | CT ---
EXAMINATION: Abdomen Pelvis wo Cont SEX: Male AGE: 65 years CLINICAL HISTORY: 65-year-old male hospitalized with abdominal pain. This smoker has a history of prostate surgery and cirrhosis with splenomegaly. Scan technique: Volume acquisition of data unenhanced CT scan of the abdomen and pelvis obtained with patient lying supine on the Siemens multislice scanner [facility]. All data archived in the PACS system for storage, reformatting axial/sagittal/coronal planes and study. Interpretation: Abnormal. 1. *Gallbladder distended RUQ; 2 tiny calcifications (stones) lodged in neck (axial slice #31; coronal #33). 2. No gallbladder wall edema. No abnormal dilatation of intra or extrahepatic biliary ducts. Normal pancreas. Stomach, adrenal glands, unenhanced kidneys/bladder unremarkable. Prostatectomy. 3. Diverticula sigmoid and distal descending left colon without associated inflammation i.e. diverticulosis. 4. Chronic multilevel lower lumbar disc disease (L4-5 and L5-S1 levels with associated spondylosis). Dense calcifications normal caliber aortoiliac vessels. No aneurysm or dissection. 5. No abdominal or pelvic mass lesion, mesenteric or retroperitoneal lymphadenopathy, signs of mechanical bowel obstruction, ascites or free intraperitoneal air. 7. Normal cardiac silhouette. Lung bases clear. No pericardial or pleural effusions. CONCLUSION: Diseased gallbladder (cholelithiasis). Diverticulosis colon. Lumbar disc disease/arthritis.
[2020-08-15] MEDS: Ondansetron 4 MG Tab.DIS PO PRN (13:49)
--- NOTE | 2020-08-15 14:29 | DISCH ---
FINAL DIAGNOSES: 1. Cholelithiasis. 2. Abdominal pain and nausea and vomiting secondary to #1. 3. Hypokalemia. 4. Hypomagnesemia. 5. Alcoholic liver disease with cirrhosis. 6. History of gastritis. 7. History of hepatic encephalopathy. 8. Alcohol abuse. BRIEF HISTORY OF PRESENT ILLNESS: The patient is a 65-year-old male with past medical history of alcohol use disorder, alcoholic liver cirrhosis, COPD, dyslipidemia, gastritis, hepatic encephalopathy, esophageal varices, and history of GI bleeding who was admitted because of abdominal pain and nausea and dry heaves. He was placed on alcohol withdrawal protocol. Potassium was repleted as well as the magnesium. He was placed on Protonix IV and was also resumed on his home medication. Despite the above regimen, the patient continued to have abdominal pain and nausea and dry heaves, and a CAT scan of the abdomen was done. This showed a distended gallbladder with stones lodged in the neck of the gallbladder. Because of this, the patient was transferred to [facility] for further evaluation and management and possible cholecystectomy. PERTINENT LAB, X-RAY, AND OTHER TESTS: WBC on 08/12/2020 is 8.5, hemoglobin is 17, hematocrit is 43.5, platelet is 182. Chem-6 on 08/12/2020; sodium is 127, potassium is 2.9, anion gap of 14, BUN of 3. Repeat Chem-6 on 08/14/2020; sodium is 131, potassium is 3.8, chloride of 96. Magnesium on 08/13/2020 is 1.1. Repeat on 08/15/2020 is 1.6. Amylase and lipase are within normal limits. CAT scan of the abdomen and pelvis showed diseased gallbladder (cholelithiasis), diverticulosis, and lumbar disk disease arthritis. HOSPITAL COURSE: The patient was admitted to observation. He was started on IV fluids. Potassium and magnesium were corrected. He was also started on oral Protonix and he was also on Lovenox for DVT prophylaxis. He was resumed on his home medication and the patient continued to have the abdominal pain and nausea and dry heaves, and a CAT scan of the abdomen was done which showed cholelithiasis, and because of this, the patient was transferred to [facility] in [place], and Dr. Montalvo (hospitalist) accepted the patient in transfer. [facility] /[id number]
--- NOTE | 2020-08-15 14:29 | PN ---
DATE: 08/15/2020 Official report of the CAT scan of the abdomen showed diseased gallbladder with cholelithiasis and stone sludge in the neck of the gallbladder. This was discussed with the patient and since the patient is still having abdominal pain and nausea and dry heaves, and we do not have any surgeon here in this hospital, we have decided that we are going to transfer him to [facility] in [place], and the patient is agreeable to this and I was able to talk to Dr. Montalvo in [facility] and he is willing to accept the patient in transfer. Condition on transfer is stable. [facility] /[id number]
[2020-08-15] MEDS ORDERED: Morphine 2 MG/ML SYRINGE IVPUSH ONE (16:11)
[2020-08-15 16:36] VITALS: BP 118/72; PULSE 67
[2020-08-16] MEDS ORDERED: Levofloxacin/Dextrose 5%-Water 250 MG in Premix Bag 1 BAG IV SCH (09:00)
== END 2020-08-15 16:25 | DRG 445 ==
LOC: DL.ED 18:26 → DL.MS 20:46 → DL.ED 21:09 → OBSVTOIN 08-15 12:18
PROVIDERS: ADMIT Internal Medicine; ATTEND Internal Medicine
DX: K80.20 Calculus of gallbladder without cholecystitis without obstruction (principal); F10.230 Alcohol dependence with withdrawal, uncomplicated; E87.1 Hypo-osmolality and hyponatremia; I85.00 Esophageal varices without bleeding; Z20.828 Contact with and (suspected) exposure to other viral communicable diseases; K70.31 Alcoholic cirrhosis of liver with ascites; K70.30 Alcoholic cirrhosis of liver without ascites; K21.9 Gastro-esophageal reflux disease without esophagitis; E87.6 Hypokalemia; F12.10 Cannabis abuse, uncomplicated; Z85.46 Personal history of malignant neoplasm of prostate; Z88.8 Allergy status to other drugs, medicaments and biological substances; Z87.11 Personal history of peptic ulcer disease; Z87.19 Personal history of other diseases of the digestive system; E83.42 Hypomagnesemia; J44.9 Chronic obstructive pulmonary disease, unspecified; E78.5 Hyperlipidemia, unspecified; I10 Essential (primary) hypertension; G47.30 Sleep apnea, unspecified; M54.9 Dorsalgia, unspecified; G89.29 Other chronic pain; F17.200 Nicotine dependence, unspecified, uncomplicated; Z28.82 Immunization not carried out because of caregiver refusal; Z88.6 Allergy status to analgesic agent; Z79.899 Other long term (current) drug therapy
CPT/HCPCS: 36415; 74176; 80048; 80053; 80076; 80307; 82140; 82150; 82977; 83690; 83735; 84100; 84300; 85025; 85610; 85730; 96365; 96366; 96367; 96368; 96372; 96375; 96376; 99217; 99219; 99225; 99284; 99285-25; A9270-GY; C9113; G0378; J1650; J1956; J2060; J2270; J2354-GY; J2405; J2765; J3411; J3480; J3490; J7030; J7120; U0002

== ENCOUNTER 2020-12-31 14:23 | Inpatient (IN) | payer MEDICARE, MEDICAID ==
[~2020-12-31 14:23] MED LIST changes: +Octreotide 100 MCG in Sodium Chloride 0.9% 99 ML IV SCH; -Ondansetron 4 MG/2 ML SDV IV ONE; +Ondansetron 4 MG/2 ML SDV IVPUSH ONE; +Pantoprazole 40 MG Vial IVPUSH ONE; -Sodium Chloride 0.9% 10 ML Syringe FLUSH PRN
[2020-12-31] MEDS ORDERED: Octreotide 100 MCG in Sodium Chloride 0.9% 100 ML IV ONE (14:57)
[2020-12-31 15:06] LABS: PTT,PARTIAL THROMBOPLSTIN TIME 25.3 SEC (22.0-34.0)
[2020-12-31 15:12] LABS: ANION GAP 19.5 mEq/L (7-13); CHLORIDE,CL 83 mmol/L (98-107); SODIUM,NA 123 mmol/L (136-145)
[2020-12-31] MEDS ORDERED: MVI, Adult with Vitamin K 10 ML, Thiamine 100 MG, Folic Acid 1 MG in Lactated Ringers 1... IV ONE ×4 (15:24)
[2020-12-31] MEDS ORDERED: Potassium Chloride 20 MEQ in Premix Bag 1 BAG IV ONE (15:24)
[2020-12-31] MEDS ORDERED: Magnesium Sulfate/Water 2 GM/50 ML BAG IV ONE (15:25)
[2020-12-31] MEDS ORDERED: Metoclopramide 10 MG/2 ML SDV IVPUSH ONE (15:37)
--- NOTE | 2020-12-31 15:37 | EDM.PDOC ---
ED HPI GENERAL MEDICAL PROBLEM - General Chief Complaint: Abdominal Pain Stated Complaint: AMBULANCE Time Seen by Provider: 12/31/20 15:27 Source of Information: Reports: Patient, EMS, RN, RN Notes Reviewed History Limitations: Reports: No Limitations - History of Present Illness INITIAL COMMENTS - FREE TEXT/NARRATIVE: Patient presents to the ED via [facility] with complaints of alcohol detox. The patient states he has been drinking approximately one liter of whiskey every day for the past seven days; he reports his last drink was last night. He reports upon awakening he felt nausea and immediately started vomiting. He is unable to quantify the amount of times he has vomited, but he notes the last several times he has attempted to vomit he has only dry-heaved. He denies fever, shaking chills, chest pain, palpitations, shortness of breath, dysuria, hematuria, or diarrhea. He does note he has not eaten food or experienced a bowel movement in about four days. He denies tobacco use; he reports he uses marijuana when he is able to get it. Abdomen Pain Score (Numeric/FACES): 8 - Related Data Allergies Allergy/AdvReac Type Severity Reaction Status Date / Time aspirin Allergy Stomach Verified 08/12/20 18:27 Upset Home Meds: Home Meds Folic Acid 1 mg PO DAILY 12/06/14 [History] Spironolactone [Aldactone] 100 mg PO DAILY 08/22/18 [History] Ondansetron [Zofran] 4 mg PO DAILY PRN 11/28/18 [History] Rifaximin [Xifaxan] 550 mg PO DAILY 02/10/19 [History] Betamethasone/Clotrimazole [Lotrisone] 1 applic TOP TID PRN 03/15/20 [History] Furosemide 40 mg PO DAILY 03/15/20 [History] Lactulose 30 ml PO DAILY 03/15/20 [History] Metoprolol Succinate 50 mg PO DAILY 03/15/20 [History] Pantoprazole Sodium [Protonix] 40 mg PO DAILY 05/26/20 [History] Albuterol [Ventolin HFA] 2 puff PO Q4H PRN 05/27/20 [History] Past Medical History HEENT History: Reports: None Cardiovascular History: Reports: Hypertension Other Cardiovascular History: Hx of SVT. Dyslipidemia. Respiratory History: Reports: COPD, Sleep Apnea Gastrointestinal History: Reports: Cirrhosis, Gastritis, GERD, GI Bleed, PUD, Other (See Below) Other Gastrointestinal History: alcoholic gastritis, ESOPHAGEAL VARICES Genitourinary History: Reports: Prostate Disorder Musculoskeletal History: Reports: Back Pain, Chronic Neurological History: Reports: None Psychiatric History: Reports: Addiction Other Psychiatric History: ALCOHOLISM Endocrine/Metabolic History: Reports: None Hematologic History: Reports: None Immunologic History: Reports: None Oncologic (Cancer) History: Reports: Prostate Other Oncologic History: denies Dermatologic History: Reports: None - Infectious Disease History Infectious Disease History: Reports: None - Past Surgical History Head Surgeries/Procedures: Reports: None HEENT Surgical History: Reports: None Cardiovascular Surgical History: Reports: None Respiratory Surgical History: Reports: None GI Surgical History: Reports: Other (See Below) Other GI Surgeries/Procedures: diagnostic sigmoidoscopy Male Surgical History: Reports: Circumcision, TURP-Transurethral Resection of Prostate Musculoskeletal Surgical History: Reports: Shoulder Surgery Other Musculoskeletal Surgeries/Procedures:: right shoulder, right arm broken in past Oncologic Surgical History: Reports: Other (See Below) Other Oncologic Surgeries/Procedures: TURP Social & Family History - Family History Family Medical History: No Pertinent Family History - Tobacco Use Tobacco Use Status *Q: Current Every Day Tobacco User Years of Tobacco use: 53 Packs/Tins Daily: 0.2 - Caffeine Use Caffeine Use: Reports: Coffee - Alcohol Use Days Per Week of Alcohol Use: 7 Number of Drinks Per Day: 1 Total Drinks Per Week: 7 Date of Last Drink: 12/31/20 - Recreational Drug Use Recreational Drug Use: No - Living Situation & Occupation Living situation: Reports: Single, with Significant Other Occupation: Unemployed ED ROS GENERAL - Review of Systems Review Of Systems: Comprehensive ROS is negative, except as noted in HPI. ED EXAM, GI/ABD - Physical Exam Exam: See Below Exam Limited By: No Limitations General Appearance: Alert, Anxious, Active Emesis (Dry heaves) Eyes: Bilateral: Normal Appearance, EOMI Throat/Mouth: Normal Voice, No Airway Compromise. No: Normal Teeth (Poor dentition with multiple caries, missing/chipped teeth), Normal Oropharynx (Dry mucous membranes) Head: Atraumatic, Normocephalic Neck: Normal Inspection, Supple, Non-Tender, Full Range of Motion Respiratory/Chest: No Respiratory Distress, Lungs Clear, Normal Breath Sounds, No Accessory Muscle Use, Chest Non-Tender Cardiovascular: Regular Rate, Rhythm, No Edema, No Gallop, No JVD, No Murmur, No Rub, Tachycardia GI/Abdominal Exam: Soft, No Distention, No Mass, Pelvis Stable, Tender (Diffuse to abdomen), Hepatomegaly (Male) Exam: Deferred Rectal (Males) Exam: Deferred Back Exam: Normal Inspection, Full Range of Motion. No: CVA Tenderness (L), CVA Tenderness (R) Extremities: Normal Inspection, Normal Range of Motion, Non-Tender, Normal Capillary Refill, No Pedal Edema Neurological: Alert, Oriented, CN II-XII Intact, Normal Cognition, Other (Tremor) Psychiatric: Normal Affect, Normal Mood Skin Exam: Warm, Dry, Intact, No Rash, Jaundice. No: Ecchymosis, Erythema, Mottled, Pallor, Petechiae #1 Interpretation EKG Date: 12/31/20 Time: 14:44 Rhythm: NSR Rate (Beats/Min): 85 [place]: LAD-Left [place] Deviation P-Wave: Present QRS: Normal ST-T: Normal QT: Prolonged (0.534) ID/PQ Interval: 0.172 Comparison: No Change EKG Interpretation Comments: Sinus rhythm; LAD; No evidence of acute myocardial ischemia Course - Vital Signs Last Recorded V/S: Last Vital Signs Temp 98.2 F 01/01/21 07:21 Pulse 63 01/01/21 07:21 Resp 20 01/01/21 07:21 BP 108/60 01/01/21 07:21 Pulse Ox 98 01/01/21 07:21 - Orders/Labs/Meds Orders: Medication Orders Albuterol (Albuterol 6.7 Gm Inhaler) 0 gm INH Q4H PRN PRN Reason: Wheezing Chlordiazepoxide HCl (Chlordiazepoxide 25 Mg Cap) 50 - 100 mg PO ASDIRECTED [facility]; Protocol Stop: 01/02/21 18:00 Folic Acid (Folic Acid 1 Mg Tab) 1 mg PO DAILY NILSON Ibuprofen (Ibuprofen 400 Mg Tab) 400 mg PO Q6H PRN PRN Reason: Pain (mild 1-3) Metoprolol Succinate (Metoprolol Succinate 50 Mg Tab.Er) 50 mg PO DAILY NILSON Ondansetron HCl (Ondansetron 4 Mg Tab.Dis) 4 mg PO Q6H PRN PRN Reason: nausea, able to take PO Pantoprazole Sodium (Pantoprazole 40 Mg Tab.Cr) 40 mg PO DAILY NILSON Spironolactone (Spironolactone 25 Mg Tab) 100 mg PO DAILY NILSON Last Admin: 12/31/20 18:59 Dose: 100 mg Documented by: AMANDA Labs: Laboratory Tests 12/31/20 12/31/20 12/31/20 Range/Units 14:17 14:17 14:17 WBC 10.6 H (5.0-10.0) 10^3/uL RBC 6.16 (4.6-6.2) 10^6/uL Hgb 20.5 H D (14.0-18.0) g/dL Hct 52.2 (40.0-54.0) % MCV 84.7 D (80-100) fL MCH 33.3 (27.0-34.0) pg MCHC 39.3 H (33.0-35.0) g/dL Plt Count 284 (150-450) 10^3/uL Neut % (Auto) 78.7 H (42.2-75.2) % Lymph % (Auto) 13.1 L (20.5-50.1) % Frontier % (Auto) 6.8 (2-8) % Eos % (Auto) 0.2 L (1.0-3.0) % Baso % (Auto) 1.2 H (0.0-1.0) % PT 12.1 H (9.0-12.0) SEC INR 1.2 (0.9-1.2) APTT 25.3 (22.0-34.0) SEC Sodium 123 L (136-145) mmol/L Potassium 2.5 L (3.5-5.1) mmol/L Chloride 83 L (98-107) mmol/L Carbon Dioxide 23 (21-32) mmol/L Anion Gap 19.5 H (7-13) mEq/L BUN 7 (7-18) mg/dL Creatinine 1.19 (0.70-1.30) mg/dL Est Cr Clr Drug Dosing 60.87 mL/min Estimated GFR (MDRD) > 60 BUN/Creatinine Ratio 5.9 (No establ ref range) Glucose 149 H (70-99) mg/dL Lactic Acid (0.4-2.0) mmol/L Calcium 9.1 (8.5-10.1) mg/dL Magnesium 1.2 L (1.8-2.4) mg/dL Total Bilirubin 2.2 H (0.2-1.0) mg/dL AST 99 H (15-37) U/L ALT 167 H (16-63) U/L Alkaline Phosphatase 121 H (46-116) U/L Ammonia (11-32) umol/L Troponin I < 0.017 (0.000-0.056) ng/mL C-Reactive Protein 2.9 H (0.0-0.9) mg/dL B-Natriuretic Peptide 26 (0-100) pg/ml Total Protein 8.5 H (6.4-8.2) g/dL Albumin 4.3 (3.4-5.0) g/dL Globulin 4.2 Albumin/Globulin Ratio 1.0 Amylase 26 (25-115) U/L Lipase 191 (73-393) U/L Urine Color (YELLOW) Urine Appearance (CLEAR) Urine pH (5.0-9.0) Ur Specific [place] (1.005-1.030) Urine Protein (NEGATIVE) Urine Glucose (UA) (NEGATIVE) Urine Ketones (NEGATIVE) Urine Occult Blood (NEGATIVE) Urine Nitrite (NEGATIVE) Urine Bilirubin (NEGATIVE) Urine Urobilinogen (0.2-1.0) mg/dL Ur Leukocyte Esterase (NEGATIVE) U Hyaline Cast (Auto) Urine RBC /HPF Urine WBC (0-5/HPF) /HPF Ur Epithelial Cells (NOT SEEN) /HPF Urine Mucus (NOT SEEN) /LPF Urine Opiates Screen (NEGATIVE) Ur Oxycodone Screen (NEGATIVE) Urine Methadone Screen (NEGATIVE) Ur Barbiturates Screen (NEGATIVE) U Tricyclic Antidepress (NEGATIVE) Ur Phencyclidine Scrn (NEGATIVE) Ur Amphetamine Screen (NEGATIVE) U Methamphetamines Scrn (NEGATIVE) Urine MDMA Screen (NEGATIVE) U Benzodiazepines Scrn (NEGATIVE) Urine Cocaine Screen (NEGATIVE) U Marijuana (THC) Screen (NEGATIVE) Ethyl Alcohol 6 (0) mg/dL Influenza Type A RNA (NEGATIVE) Influenza Type B RNA (NEGATIVE) SARS-CoV-2 RNA (JAMESON) (NEGATIVE) 12/31/20 12/31/20 12/31/20 Range/Units 14:17 14:17 16:37 WBC (5.0-10.0) 10^3/uL RBC (4.6-6.2) 10^6/uL Hgb (14.0-18.0) g/dL Hct (40.0-54.0) % MCV (80-100) fL MCH (27.0-34.0) pg MCHC (33.0-35.0) g/dL Plt Count (150-450) 10^3/uL Neut % (Auto) (42.2-75.2) % Lymph % (Auto) (20.5-50.1) % Frontier % (Auto) (2-8) % Eos % (Auto) (1.0-3.0) % Baso % (Auto) (0.0-1.0) % PT (9.0-12.0) SEC INR (0.9-1.2) APTT (22.0-34.0) SEC Sodium (136-145) mmol/L Potassium (3.5-5.1) mmol/L Chloride (98-107) mmol/L Carbon Dioxide (21-32) mmol/L Anion Gap (7-13) mEq/L BUN (7-18) mg/dL Creatinine (0.70-1.30) mg/dL Est Cr Clr Drug Dosing mL/min Estimated GFR (MDRD) BUN/Creatinine Ratio (No establ ref range) Glucose (70-99) mg/dL Lactic Acid 3.0 H* (0.4-2.0) mmol/L Calcium (8.5-10.1) mg/dL Magnesium (1.8-2.4) mg/dL Total Bilirubin (0.2-1.0) mg/dL AST (15-37) U/L ALT (16-63) U/L Alkaline Phosphatase (46-116) U/L Ammonia 17 (11-32) umol/L Troponin I (0.000-0.056) ng/mL C-Reactive Protein (0.0-0.9) mg/dL B-Natriuretic Peptide (0-100) pg/ml Total Protein (6.4-8.2) g/dL Albumin (3.4-5.0) g/dL Globulin Albumin/Globulin Ratio Amylase (25-115) U/L Lipase (73-393) U/L Urine Color (YELLOW) Urine Appearance (CLEAR) Urine pH (5.0-9.0) Ur Specific [place] (1.005-1.030) Urine Protein (NEGATIVE) Urine Glucose (UA) (NEGATIVE) Urine Ketones (NEGATIVE) Urine Occult Blood (NEGATIVE) Urine Nitrite (NEGATIVE) Urine Bilirubin (NEGATIVE) Urine Urobilinogen (0.2-1.0) mg/dL Ur Leukocyte Esterase (NEGATIVE) U Hyaline Cast (Auto) Urine RBC /HPF Urine WBC (0-5/HPF) /HPF Ur Epithelial Cells (NOT SEEN) /HPF Urine Mucus (NOT SEEN) /LPF Urine Opiates Screen Negative (NEGATIVE) Ur Oxycodone Screen Negative (NEGATIVE) Urine Methadone Screen Negative (NEGATIVE) Ur Barbiturates Screen Negative (NEGATIVE) U Tricyclic Antidepress Negative (NEGATIVE) Ur Phencyclidine Scrn Negative (NEGATIVE) Ur Amphetamine Screen Negative (NEGATIVE) U Methamphetamines Scrn Negative (NEGATIVE) Urine MDMA Screen Negative (NEGATIVE) U Benzodiazepines Scrn Negative (NEGATIVE) Urine Cocaine Screen Negative (NEGATIVE) U Marijuana (THC) Screen Positive H (NEGATIVE) Ethyl Alcohol (0) mg/dL Influenza Type A RNA (NEGATIVE) Influenza Type B RNA (NEGATIVE) SARS-CoV-2 RNA (JAMESON) (NEGATIVE) 12/31/20 12/31/20 Range/Units 16:37 16:54 WBC (5.0-10.0) 10^3/uL RBC (4.6-6.2) 10^6/uL Hgb (14.0-18.0) g/dL Hct (40.0-54.0) % MCV (80-100) fL MCH (27.0-34.0) pg MCHC (33.0-35.0) g/dL Plt Count (150-450) 10^3/uL Neut % (Auto) (42.2-75.2) % Lymph % (Auto) (20.5-50.1) % Frontier % (Auto) (2-8) % Eos % (Auto) (1.0-3.0) % Baso % (Auto) (0.0-1.0) % PT (9.0-12.0) SEC INR (0.9-1.2) APTT (22.0-34.0) SEC Sodium (136-145) mmol/L Potassium (3.5-5.1) mmol/L Chloride (98-107) mmol/L Carbon Dioxide (21-32) mmol/L Anion Gap (7-13) mEq/L BUN (7-18) mg/dL Creatinine (0.70-1.30) mg/dL Est Cr Clr Drug Dosing mL/min Estimated GFR (MDRD) BUN/Creatinine Ratio (No establ ref range) Glucose (70-99) mg/dL Lactic Acid (0.4-2.0) mmol/L Calcium (8.5-10.1) mg/dL Magnesium (1.8-2.4) mg/dL Total Bilirubin (0.2-1.0) mg/dL AST (15-37) U/L ALT (16-63) U/L Alkaline Phosphatase (46-116) U/L Ammonia (11-32) umol/L Troponin I (0.000-0.056) ng/mL C-Reactive Protein (0.0-0.9) mg/dL B-Natriuretic Peptide (0-100) pg/ml Total Protein (6.4-8.2) g/dL Albumin (3.4-5.0) g/dL Globulin Albumin/Globulin Ratio Amylase (25-115) U/L Lipase (73-393) U/L Urine Color Yellow (YELLOW) Urine Appearance Clear (CLEAR) Urine pH 7.5 (5.0-9.0) Ur Specific [place] 1.025 (1.005-1.030) Urine Protein Negative (NEGATIVE) Urine Glucose (UA) Negative (NEGATIVE) Urine Ketones Negative (NEGATIVE) Urine Occult Blood Trace-intact H (NEGATIVE) Urine Nitrite Negative (NEGATIVE) Urine Bilirubin Negative (NEGATIVE) Urine Urobilinogen 1.0 (0.2-1.0) mg/dL Ur Leukocyte Esterase Negative (NEGATIVE) U Hyaline Cast (Auto) Few Urine RBC 0-5 /HPF Urine WBC 0-5 (0-5/HPF) /HPF Ur Epithelial Cells Rare (NOT SEEN) /HPF Urine Mucus Few H (NOT SEEN) /LPF Urine Opiates Screen (NEGATIVE) Ur Oxycodone Screen (NEGATIVE) Urine Methadone Screen (NEGATIVE) Ur Barbiturates Screen (NEGATIVE) U Tricyclic Antidepress (NEGATIVE) Ur Phencyclidine Scrn (NEGATIVE) Ur Amphetamine Screen (NEGATIVE) U Methamphetamines Scrn (NEGATIVE) Urine MDMA Screen (NEGATIVE) U Benzodiazepines Scrn (NEGATIVE) Urine Cocaine Screen (NEGATIVE) U Marijuana (THC) Screen (NEGATIVE) Ethyl Alcohol (0) mg/dL Influenza Type A RNA Negative (NEGATIVE) Influenza Type B RNA Negative (NEGATIVE) SARS-CoV-2 RNA (JAMESON) Negative (NEGATIVE) Meds: Medications Generic Name Dose Route Start Last Admin Trade Name Bill PRN Reason Stop Dose Admin Albuterol 0 gm 12/31/20 18:05 Albuterol 6.7 Gm Inhaler INH Q4H PRN Wheezing Chlordiazepoxide HCl 50 - 100 mg 12/31/20 18:36 Chlordiazepoxide 25 Mg Cap PO 01/02/21 18:00 ASDIRECTED [facility] Protocol Folic Acid 1 mg 01/01/21 09:00 Folic Acid 1 Mg Tab PO DAILY NILSON Ibuprofen 400 mg 12/31/20 18:36 Ibuprofen 400 Mg Tab PO Q6H PRN Pain (mild 1-3) Metoprolol Succinate 50 mg 01/01/21 09:00 Metoprolol Succinate 50 Mg Tab.Er PO DAILY [facility] Ondansetron HCl 4 mg 12/31/20 18:36 Ondansetron 4 Mg Tab.Dis PO Q6H PRN nausea, able to take PO Pantoprazole Sodium 40 mg 01/01/21 09:00 Pantoprazole 40 Mg Tab.Cr PO DAILY [facility] Spironolactone 100 mg 12/31/20 18:15 12/31/20 18:59 Spironolactone 25 Mg Tab PO 100 mg DAILY [facility] Administration Discontinued Medications Generic Name Dose Route Start Last Admin Trade Name Bill PRN Reason Stop Dose Admin Chlordiazepoxide HCl 0 mg 12/31/20 18:00 Chlordiazepoxide 25 Mg Cap PO ASDIRECTED [facility] Octreotide Acetate 100 mcg/ 101 mls @ 50 mls/hr 12/31/20 14:57 12/31/20 16:59 Sodium Chloride IV 12/31/20 16:58 Infused ONETIME ONE Infusion Multivitamins/Minerals 10 ml/ 1,011.2 mls @ 999 mls/hr 12/31/20 15:24 12/31/20 17:10 Thiamine HCl 100 mg/ Folic IV 12/31/20 16:24 Infused Acid 1 mg/ Lactated Ringer's .BOLUS ONE Infusion Potassium Chloride 20 meq/ 100 mls @ 50 mls/hr 12/31/20 15:24 12/31/20 16:06 Premix IV 12/31/20 17:23 50 mls/hr ONETIME ONE Administration Magnesium Sulfate 2 gm in 50 mls @ 25 mls/hr 12/31/20 15:25 12/31/20 16:06 Magnesium Sulfate In Water 2 Gm/50 Ml IV 12/31/20 17:24 25 mls/hr ONETIME ONE Administration Sodium Chloride 1,000 mls @ 999 mls/hr 12/31/20 16:07 12/31/20 16:10 Normal Saline IV 12/31/20 17:07 999 mls/hr .BOLUS ONE Administration Metoclopramide HCl 10 mg 12/31/20 15:37 12/31/20 15:47 Metoclopramide 10 Mg/2 Ml Sdv IVPUSH 12/31/20 15:38 10 mg ONETIME ONE Administration Ondansetron HCl 4 mg 12/31/20 14:12 12/31/20 14:30 Ondansetron 4 Mg/2 Ml Sdv IVPUSH 12/31/20 14:13 4 mg ONETIME ONE Administration Pantoprazole Sodium 40 mg 12/31/20 14:12 12/31/20 14:30 Pantoprazole 40 Mg Vial IVPUSH 12/31/20 14:13 40 mg ONETIME ONE Administration - Re-Assessments/Exams Free Text/Narrative Re-Assessment/Exam: 12/31/20 Octreotide gtt and Protonix 40 IVP administered given patient's history of varices r/t alcoholic cirrhosis in the presence of significant dry heaving. Banana Bag initiated while labs pending. WBC slightly elevated at 10.6 with left shift noted via CBC; Hgb 20.5 likely due to severe dehydration. Coagulations appropriate. Na 123, K 2.5 via CMP with Mag 1.2; Anion Gap 19.5 and Lactic 3. Will replace electrolytes IVPB and start NS 1L bolus. Kidney functions appropriate. Liver functions reduced with AST 99, ALT 167, Alk Phos 121, and Total Bili 2.2 Amylase/Lipase WNL. Tox screen + for THC and ETOH 6 COVID and Influenza negative. Findings of examination and lab work reviewed with patient, as well as need for hospitalization for rehydration and electrolyte replacement. Patient verbalized understanding and agreement with hospitalization. Case discussed with Dr. Valdivia at this facility who kindly agreed to accept patient for inpatient admission related to alcohol withdrawal syndrome. Departure - Departure Time of Disposition: 17:12 Disposition: Admitted As Inpatient 64 Condition: Fair Clinical Impression: Hyponatremia, Hypokalemia, Hypomagnesemia, Marijuana abuse, History of esophageal varices, Chronic alcohol abuse, Dehydration Alcohol withdrawal Qualifiers: Complication of substance-induced condition: uncomplicated Qualified Code(s): F10.230 - Alcohol dependence with withdrawal, uncomplicated Nausea & vomiting Qualifiers: Vomiting type: unspecified Vomiting Intractability: non-intractable Qualified Code(s): R11.2 - Nausea with vomiting, unspecified Alcoholic cirrhosis Qualifiers: Ascites presence: with ascites Qualified Code(s): K70.31 - Alcoholic cirrhosis of liver with ascites - Discharge Information Sepsis Event Note (ED) - Evaluation Sepsis Screening Result: No Definite Risk
[2020-12-31] MEDS ORDERED: Sodium Chloride 0.9% 1,000 ML IV ONE (16:07)
[2020-12-31 17:33] LABS: CORONAVIRUS COVID-19 NAA NEGATIVE (NEGATIVE)
[2020-12-31] MEDS ORDERED: chlordiazePOXIDE 25 MG Cap PO SCH ×2 (18:00→18:36)
[2020-12-31] MEDS ORDERED: Albuterol 6.7 GM Inhaler INH PRN (18:05)
[2020-12-31] MEDS ORDERED: Ondansetron 4 MG Tab.DIS PO PRN (18:36)
[2020-12-31] MEDS ORDERED: Ibuprofen 400 MG Tab PO PRN (18:36)
[2020-12-31] MEDS: Spironolactone 25 MG Tab PO SCH (18:59)
--- NOTE | 2020-12-31 23:29 | PCM.HP ---
H&P History of Present Illness - General Date of Service: 12/31/20 Admit Problem/Dx: Admission Diagnosis/Problem Admission Diagnosis/Problem Alcohol withdrawal syndrome - History of Present Illness Initial Comments - Free Text/Narative: Arsh is a 65-year-old man who presented to the ED this afternoon with intracta ble nausea and vomiting. He has chronic alcohol abuse issues, and unfortunately has been drinking a large amount of alcohol every day for the past 7 to 8 days. He reports that he has not had much to eat or drink all day today because whenever he has his intake, he has been vomiting. He is not having any chest pain or palpitations with this, no dyspnea. Fernie reports that he has not had any actual alcohol withdrawal seizures in the past Abdomen Pain Score (Numeric/FACES): 8 - Related Data Allergies/Adverse Reactions: Allergies Allergy/AdvReac Type Severity Reaction Status Date / Time aspirin Allergy Stomach Verified 08/12/20 18:27 Upset Home Medications: Home Meds Folic Acid 1 mg PO DAILY 12/06/14 [History] Spironolactone [Aldactone] 100 mg PO DAILY 08/22/18 [History] Ondansetron [Zofran] 4 mg PO DAILY PRN 11/28/18 [History] Rifaximin [Xifaxan] 550 mg PO DAILY 02/10/19 [History] Betamethasone/Clotrimazole [Lotrisone] 1 applic TOP TID PRN 03/15/20 [History] Furosemide 40 mg PO DAILY 03/15/20 [History] Lactulose 30 ml PO DAILY 03/15/20 [History] Metoprolol Succinate 50 mg PO DAILY 03/15/20 [History] Pantoprazole Sodium [Protonix] 40 mg PO DAILY 05/26/20 [History] Albuterol [Ventolin HFA] 2 puff PO Q4H PRN 05/27/20 [History] Past Medical History HEENT History: Reports: None Cardiovascular History: Reports: Hypertension Other Cardiovascular History: Hx of SVT. Dyslipidemia. Respiratory History: Reports: COPD, Sleep Apnea Gastrointestinal History: Reports: Cirrhosis, Gastritis, GERD, GI Bleed, PUD, Other (See Below) Other Gastrointestinal History: alcoholic gastritis, ESOPHAGEAL VARICES Genitourinary History: Reports: Prostate Disorder Musculoskeletal History: Reports: Arthritis, Back Pain, Chronic, Fracture Neurological History: Reports: None Psychiatric History: Reports: Addiction Other Psychiatric History: ALCOHOLISM Endocrine/Metabolic History: Reports: None Hematologic History: Reports: None Immunologic History: Reports: None Oncologic (Cancer) History: Reports: Prostate Other Oncologic History: denies Dermatologic History: Reports: Eczema, Psoriasis - Infectious Disease History Infectious Disease History: Reports: None - Past Surgical History Head Surgeries/Procedures: Reports: None HEENT Surgical History: Reports: None Cardiovascular Surgical History: Reports: None Respiratory Surgical History: Reports: None GI Surgical History: Reports: Other (See Below) Other GI Surgeries/Procedures: diagnostic sigmoidoscopy Male Surgical History: Reports: Circumcision, TURP-Transurethral Resection of Prostate Musculoskeletal Surgical History: Reports: Shoulder Surgery Other Musculoskeletal Surgeries/Procedures:: right shoulder, right arm broken in past Oncologic Surgical History: Reports: Other (See Below) Other Oncologic Surgeries/Procedures: TURP Social & Family History - Family History Family Medical History: No Pertinent Family History - Tobacco Use Tobacco Use Status *Q: Current Every Day Tobacco User Years of Tobacco use: 40 Packs/Tins Daily: 0.5 - Caffeine Use Caffeine Use: Reports: Coffee, Soda - Alcohol Use Days Per Week of Alcohol Use: 7 Number of Drinks Per Day: 1 Total Drinks Per Week: 7 Date of Last Drink: 12/31/20 - Recreational Drug Use Recreational Drug Use: Yes Recreational Drug Type: Reports: Marijuana/Hashish Recreational Drug Use Frequency: Daily - Living Situation & Occupation Living situation: Reports: Single, with Significant Other Occupation: Unemployed H&P Review of Systems - Review of Systems: Review Of Systems: See Below Review of Systems Comment:: General: No recent weight gain or weight loss, no fevers or chills HEENT: No headache or vertigo, no difficulty with speaking or swallowing Cardiovascular: No chest pain or palpitations, no orthopnea or PND Respiratory: No chronic cough, no dyspnea or dyspnea on exertion Gastrointestinal: See HPI Endocrine: No abnormal rashing or bruising, no intolerance to heat or cold Integumentary: No lesions or rashes Musculoskeletal: No myalgias or arthralgias Psychological: No increased anxiety or depressive type symptoms Rest of the review of systems is complete and negative Exam - Exam Exam: See Below - Vital Signs Vital Signs: Last Vital Signs Temp 98.4 F 12/31/20 20:00 Pulse 74 12/31/20 20:00 Resp 18 12/31/20 20:00 BP 111/66 12/31/20 20:00 Pulse Ox 100 12/31/20 20:00 Weight: 156 lb 9.6 oz - Exam Physical Exam Comments:: General: Fernie is a 65-year-old man in no acute distress Oropharynx is clear, mucous membranes are tacky to dry Neck: Supple, no lymphadenopathy Heart: Regular rate and rhythm, 1 out of 6 systolic murmur heard over the left sternal border Lungs: Clear to auscultation throughout Neurological: He is moving all of his extremities normally, neurological exam is difficult because of his acute alcohol intoxication - Patient Data Lab Results Last 24 hrs: Laboratory Results - last 24 hr 12/31/20 12/31/20 12/31/20 Range/Units 14:17 14:17 14:17 WBC 10.6 H (5.0-10.0) 10^3/uL RBC 6.16 (4.6-6.2) 10^6/uL Hgb 20.5 H D (14.0-18.0) g/dL Hct 52.2 (40.0-54.0) % MCV 84.7 D (80-100) fL MCH 33.3 (27.0-34.0) pg MCHC 39.3 H (33.0-35.0) g/dL Plt Count 284 (150-450) 10^3/uL Neut % (Auto) 78.7 H (42.2-75.2) % Lymph % (Auto) 13.1 L (20.5-50.1) % [place] % (Auto) 6.8 (2-8) % Eos % (Auto) 0.2 L (1.0-3.0) % Baso % (Auto) 1.2 H (0.0-1.0) % PT 12.1 H (9.0-12.0) SEC INR 1.2 (0.9-1.2) APTT 25.3 (22.0-34.0) SEC Sodium 123 L (136-145) mmol/L Potassium 2.5 L (3.5-5.1) mmol/L Chloride 83 L (98-107) mmol/L Carbon Dioxide 23 (21-32) mmol/L Anion Gap 19.5 H (7-13) mEq/L BUN 7 (7-18) mg/dL Creatinine 1.19 (0.70-1.30) mg/dL Est Cr Clr Drug Dosing 60.87 mL/min Estimated GFR (MDRD) > 60 BUN/Creatinine Ratio 5.9 (No establ ref range) Glucose 149 H (70-99) mg/dL Lactic Acid (0.4-2.0) mmol/L Calcium 9.1 (8.5-10.1) mg/dL Magnesium 1.2 L (1.8-2.4) mg/dL Total Bilirubin 2.2 H (0.2-1.0) mg/dL AST 99 H (15-37) U/L ALT 167 H (16-63) U/L Alkaline Phosphatase 121 H (46-116) U/L Ammonia (11-32) umol/L Troponin I < 0.017 (0.000-0.056) ng/mL C-Reactive Protein 2.9 H (0.0-0.9) mg/dL B-Natriuretic Peptide 26 (0-100) pg/ml Total Protein 8.5 H (6.4-8.2) g/dL Albumin 4.3 (3.4-5.0) g/dL Globulin 4.2 Albumin/Globulin Ratio 1.0 Amylase 26 (25-115) U/L Lipase 191 (73-393) U/L Urine Color (YELLOW) Urine Appearance (CLEAR) Urine pH (5.0-9.0) Ur Specific [place] (1.005-1.030) Urine Protein (NEGATIVE) Urine Glucose (UA) (NEGATIVE) Urine Ketones (NEGATIVE) Urine Occult Blood (NEGATIVE) Urine Nitrite (NEGATIVE) Urine Bilirubin (NEGATIVE) Urine Urobilinogen (0.2-1.0) mg/dL Ur Leukocyte Esterase (NEGATIVE) U Hyaline Cast (Auto) Urine RBC /HPF Urine WBC (0-5/HPF) /HPF Ur Epithelial Cells (NOT SEEN) /HPF Urine Mucus (NOT SEEN) /LPF Urine Opiates Screen (NEGATIVE) Ur Oxycodone Screen (NEGATIVE) Urine Methadone Screen (NEGATIVE) Ur Barbiturates Screen (NEGATIVE) U Tricyclic Antidepress (NEGATIVE) Ur Phencyclidine Scrn (NEGATIVE) Ur Amphetamine Screen (NEGATIVE) U Methamphetamines Scrn (NEGATIVE) Urine MDMA Screen (NEGATIVE) U Benzodiazepines Scrn (NEGATIVE) Urine Cocaine Screen (NEGATIVE) U Marijuana (THC) Screen (NEGATIVE) Ethyl Alcohol 6 (0) mg/dL Influenza Type A RNA (NEGATIVE) Influenza Type B RNA (NEGATIVE) SARS-CoV-2 RNA ([place]) (NEGATIVE) 12/31/20 12/31/20 12/31/20 Range/Units 14:17 14:17 16:37 WBC (5.0-10.0) 10^3/uL RBC (4.6-6.2) 10^6/uL Hgb (14.0-18.0) g/dL Hct (40.0-54.0) % MCV (80-100) fL MCH (27.0-34.0) pg MCHC (33.0-35.0) g/dL Plt Count (150-450) 10^3/uL Neut % (Auto) (42.2-75.2) % Lymph % (Auto) (20.5-50.1) % [place] % (Auto) (2-8) % Eos % (Auto) (1.0-3.0) % Baso % (Auto) (0.0-1.0) % PT (9.0-12.0) SEC INR (0.9-1.2) APTT (22.0-34.0) SEC Sodium (136-145) mmol/L Potassium (3.5-5.1) mmol/L Chloride (98-107) mmol/L Carbon Dioxide (21-32) mmol/L Anion Gap (7-13) mEq/L BUN (7-18) mg/dL Creatinine (0.70-1.30) mg/dL Est Cr Clr Drug Dosing mL/min Estimated GFR (MDRD) BUN/Creatinine Ratio (No establ ref range) Glucose (70-99) mg/dL Lactic Acid 3.0 H* (0.4-2.0) mmol/L Calcium (8.5-10.1) mg/dL Magnesium (1.8-2.4) mg/dL Total Bilirubin (0.2-1.0) mg/dL AST (15-37) U/L ALT (16-63) U/L Alkaline Phosphatase (46-116) U/L Ammonia 17 (11-32) umol/L Troponin I (0.000-0.056) ng/mL C-Reactive Protein (0.0-0.9) mg/dL B-Natriuretic Peptide (0-100) pg/ml Total Protein (6.4-8.2) g/dL Albumin (3.4-5.0) g/dL Globulin Albumin/Globulin Ratio Amylase (25-115) U/L Lipase (73-393) U/L Urine Color (YELLOW) Urine Appearance (CLEAR) Urine pH (5.0-9.0) Ur Specific [place] (1.005-1.030) Urine Protein (NEGATIVE) Urine Glucose (UA) (NEGATIVE) Urine Ketones (NEGATIVE) Urine Occult Blood (NEGATIVE) Urine Nitrite (NEGATIVE) Urine Bilirubin (NEGATIVE) Urine Urobilinogen (0.2-1.0) mg/dL Ur Leukocyte Esterase (NEGATIVE) U Hyaline Cast (Auto) Urine RBC /HPF Urine WBC (0-5/HPF) /HPF Ur Epithelial Cells (NOT SEEN) /HPF Urine Mucus (NOT SEEN) /LPF Urine Opiates Screen Negative (NEGATIVE) Ur Oxycodone Screen Negative (NEGATIVE) Urine Methadone Screen Negative (NEGATIVE) Ur Barbiturates Screen Negative (NEGATIVE) U Tricyclic Antidepress Negative (NEGATIVE) Ur Phencyclidine Scrn Negative (NEGATIVE) Ur Amphetamine Screen Negative (NEGATIVE) U Methamphetamines Scrn Negative (NEGATIVE) Urine MDMA Screen Negative (NEGATIVE) U Benzodiazepines Scrn Negative (NEGATIVE) Urine Cocaine Screen Negative (NEGATIVE) U Marijuana (THC) Screen Positive H (NEGATIVE) Ethyl Alcohol (0) mg/dL Influenza Type A RNA (NEGATIVE) Influenza Type B RNA (NEGATIVE) SARS-CoV-2 RNA ([place]) (NEGATIVE) 12/31/20 12/31/20 12/31/20 Range/Units 16:37 16:54 18:38 WBC (5.0-10.0) 10^3/uL RBC (4.6-6.2) 10^6/uL Hgb (14.0-18.0) g/dL Hct (40.0-54.0) % MCV (80-100) fL MCH (27.0-34.0) pg MCHC (33.0-35.0) g/dL Plt Count (150-450) 10^3/uL Neut % (Auto) (42.2-75.2) % Lymph % (Auto) (20.5-50.1) % [place] % (Auto) (2-8) % Eos % (Auto) (1.0-3.0) % Baso % (Auto) (0.0-1.0) % PT (9.0-12.0) SEC INR (0.9-1.2) APTT (22.0-34.0) SEC Sodium (136-145) mmol/L Potassium (3.5-5.1) mmol/L Chloride (98-107) mmol/L Carbon Dioxide (21-32) mmol/L Anion Gap (7-13) mEq/L BUN (7-18) mg/dL Creatinine (0.70-1.30) mg/dL Est Cr Clr Drug Dosing mL/min Estimated GFR (MDRD) BUN/Creatinine Ratio (No establ ref range) Glucose (70-99) mg/dL Lactic Acid 1.4 (0.4-2.0) mmol/L Calcium (8.5-10.1) mg/dL Magnesium (1.8-2.4) mg/dL Total Bilirubin (0.2-1.0) mg/dL AST (15-37) U/L ALT (16-63) U/L Alkaline Phosphatase (46-116) U/L Ammonia (11-32) umol/L Troponin I (0.000-0.056) ng/mL C-Reactive Protein (0.0-0.9) mg/dL B-Natriuretic Peptide (0-100) pg/ml Total Protein (6.4-8.2) g/dL Albumin (3.4-5.0) g/dL Globulin Albumin/Globulin Ratio Amylase (25-115) U/L Lipase (73-393) U/L Urine Color Yellow (YELLOW) Urine Appearance Clear (CLEAR) Urine pH 7.5 (5.0-9.0) Ur Specific [place] 1.025 (1.005-1.030) Urine Protein Negative (NEGATIVE) Urine Glucose (UA) Negative (NEGATIVE) Urine Ketones Negative (NEGATIVE) Urine Occult Blood Trace-intact H (NEGATIVE) Urine Nitrite Negative (NEGATIVE) Urine Bilirubin Negative (NEGATIVE) Urine Urobilinogen 1.0 (0.2-1.0) mg/dL Ur Leukocyte Esterase Negative (NEGATIVE) U Hyaline Cast (Auto) Few Urine RBC 0-5 /HPF Urine WBC 0-5 (0-5/HPF) /HPF Ur Epithelial Cells Rare (NOT SEEN) /HPF Urine Mucus Few H (NOT SEEN) /LPF Urine Opiates Screen (NEGATIVE) Ur Oxycodone Screen (NEGATIVE) Urine Methadone Screen (NEGATIVE) Ur Barbiturates Screen (NEGATIVE) U Tricyclic Antidepress (NEGATIVE) Ur Phencyclidine Scrn (NEGATIVE) Ur Amphetamine Screen (NEGATIVE) U Methamphetamines Scrn (NEGATIVE) Urine MDMA Screen (NEGATIVE) U Benzodiazepines Scrn (NEGATIVE) Urine Cocaine Screen (NEGATIVE) U Marijuana (THC) Screen (NEGATIVE) Ethyl Alcohol (0) mg/dL Influenza Type A RNA Negative (NEGATIVE) Influenza Type B RNA Negative (NEGATIVE) SARS-CoV-2 RNA ([place]) Negative (NEGATIVE) Result Diagrams: 12/31/20 14:17 12/31/20 14:17 [place] Results Last 24 hrs: Microbiology 12/31/20 16:37 Stool Occult Blood ([place]) - Final Stool / Feces *Q Meaningful Use (ADM) - VTE *Q VTE Mechanical Contraindications *Q: At Risk for Falls VTE Anticoagulation Contraindications: Med/TX Not Indicated/Need - VTE Risk Assess *Q Each Risk Factor Represents 2 Points: Age 60 - 74 Years Total Score 2 Point Risk Factors: 2 - Problem List (1) Alcohol withdrawal syndrome SNOMED Code(s): 986799877 ICD Code: F10.239 - ALCOHOL DEPENDENCE WITH WITHDRAWAL, UNSPECIFIED Status: Acute Current Visit: No Qualifiers: Complication of substance-induced condition: uncomplicated Qualified Code(s): F10.230 - Alcohol dependence with withdrawal, uncomplicated (2) Vomiting SNOMED Code(s): 645029970 ICD Code: R11.10 - VOMITING, UNSPECIFIED Status: Acute Current Visit: No Qualifiers: Vomiting Intractability: intractable Nausea presence: with nausea Problem List Initiated/Reviewed/Updated: Yes Orders Last 24hrs: Active Orders 24 hr Category Date Time Status Admission Diagnosis [ADT] Stat ADT 12/31/20 17:05 Ordered Admission Status [Patient Status] [ADT] Routine ADT 12/31/20 17:05 Active Aspiration Precautions [RC] ASDIRECTED Care 12/31/20 17:59 Active CIWAA Assessment [RC] Q1H Care 12/31/20 17:59 Active Notify Provider [RC] PRN Care 12/31/20 17:59 Active Oxygen Therapy [RC] PRN Care 12/31/20 18:36 Active RT Post Treatment Assessment [RC] Click to Edit Care 12/31/20 18:07 Active RT Pre-Treatment Assessment [RC] Click to Edit Care 12/31/20 18:07 Active Up ad Janie [RC] ASDIRECTED Care 12/31/20 18:36 Active VTE/DVT Education [RC] PER UNIT ROUTINE Care 12/31/20 18:36 Active Vital Signs [RC] Q4H Care 12/31/20 18:36 Active Regular Diet [DIET] Diet 12/31/20 Breakfast Active CBC WITH AUTO DIFF [HEME] AM Lab 01/01/21 05:11 Ordered COMPREHENSIVE METABOLIC PN,CMP [CHEM] AM Lab 01/01/21 05:11 Ordered Albuterol [Proventil HFA] Med 12/31/20 18:05 Active 0 gm INH Q4H PRN Folic Acid Med 01/01/21 09:00 Active 1 mg PO DAILY Ibuprofen [Motrin] Med 12/31/20 18:36 Active 400 mg PO Q6H PRN Metoprolol Succinate [Toprol XL] Med 01/01/21 09:00 Active 50 mg PO DAILY Ondansetron [Zofran ODT] Med 12/31/20 18:36 Active 4 mg PO Q6H PRN Pantoprazole [ProTONIX] Med 01/01/21 09:00 Active 40 mg PO DAILY Spironolactone [Aldactone] Med 12/31/20 18:15 Active 100 mg PO DAILY chlordiazePOXIDE [Librium] Med 12/31/20 18:36 Active 50 - 100 mg PO ASDIRECTED Anticoagulation Contraindications VTE [AST] Routine Oth 12/31/20 17:59 Ordered Seizure Precautions [OM.PC] Stat Oth 12/31/20 17:59 Ordered Resuscitation Status Routine Resus Stat 12/31/20 18:36 Ordered Medication Orders Albuterol (Albuterol 6.7 Gm Inhaler) 0 gm INH Q4H PRN PRN Reason: Wheezing Chlordiazepoxide HCl (Chlordiazepoxide 25 Mg Cap) 50 - 100 mg PO ASDIRECTED [place]; Protocol Stop: 01/02/21 18:00 Folic Acid (Folic Acid 1 Mg Tab) 1 mg PO DAILY [place] Ibuprofen (Ibuprofen 400 Mg Tab) 400 mg PO Q6H PRN PRN Reason: Pain (mild 1-3) Metoprolol Succinate (Metoprolol Succinate 50 Mg Tab.Er) 50 mg PO DAILY [facility] Ondansetron HCl (Ondansetron 4 Mg Tab.Dis) 4 mg PO Q6H PRN PRN Reason: nausea, able to take PO Pantoprazole Sodium (Pantoprazole 40 Mg Tab.Cr) 40 mg PO DAILY [facility] Spironolactone (Spironolactone 25 Mg Tab) 100 mg PO DAILY [facility] Last Admin: 12/31/20 18:59 Dose: 100 mg Documented by: AMANDA Assessment/Plan Comment:: Assessment: 1. 65-year-old man with acute alcohol withdrawal 2. Intractable vomiting leading to moderate dehydration Plan: 1. He is admitted to acute inpatient 2. Oral Librium, 50 mg every 6 hours if his CIWA scale remains 10 and under; 100 mg every 6 hours if his CIWA scale is 11-20 3. Monitoring via CIWA scale 4. Reassess clinically in a.m., he is not even yet 24 hours post his last drink
[2021-01-01 07:26] LABS: CHLORIDE,CL 90 mmol/L (98-107); SODIUM,NA 128 mmol/L (136-145)
[2021-01-01] MEDS: Pantoprazole 40 MG Tab.CR PO SCH (08:24)
[2021-01-01] MEDS: Spironolactone 25 MG Tab PO SCH (08:24)
[2021-01-01] MEDS: Folic Acid 1 MG Tab PO SCH (08:25)
[2021-01-01] MEDS: Metoprolol Succinate 50 MG Tab.ER PO SCH (08:26)
[2021-01-02 07:59] VITALS: BP 111/63; PULSE 59
[2021-01-02] MEDS: Folic Acid 1 MG Tab PO SCH (07:59)
[2021-01-02] MEDS: Pantoprazole 40 MG Tab.CR PO SCH (07:59)
[2021-01-02] MEDS: Spironolactone 25 MG Tab PO SCH (07:59)
[2021-01-02] MEDS: Metoprolol Succinate 50 MG Tab.ER PO SCH (07:59)
--- NOTE | 2021-01-02 10:10 | PCM.DCSUM1 ---
Discharge Summary - Hospital Course Free Text/Narrative:: Fernie is a 65-year-old man who was admitted for concerns about alcohol withdrawal syndrome. He has been monitored since admission via the [facility] protocol, fortunately has only required 1 or 2 doses of oral Librium to help with withdrawal symptoms. He has shown no signs or symptoms of delirium tremens. His daughter has already arranged for him to have inpatient treatment, this will occur in about 3 weeks. He has already made a plan to move in with her for the rest of that time, so she can help keep him alcohol free until he can be admitted to that inpatient treatment facility. - Discharge Data Discharge Date: 01/02/21 Discharge Disposition: Home, Self-Care 01 Condition: Good - Referral to Home Health Primary Care Physician: PCP None - Discharge Diagnosis/Problem(s) (1) Alcohol withdrawal syndrome SNOMED Code(s): 565275414 ICD Code: F10.239 - ALCOHOL DEPENDENCE WITH WITHDRAWAL, UNSPECIFIED Status: Acute Current Visit: No Qualifiers: Complication of substance-induced condition: uncomplicated Qualified Code(s): F10.230 - Alcohol dependence with withdrawal, uncomplicated (2) Vomiting SNOMED Code(s): 325784190 ICD Code: R11.10 - VOMITING, UNSPECIFIED Status: Acute Current Visit: No Qualifiers: Vomiting Intractability: intractable Nausea presence: with nausea - Discharge Plan *PRESCRIPTION DRUG MONITORING PROGRAM REVIEWED*: Not Applicable *COPY OF PRESCRIPTION DRUG MONITORING REPORT IN PATIENT WALTER: Not Applicable Home Medications: Home Meds Spironolactone [Aldactone] 100 mg PO DAILY 08/22/18 [History] Rifaximin [Xifaxan] 550 mg PO BID 02/10/19 [History] Betamethasone/Clotrimazole [Lotrisone] 1 applic TOP TID 03/15/20 [History] Furosemide 40 mg PO DAILY 03/15/20 [History] Metoprolol Succinate 50 mg PO DAILY 03/15/20 [History] Pantoprazole Sodium [Protonix] 40 mg PO BID 05/26/20 [History] Sertraline [Zoloft] 50 mg PO DAILY 01/01/21 [History] Patient Handouts: Alcohol Use Disorder, Alcohol Abuse and Dependence Information, Adult, Hypomagnesemia, Hypokalemia, Dehydration, Adult, [id number], Alcohol Abuse and Nutrition, Finding Treatment for Addiction, Recovering From Addiction - Discharge Summary/Plan Comment DC Time >30 min.: No Discharge Summary/Plan Comment: Discharge diagnoses: 1. 65-year-old man with acute on chronic alcohol abuse 2. Greater than 60 hours since his last alcoholic drink, no longer in danger for delirium tremens Discharge plan: 1. He is discharged home in the care of his daughter. They have a treatment plan going forward. He is set to be admitted to an inpatient alcohol treatment program in about 3 weeks. - Patient Data Vitals - Most Recent: Last Vital Signs Temp 97.7 F 01/02/21 07:47 Pulse 59 L 01/02/21 07:59 Resp 18 01/02/21 07:47 BP 111/63 01/02/21 07:59 Pulse Ox 100 01/02/21 07:47 Weight - Most Recent: 156 lb 9.6 oz I&O - Last 24 hours: Intake & Output 01/01/21 01/02/21 01/02/21 22:59 06:59 14:59 Intake Total 1025 200 Output Total 200 Balance 825 200 Med Orders - Current: Current Medications Albuterol (Albuterol 6.7 Gm Inhaler) 0 gm INH Q4H PRN PRN Reason: Wheezing Chlordiazepoxide HCl (Chlordiazepoxide 25 Mg Cap) 50 - 100 mg PO ASDIRECTED [facility]; Protocol Stop: 01/02/21 18:00 Last Admin: 01/01/21 22:58 Dose: 50 mg Documented by: Folic Acid (Folic Acid 1 Mg Tab) 1 mg PO DAILY [facility] Last Admin: 01/02/21 07:59 Dose: 1 mg Documented by: Ibuprofen (Ibuprofen 400 Mg Tab) 400 mg PO Q6H PRN PRN Reason: Pain (mild 1-3) Metoprolol Succinate (Metoprolol Succinate 50 Mg Tab.Er) 50 mg PO DAILY [facility] Last Admin: 01/02/21 07:59 Dose: 50 mg Documented by: Ondansetron HCl (Ondansetron 4 Mg Tab.Dis) 4 mg PO Q6H PRN PRN Reason: nausea, able to take PO Last Admin: 01/01/21 22:58 Dose: 4 mg Documented by: Pantoprazole Sodium (Pantoprazole 40 Mg Tab.Cr) 40 mg PO DAILY [facility] Last Admin: 01/02/21 07:59 Dose: 40 mg Documented by: Spironolactone (Spironolactone 25 Mg Tab) 100 mg PO DAILY [facility] Last Admin: 01/02/21 07:59 Dose: 100 mg Documented by: Discontinued Medications Chlordiazepoxide HCl (Chlordiazepoxide 25 Mg Cap) 0 mg PO ASDIRECTED [facility] Octreotide Acetate 100 mcg/ (Sodium Chloride) 101 mls @ 50 mls/hr IV ONETIME ONE Stop: 12/31/20 16:58 Last Infusion: 12/31/20 16:59 Dose: Infused Documented by: Multivitamins/Minerals 10 ml/Thiamine HCl 100 mg/ Folic Acid 1 mg/ Lactated Ringer's 1,011.2 mls @ 999 mls/hr IV .BOLUS ONE Stop: 12/31/20 16:24 Last Infusion: 12/31/20 17:10 Dose: Infused Documented by: Potassium Chloride 20 meq/ (Premix) 100 mls @ 50 mls/hr IV ONETIME ONE Stop: 12/31/20 17:23 Last Admin: 12/31/20 16:06 Dose: 50 mls/hr Documented by: Magnesium Sulfate (Magnesium Sulfate In Water 2 Gm/50 Ml) 2 gm in 50 mls @ 25 mls/hr IV ONETIME ONE Stop: 12/31/20 17:24 Last Admin: 12/31/20 16:06 Dose: 25 mls/hr Documented by: Sodium Chloride (Normal Saline) 1,000 mls @ 999 mls/hr IV .BOLUS ONE Stop: 12/31/20 17:07 Last Admin: 12/31/20 16:10 Dose: 999 mls/hr Documented by: Metoclopramide HCl (Metoclopramide 10 Mg/2 Ml Sdv) 10 mg IVPUSH ONETIME ONE Stop: 12/31/20 15:38 Last Admin: 12/31/20 15:47 Dose: 10 mg Documented by: Ondansetron HCl (Ondansetron 4 Mg/2 Ml Sdv) 4 mg IVPUSH ONETIME ONE Stop: 12/31/20 14:13 Last Admin: 12/31/20 14:30 Dose: 4 mg Documented by: Pantoprazole Sodium (Pantoprazole 40 Mg Vial) 40 mg IVPUSH ONETIME ONE Stop: 12/31/20 14:13 Last Admin: 12/31/20 14:30 Dose: 40 mg Documented by: *Q Meaningful Use (DIS) - VTE *Q VTE Mechanical Contraindications *Q: At Risk for Falls VTE Anticoagulation Contraindications: Med/TX Not Indicated/Need
--- NOTE | 2021-01-02 13:46 | PCM.PN ---
- General Info Date of Service: 01/01/21 Admission Dx/Problem (Free Text): Admission Diagnosis/Problem Admission Diagnosis/Problem Alcohol withdrawal syndrome Subjective Update: Arsh is a 65-year-old man admitted yesterday for acute alcohol withdrawal. He had severe intractable vomiting and poor intake throughout the day. He reports that he has never had severe withdrawal symptoms or delirium tremens in the past. However, with his severe intractable vomiting, and his moderate to severe dehydration, decision was made to admit him for IV rehydration, and monitoring via the CIWA scale to watch for delirium tremens. He has done well since admission, has not required any Librium since arrival. He feels very fatigued today, has been sleeping a lot. - Patient Data Vitals - Most Recent: Last Vital Signs Temp 97.7 F 01/02/21 07:47 Pulse 59 L 01/02/21 07:59 Resp 18 01/02/21 07:47 BP 111/63 01/02/21 07:59 Pulse Ox 100 01/02/21 07:47 Weight - Most Recent: 156 lb 9.6 oz I&O - Last 24 Hours: Intake & Output 01/01/21 01/02/21 01/02/21 22:59 06:59 14:59 Intake Total 1025 200 460 Output Total 200 Balance 825 200 460 Med Orders - Current: Current Medications Albuterol (Albuterol 6.7 Gm Inhaler) 0 gm INH Q4H PRN PRN Reason: Wheezing Chlordiazepoxide HCl (Chlordiazepoxide 25 Mg Cap) 50 - 100 mg PO ASDIRECTED [facility]; Protocol Stop: 01/02/21 18:00 Last Admin: 01/01/21 22:58 Dose: 50 mg Documented by: Folic Acid (Folic Acid 1 Mg Tab) 1 mg PO DAILY [facility] Last Admin: 01/02/21 07:59 Dose: 1 mg Documented by: Ibuprofen (Ibuprofen 400 Mg Tab) 400 mg PO Q6H PRN PRN Reason: Pain (mild 1-3) Metoprolol Succinate (Metoprolol Succinate 50 Mg Tab.Er) 50 mg PO DAILY [facility] Last Admin: 01/02/21 07:59 Dose: 50 mg Documented by: Ondansetron HCl (Ondansetron 4 Mg Tab.Dis) 4 mg PO Q6H PRN PRN Reason: nausea, able to take PO Last Admin: 01/01/21 22:58 Dose: 4 mg Documented by: Pantoprazole Sodium (Pantoprazole 40 Mg Tab.Cr) 40 mg PO DAILY [facility] Last Admin: 01/02/21 07:59 Dose: 40 mg Documented by: Spironolactone (Spironolactone 25 Mg Tab) 100 mg PO DAILY [facility] Last Admin: 01/02/21 07:59 Dose: 100 mg Documented by: Discontinued Medications Chlordiazepoxide HCl (Chlordiazepoxide 25 Mg Cap) 0 mg PO ASDIRECTED [facility] Octreotide Acetate 100 mcg/ (Sodium Chloride) 101 mls @ 50 mls/hr IV ONETIME ONE Stop: 12/31/20 16:58 Last Infusion: 12/31/20 16:59 Dose: Infused Documented by: Multivitamins/Minerals 10 ml/Thiamine HCl 100 mg/ Folic Acid 1 mg/ Lactated Ringer's 1,011.2 mls @ 999 mls/hr IV .BOLUS ONE Stop: 12/31/20 16:24 Last Infusion: 12/31/20 17:10 Dose: Infused Documented by: Potassium Chloride 20 meq/ (Premix) 100 mls @ 50 mls/hr IV ONETIME ONE Stop: 12/31/20 17:23 Last Admin: 12/31/20 16:06 Dose: 50 mls/hr Documented by: Magnesium Sulfate (Magnesium Sulfate In Water 2 Gm/50 Ml) 2 gm in 50 mls @ 25 mls/hr IV ONETIME ONE Stop: 12/31/20 17:24 Last Admin: 12/31/20 16:06 Dose: 25 mls/hr Documented by: Sodium Chloride (Normal Saline) 1,000 mls @ 999 mls/hr IV .BOLUS ONE Stop: 12/31/20 17:07 Last Admin: 12/31/20 16:10 Dose: 999 mls/hr Documented by: Metoclopramide HCl (Metoclopramide 10 Mg/2 Ml Sdv) 10 mg IVPUSH ONETIME ONE Stop: 12/31/20 15:38 Last Admin: 12/31/20 15:47 Dose: 10 mg Documented by: Ondansetron HCl (Ondansetron 4 Mg/2 Ml Sdv) 4 mg IVPUSH ONETIME ONE Stop: 12/31/20 14:13 Last Admin: 12/31/20 14:30 Dose: 4 mg Documented by: Pantoprazole Sodium (Pantoprazole 40 Mg Vial) 40 mg IVPUSH ONETIME ONE Stop: 12/31/20 14:13 Last Admin: 12/31/20 14:30 Dose: 40 mg Documented by: - Exam Physical Findings Comments:: General: Fernie is a 65-year-old man in no acute distress Oropharynx is clear, mucous membranes are moist, he is protecting his airway normally Heart: Regular rate and rhythm, 1 out of 6 systolic murmur heard throughout Lungs: Clear to auscultation throughout Neurological: Cranial nerves II through XII are intact throughout - Patient Data Result Diagrams: 01/01/21 06:03 01/01/21 06:03 Sepsis Event Note - Evaluation Sepsis Screening Result: No Definite Risk - Focused Exam Vital Signs: Vital Signs Temp Pulse Pulse Resp BP BP Pulse Ox 01/02/21 07:59 59 L 111/63 01/02/21 07:47 97.7 F 56 L 18 93/58 L 100 - Problem List & Annotations (1) Alcohol withdrawal syndrome SNOMED Code(s): 222534770 Code(s): F10.239 - ALCOHOL DEPENDENCE WITH WITHDRAWAL, UNSPECIFIED Status: Acute Current Visit: No Qualifiers: Complication of substance-induced condition: uncomplicated Qualified Code(s): F10.230 - Alcohol dependence with withdrawal, uncomplicated (2) Vomiting SNOMED Code(s): 022884873 Code(s): R11.10 - VOMITING, UNSPECIFIED Status: Acute Current Visit: No Qualifiers: Vomiting Intractability: intractable Nausea presence: with nausea - Problem List Review Problem List Initiated/Reviewed/Updated: Yes - My Orders Last 24 Hours: My Active Orders 01/02/21 10:09 Ready for Discharge [RC] PER UNIT ROUTINE - Plan Plan:: Assessment: 1. 65-year-old man with acute alcohol withdrawal 2. Intractable vomiting leading to moderate dehydration, resolved Plan: 1. Continue monitoring via CIWA scale; he will be 48 hours since his last alcoholic drink early tomorrow morning. By midmorning tomorrow, if he has not had any issues, we will be able to most likely discharge him home. His daughter is helping him get signed up for inpatient alcohol treatment through their [facility] office.
== END 2021-01-02 13:30 | disposition home or self-care (01) | DRG 897 ==
LOC: DL.ED 14:23 → DL.MS 17:05 → DL.ED 17:31
PROVIDERS: ADMIT Family Medicine; ATTEND Family Medicine
DX: F10.230 Alcohol dependence with withdrawal, uncomplicated (principal); E87.1 Hypo-osmolality and hyponatremia; I10 Essential (primary) hypertension; E78.5 Hyperlipidemia, unspecified; J44.9 Chronic obstructive pulmonary disease, unspecified; G47.30 Sleep apnea, unspecified; R11.2 Nausea with vomiting, unspecified; K21.9 Gastro-esophageal reflux disease without esophagitis; M19.90 Unspecified osteoarthritis, unspecified site; M54.9 Dorsalgia, unspecified; G89.29 Other chronic pain; E86.0 Dehydration; K70.31 Alcoholic cirrhosis of liver with ascites; Z20.822 Contact with and (suspected) exposure to COVID-19; E83.42 Hypomagnesemia; Z88.6 Allergy status to analgesic agent; E87.6 Hypokalemia; F12.10 Cannabis abuse, uncomplicated; Z88.8 Allergy status to other drugs, medicaments and biological substances; F17.210 Nicotine dependence, cigarettes, uncomplicated; Z87.11 Personal history of peptic ulcer disease; Z85.46 Personal history of malignant neoplasm of prostate; Z79.899 Other long term (current) drug therapy
CPT/HCPCS: 0240U; 36415; 80053; 80305-QW; 80307; 81001; 82140; 82150; 82272; 83605; 83690; 83735; 83880; 84484; 85025; 85610; 85730; 86140; 93005; 93010; 96365; 96366; 96368; 96375; 99284; 99285-25; A9270-GY; C9113; J2354-GY; J2405; J2765; J3411; J3475; J3480; J3490; J7030; J7120

== ENCOUNTER 2021-04-29 13:02 | Emergency (ER) | payer MEDICARE, MEDICAID ==
[2021-04-29] MEDS ORDERED: Ketorolac 30 MG/ML SDV IM ONE (13:21)
[2021-04-29 13:32] VITALS: BP 121/83; PULSE 56
--- NOTE | 2021-04-29 13:33 | EDM.PDOC ---
ED HPI GENERAL MEDICAL PROBLEM - General Chief Complaint: Neck Problem Stated Complaint: [id number] HURT NECK FELL BACKWARDS LAST NIGHT Time Seen by Provider: 04/29/21 13:18 Source of Information: Reports: Patient, RN, RN Notes Reviewed - History of Present Illness INITIAL COMMENTS - FREE TEXT/NARRATIVE: Arsh is a 65 y/o male who presents to the ED via personal vehicle with complaints of neck pain. The patient reports he was rearranging furniture yesterday and fell backwards onto the edge of an end-table with his neck. The patient denies loss of consciousness, did not strike his head, and is not on b lood thinners. He denies history of injury to the neck. He has taken one dose of ibuprofen 400mg with no alleviation in pain. Neck Pain Score (Numeric/FACES): 10 - Related Data Allergies Allergy/AdvReac Type Severity Reaction Status Date / Time aspirin Allergy Stomach Verified 04/29/21 13:37 Upset Home Meds: Home Meds Spironolactone [Aldactone] 100 mg PO DAILY 08/22/18 [History] Rifaximin [Xifaxan] 550 mg PO BID 02/10/19 [History] Betamethasone/Clotrimazole [Lotrisone] 1 applic TOP TID 03/15/20 [History] Furosemide 40 mg PO DAILY 03/15/20 [History] Metoprolol Succinate 50 mg PO DAILY 03/15/20 [History] Pantoprazole Sodium [Protonix] 40 mg PO BID 05/26/20 [History] Sertraline [Zoloft] 50 mg PO DAILY 01/01/21 [History] Past Medical History HEENT History: Reports: None Cardiovascular History: Reports: Hypertension Other Cardiovascular History: Hx of SVT. Dyslipidemia. Respiratory History: Reports: COPD, Sleep Apnea Gastrointestinal History: Reports: Cirrhosis, Gastritis, GERD, GI Bleed, PUD, Other (See Below) Other Gastrointestinal History: alcoholic gastritis, ESOPHAGEAL VARICES Genitourinary History: Reports: Prostate Disorder Musculoskeletal History: Reports: Arthritis, Back Pain, Chronic, Fracture Neurological History: Reports: None Psychiatric History: Reports: Addiction Other Psychiatric History: ALCOHOLISM Endocrine/Metabolic History: Reports: None Hematologic History: Reports: None Immunologic History: Reports: None Oncologic (Cancer) History: Reports: Prostate Other Oncologic History: denies Dermatologic History: Reports: Eczema, Psoriasis - Infectious Disease History Infectious Disease History: Reports: None - Past Surgical History Head Surgeries/Procedures: Reports: None HEENT Surgical History: Reports: None Cardiovascular Surgical History: Reports: None Respiratory Surgical History: Reports: None GI Surgical History: Reports: Other (See Below) Other GI Surgeries/Procedures: diagnostic sigmoidoscopy Male Surgical History: Reports: Circumcision, TURP-Transurethral Resection of Prostate Musculoskeletal Surgical History: Reports: Shoulder Surgery Other Musculoskeletal Surgeries/Procedures:: right shoulder, right arm broken in past Oncologic Surgical History: Reports: Other (See Below) Other Oncologic Surgeries/Procedures: TURP Social & Family History - Family History Family Medical History: No Pertinent Family History - Caffeine Use Caffeine Use: Reports: Coffee, Soda - Living Situation & Occupation Living situation: Reports: Single, with Significant Other Occupation: Unemployed ED ROS GENERAL - Review of Systems Review Of Systems: Comprehensive ROS is negative, except as noted in HPI. ED EXAM, UPPER BACK/NECK PAIN - Physical Exam Exam: See Below Exam Limited By: No Limitations General Appearance: Alert, No Apparent Distress, Thin Eye Exam: Bilateral Eye: EOMI, Normal Inspection, PERRL (3mm) Ears Exam: Normal External Exam, Hearing Grossly Normal Nose Exam: Normal Inspection, Normal Mucousa, No Blood Throat/Mouth Exam: Normal Inspection, Normal Oropharynx, Normal Voice, No Airway Compromise Head Exam: Atraumatic, Normocephalic Neck Exam: Normal Alignment, Limited Range of Motion, Painful Range of Motion, Paraspinous Muscle Tender, Stiff Neck, Tender Lateral, Other (C-collar placed upon triage ). No: Spinous Processes Tender, Tender Midline Nexus Criteria: No: Posterior, Midline Cervical Tenderness, Evidence of Into xication, Altered Level of Consciousness, Focal Neurological Deficit, Painful Distraction Injuries Cardiovascular/Respiratory: Regular Rate, Rhythm, No M/R/G, Normal Peripheral Pulses, Normal Breath Sounds, No Respiratory Distress. 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 II-XII nml As Tested, No Motor/Sensory Deficits, Alert, Normal Mood/Affect, Oriented x 3 Psychiatric: Normal Affect, Normal Mood Skin Exam: Normal Color, Warm/Dry Lymphatic: No Adenopathy Course - Vital Signs Last Recorded V/S: Last Vital Signs Temp 97.8 F 04/29/21 13:22 Pulse 56 L 04/29/21 13:22 Resp 14 04/29/21 13:22 BP 121/83 04/29/21 13:22 Pulse Ox 100 04/29/21 13:22 - Orders/Labs/Meds Meds: Medications Discontinued Medications Generic Name Dose Route Start Last Admin Trade Name Freq PRN Reason Stop Dose Admin Ketorolac Tromethamine 30 mg 04/29/21 13:21 04/29/21 13:47 Ketorolac 30 Mg/Ml Sdv IM 04/29/21 13:22 30 mg ONETIME ONE Administration - Radiology Interpretation Free Text/Narrative:: [facility] Final Radiology Report Call: [phone] assistance Online chat: [email or web address] Name: ARSH MURPHY Age: 65Years M Date: 04/29/2021 SSN: -- : 1955 Study: CT CERVICAL SPINE WO CONT Requesting Physician: Jocelyne Nassar Images: [phone] Addl Studies: Provided Clinical History: Fell and struck back of neck Contrast: Without Contrast Medium: Contrast Amount: Contrast Method: Page 1 of 2 PROCEDURE INFORMATION: Exam: CT Cervical Spine Without Contrast Exam date and time: 04/29/2021 1:41 PM Age: 65 years old Clinical indication: Injury or trauma; Fall; Blunt trauma; Additional info: Fell and struck back of neck TECHNIQUE: Imaging protocol: Computed tomography images of the cervical spine without contrast. Radiation optimization: All CT scans at this facility use at least one of these dose optimization techniques: automated exposure control; mA and/or kV adjustment per patient size (includes targeted exams where dose is matched to clinical indication); or iterative reconstruction. COMPARISON: No relevant prior studies available. FINDINGS: Vertebrae: 3 mm retrolisthesis C3. 3 mm retrolisthesis C5. No facet subluxation or dislocation. Spinous processes appear intact. Old avulsion injury of the posterior spinous process C7 has corticated margins. C2-C3: No significant disc protrusion. No severe spinal canal stenosis. No significant neural foraminal narrowing. C3-C4: Posterior calcified disc protrusion. AP dimensions of the canal are narrowed at 6 mm. C4-C5: Posterior calcified disc. Central canal is narrowed. C5-C6: Moderate disc degeneration. Posterior calcified disc/ligament. Bilateral moderate foraminal stenosis. C6-C7: Moderate disc degeneration. Bilateral moderate foraminal stenosis. C7-T1: No significant disc protrusion. No severe spinal canal stenosis. No significant neural foraminal narrowing. Other bones/joints: Calcified synovium around the tip of the dens. Soft tissues: Unremarkable. Sinuses: Right maxillary sinus mucosal thickening. Nasopharynx: Nasal septum deviation towards the left. Lungs: Lung apices are normal. IMPRESSION: 1. No evidence of acute cervical spine fracture. 2. Multilevel posterior protruding calcified disc resulting in central spinal stenosis. Severe central spinal stenosis C3-C4, C4-C5 and C5-C6. Recommend MRI of the cervical spine. Thank you for allowing us to participate in the care of your patient. Dictated and Authenticated by: Silvio Martin MD 04/29/2021 2:10 PM Central Time ([place] & [place]) - Re-Assessments/Exams Free Text/Narrative Re-Assessment/Exam: 04/29/[address] cervical spine. Ketorolac 30mg IM administered. Patient verbalized improvement in pain following medication administration. C- Collar removed at [address] scan of cervical spine. Findings of examination and imaging reviewed with patient. Patient instructed to follow up with PCP regarding today's visit, including need for MRI for cervical stenosis. Discussed supportive cares for neck pain. Red flag signs and symptoms which would warrant reevaluation reviewed. Patient verbalized understanding and agreement with the plan of care. Departure - Departure Time of Disposition: 14:36 Disposition: Home, Self-Care 01 Condition: Good Clinical Impression: Fall from ground level, Bilateral neck pain, Cervical spinal stenosis - Discharge Information *PRESCRIPTION DRUG MONITORING PROGRAM REVIEWED*: Not Applicable *COPY OF PRESCRIPTION DRUG MONITORING REPORT IN PATIENT WALTER: Not Applicable Instructions: Spinal Stenosis Referrals: PCP,None [Primary Care Provider] - Forms: ED Department Discharge Additional Instructions: 1.) Follow up with your primary care provider in 3-5 days regarding today's visit, including need for MRI to assess cervical spinal stenosis. 2.) You may take ibuprofen (Advil/Motrin) 400-800mg every six hours, as pain and swelling persists. You may also take acetaminophen (Tylenol) 650-1000mg every six hours, as pain persists. You may stagger these medications so you are receiving a dose every three hours. Do not take ibuprofen until later this evening as you received a strong dose of a similar medication in the emergency department today. 3.) You may alternate cold and warm compresses to the area, as pain persists. 4.) Return to the emergency department with any worsening or persistent symptoms despite medications. Sepsis Event Note (ED) - Focused Exam Vital Signs: Vital Signs Temp Pulse Resp BP Pulse Ox 04/29/21 13:22 97.8 F 56 L 14 121/83 100
--- NOTE | 2021-04-29 14:11 | CT ---
PROCEDURE INFORMATION: Exam: CT Cervical Spine Without Contrast Exam date and time: 04/29/2021 1:41 PM Age: 65 years old Clinical indication: Injury or trauma; Fall; Blunt trauma; Additional info: Fell and struck back of neck TECHNIQUE: Imaging protocol: Computed tomography images of the cervical spine without contrast. Radiation optimization: All CT scans at this facility use at least one of these dose optimization techniques: automated exposure control; mA and/or kV adjustment per patient size (includes targeted exams where dose is matched to clinical indication); or iterative reconstruction. COMPARISON: No relevant prior studies available. FINDINGS: Vertebrae: 3 mm retrolisthesis C3. 3 mm retrolisthesis C5. No facet subluxation or dislocation. Spinous processes appear intact. Old avulsion injury of the posterior spinous process C7 has corticated margins. C2-C3: No significant disc protrusion. No severe spinal canal stenosis. No significant neural foraminal narrowing. C3-C4: Posterior calcified disc protrusion. AP dimensions of the canal are narrowed at 6 mm. C4-C5: Posterior calcified disc. Central canal is narrowed. C5-C6: Moderate disc degeneration. Posterior calcified disc/ligament. Bilateral moderate foraminal stenosis. C6-C7: Moderate disc degeneration. Bilateral moderate foraminal stenosis. C7-T1: No significant disc protrusion. No severe spinal canal stenosis. No significant neural foraminal narrowing. Other bones/joints: Calcified synovium around the tip of the dens. Soft tissues: Unremarkable. Sinuses: Right maxillary sinus mucosal thickening. Nasopharynx: Nasal septum deviation towards the left. Lungs: Lung apices are normal. IMPRESSION: 1. No evidence of acute cervical spine fracture. 2. Multilevel posterior protruding calcified disc resulting in central spinal stenosis. Severe central spinal stenosis C3-C4, C4-C5 and C5-C6. Recommend MRI of the cervical spine.
== END 2021-04-29 14:50 | disposition home or self-care (01) ==
LOC: DL.ED 13:02
DX: M48.02 Spinal stenosis, cervical region (principal); I10 Essential (primary) hypertension; E78.5 Hyperlipidemia, unspecified; J44.9 Chronic obstructive pulmonary disease, unspecified; K21.9 Gastro-esophageal reflux disease without esophagitis; M19.90 Unspecified osteoarthritis, unspecified site; Z88.8 Allergy status to other drugs, medicaments and biological substances; Z79.899 Other long term (current) drug therapy; W18.30XA Fall on same level, unspecified, initial encounter
CPT/HCPCS: 72125; 96372; 99283; J1885

== ENCOUNTER 2022-09-17 11:23 | Inpatient (IN) | payer MEDICAID, MEDICARE ==
[2022-09-17] MEDS ORDERED: Ondansetron 4 MG/2 ML SDV IV ONE (11:58)
[2022-09-17] MEDS ORDERED: Sodium Chloride 0.9% 1,000 ML IV ONE ×2 (11:58→13:20)
[2022-09-17] MEDS ORDERED: Pantoprazole 40 MG Vial IVPUSH ONE (11:58)
[2022-09-17] MEDS ORDERED: Sodium Chloride 0.9% 10 ML Syringe FLUSH PRN (11:58)
[2022-09-17] MEDS ORDERED: HYDROmorphone 1 MG/ML Syringe IVPUSH ONE (11:58)
[2022-09-17 12:46] LABS: CHLORIDE,CL 81 mmol/L (98-107)
[2022-09-17 13:02] LABS: CORONAVIRUS COVID-19 NAA NEGATIVE (NEGATIVE); RESPIRATORY SYNCYTIAL VIR NAA NEGATIVE (NEGATIVE)
[2022-09-17 13:17] LABS: ESTIMATED GFR 43 mL/min (>=60); SODIUM,NA 116 mmol/L (136-145)
[2022-09-17] MEDS ORDERED: 50% Dextrose in Water 50 ML Syringe IVPUSH PRN ×2 (13:20→15:50)
[2022-09-17 13:37] LABS: O2 DELIVERY DEVICE ROOM AIR
[2022-09-17 13:47] LABS: PH,VENOUS 7.29 (7.31-7.41)
[2022-09-17 13:49] LABS: PCO2 VENOUS 66 mmHg (41-51)
[2022-09-17 13:50] LABS: PO2 VENOUS 19 mmHg (35-42)
[2022-09-17 13:51] LABS: BASE EXCESS VENOUS 5 mmol/l ((-2)-(+3)); BICARBONATE,VENOUS 31 mmol/l (19-25); O2 SATURATION VENOUS 23 % (60-80)
[2022-09-17] MEDS ORDERED: Sodium Chloride 0.9% 1,000 ML IV SCH ×2 (15:00→15:45)
[2022-09-17 15:21] LABS: HEMOGLOBIN A1C 11.9 % (<5.7)
[2022-09-17] MEDS ORDERED: Acetaminophen 325 MG Tab PO PRN (15:43)
[2022-09-17] MEDS ORDERED: Docusate Sodium 100 MG Cap PO PRN (15:43)
[2022-09-17] MEDS ORDERED: Ondansetron 4 MG Tab.DIS PO PRN (15:43)
[2022-09-17] MEDS ORDERED: Ondansetron 4 MG/2 ML SDV IVPUSH PRN (15:43)
[2022-09-17] MEDS ORDERED: Glucagon,Human Recombinant 1 MG Vial IM PRN (15:50)
[2022-09-17 16:43] LABS: ANION GAP 10.5 mEq/L (7-13)
[2022-09-17] MEDS ORDERED: Dextrose 5%-0.45% NaCl 1,000 ML IV SCH (23:15)
[2022-09-18 00:01] LABS: ANION GAP 10.7 mEq/L (7-13)
[2022-09-18] MEDS ORDERED: Dextrose 5%-0.45% NaCl 1,000 ML IV SCH (07:44)
[2022-09-18 07:48] LABS: HEMOGLOBIN A1C 11.7 % (<5.7)
[2022-09-18] MEDS ORDERED: Glucagon,Human Recombinant 1 MG Vial IM PRN (11:15)
[2022-09-18] MEDS ORDERED: 50% Dextrose in Water 50 ML Syringe IVPUSH PRN (11:15)
[2022-09-18] MEDS ORDERED: Insulin Lispro 100 Units/ML 3 ML Vial SUBCUT ONE (11:16)
[2022-09-18] MEDS: Insulin Lispro 100 Units/ML 3 ML Vial SUBCUT SCH ×6 (13:25→20:24)
[2022-09-18] MEDS: Insulin Glarg,Human.Rec.Analog 100 Unit/ML SUBCUT SCH (20:25)
[2022-09-18] MEDS: Rifaximin 550 MG Tab PO SCH (20:31)
[2022-09-19] MEDS ORDERED: Pantoprazole 40 MG Tab.CR PO SCH (06:00)
[2022-09-19] MEDS: Insulin Lispro 100 Units/ML 3 ML Vial SUBCUT SCH ×4 (07:54→12:00)
[2022-09-19] MEDS: Insulin Glarg,Human.Rec.Analog 100 Unit/ML SUBCUT SCH (08:20)
[2022-09-19] MEDS: Rifaximin 550 MG Tab PO SCH (08:20)
[2022-09-19] MEDS ORDERED: Furosemide 40 MG Tab PO SCH (09:00)
[2022-09-19] MEDS ORDERED: Folic Acid 1 MG Tab PO SCH (09:00)
[2022-09-19] MEDS ORDERED: Spironolactone 25 MG Tab PO SCH (09:00)
[2022-09-19 12:39] VITALS: BP 104/63; PULSE 68
[2022-09-19] MEDS ORDERED: NADOLOL 40 MG PO SCH (15:00)
== END 2022-09-19 15:30 | disposition left against medical advice (07) | DRG 638 ==
LOC: DL.ED 11:23 → DL.MS 15:00
PROVIDERS: ADMIT Hospitalist; ATTEND Hospitalist
DX: E11.00 Type 2 diabetes mellitus with hyperosmolarity without nonketotic hyperglycemic-hyperosmolar coma (NKHHC) (principal); E87.20 Acidosis, unspecified; N17.9 Acute kidney failure, unspecified; E87.6 Hypokalemia; E78.5 Hyperlipidemia, unspecified; J44.9 Chronic obstructive pulmonary disease, unspecified; Z20.822 Contact with and (suspected) exposure to COVID-19; K21.9 Gastro-esophageal reflux disease without esophagitis; Z87.19 Personal history of other diseases of the digestive system; Z90.79 Acquired absence of other genital organ(s); Z88.8 Allergy status to other drugs, medicaments and biological substances; Z79.4 Long term (current) use of insulin; Z98.890 Other specified postprocedural states; Z90.89 Acquired absence of other organs; Z87.891 Personal history of nicotine dependence
CPT/HCPCS: 0241U; 36415; 71045; 80048; 80053; 80307; 82009; 82150; 82803; 82947; 83036; 83605; 83690; 85025; 85027; 85610; 85730; 87081; 87430; 96361; 96374; 96375; 99222; 99232; 99238; 99285; A9270-GY; C9113; J1170; J1815-GY; J2405; J7030; J7042

== ENCOUNTER 2022-09-19 22:42 | Inpatient (IN) | payer MEDICAID ==
[2022-09-19] MEDS ORDERED: Sodium Chloride 0.9% 1,000 ML IV ONE (23:18)
[2022-09-19 23:40] LABS: O2 DELIVERY DEVICE ROOM AIR
[2022-09-19 23:41] LABS: BASE EXCESS ARTERIAL -1 mmol/L ((-2)-(+3)); BICARBONATE,ARTERIAL 24.1 mmol/L (22-26); O2 SATURATION ARTERIAL 92 % (95-100); PCO2 ARTERIAL 39 mmHg (35-45); PO2 ARTERIAL 63 mmHg (70-100)
[2022-09-19 23:42] LABS: ALLEN TEST PERFORMED
[2022-09-19 23:55] LABS: ANION GAP 14.2 mEq/L (7-13); CHLORIDE,CL 95 mmol/L (98-107); SODIUM,NA 130 mmol/L (136-145)
[2022-09-19 23:56] LABS: ESTIMATED GFR 60 mL/min (>=60)
[2022-09-20] MEDS ORDERED: 50% Dextrose in Water 50 ML Syringe IVPUSH PRN ×3 (00:04→06:39)
[2022-09-20] MEDS ORDERED: Glucagon,Human Recombinant 1 MG Vial IM PRN ×3 (00:04→06:39)
[2022-09-20] MEDS ORDERED: Insulin Glarg,Human.Rec.Analog 100 Unit/ML SUBCUT ONE (00:04)
[2022-09-20] MEDS ORDERED: Sodium Chloride 0.9% 10 ML Syringe FLUSH PRN (06:36)
[2022-09-20] MEDS ORDERED: Ondansetron 4 MG Tab.DIS PO PRN (06:36)
[2022-09-20] MEDS ORDERED: Docusate Sodium 100 MG Cap PO PRN (06:36)
[2022-09-20] MEDS ORDERED: Ondansetron 4 MG/2 ML SDV IVPUSH PRN (06:36)
[2022-09-20] MEDS ORDERED: Insulin Lispro 100 Units/ML 3 ML Vial SUBCUT SCH (08:00)
[2022-09-20] MEDS: Insulin Glarg,Human.Rec.Analog 100 Unit/ML SUBCUT SCH ×3 (08:06→20:21)
[2022-09-20] MEDS: Furosemide 40 MG Tab PO SCH (08:10)
[2022-09-20] MEDS: Spironolactone 25 MG Tab PO SCH (08:10)
[2022-09-20] MEDS: Folic Acid 1 MG Tab PO SCH (08:10)
[2022-09-20] MEDS: Rifaximin 550 MG Tab PO SCH ×2 (08:10→20:20)
[2022-09-20] MEDS: Insulin Lispro 100 Units/ML 3 ML Vial SUBCUT SCH ×3 (08:11→17:23)
[2022-09-20] MEDS: Sodium Chloride 0.9% 10 ML Syringe FLUSH SCH ×2 (08:14→20:20)
[2022-09-20] MEDS ORDERED: glyBURIDE 5 MG Tab PO SCH (16:00)
[2022-09-20] MEDS ORDERED: glyBURIDE 5 MG Tab PO ONE (18:00)
[2022-09-21] MEDS: Pantoprazole 40 MG Tab.CR PO SCH (05:32)
[2022-09-21] MEDS: Insulin Lispro 100 Units/ML 3 ML Vial SUBCUT SCH ×3 (08:39→17:15)
[2022-09-21] MEDS: Rifaximin 550 MG Tab PO SCH ×2 (08:41→21:09)
[2022-09-21] MEDS: glyBURIDE 5 MG Tab PO SCH ×2 (08:41→17:14)
[2022-09-21] MEDS: Spironolactone 25 MG Tab PO SCH (08:42)
[2022-09-21] MEDS: Folic Acid 1 MG Tab PO SCH (08:42)
[2022-09-21] MEDS: Furosemide 40 MG Tab PO SCH (08:42)
[2022-09-21] MEDS: Insulin Glarg,Human.Rec.Analog 100 Unit/ML SUBCUT SCH ×2 (08:43→21:11)
[2022-09-21] MEDS: Sodium Chloride 0.9% 10 ML Syringe FLUSH SCH ×2 (08:45→21:08)
[2022-09-21] MEDS ORDERED: glyBURIDE 5 MG Tab PO SCH (09:00)
[2022-09-22] MEDS: Pantoprazole 40 MG Tab.CR PO SCH (05:43)
[2022-09-22 06:40] LABS: ANION GAP 9.1 mEq/L (7-13)
[2022-09-22 07:42] VITALS: BP 114/68; PULSE 61
[2022-09-22] MEDS: Insulin Lispro 100 Units/ML 3 ML Vial SUBCUT SCH (08:26)
[2022-09-22] MEDS: Spironolactone 25 MG Tab PO SCH (08:26)
[2022-09-22] MEDS: glyBURIDE 5 MG Tab PO SCH (08:27)
[2022-09-22] MEDS: Folic Acid 1 MG Tab PO SCH (08:27)
[2022-09-22] MEDS: Rifaximin 550 MG Tab PO SCH (08:27)
[2022-09-22] MEDS: Furosemide 40 MG Tab PO SCH (08:28)
[2022-09-22] MEDS: Insulin Glarg,Human.Rec.Analog 100 Unit/ML SUBCUT SCH (08:29)
[2022-09-22] MEDS: Sodium Chloride 0.9% 10 ML Syringe FLUSH SCH (08:31)
== END 2022-09-22 09:25 | disposition home or self-care (01) | DRG 638 ==
LOC: DL.ED 22:42 → DL.MS 09-20 00:05 → DL.ED 09-20 00:18
PROVIDERS: ADMIT Hospitalist; ATTEND Internal Medicine
DX: E11.65 Type 2 diabetes mellitus with hyperglycemia (principal); F10.288 Alcohol dependence with other alcohol-induced disorder; K70.30 Alcoholic cirrhosis of liver without ascites; I10 Essential (primary) hypertension; R53.1 Weakness; M54.9 Dorsalgia, unspecified; G89.29 Other chronic pain; R42 Dizziness and giddiness; F17.210 Nicotine dependence, cigarettes, uncomplicated; G47.33 Obstructive sleep apnea (adult) (pediatric); J44.9 Chronic obstructive pulmonary disease, unspecified; M51.36 Other intervertebral disc degeneration, lumbar region; K57.30 Diverticulosis of large intestine without perforation or abscess without bleeding; K21.9 Gastro-esophageal reflux disease without esophagitis; K80.20 Calculus of gallbladder without cholecystitis without obstruction; E78.5 Hyperlipidemia, unspecified; Z88.6 Allergy status to analgesic agent; Z85.46 Personal history of malignant neoplasm of prostate; Z28.9 Immunization not carried out for unspecified reason; Z79.899 Other long term (current) drug therapy
CPT/HCPCS: 36415; 36600; 80048; 80053; 80307; 82009; 82803; 82947; 83605; 85025; 99222; 99232; 99238; 99284; A9270-GY; J1815-GY; J3490; J7030

== ENCOUNTER 2022-10-28 11:09 | Emergency (ER) | payer MEDICARE, MEDICAID ==
[2022-10-28 11:35] VITALS: BP 128/68; PULSE 58
[2022-10-28] MEDS ORDERED: Ketorolac 30 MG/ML SDV IM ONE (12:48)
== END 2022-10-28 12:58 | disposition home or self-care (01) ==
LOC: DL.ED 11:09
DX: S10.93XA Contusion of unspecified part of neck, initial encounter (principal); R07.89 Other chest pain; J44.9 Chronic obstructive pulmonary disease, unspecified; E11.9 Type 2 diabetes mellitus without complications; I10 Essential (primary) hypertension; K21.9 Gastro-esophageal reflux disease without esophagitis; Z88.6 Allergy status to analgesic agent; Z79.4 Long term (current) use of insulin; W19.XXXA Unspecified fall, initial encounter
CPT/HCPCS: 70450; 71101; 72125; 96372; 99284; J1885

== ENCOUNTER 2023-05-31 00:30 | Emergency (ER) | payer MEDICARE, MEDICAID ==
[2023-05-31] MEDS ORDERED: Sodium Chloride 0.9% 10 ML Syringe FLUSH PRN (00:41)
[2023-05-31 00:50] LABS: BASOPHILS PERCENT AUTO 0.5 % (0.0-1.0); EOSINOPHILS PERCENT AUTO 2.3 % (1.0-3.0); HEMATOCRIT 47.8 % (40.0-54.0); HEMOGLOBIN 17.3 g/dL (14.0-18.0); LYMPHOCYTES PERCENT AUTO 24.5 % (20.5-50.1); MEAN CORPUSCULAR HEMOGLOBIN 33.6 pg (27.0-34.0); MEAN CORPUSCULAR HGB CONC 36.2 g/dL (33.0-35.0); MEAN CORPUSCULAR VOLUME 92.8 fL (80-100); MONOCYTES PERCENT AUTO 6.5 % (2-8); NEUTROPHILS PERCENT AUTO 66.2 % (42.2-75.2); PLATELET COUNT,PLT 262 10^3/uL (150-450); RED BLOOD CELL COUNT 5.15 10^6/uL (4.6-6.2)
[2023-05-31 00:54] VITALS: BP 126/92; PULSE 93
[2023-05-31 01:12] LABS: ALBUMIN 3.9 g/dL (3.4-5.0); BILIRUBIN TOTAL 0.6 mg/dL (0.2-1.0); BUN/CREATININE RATIO 7.4 (No establ ref range); CALCIUM 9.1 mg/dL (8.5-10.1); CREATININE 0.81 mg/dL (0.70-1.30); EST CRCL DRUG DOSING (CG) 83.27 mL/min; MAGNESIUM 1.8 mg/dL (1.8-2.4); PROTEIN TOTAL,TP 7.8 g/dL (6.4-8.2)
[2023-05-31 01:28] LABS: PROTHROMBIN TIME 9.8 SEC (9.0-12.0)
[2023-05-31 02:17] LABS: AMPHETAMINES,URINE NEGATIVE (NEGATIVE); BARBITURATES,URINE NEGATIVE (NEGATIVE); BENZODIAZEPINE,URINE NEGATIVE (NEGATIVE); MDMA (ECSTASY), URINE NEGATIVE (NEGATIVE); METHADONE,URINE NEGATIVE (NEGATIVE); METHAMPHETAMINES,URINE POSITIVE (NEGATIVE); OPIATES,URINE NEGATIVE (NEGATIVE); OXYCODONE,URINE NEGATIVE (NEGATIVE); PHENCYCLIDINE,URINE NEGATIVE (NEGATIVE); TCA,URINE NEGATIVE (NEGATIVE)
== END 2023-05-31 02:45 ==
LOC: DL.ED 00:30
DX: R10.84 Generalized abdominal pain (principal); F10.10 Alcohol abuse, uncomplicated; F19.10 Other psychoactive substance abuse, uncomplicated; J44.9 Chronic obstructive pulmonary disease, unspecified; K21.9 Gastro-esophageal reflux disease without esophagitis; I10 Essential (primary) hypertension; Z88.6 Allergy status to analgesic agent; Z79.899 Other long term (current) drug therapy; Z79.4 Long term (current) use of insulin; Z87.891 Personal history of nicotine dependence
CPT/HCPCS: 36415; 80053; 80305-QW; 80307; 83735; 85025; 85610; 86850; 86900; 86901; 99283; 99284; J3490